=== PATIENT | female | born 1940 | race Caucasian/White ===

== ENCOUNTER 2017-08-07 16:01 | Emergency (ER) | payer MEDICARE, BC ==
[2017-08-07 16:11] VITALS: BP 186/70
--- NOTE | 2017-08-07 16:46 | UC ---
Dental HPI - HPI Summary HPI Summary: Pt presents with tooth #31 abscess for the last 3 months. She tells me that years ago she had an abscess on the lower right side of her mouth and the dentist told her to push on it to express the purulent matter and then leave it alone..eventually that went away. 3 months ago she developed an abscess in her upper right mouth around tooth #31 and has been expressing purulent matter from it ever since. Over the last 3 days she has had pain in right maxillary sinus and intermittent pain in her right frontal area radiating to the right parietal to right occipital and terminating at the right cervical region. These pains are not associated with any movement, have no gotten worse, and she denies that they are "shocks" or "stiffness". Denies fever, chills, recent illness, earache , headache other than mentioned above, dizziness, numbness, tingling, ST, SOB, chest pain, limb weakness, facial drooping, vision changes, or eye irritation. - History of Current Complaint Chief Complaint: UCRespiratory Stated Complaint: SINUS COMPLAINT Time Seen by Provider: 08/07/17 16:02 Hx Obtained From: Patient Onset/Duration: Gradual Onset Severity: Moderate Pain Intensity: 8 Pain Scale Used: 0-10 Numeric - Allergies/Home Medications Allergies/Adverse Reactions: Allergies Allergy/AdvReac Type Severity Reaction Status Date / Time No Known Allergies Allergy Verified 04/18/14 19:00 Home Medications: Home Medications Rivaroxaban TAB(*) [Xarelto 10 mg (*)] 08/07/17 [History] PMH/Surg Hx/FS Hx/Imm Hx Endocrine History: Diabetes, Thyroid Disease Cardiovascular History: Hypertension Respiratory History: Pulmonary Embolism Other History Of: Negative For: Anticoagulant Therapy - Surgical History Surgical History: Yes Surgery Procedure, Year, and Place: hysterectomy 1979 - Family History Known Family History: Positive: Unknown - Social History Occupation: Retired Lives: Alone Alcohol Use: None Substance Use Type: None Smoking Status (MU): Former Smoker Type: Cigarettes Length of Time of Smoking/Using Tobacco: 34 Have You Smoked in the Last Year: No Household Exposure Type: Cigarettes - Immunization History Most Recent Influenza Vaccination: unknown Most Recent Tetanus Shot: up to date Most Recent Pneumonia Vaccination: unknown Review of Systems Constitutional: Negative Skin: Negative Eyes: Negative ENT: Dental Pain Respiratory: Negative Cardiovascular: Negative Gastrointestinal: Negative Neurovascular: Negative Musculoskeletal: Negative Psychological: Negative All Other Systems Reviewed And Are Negative: Yes Physical Exam Triage Information Reviewed: Yes Appearance: Well-Appearing, Well-Nourished Vital Signs: Initial Vital Signs Temp 98.0 F 08/07/17 16:04 Pulse 93 08/07/17 16:04 Resp 18 08/07/17 16:04 BP 186/70 08/07/17 16:04 Pulse Ox 98 08/07/17 16:04 Vital Signs Reviewed: Yes Eyes: Positive: Conjunctiva Clear, Other: - EOMI. PERRLA.. Negative: Conjunctiva Inflamed, Discharge ENT: Positive: Hearing grossly normal - Tooth #31. No fluctuance or bogginess when palpating sinuses from oral cavity around this tooth., Pharynx normal, TMs normal, Dental tenderness - Tooth #31. No fluctuance or bogginess, Sinus tenderness - TTP over right maxiallary sinus. NTTP over ethmoid sinus., Uvula midline. Negative: Pharyngeal erythema, Nasal congestion, Nasal drainage, TM bulging, TM dull, TM red, Tonsillar swelling, Tonsillar exudate Dental: Positive: Percussion Tenderness @ - Tooth #31, Abscess @ - Tooth #31 with purulent matter around root of tooth, able to be expressed with palpation.. Negative: Gross Decay/Caries @, Dental Fracture @, Cellulitis @, Cervical Lymphadenopathy, Bleeding Neck: Positive: Supple, Nontender, No Lymphadenopathy, Other: - FROM. No rigidity. Negative brudzinski sign.. Negative: Nuchal Rigidity Respiratory: Positive: Chest non-tender, Lungs clear, Normal breath sounds, No respiratory distress, No accessory muscle use Cardiovascular: Positive: RRR, No Murmur, Pulses Normal Musculoskeletal: Positive: Strength Intact, ROM Intact, No Edema Neurological: Positive: Alert, Other: - A&Ox3. 3 word recall, remote, recent memory, ability to follow 2-step directions, and attention intact. CN II XII grossly intact. [id number] are intact. Gait with normal base. Romberg: maintains balance, no pronator drift. Sensations intact throughout. Normal speech. No facial drooping. Psychological: Positive: Age Appropriate Behavior Skin: Negative: rashes Dental Complaint Course/Dx - Course Course Of Treatment: Tooth #31 abscess. I spoke with Dr. Perez, whom also examined the patient, low suspicion for sinus abscess at this time. Will try po Augmentin. It was discussed with the patient that if her symptoms worsen or she develops new symptoms such as a fever, chills, swelling, increased pain, headache, dizziness, or increased drainage - she is to go to the ED. - Differential Dx/Diagnosis Differential Diagnosis/Dx: Dental Abscess Provider Diagnoses: Dental Abscess tooth #31 Discharge - Discharge Plan Condition: Stable Disposition: HOME Prescriptions: Amoxicillin/Clavulanate TAB* [Augmentin TAB 875*] 875 mg PO BID #20 tab Chlorhexidine MW 0.12% 473ML* [Peridex Mouth Wash 0.12%*] 15 ml MT BID #1 btl Patient Education Materials: Dental Abscess (ED) Referrals: Devin Scott MD [Primary Care Provider] - Additional Instructions: If you develop a fever, SOB, chest pain, neck pain, headache, vision changes, numbness, tingling, new or worsening symptoms - please go to the ED. Please call your dentist and schedule a follow up appointment for some time this week. Your blood pressure was high at todays visit. Please see your primary provider within 4 weeks for recheck and re-evaluation.
--- NOTE | 2017-08-10 18:48 | UC ---
Progress - Progress Note Progress Note: normal keya, MRSA neg Pt on Augmentin no change
== END 2017-08-07 17:03 | disposition home or self-care (01) ==
LOC: UCEAST 16:01
DX: K04.7 Periapical abscess without sinus (principal); I26.99 Other pulmonary embolism without acute cor pulmonale; Z79.01 Long term (current) use of anticoagulants; Z87.891 Personal history of nicotine dependence
CPT/HCPCS: 87070; 87205; 87640; 87641; 99212; G0463

== ENCOUNTER → 2017-11-09 10:41 | Day surgery (SDC) | payer MEDICARE, BC ==
[~2017-11-09 10:41] MED LIST: Clopidogrel TAB* 300 MG PO ONE; Flumazenil* 0.1 MG/ML 5 ML MDV ONE; Heparin 2 UNITS/ML IVPREMIX* 3,000 ML IV ONE; Heparin(*) 1000 UNIT/ML 10 ML VIAL CATH LAB IV ONE; Iodixanol* (CONTRAST) 320 MG/ML 100 ML SDV ONE; LORazepam TAB(*) 1 MG ONE; Lidocaine 1% INJ* 10 MG/ML 30 ML SDV ONE; Midazolam* 1 MG/ML 10 ML VIAL (10 MG) ONE; Naloxone* 0.4 MG/ML 1 ML VIAL ONE; ceFAZolin 1 GM VIAL(*) ONE; fentaNYL* 50 MCG/ML 5 ML VIAL (250 MCG VIAL) ONE; hydrALAZINE IV* 20 MG/ML VIAL ONE
[2017-11-09 12:01] LABS: INR 0.97 (0.77-1.02)
[2017-11-09 12:05] LABS: ABS Basophils 0.1 10^3/ul (0-0.2); ABS Eosinophils 0.3 10^3/ul (0-0.6); ABS Lymphocytes 1.3 10^3/ul (1.0-4.8); ABS Monocytes 0.8 10^3/ul (0-0.8); ABS Neutrophils 8.8 10^3/ul (1.5-7.7); ABS Nucleated RBC 0 10^3/ul; Eosinophil % 3.1 % (0-6); Hematocrit 38 % (35-47); Hemoglobin 12.1 g/dl (12.0-16.0); Lymphocyte % 11.7 % (25-47); Mean Corpuscular HGB Conc 32 g/dl (31-36); Mean Corpuscular Hemoglobin 29 pg (27-31); Mean Corpuscular Volume 92 fL (80-97); Mean Platelet Volume 8 um3 (7.4-10.4); Nucleated Red Blood Cells % 0; Platelet Count 230 10^3/ul (150-450); Red Blood Count 4.11 10^6/ul (4.0-5.4); Red Cell Distribution Width 16 % (10.5-15); White Blood Count 11.3 10^3/ul (3.5-10.8)
[2017-11-09 12:19] LABS: EGFR Non-African American 39.6 (>60)
[2017-11-09 17:55] VITALS: BP 145/67
--- NOTE | 2017-11-09 18:52 | PN ---
Progress Note - Progress Note Date of Service: 11/09/17 SOAP: Date of Service: 11/09/17 Subjective: No pain or nausea. Objective: Selected Entries 11/09/17 17:29 Temperature 97.5 F Temperature Temporal Artery Source Scan Pulse Rate 62 Respiratory 18 Rate Blood Pressure 145/67 (mmHg) O2 Sat by Pulse 95 Oximetry Patient on Room Yes Air NAD, AAO x 3 Right groin arteriotomy site is soft, nontender Dressing is C/D/I 2+ pulses palpated at right EXTRUSION DIE COORDINATOR, pop Cannot palpate DIRECTOR [employer] or DPA Foot is warm to touch Neuromuscular grossly intact right leg and foot Assessment: 77 YOF status post right leg arteriogram, balloon angioplasty of right popliteal artery, tibioperoneal trunk and peroneal artery. Attempt to revascularize the ostial occluded right [employer] and DAVE were not successful. Plan: 1. D/C to home after bedrest. 2. Plavix 75 mg PO daily x 6 months. 3. No aspirin in light of Xarelto. 4. Planned right 2nd toe amputation with Dr. Jane , 11/11/17 5. May retry cannulating the right [employer] at a later date.
--- NOTE | 2017-11-10 09:46 | RAD ---
Non Tunneled Central Venous Catheter Placement. Procedures performed: 1. Placement of a left common femoral vein non tunneled catheter with ultrasound and fluoroscopic guidance. 2. Venogram of the left common and external iliac veins and lower inferior vena cavogram. Date of service: November 09, 2017 Indication for procedure: 1. Inability to acquire an maintained peripheral venous access prior to arterial angiography. 2. History of lower extremity DVT. Comparison: None Contrast: 5 mL of diluted Visipaque 320. Fluoroscopy Time: Approximately 30 seconds Vessels Accessed: Percutaneous access was obtained with ultrasound guidance in the left common femoral vein towards the heart. Anesthesia: 1% lidocaine injected locally at the venotomy site. Additional medications: Ativan 1 mg p.o. Procedure narration and imaging findings: Ultrasound of the left common femoral vein demonstrated the vein to patent and compressible. Math Teacher images were saved. The patient was placed in the supine position in the fluoroscopy suite and the bilateral groins were prepped and draped according to standard sterile protocol. A formal time out was performed by Dr. Cabrera in the presence of the IR staff and all agreed on the patient, procedure and laterality. The skin overlying the left common femoral vein was anesthetized with 1% lidocaine. Real time ultrasound imaging shows the left common femoral vein is patent and determined to be adequate for catheter placement. Utilizing real time ultrasound visualization the left common femoral vein was accessed with an 18 gauge needle. An image was recorded and saved confirming appropriate intraluminal position of the needle tip. Blood return further confirmed position. Through the needle and under fluoroscopic control a 0.035 inch guidewire was advanced in the cephalad direction into the inferior vena cava. Images of the wire in the IVC were recorded. Over the wire a 5-Setswana SideArm access sheath was advanced under fluoroscopic control until the tip terminated at the left external iliac vein. Contrast venography was performed with dilute Visipaque 320 demonstrating patency of the left external and common iliac veins with brisk unimpeded flow into the IVC. Tubing was connected to the central venous catheter and the catheter was secured to the left groin with sterile gauze and Tegaderm. The extended tubing was then provided to the interventional radiology nurse for the purpose of medication and fluid administration during the course of the planned arterial angiographic procedure to follow. SUMMARY OF PROCEDURE, IMAGING FINDINGS AND INTERVENTIONS PERFORMED: 1. Diagnostic studies performed: * Venous access was obtained at the left common femoral vein in the antegrade direction (i.e. towards the heart) with ultrasound guidance. A sonographic image was recorded. 2. Interpretation of diagnostic studies performed: * Venography performed with the tip of the access sheath in the left external iliac vein demonstrates brisk patent flow in the left common and external iliac veins continuing unimpeded into the inferior vena cava. 3. Surgical interventions performed: * Placement of a non tunneled left common femoral vein central access catheter with ultrasound and fluoroscopic guidance. PLAN: The non-tunneled Central venous catheter will be removed prior to the patient's discharge from the hospital.
--- NOTE | 2017-11-10 11:48 | RAD ---
CPT II Codes: 6045F Procedure(s) performed: 1. Diagnostic right lower extremity arteriogram. 2. Balloon angioplasty of right popliteal artery, tibioperoneal trunk and right peroneal artery. 3. Unsuccessful attempt at retrograde ultrasound-guided access of the right posterior tibial artery. 4. Percutaneous minx closure device to the right common femoral artery. 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 Comparison: MONI dated November 05, 2017 Contrast: 75 mL Visipaque 320 Fluoroscopy Time: 15.7 minus minutes Vessels Accessed: Percutaneous access was obtained with ultrasound guidance in the right common femoral artery in the antegrade direction towards the right foot. Catheter arteriography, with the catheter tip located within the lumen of the following arteries, was performed at the right common femoral artery, right superficial femoral artery, right popliteal artery and distal right posterior tibial artery. Anesthesia: Conscious sedation with IV Fentanyl and Versed as well as local 1% lidocaine injected locally at the arteriotomy site. Conscious sedation time: Timeout: 1351 hours Case end: 1651 hours Total conscious sedation time: 3 hours Additional medications: * Ancef 1 g IV * IV heparin 7000 Units to achieve a goal ACT of 250-300. * The patient received 1 mg of p.o. Ativan prior to the onset of the procedure. * Duodenum the procedure the patient received hydralazine 10 mg IV to reduce hypertension. PROCEDURE NOTE AND INTRAPROCEDURAL IMAGING FINDINGS: Immediately prior to the procedure the patient signed consent after thoroughly discussing all risks, benefits and alternative therapies. The patient was positioned on the fluoroscopy table in the supine position and the bilateral groins and right ankle were shaved, prepped and the patient was draped in standard sterile fashion. Using fluoroscopic imaging the location of the right common femoral head was marked externally with a skin marker on the patient's groin. Utilizing sonographic guidance and palpation, the right common femoral artery was cannulated overlying the femoral head with an 21-gauge needle. An ultrasound image was saved. A microwire was slowly and smoothly advanced into the common femoral artery and distally into the right superficial femoral artery under fluoroscopic imaging. No severe buckling of the wire was visualized to indicate dissection. With the wire securing percutaneous arterial access, the needle was removed and a 5-Greek catheter was advanced into the right common femoral artery. The microwire and inner stiffeners were removed and replaced with a 0.035 inch Bentson wire. Over the Bentson wire, a 5-Greek SideArm access sheath was advanced under fluoroscopic control until the tip terminating in the proximal right superficial femoral artery. To further characterize and exactly locate the extent of atherosclerotic disease involving the right lower extremity diagnostic catheter arteriography was necessary. Diagnostic arteriography was performed through the side arm of the access sheath demonstrating patency of the right distal external iliac artery, common femoral artery and proximal portions of the femoral profundus and superficial femoral artery. With the wire still in place arteriography of the remaining right superficial femoral artery and proximal popliteal artery was performed demonstrating adequate patency and a moderate amount of calcified atherosclerosis. Over the wire a 5-Greek curved tip catheter was advanced until the tip terminating in the popliteal artery. Catheter arteriography was performed showing moderate stenoses at the right popliteal artery and high-grade stenosis at the tibioperoneal trunk extending into the peroneal artery. Neither the origins of the anterior tibial artery or the posterior tibial artery where readily visible. With the catheter tip in the same position more distal arteriography was performed as far as the right midfoot which demonstrated single vessel runoff provided by the peroneal artery. The peroneal artery has at least 2 foci of high-grade stenosis at the mid-level portion of the artery. There is collateralized filling by the peroneal artery and intramuscular branches of the distal most right posterior tibial artery which then provides in-line flow to the Plantar arteries. There is reconstituted filling of the dorsalis pedis artery which remains diminutive. At this point attention was turned to the distal right posterior tibial artery at the level of the ankle with the intention of acquiring retrograde percutaneous access of the posterior tibial artery. Utilizing ultrasound guidance multiple attempts were made to cannulate the right posterior tibial artery without success. The heavy calcification to be displaced against the needle tip. At several points the needle tip appeared to be within the lumen of the right posterior tibial artery but the microwire would not advance. At one point it was thought luminal access had been obtained by gentle contrast injection revealed extraluminal access with dissection. Finally after multiple attempts pedal access was abandoned and gentle manual pressure was held for 5 minutes over the medial right ankle. Over the 0.035 inch wire the short 5-Greek access sheath was exchanged for a 45 cm length 6-Greek access sheath which was then advanced under fluoroscopic control until the tip was in the distal superficial femoral artery. Additional arteriogram was performed again showing mild stenoses at the femoropopliteal junction with high-grade stenosis at the tibioperoneal trunk and proximal peroneal artery. Utilizing a 0.014 inch Terumo Advantage wire the high-grade stenosis was crossed and the tip of the catheter was advanced to the distal peroneal artery securing access across the stenoses. Over the wire a 2.5 mm x 60 mm Nanocross balloon was advanced and balloon angioplasty was performed across the high-grade stenosis at the right tibioperoneal trunk and peroneal arteries. Balloon angioplasty was held for a minimum of 2 minutes anticipation of vasospasm. The balloon was then moved inferiorly and balloon angioplasty was performed at the mid-level peroneal artery where 2 short focal stenoses were seen. Balloon angioplasty remain inflated for a total of 2 1/2 minutes. The balloon was removed and replaced with a 4 mm x 60 mm Nanocross balloon which was advanced to the right tibioperoneal trunk and proximal peroneal artery. Balloon angioplasty was performed slowly further dilating the area of high-grade stenosis. The balloon remained inflated for a total of 4 minutes prior to deflation. The access sheath was drawn back more proximally in the superficial femoral artery and the same 4 mm balloon was utilized to balloon angioplasty the proximal popliteal artery where to moderate stenoses were seen. The balloon was maximally inflated to just below "burst pressure" corresponding to a diameter measurement of 4.3 mm. With the tip of the sheath in the distal superficial femoral artery contrast arteriography showed brisk flow through the distal SFA into the popliteal artery and through the previously stenotic right tibioperoneal trunk and peroneal artery as far as the level of the ankle collateralized filling of the distal most right SENIOR NETWORK ADMINISTRATOR and right dorsalis pedis arteries remained. A 0.035 inch wire was reinserted into the right superficial femoral artery and the 45 cm length 6-Greek access sheath was exchanged for an 11 mm 6-Greek access sheath for the purpose of percutaneous closure device deployment. Through the side arm of the access sheath arteriography of the right common femoral artery demonstrated an appropriate puncture of the common femoral artery above the bifurcation and below the inferior epigastric artery. After an appropriate resterilization of the arteriotomy and exchange for new sterile gloves, a Minx closure device was deployed at the common femoral arteriotomy and pressure held for approximately 15 minutes. There were no signs of bleeding at the percutaneous arterial access site and the site was dressed with sterile gauze and Tegaderm. There is no signs of hematoma formation are active bleeding at the medial right ankle. The patient tolerated the procedure well and was transferred to angiography holding bay for standard post procedural observation. SUMMARY OF PROCEDURE, IMAGING FINDINGS AND INTERVENTIONS PERFORMED: 1. Diagnostic studies performed: * Arterial access was obtained at the right common femoral artery in the antegrade direction (i.e. towards the foot) with ultrasound guidance. A sonographic image was recorded. * Microcatheter access was obtained in the posterior tibial artery. * Diagnostic catheter angiography (necessary to perform the appropriate interventions) was performed with the catheter tip in the right common femoral artery, right superficial femoral artery, right popliteal artery and distal right posterior tibial artery.. * Catheter arteriography was performed of the entire arterial system of the right lower extremity from the right external iliac artery as far as the right mid foot pedal arteries. * At the conclusion of the procedure arteriography was performed through the side arm of the access sheath to image the distal right external iliac artery, right common femoral artery and proximal superficial femoral artery and femoral profundus. 2. Interpretation of diagnostic studies performed: * There are mild stenoses identified at the proximal right popliteal artery. * There is single vessel runoff provided by the peroneal artery with ostial occlusion lesions of the right DAVE and SENIOR NETWORK ADMINISTRATOR. * High-grade stenosis extending through the tibioperoneal trunk into the proximal peroneal artery. There are 2 additional moderate stenoses at the mid-level right peroneal artery. * After attempting retrograde cannulation of the distal right posterior tibial artery gentle contrast injection demonstrated extra vascular extravasation with likely small dissection. Retrograde right SENIOR NETWORK ADMINISTRATOR access was aborted after this. * Arteriography performed for the purpose of deploying a percutaneous arterial closure device demonstrates adequately patent right external iliac artery, common femoral artery and proximal superficial femoral artery and femoral profundus. 3. Surgical interventions performed: * Balloon angioplasty with 2.5 x 16 mm and 4.0 x 60 mm Nanocross balloons at the right popliteal artery, right tibioperoneal trunk and right peroneal artery. * Closure of the right common femoral artery was achieved with a Minx closure device followed by 15 minutes of gentle manual pressure. 4. Interpretation of interventions performed: * Final arteriography demonstrated brisk in-line flow through the previously stenotic right popliteal artery, tibioperoneal trunk and peroneal artery. Augmented arterial flow is evident through the right peroneal artery which provides collateral filling to the right dorsalis pedis and distal posterior tibial arteries. Plan: 1. In the presence of the patient's Xarelto therapy, aspirin 81 mg daily will be deferred. 2. Plavix 75 mg p.o. daily x 6 months. 3. Clinical and imaging follow-up according to standard Interventional Radiology protocol. 4. The patient is due for right second toe amputation October. Depending on the patient's wound healing consideration will be given to either reattempting retrograde cannulation of the right posterior tibial artery versus consultation with vascular surgery for surgical bypass.
== END | disposition home or self-care (01) ==
LOC: CHICATH 10:41
PROVIDERS: ATTEND Radiology Diagnostic Radiology
DX: I96 Gangrene, not elsewhere classified (principal); Z86.718 Personal history of other venous thrombosis and embolism; Z87.891 Personal history of nicotine dependence; Z82.49 Family history of ischemic heart disease and other diseases of the circulatory system; Z79.4 Long term (current) use of insulin
CPT/HCPCS: 36415; 36556; 76937; 77001; 80048; 85025; 85610; 85730; 99156; 99157; A9270-GY; C1725; C1887; C1894; J0360; J0690; J1644; J2250; J2310; J3010

== ENCOUNTER 2017-11-11 07:32 | Day surgery (SDC) | payer MEDICARE, BC ==
[~2017-11-11 07:32] MED LIST changes: +Buffered Lidocaine 0.9% SYRIN* 5 ML/SYR SYRINGE INTRADERM ONE; +CEFAZOLIN IVPB ONE; -Clopidogrel TAB* 300 MG PO ONE; +Famotidine IV* 10 MG/ML 2 ML (20 mg) IV ONE; -Flumazenil* 0.1 MG/ML 5 ML MDV ONE; +Heparin 2 UNITS/ML IVPREMIX* 0 ML IV ONE; -Heparin 2 UNITS/ML IVPREMIX* 3,000 ML IV ONE; -Heparin(*) 1000 UNIT/ML 10 ML VIAL CATH LAB IV ONE; -Iodixanol* (CONTRAST) 320 MG/ML 100 ML SDV ONE; -LORazepam TAB(*) 1 MG ONE; +Metoclopramide IV* 5 MG/ML 2 ML VIAL IV SLOW PU ONE; -Midazolam* 1 MG/ML 10 ML VIAL (10 MG) ONE; +NS 0.9% IVPB ONE; -Naloxone* 0.4 MG/ML 1 ML VIAL ONE; -ceFAZolin 1 GM VIAL(*) ONE; -fentaNYL* 50 MCG/ML 5 ML VIAL (250 MCG VIAL) ONE; -hydrALAZINE IV* 20 MG/ML VIAL ONE
[2017-11-11] MEDS ORDERED: Metoclopramide IV* 5 MG/ML 2 ML VIAL ONE (07:41)
[2017-11-11] MEDS ORDERED: Famotidine IV* 10 MG/ML 2 ML (20 mg) ONE (07:41)
[2017-11-11] MEDS ORDERED: ceFAZolin 2 GM PREMIX (*) 2 GM/50 ML BAG IVPB ONE (07:42)
[2017-11-11] MEDS ORDERED: Buffered Lidocaine 0.9% SYRIN* 5 ML/SYR SYRINGE ONE (07:42)
[2017-11-11] MEDS ORDERED: fentaNYL* 50 MCG/ML 2 ML VIAL (100 MCG VIAL) ONE (10:27)
[2017-11-11] MEDS ORDERED: Midazolam* 1 MG/ML 5 ML VIAL (5 MG) ONE (10:27)
[2017-11-11] MEDS ORDERED: Lidocaine 2% PF * 5 ML VIAL ONE (10:41)
[2017-11-11] MEDS ORDERED: Propofol* 10 MG/ML 20 ML BTL IV PUSH ONE (10:41)
[2017-11-11] MEDS ORDERED: HYDROcodone/ACETAMIN 5-325 MG* 1 TAB PO PRN (10:59)
[2017-11-11] MEDS ORDERED: oxyCODONE/Acetamin 5/325 MG* TAB PO PRN (10:59)
[2017-11-11] MEDS ORDERED: fentaNYL* 50 MCG/ML 2 ML VIAL (100 MCG VIAL) IV PRN (10:59)
[2017-11-11] MEDS ORDERED: DiMENhydriNATE IV* 50 MG/ML VIAL IV PUSH PRN (10:59)
[2017-11-11] MEDS ORDERED: Naloxone* 0.4 MG/ML 1 ML VIAL IV PRN (10:59)
--- NOTE | 2017-11-11 11:35 | OP ---
Operative Report - Blank - Operative Report Date of Operation: 11/11/17 Note: PATIENT: Mitra Munoz DATE OF : 38 DATE OF SURGERY: 11/11/17 SURGEON: Mani Jane MD SENIOR RESEARCH ENGINEER: HONORIO Gamboa, whos assistance was necessary for positioning, retraction, help with instrumentation, and closure. 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 INDICATIONS FOR PROCEDURE: Mitra presented with a dry gangrenous right 2nd toe. Both operative and non operative treatment alternatives were reviewed. Further, the nature and risks of surgery were reviewed in careful detail. Our discussions regarding the risks of surgery included, but were not limited to, infection, wound problems, nerve injury, neuroma, RSD, persistent symptoms, blood clot, failure of the surgery, need for further amputation or surgery, and even the remote chance of catastrophic complication, including loss of limb. DESCRIPTION OF PROCEDURE: The patient was seen in the preoperative holding unit and informed written consent was obtained. The appropriate extremity was marked. The patient was then brought to the operating room and carefully positioned on the operating room table. Anesthesia was induced. All bony prominences were padded with great care. A chlorhexidine based pre-scrub was performed followed by a chloraprep prep and drape in standard sterile fashion. A surgical safety pause was then conducted in which we confirmed the appropriate patient, extremity, planned procedure, availability of equipment, indication and administration of prophylactic antibiotics, and DVT prophylaxis in the form of a compression boot on the non-surgical extremity. I made an incision at the base of the toe, proximal to the gangrenous area. The phalanges were dissected out and the toe was amputated at the level of the MTP joint. The toe was then sent to pathology. We then irrigated copiously. There was minimal bleeding at the base of the wound. We closed with 3-0 monocryl and then 3-0 nylon and then placed a sterile dressing. The patient was then awakened from anesthesia and transferred to the recovery room in stable condition. There were no complications. All needle and sponge counts were correct at the end of the case. ATTESTATION: I attest I was present and scrubbed and performed the critical portions of the procedure myself. POSTOPERATIVE PLAN: The patient may be heel weight-bearing in a post-operative shoe and will follow up will be in two weeks for a wound check.
[2017-11-11 12:21] VITALS: BP 128/60
== END 2017-11-11 12:28 | disposition home or self-care (01) ==
LOC: OR 07:32
PROVIDERS: ATTEND Orthopaedic Surgery
DX: I96 Gangrene, not elsewhere classified (principal); L97.511 Non-pressure chronic ulcer of other part of right foot limited to breakdown of skin; E10.52 Type 1 diabetes mellitus with diabetic peripheral angiopathy with gangrene; I26.99 Other pulmonary embolism without acute cor pulmonale; I10 Essential (primary) hypertension; E78.00 Pure hypercholesterolemia, unspecified; M10.9 Gout, unspecified; Z88.8 Allergy status to other drugs, medicaments and biological substances; Z87.891 Personal history of nicotine dependence; Z79.4 Long term (current) use of insulin
CPT/HCPCS: 88305; 88311; J0690; J1644; J2250; J2704; J2765; J3010

== ENCOUNTER 2017-12-18 12:19 | Emergency (ER) | payer MEDICARE, BC ==
[2017-12-18] MEDS ORDERED: oxyCODONE/Acetamin 5/325 MG* TAB PO ONE (13:51)
[2017-12-18 15:26] VITALS: BP 174/65
--- NOTE | 2017-12-20 10:03 | ED ---
Aleshia Ochoa Jason, scribed for Calra Sánchez MD on 12/18/17 at 1353 . ED Suture/Wound Check - HPI Summary HPI Summary: This patient is a 77 year old F presenting to [facility] with a chief complaint of wound check since 1900 1 day ago. The patient states she a bypass in the RLE and was sent home with a wound vacuum. She is now presenting to the [facility] because the wound vacuum was alarming. The patient rates the pain 0/10 in severity. Symptoms aggravated by nothing. Symptoms alleviated by nothing. Patient denies fever, n/v/d, chills, and worsening pain. - History Of Current Complaint Chief Complaint: EDExtremityLower Stated Complaint: WOUND VAC NOT WORKING Time Seen by Provider: 12/18/17 13:28 Hx Obtained From: Patient Onset/Duration: Sudden Onset, Still Present Pain Intensity: 0 Pain Scale Used: 0-10 Numeric - Allergies/Home Medications Allergies/Adverse Reactions: Allergies Allergy/AdvReac Type Severity Reaction Status Date / Time STATINS Allergy Severe ANKLES Uncoded 12/18/17 12:26 SWELL Home Medications: Home Medications Allopurinol TAB* [Zyloprim 300 MG TAB*] 300 mg PO DAILY 12/18/17 [History Confirmed 12/18/17] Clobetasol Propionate/Emoll [Clobetasol Propionate Emo] 0.05 % TOPICAL DAILY PRN 12/18/17 [History Confirmed 12/18/17] Gabapentin CAP(*) [Neurontin 100 mg CAP(*)] 200 mg PO TID 12/18/17 [History Confirmed 12/18/17] Magnesium Oxide TAB* [MagOx 400 TAB*] 400 mg PO DAILY 12/18/17 [History Confirmed 12/18/17] Multivitamins/Minerals TAB* [Theragran/minerals TAB*] 1 tab PO DAILY 12/18/17 [ History Confirmed 12/18/17] Polyethylene Glycol 3350* [Miralax*] 17 gm PO DAILY PRN 12/18/17 [History Confirmed 12/18/17] Valsartan [Valsartan 320 MG] 320 mg PO DAILY 12/18/17 [History Confirmed ] Vit C/E/Zn/Coppr/Lutein/Zeaxan [Preservision Areds 2 Softgel] 1 each PO DAILY [History Confirmed 12/18/17] hydrALAZINE TAB* [Apresoline TAB*] 50 mg PO TID 12/18/17 [History Confirmed ] traMADol TAB* [Ultram*] 50 mg PO Q6HR PRN MDD 200 mg 12/18/17 [History Confirmed 12/18/17] PMH/Surg Hx/FS Hx/Imm Hx Previously Healthy: No Endocrine/Hematology History: Reports: Hx Diabetes - type 2 dm, Hx Thyroid Disease - hypothyroid Denies: Hx Anticoagulant Therapy Cardiovascular History: Reports: Hx Coronary Artery Disease, Hx Hypertension - controlled with meds, Other Cardiovascular Problems/Disorders - LBBB Denies: Hx Congestive Heart Failure, Hx Pacemaker/ICD Respiratory History: Reports: 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 , Other Respiratory Problems/Disorders - uses O2 prn sob, sopposed to use at night Denies: Hx Asthma, Hx Chronic Obstructive Pulmonary Disease (COPD) GI History: Reports: Hx Irritable Bowel - colitis History: Denies: Hx Renal Disease Musculoskeletal History: Reports: Hx Arthritis, Hx Gout, Other Musculoskeletal History - gout Sensory History: Reports: Hx Cataracts - both, Hx Contacts or Glasses - for reading Denies: Hx Hearing Aid Opthamlomology History: Reports: Hx Cataracts - both, Hx Contacts or Glasses - for reading Neurological History: Denies: Hx Dementia, Hx Seizures Psychiatric History: Denies: Hx Panic Disorder, Hx Substance Abuse - Cancer History Hx Chemotherapy: No - Surgical History Surgery Procedure, Year, and Place: hysterectomy and appendectomy 1979. tonsillectomy 1977 Hx Anesthesia Reactions: No Infectious Disease History: No Infectious Disease History: Denies: Hx Hepatitis, Hx Human Immunodeficiency Virus (HIV), Traveled Outside the [place] in Last 30 Days - Family History Known Family History: Positive: Diabetes - mother - Social History Alcohol Use: None Substance Use Type: Reports: None Smoking Status (MU): Former Smoker Type: Cigarettes Amount Used/How Often: social smoker off and on for 10 years less than 1/2ppd Length of Time of Smoking/Using Tobacco: 34 Have You Smoked in the Last Year: No Review of Systems Negative: Fever, Chills Negative: Vomiting, Diarrhea, Nausea Musculoskeletal: Negative - worsening pain Positive: Other - RLE wound All Other Systems Reviewed And Are Negative: Yes Physical Exam - Summary Physical Exam Summary: GENERAL: ~Patient is a well developed and nourished female who is lying comfortable in the stretcher. ~Patient is not in any acute respiratory distress. HEAD AND FACE: Normocephalic EYES: PERRLA, EOMI x 2. EARS: Hearing grossly intact. MOUTH: Oropharynx within normal limits. NECK: Supple, trachea is midline, no adenopathy, no JVD, no carotid bruit. CHEST: Symmetric, no tenderness at palpation LUNGS: Clear to auscultation bilaterally. No wheezing or crackles. CVS: Regular rate and rhythm, S1 and S2 present, no murmurs or gallops appreciated. ABDOMEN: Soft, non-tender. Bowel sounds are normal. No abdominal abnormal pulsations. EXTREMITIES: Full ROM in all major joints, no edema, no cyanosis or clubbing. Sutures are intact on the medial aspect of the RLE. NEURO: Alert and oriented x 3. No acute neurological deficits. Speech is normal and follows commands. SKIN: Dry and warm Triage Information Reviewed: Yes Vital Signs On Initial Exam: Initial Vitals Temp Pulse Resp BP Pulse Ox 97.4 F 69 16 168/62 95 12/18/17 12:24 12/18/17 12:24 12/18/17 12:24 12/18/17 12:24 12/18/17 12:24 Vital Signs Reviewed: Yes Diagnostics - Vital Signs Vital Signs Temp Pulse Resp BP Pulse Ox 12/18/17 12:24 97.4 F 69 16 168/62 95 - Laboratory Lab Statement: Any lab studies that have been ordered have been reviewed, and results considered in the medical decision making process. Course/Dx - Course Assessment/Plan: Wound vacuum was changed by the ED nurse without complication. Patient will follow up with her vascular surgeon. Patient is agreeable with this plan. - Clinical Impression Provider Diagnoses: Encounter for wound re-check Discharge - Sign-Out/Discharge Documenting (check all that apply): Discharge/Admit/Transfer - Discharge Plan Condition: Stable Disposition: HOME Patient Education Materials: Care For Your Stitches (ED), Acute Wound Care (ED) , Chronic Wound Care (ED) Referrals: Devin Scott MD [Primary Care Provider] - 3 Days Additional Instructions: RETURN TO THE EMERGENCY DEPARTMENT FOR CHANGING OR WORSENING SYMPTOMS. The documentation as recorded by the Aleshia ansari Jason accurately reflects the service I personally performed and the decisions made by me, Carla Sánchez MD.
== END 2017-12-18 15:26 | disposition home or self-care (01) ==
LOC: ED 12:19
DX: T81.89XA Other complications of procedures, not elsewhere classified, initial encounter (principal); E11.9 Type 2 diabetes mellitus without complications; Z79.4 Long term (current) use of insulin; E03.9 Hypothyroidism, unspecified; I25.10 Atherosclerotic heart disease of native coronary artery without angina pectoris; I10 Essential (primary) hypertension; I44.7 Left bundle-branch block, unspecified; Z86.718 Personal history of other venous thrombosis and embolism; Z86.711 Personal history of pulmonary embolism; Z79.01 Long term (current) use of anticoagulants; Z87.891 Personal history of nicotine dependence; Z88.8 Allergy status to other drugs, medicaments and biological substances
CPT/HCPCS: 99282; A9270-GY

== ENCOUNTER 2018-01-04 14:21 | Emergency (ER) | payer MEDICARE, BC ==
[2018-01-04] MEDS ORDERED: Vancomycin(*) 1,000 MG in NS 0.9% 250 ML* 250 ML IVPB ONE (15:09)
[2018-01-04] MEDS ORDERED: metroNIDAZOLE IV 500 MG/100ML* 500 MG/100 ML BAG IVPB ONE (15:09)
[2018-01-04] MEDS ORDERED: Cefepime(*) 2 GM in NS 0.9% 50 ML* 50 ML IVPB ONE (15:09)
[2018-01-04] MEDS ORDERED: NS 0.9% 1000 ML* 1,000 ML IV SCH (15:15)
[2018-01-04] MEDS ORDERED: Cefepime 2 GM in Dextrose(*) 2 GM/50 ML BAG IV ONE (15:30)
[2018-01-04 16:32] LABS: ABS Basophils 0.1 10^3/ul (0-0.2); ABS Eosinophils 0.4 10^3/ul (0-0.6); ABS Lymphocytes 1.3 10^3/ul (1.0-4.8); ABS Monocytes 0.8 10^3/ul (0-0.8); ABS Neutrophils 5.9 10^3/ul (1.5-7.7); ABS Nucleated RBC 0 10^3/ul; Eosinophil % 4.8 % (0-6); Hematocrit 29 % (35-47); Hemoglobin 9.6 g/dl (12.0-16.0); Lymphocyte % 15.3 % (25-47); Mean Corpuscular HGB Conc 33 g/dl (31-36); Mean Corpuscular Hemoglobin 27 pg (27-31); Mean Corpuscular Volume 82 fL (80-97); Mean Platelet Volume 7.1 um3 (7.4-10.4); Nucleated Red Blood Cells % 0; Platelet Count 335 10^3/ul (150-450); Red Blood Count 3.59 10^6/ul (4.0-5.4); Red Cell Distribution Width 17 % (10.5-15); White Blood Count 8.5 10^3/ul (3.5-10.8)
[2018-01-04 16:54] LABS: EGFR Non-African American 37.3 (>60)
[2018-01-04 16:59] LABS: INR 1.17 (0.77-1.02)
--- NOTE | 2018-01-04 17:11 | RAD ---
INDICATION: Right leg pain. Infection. Recent bypass graft surgery. COMPARISON: None TECHNIQUE: Axial scans of the lower extremity were obtained from the adductor canal through the ankle. FINDINGS: There is diffuse subcutaneous edema and skin induration about the medial distal leg. There is a skin defect consistent with wound dehiscence and/or ulceration. The findings suggest diffuse cellulitic response. There is no subcutaneous emphysema. By history there is a bypass graft. No contrast was given and therefore vascular patency cannot be assessed. The [place] popliteal artery and tibial veins show extensive calcifications. Doppler interrogation would be the best study to evaluate for graft patency. IMPRESSION: NONCONTRAST CT IMAGING SHOWS DIFFUSE SUBCUTANEOUS EDEMA AND SKIN INDURATION CONSISTENT WITH CELLULITIC RESPONSE. GRAFT PATENCY IS NOT ASSESSED ON THIS EXAMINATION (SEE ABOVE).
[2018-01-04] MEDS ORDERED: traMADol TAB* 50 MG PO ONE (18:56)
--- NOTE | 2018-01-04 19:15 | ED ---
Hakeem Ochoa Natalie, scribed for Mynor Tesfaye MD on 01/04/18 at 1435 . Lower Extremity - HPI Summary HPI Summary: The patient is a 77 y/o F presenting to the ED c/o pain in laceration in right leg from knee to ankle s/p vascular bypass surgery and second right toe amputation on 11/25/[address] Isaac in [place]. She was in the ICU until 11/29/17, and then in the rehab facility until 12/17/17. She was not given any instructions for caring for the wound, but she was given a wound vac, which she wasnt supposed to use by herself. She ended up at [facility] on 12/25/17 so that she could get the wound care she needed. However, the wound has not been getting taken care of, and the leg seems to be infected. The skin is starting to deteriorate. She was put on Clindamycin yesterday for the infection. Pt additionally c/o fever for the last few days. She is able to walk on her leg; she uses a walking boot. Hx of diabetes. - History of Current Complaint Chief Complaint: EDExtremityLower Stated Complaint: POSSIBLE LEG INFECTION Time Seen by Provider: 01/04/18 14:23 Hx Obtained From: Patient Mechanism Of Injury: Other - bypass surgery and second right toe amputation Onset of Pain: Days Onset/Duration: Days Severity Initially: Mild Severity Currently: Mild Pain Intensity: 0 Pain Scale Used: 0-10 Numeric Timing: Constant Location: Is Discrete @ - right leg and foot Associated Signs And Symptoms: Positive: Fever Able to Bear Weight: Yes - wears walking boot - Allergies/Home Medications Allergies/Adverse Reactions: Allergies Allergy/AdvReac Type Severity Reaction Status Date / Time [id number]-[id number]-Sbd Reductase Allergy Severe See Comment Verified 01/04/18 15:25 Inhibitor Home Medications: Home Medications Acetaminophen TAB* [Tylenol TAB*] 650 mg PO Q6H PRN MDD p 01/04/18 [History Confirmed 01/04/18] Aspirin EC TAB* [Ecotrin EC Low Dose 81 MG*] 81 mg PO DAILY 01/04/18 [History Confirmed 01/04/18] Clindamycin Cap(NF) [Clindamycin Cap 300 mg Cap(NF)] 300 mg PO Q6H 01/04/18 [ History Confirmed 01/04/18] Gabapentin CAP(*) [Neurontin 100 mg CAP(*)] 200 mg PO BEDTIME 01/04/18 [History Confirmed 01/04/18] Insulin ASPART (NF) [Novolog (NF)] 0 - 10 units SUBCUT AC 01/04/18 [History Confirmed 01/04/18] Lactobacillus Acidophilus* [Culturelle*] 1 cap PO BID 01/04/18 [History Confirmed 01/04/18] Metoprolol Tartrate TAB* [Lopressor TAB*] 50 mg PO DAILY 01/04/18 [History Confirmed 01/04/18] Rivaroxaban TAB(*) [Xarelto 15 mg(*)] 15 mg PO DAILY 01/04/18 [History Confirmed 01/04/18] Senna TAB* [Senokot TAB*] 2 tab PO DAILY 01/04/18 [History Confirmed 01/04/18] PMH/Surg Hx/FS Hx/Imm Hx Endocrine/Hematology History: Reports: Hx Diabetes - type 2 dm, Hx Thyroid Disease - hypothyroid Denies: Hx Anticoagulant Therapy Cardiovascular History: Reports: Hx Coronary Artery Disease, Hx Hypertension - controlled with meds, Other Cardiovascular Problems/Disorders - LBBB Denies: Hx Congestive Heart Failure, Hx Pacemaker/ICD Respiratory History: Reports: 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 , Other Respiratory Problems/Disorders - uses O2 prn sob, sopposed to use at night Denies: Hx Asthma, Hx Chronic Obstructive Pulmonary Disease (COPD) GI History: Reports: Hx Irritable Bowel - colitis History: Denies: Hx Renal Disease Musculoskeletal History: Reports: Hx Arthritis, Hx Gout, Other Musculoskeletal History - gout Sensory History: Reports: Hx Cataracts - both, Hx Contacts or Glasses - for reading Denies: Hx Hearing Aid Opthamlomology History: Reports: Hx Cataracts - both, Hx Contacts or Glasses - for reading Neurological History: Denies: Hx Dementia, Hx Seizures Psychiatric History: Denies: Hx Panic Disorder, Hx Substance Abuse - Cancer History Hx Chemotherapy: No - Surgical History Surgery Procedure, Year, and Place: hysterectomy and appendectomy 1979. tonsillectomy 1977 Hx Anesthesia Reactions: No Infectious Disease History: No Infectious Disease History: Denies: Hx Hepatitis, Hx Human Immunodeficiency Virus (HIV), Traveled Outside the [place] in Last 30 Days - Family History Known Family History: Positive: Diabetes - mother - Social History Alcohol Use: None Substance Use Type: Reports: None Smoking Status (MU): Former Smoker Type: Cigarettes Amount Used/How Often: social smoker off and on for 10 years less than 1/2ppd Length of Time of Smoking/Using Tobacco: 34 Have You Smoked in the Last Year: No Review of Systems Positive: Fever Positive: Other - right second toe amputated, painful surgical wound on mid- lower right leg All Other Systems Reviewed And Are Negative: Yes Physical Exam - Summary Physical Exam Summary: General: well-appearing, no pain distress Skin: warm, color reflects adequate perfusion, dry, surgical incision on medial aspect of RLE, lower half of incision is an open wound with granulation tissue that measures approximately 12cm long by 5cm wide, purulent drainage with surround erythema Head: normal Eyes: EOMI, JENNIFER ENT: normal Neck: supple, nontender Respiratory: CTA, breath sounds present Cardiovascular: RRR Abdomen: soft, nontender Bowel: present Musculoskeletal: normal, strength/ROM intact, great toe has normal capillary refill with good sensation, positive dorsalis pedis pulse Neurological: normal, sensory/motor intact, A&O x3 Psychological: affect/mood appropriate Triage Information Reviewed: Yes Vital Signs On Initial Exam: Initial Vitals Temp Pulse Resp BP Pulse Ox 97.7 F 74 17 158/80 94 01/04/18 14:22 01/04/18 14:22 01/04/18 14:22 01/04/18 14:22 01/04/18 14:22 Vital Signs Reviewed: Yes Diagnostics - Vital Signs Vital Signs Temp Pulse Resp BP Pulse Ox 01/04/18 14:22 97.7 F 74 17 158/80 94 - Laboratory Lab Results: Lab Results 01/04/18 01/04/18 01/04/18 Range/Units 16:17 16:17 16:17 WBC 8.5 (3.5-10.8) 10^3/ul RBC 3.59 L (4.0-5.4) 10^6/ul Hgb 9.6 L (12.0-16.0) g/dl Hct 29 L (35-47) % MCV 82 (80-97) fL MCH 27 (27-31) pg MCHC 33 (31-36) g/dl RDW 17 H (10.5-15) % Plt Count 335 (150-450) 10^3/ul MPV 7.1 L (7.4-10.4) um3 Neut % (Auto) 69.3 (38-83) % Lymph % (Auto) 15.3 L (25-47) % Hanson % (Auto) 9.5 H (0-7) % Eos % (Auto) 4.8 (0-6) % Baso % (Auto) 1.1 (0-2) % Absolute Neuts (auto) 5.9 (1.5-7.7) 10^3/ul Absolute Lymphs (auto) 1.3 (1.0-4.8) 10^3/ul Absolute Monos (auto) 0.8 (0-0.8) 10^3/ul Absolute Eos (auto) 0.4 (0-0.6) 10^3/ul Absolute Basos (auto) 0.1 (0-0.2) 10^3/ul Absolute Nucleated RBC 0 10^3/ul Nucleated RBC % 0 INR (Anticoag Therapy) 1.17 H (0.77-1.02) APTT 33.8 (26.0-36.3) seconds Sodium 132 L (139-145) mmol/L Potassium 4.4 (3.5-5.0) mmol/L Chloride 97 L (101-111) mmol/L Carbon Dioxide 26 (22-32) mmol/L Anion Gap 9 (2-11) mmol/L BUN 33 H (6-24) mg/dL Creatinine 1.37 H (0.51-0.95) mg/dL Est GFR ( Amer) 48.0 (>60) Est GFR (Non-Af Amer) 37.3 (>60) BUN/Creatinine Ratio 24.1 H (8-20) Glucose 251 H (70-100) mg/dL Lactic Acid (0.5-2.0) mmol/L Calcium 9.8 (8.6-10.3) mg/dL Total Bilirubin 0.40 (0.2-1.0) mg/dL AST 22 (13-39) U/L ALT 21 (7-52) U/L Alkaline Phosphatase 161 H (34-104) U/L C-Reactive Protein 200.94 H (< 5.00) mg/L Total Protein 7.1 (6.4-8.9) g/dL Albumin 3.2 (3.2-5.2) g/dL Globulin 3.9 (2-4) g/dL Albumin/Globulin Ratio 0.8 L (1-3) 05/15/18 Range/Units 16:17 WBC (3.5-10.8) 10^3/ul RBC (4.0-5.4) 10^6/ul Hgb (12.0-16.0) g/dl Hct (35-47) % MCV (80-97) fL MCH (27-31) pg MCHC (31-36) g/dl RDW (10.5-15) % Plt Count (150-450) 10^3/ul MPV (7.4-10.4) um3 Neut % (Auto) (38-83) % Lymph % (Auto) (25-47) % Hanson % (Auto) (0-7) % Eos % (Auto) (0-6) % Baso % (Auto) (0-2) % Absolute Neuts (auto) (1.5-7.7) 10^3/ul Absolute Lymphs (auto) (1.0-4.8) 10^3/ul Absolute Monos (auto) (0-0.8) 10^3/ul Absolute Eos (auto) (0-0.6) 10^3/ul Absolute Basos (auto) (0-0.2) 10^3/ul Absolute Nucleated RBC 10^3/ul Nucleated RBC % INR (Anticoag Therapy) (0.77-1.02) APTT (26.0-36.3) seconds Sodium (139-145) mmol/L Potassium (3.5-5.0) mmol/L Chloride (101-111) mmol/L Carbon Dioxide (22-32) mmol/L Anion Gap (2-11) mmol/L BUN (6-24) mg/dL Creatinine (0.51-0.95) mg/dL Est GFR ( Amer) (>60) Est GFR (Non-Af Amer) (>60) BUN/Creatinine Ratio (8-20) Glucose (70-100) mg/dL Lactic Acid 1.3 (0.5-2.0) mmol/L Calcium (8.6-10.3) mg/dL Total Bilirubin (0.2-1.0) mg/dL AST (13-39) U/L ALT (7-52) U/L Alkaline Phosphatase (34-104) U/L C-Reactive Protein (< 5.00) mg/L Total Protein (6.4-8.9) g/dL Albumin (3.2-5.2) g/dL Globulin (2-4) g/dL Albumin/Globulin Ratio (1-3) Result Diagrams: 01/04/18 16:17 01/04/18 16:17 Lab Statement: Any lab studies that have been ordered have been reviewed, and results considered in the medical decision making process. - CT Right Lower Extremity CT CT Interpretation: Positive (See Comments) - Noncontrast CT imaging shows diffuse subcutaneous edema and skin induration consistent with cellulitic response. Graft patency is not assessed on this examination. Doppler interrogation would be the best study to evaluate for graft patency. ED physician has reviewed this report. CT Interpretation Completed By: Radiologist Lower Extremity Course/Dx - Course Course Of Treatment: Pts medications reviewed this visit. Allergies noted. High blood pressure noted and patient advised to follow up with PCP. DISCUSSED WITH DR GARCÍA, SURGERY. SINCE THE INFECTED SURGICAL WOUND IF FROM A VASCULAR SURGERY AND WE DO NOT HAVE VASCULAR SURGEY AT [facility], THE PATIENT WILL NEED TO BE TRANSFERED TO WHERE THERE IS VASCULAR SURGERY. TRANSFERED TO [facility] WHERE THE PATIENT'S VASCULAR SURGEON IS. ACCEPTED IN TRANSFER BY DR HOWARD. STABLE AT TRANSFER. - Diagnoses Provider Diagnoses: HTN (hypertension), Infected surgical wound Discharge - Sign-Out/Discharge Documenting (check all that apply): Discharge/Admit/Transfer - Discharge Plan Condition: Stable Disposition: TRANS HIGHER LVL OF CARE FAC Referrals: Devin Scott MD [Primary Care Provider] - Additional Instructions: Your blood pressure was elevated during todays visit; please follow up with your primary care provider within a week for further evaluation. - Billing Disposition and Condition Condition: STABLE Disposition: EMTALA The documentation as recorded by the Hakeem asnari Natalie accurately reflects the service I personally performed and the decisions made by me, Mynor Tesfaye MD.
[2018-01-04 19:21] VITALS: BP 177/74
--- NOTE | 2018-01-07 06:41 | PN ---
Progress Note - Progress Note Date of Service: 01/04/18 Note: Staph simulans grew from blood cultures obtained Patient sent to higher level of care Nothing further
== END 2018-01-04 19:59 | disposition short-term general hospital (02) ==
LOC: ED 14:21
DX: T81.4XXA Infection following a procedure, initial encounter (principal); B95.7 Other staphylococcus as the cause of diseases classified elsewhere; I10 Essential (primary) hypertension; M10.9 Gout, unspecified; I25.10 Atherosclerotic heart disease of native coronary artery without angina pectoris; M19.90 Unspecified osteoarthritis, unspecified site; E11.9 Type 2 diabetes mellitus without complications; Z87.891 Personal history of nicotine dependence; Z88.8 Allergy status to other drugs, medicaments and biological substances; Z89.421 Acquired absence of other right toe(s); Z95.9 Presence of cardiac and vascular implant and graft, unspecified; Z79.01 Long term (current) use of anticoagulants; Z86.711 Personal history of pulmonary embolism; Z86.718 Personal history of other venous thrombosis and embolism
CPT/HCPCS: 36415; 80053; 83605; 85025; 85610; 85730; 86140; 87040; 87077; 87150; 87205; 96374; 99284; A9270-GY; J0692; J3370; J3490

== ENCOUNTER 2018-06-06 16:41 | Inpatient (IN) | payer MEDICARE, BC ==
[2018-06-06 18:22] LABS: ABS Basophils 0.1 10^3/ul (0-0.2); ABS Eosinophils 0.4 10^3/ul (0-0.6); ABS Lymphocytes 1.9 10^3/ul (1.0-4.8); ABS Monocytes 0.7 10^3/ul (0-0.8); ABS Neutrophils 4.9 10^3/ul (1.5-7.7); ABS Nucleated RBC 0 10^3/ul; Eosinophil % 5.4 % (0-6); Hematocrit 38 % (35-47); Hemoglobin 12.5 g/dl (12.0-16.0); Lymphocyte % 23.1 % (25-47); Mean Corpuscular HGB Conc 33 g/dl (31-36); Mean Corpuscular Hemoglobin 27 pg (27-31); Mean Corpuscular Volume 82 fL (80-97); Mean Platelet Volume 7.1 um3 (7.4-10.4); Nucleated Red Blood Cells % 0; Platelet Count 262 10^3/ul (150-450); Red Blood Count 4.61 10^6/ul (4.00-5.40); Red Cell Distribution Width 21 % (10.5-15); White Blood Count 8.1 10^3/ul (3.5-10.8)
[2018-06-06 18:48] LABS: EGFR Non-African American 22.6 (>60)
--- NOTE | 2018-06-06 19:12 | ED ---
Lower Extremity - HPI Summary HPI Summary: Patient from [facility] sent by PCP for further evaluation of wound to left great toe and left fourth toe with associated redness and swelling x 9 days. Denies pain. Patient started on augmentin 3 days ago with no change in symptoms. Denies pain, fever, trauma, cough, sore throat, CP, SOB , N/V/V abdominal pain, change in urine, change in BM. Medical history as HTN, thyroid, DM with right leg amputation, kidney disease, PE, gout. Patient on Xarelto. - History of Current Complaint Chief Complaint: EDExtremityLower Stated Complaint: POSS INFECTION LT FT Time Seen by Provider: 06/06/18 17:30 Hx Obtained From: Patient, Family/Rn Bone Marrow Transplant Mechanism Of Injury: Unknown Severity Currently: None Pain Intensity: 0 Associated Signs And Symptoms: Positive: Swelling, Redness Aggravating Factor(s): Nothing Able to Bear Weight: Yes - Allergies/Home Medications Allergies/Adverse Reactions: Allergies Allergy/AdvReac Type Severity Reaction Status Date / Time Bosqpya-Ivb-Cln Reductase Allergy Severe See Comment Verified 06/06/18 17:09 Inhibitor fentanyl Allergy Hallucinati Verified 06/06/18 17:10 ons general anesthesia Allergy Shakes Uncoded 06/06/18 17:09 PMH/Surg Hx/FS Hx/Imm Hx Endocrine/Hematology History: Reports: Hx Diabetes - type 2 dm, Hx Thyroid Disease - hypothyroid Denies: Hx Anticoagulant Therapy Cardiovascular History: Reports: Hx Coronary Artery Disease, Hx Hypertension - controlled with meds, Other Cardiovascular Problems/Disorders - LBBB Denies: Hx Congestive Heart Failure, Hx Pacemaker/ICD Respiratory History: Reports: 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 , Other Respiratory Problems/Disorders - uses O2 prn sob, sopposed to use at night Denies: Hx Asthma, Hx Chronic Obstructive Pulmonary Disease (COPD) GI History: Reports: Hx Irritable Bowel - colitis History: Denies: Hx Renal Disease Musculoskeletal History: Reports: Hx Arthritis, Hx Gout, Other Musculoskeletal History - gout Sensory History: Reports: Hx Cataracts - both, Hx Contacts or Glasses - for reading Denies: Hx Hearing Aid Opthamlomology History: Reports: Hx Cataracts - both, Hx Contacts or Glasses - for reading Neurological History: Denies: Hx Dementia, Hx Seizures Psychiatric History: Denies: Hx Panic Disorder, Hx Substance Abuse - Cancer History Hx Chemotherapy: No - Surgical History Surgery Procedure, Year, and Place: hysterectomy and appendectomy 1979. tonsillectomy 1977 Hx Anesthesia Reactions: No Infectious Disease History: No Infectious Disease History: Denies: Hx Hepatitis, Hx Human Immunodeficiency Virus (HIV), Traveled Outside the [place] in Last 30 Days - Family History Known Family History: Positive: Unknown, Diabetes - mother - Social History Alcohol Use: None Substance Use Type: Reports: None Smoking Status (MU): Former Smoker Type: Cigarettes Amount Used/How Often: social smoker off and on for 10 years less than 1/2ppd Length of Time of Smoking/Using Tobacco: 34 Have You Smoked in the Last Year: No Review of Systems Constitutional: Negative Eyes: Negative ENT: Negative Cardiovascular: Negative Respiratory: Negative Gastrointestinal: Negative Genitourinary: Negative Musculoskeletal: Negative Skin: Other Neurological: Negative Psychological: Normal All Other Systems Reviewed And Are Negative: Yes Physical Exam - Summary Physical Exam Summary: Area of purple tissue at the tip of left great toe. No purulent discharge, no foul odor. Nontender to palpation. Wound to stop of the left fourth toe with possible purulent discharge. Redness and swelling encompassing all 5 toes and medial aspect of left foot. PMS intact. Triage Information Reviewed: Yes Vital Signs On Initial Exam: Initial Vitals Temp Pulse Resp BP Pulse Ox 97.3 F 76 16 131/83 97 06/06/18 17:05 06/06/18 17:05 06/06/18 17:05 06/06/18 17:05 06/06/18 17:05 Vital Signs Reviewed: Yes Appearance: Positive: Well-Appearing Skin: Positive: Warm Head/Face: Positive: Normal Head/Face Inspection Eyes: Positive: Normal Neck: Positive: Supple Respiratory/Lung Sounds: Positive: Clear to Auscultation Cardiovascular: Positive: Normal Abdomen Description: Positive: Nontender Musculoskeletal: Positive: Normal Neurological: Positive: Normal Psychiatric: Positive: Normal AVPU Assessment: Alert - Deny Coma Scale Best Eye Response: 4 - Spontaneous Best Motor Response: 6 - Obeys Commands Best Verbal Response: 5 - Oriented Coma Scale Total: 15 Diagnostics - Vital Signs Vital Signs Temp Pulse Resp BP Pulse Ox 06/06/18 17:05 97.3 F 76 16 131/83 97 - Laboratory Lab Results: Lab Results 06/06/18 06/06/18 06/06/18 Range/Units 18:12 18:12 18:12 WBC 8.1 (3.5-10.8) 10^3/ul RBC 4.61 (4.00-5.40) 10^6/ul Hgb 12.5 (12.0-16.0) g/dl Hct 38 (35-47) % MCV 82 (80-97) fL MCH 27 (27-31) pg MCHC 33 (31-36) g/dl RDW 21 H (10.5-15) % Plt Count 262 (150-450) 10^3/ul MPV 7.1 L (7.4-10.4) um3 Neut % (Auto) 61.3 (38-83) % Lymph % (Auto) 23.1 L (25-47) % Gaines % (Auto) 9.1 H (0-7) % Eos % (Auto) 5.4 (0-6) % Baso % (Auto) 1.1 (0-2) % Absolute Neuts (auto) 4.9 (1.5-7.7) 10^3/ul Absolute Lymphs (auto) 1.9 (1.0-4.8) 10^3/ul Absolute Monos (auto) 0.7 (0-0.8) 10^3/ul Absolute Eos (auto) 0.4 (0-0.6) 10^3/ul Absolute Basos (auto) 0.1 (0-0.2) 10^3/ul Absolute Nucleated RBC 0 10^3/ul Nucleated RBC % 0 Sodium 134 L (135-145) mmol/L Potassium 5.5 H (3.5-5.0) mmol/L Chloride 101 (101-111) mmol/L Carbon Dioxide 26 (22-32) mmol/L Anion Gap 7 (2-11) mmol/L BUN 43 H (6-24) mg/dL Creatinine 2.11 H (0.51-0.95) mg/dL Est GFR ( Amer) 27.3 (>60) Est GFR (Non-Af Amer) 22.6 (>60) BUN/Creatinine Ratio 20.4 H (8-20) Glucose 128 H (70-100) mg/dL Lactic Acid 1.0 (0.5-2.0) mmol/L Calcium 10.2 (8.6-10.3) mg/dL Total Bilirubin 0.40 (0.2-1.0) mg/dL AST 16 (13-39) U/L ALT 11 (7-52) U/L Alkaline Phosphatase 113 H (34-104) U/L C-Reactive Protein 88.67 H (<8.01) mg/L Total Protein 7.2 (6.4-8.9) g/dL Albumin 3.8 (3.2-5.2) g/dL Globulin 3.4 (2-4) g/dL Albumin/Globulin Ratio 1.1 (1-3) Result Diagrams: 06/06/18 18:12 06/06/18 18:12 Lab Statement: Any lab studies that have been ordered have been reviewed, and results considered in the medical decision making process. - Radiology foot Xray Interpretation: No Acute Changes Radiology Interpretation Completed By: ED Physician Lower Extremity Course/Dx - Course Course Of Treatment: Patient from [facility] sent by PCP for further evaluation of wound to left great toe and left fourth toe with associated redness and swelling x 9 days. Denies pain. Patient started on augmentin 3 days ago with no change in symptoms. Denies pain, fever, trauma, cough, sore throat, CP, SOB, N/V/V abdominal pain, change in urine, change in BM. Medical history as HTN, thyroid, DM with right leg amputation, kidney disease, PE, gout. Patient on Xarelto. Physical exam:Area of purple tissue at the tip of left great toe. No purulent discharge, no foul odor. Nontender to palpation. Wound to stop of the left fourth toe with possible purulent discharge. Redness and swelling encompassing all 5 toes and medial aspect of left foot. PMS intact. Vital signs within normal limits. Lactic normal. Normal white count. Creatinine 2.11 elevated from prior reading 12/2017. Potassium 5.5. Patient given 1 L of fluids, started on Zosyn and vancomycin. X -ray negative for osteal or gas. Will admit to hospitalist. - Diagnoses Provider Diagnoses: Diabetic foot ulcer Discharge - Sign-Out/Discharge Documenting (check all that apply): Patient Departure - Discharge Plan Condition: Stable Disposition: ADMITTED TO [facility] Referrals: Devin Scott MD [Primary Care Provider] - - Billing Disposition and Condition Condition: STABLE Disposition: Admitted to [facility]
[2018-06-06] MEDS ORDERED: Piperacillin/Tazobac ADVAN(*) 3.375 GM in NS 0.9% 100 ML* 100 ML IVPB ONE (19:46)
[2018-06-06] MEDS ORDERED: NS 0.9% 1000 ML* 1,000 ML IV ONE (19:46)
[2018-06-06] MEDS ORDERED: Vancomycin(*) 1,000 MG in NS 0.9% 250 ML* 250 ML IVPB ONE (19:46)
[2018-06-06] MEDS ORDERED: Albuterol 2.5 MG/3 ML NEB.SOL* (0.083%) INH PRN (21:28)
[2018-06-06] MEDS ORDERED: Ondansetron INJ* 2 MG/ML VIAL IV PRN (21:28)
[2018-06-06] MEDS ORDERED: oxyCODONE/Acetamin 5/325 MG* TAB PO PRN (21:28)
[2018-06-06] MEDS ORDERED: Al Hydrox/Mg Hydrox/Simet LIQ* 30 ML UDC PO PRN (21:28)
[2018-06-06] MEDS ORDERED: Dextrose 50% Syringe 50 ML* 25 GM/50 ML SYRINGE IV PUSH PRN (21:37)
[2018-06-06] MEDS ORDERED: Vancomycin per Pharmacy* NOTE FOLLOW UP SCH (22:00)
[2018-06-06] MEDS: Cefepime 2 GM in Dextrose(*) 2 GM/50 ML BAG IV SCH (23:11)
[2018-06-06] MEDS: metroNIDAZOLE IV 500 MG/100ML* 500 MG/100 ML BAG IVPB SCH (23:50)
--- NOTE | 2018-06-07 00:33 | HP ---
AMENDED REPORT NOW INCLUDES COSIGNER DESIGNATION CC: Dr. Scott; Dr. Avalos, [facility] * ADMISSION HISTORY AND PHYSICAL: DATE OF ADMISSION: 06/06/18 ATTENDING HOSPITALIST: Meghann Crenshaw DO * (DICTATED BY HONORIO BRIGHT) PRIMARY CARE PROVIDER: Devin Scott MD PRIMARY VASCULAR SURGEON: Dr. Avalos, [facility]. CHIEF COMPLAINT: Left foot redness and swelling. HISTORY OF PRESENT ILLNESS: Ms. Munoz is a 78-year-old female with past medical history significant for hypertension, gout, hyperlipidemia, peripheral vascular disease, and insulin-dependent diabetes mellitus, who presented to the emergency room with complaints of left foot redness and swelling for the past 1 to 2 weeks. The patient has longstanding history of peripheral vascular disease for which she initially had a right toe amputation back in October of this year at [facility] by Dr. Jane. She eventually had vascular workup that revealed peripheral vascular disease for which she was sent to [facility] to see a vascular surgeon. Dr. Isaac at [facility] attempted similar bypass graft that unfortunately did not take and the patient had a wound VAC to her right lower extremity for over 3 months with no significant healing. She eventually had a right above knee amputation in January of this year and has been followed by Dr. Avalos at [facility]. Her right lower stump had healed nicely and she has not had any complaints with that; however, about 2 weeks ago, she started noticing some redness and swelling to her left foot. She also started to have a small dime size ulcer at the tip of her left great toe that eventually got bigger with time and then covered with a black eschar. She was seen by her primary care physician and was put on Augmentin for the past 3 days with no significant relief of her symptoms. The patient was worried about worsening DVTs to her left lower extremity that might lead to another amputation for which she came to the emergency room here at [facility] for further evaluation and to discuss possible IV antibiotics. The patient has scheduled workup regarding left lower extremity including ankle-brachial index study tomorrow as an outpatient and also scheduled for a CT of the left foot on the following day, which are all ordered by Dr. Avalos to assess her peripheral vascular disease on the left lower extremity. The patient also has history of pulmonary embolism for which she has been on Xarelto. She denies any discharge from the left great toe wound, fever, chills, calf pain, chest pain, or any other associated symptoms. She was evaluated in the emergency room and had laboratory workup that revealed normal white count of 8000. Her chemistry panel showed BUN of 43, which appears to be slightly higher than her baseline and also her creatinine was elevated. She also had elevated C- reactive protein of 88 and glucose of 128. Given her ongoing symptoms and failed outpatient treatment of her cellulitis, we were asked to see the patient for further evaluation and to consider admission to hospitalist services. PAST MEDICAL HISTORY: Significant for hypertension, insulin-dependent diabetes mellitus, hyperlipidemia, gout, arthritis, morbid obesity with BMI greater than 35 as well as pulmonary embolism. PAST SURGICAL HISTORY: Significant for hysterectomy in the remote past and recently femoral bypass vascular graft in October of 2017 that unfortunately failed followed by right above knee amputation in January of 2018. CURRENT MEDICATIONS: Her medications at [facility] include: 1. Tylenol 1000 mg p.o. t.i.d. as needed for fever or pain. 2. Allopurinol 150 mg p.o. daily. 3. Aspirin 81 mg p.o. daily. 4. Vitamin D 2000 units p.o. daily. 5. Ferrous sulfate 325 mg p.o. daily. 6. Gabapentin 200 mg p.o. q.h.s. 7. Insulin Lantus 15 units subcu q. day. 8. Magnesium oxide 400 mg p.o. t.i.d. 9. Metoprolol 25 mg p.o. b.i.d. 10. Multivitamins 1 tablet p.o. daily. 11. Xarelto 15 mg p.o. daily. ALLERGIES: Multiple including STATINS, FENTANYL. FAMILY HISTORY: Reviewed and noncontributory. SOCIAL HISTORY: The patient is a nonsmoker, denies alcohol intake. She is and she lists both her son, Cole, and her daughter as her healthcare proxy carriers and she lives at [facility]. She wishes to be a full code. REVIEW OF SYSTEMS: See HPI, otherwise 12 points review of systems were examined and they were essentially negative. PHYSICAL EXAMINATION GENERAL: She is a pleasant, obese, elderly female in no acute distress or discomfort at the time of admission. VITAL SIGNS: Revealed temperature of 97.3, pulse of 85, blood pressure of 143/ 69, respirations of 16 with O2 sat of 96% on room air. HEENT: Head is normocephalic, atraumatic. Sclerae anicteric. PERRLA. EOMs intact. Oropharynx is pink and moist. NECK: Supple. Trachea midline. No cervical adenopathy or thyromegaly. LUNGS: Clear to auscultation bilaterally. HEART: Regular rate and rhythm. Normal S1 and S2 without rubs, murmurs, or gallops. BACK: With normal curvature. No CVA tenderness. BREAST EXAM: Deferred at this time. ABDOMEN: Round, obese, nontender, and nondistended. There are no hernias, masses, or hepatosplenomegaly. EXTREMITIES: Right lower extremity with clean amputation above the knee, well- healed scar, there was no evidence of any bleeding or discharge noted. Left lower extremity with an area of erythema and swelling on the dorsal aspect of the foot extending to the ankle and on the dorsal aspect of all toes. There is no tenderness on examination and no warmth on palpation. Pedal pulse very faint. There is an area of eschar at the tip and ventral aspect of the great toe measuring approximately 3 cm in diameter. There is no crepitus on palpation and no drainage or bleeding noted. NEUROLOGIC: She is awake, alert, and oriented x3. Handgrip is equal bilaterally. Sensation is intact throughout. RECTAL: Exam deferred at this time. LABORATORY DATA: CBC with white count of 8000, hemoglobin 12.5, hematocrit of 38, and platelets of 262. Chemistry panel with sodium of 134, potassium 5.5, chloride 101, BUN of 43, creatinine of 2.11, her glucose is 128, lactic acid 1.0. LFTs within normal limits. C-reactive protein elevated at 88.6. ACCESSORY DIAGNOSTIC DATA: X-rays of the foot noted no bony fracture, possible mild soft tissue swelling noted. IMPRESSION: A 78-year-old female with longstanding history of peripheral vascular disease, hypertension, insulin-dependent diabetes mellitus, and morbid obesity, who is status post above knee amputation of the right lower extremity due to advanced peripheral vascular disease, who presents with erythema and cellulitis of the left foot, found to have a large necrotic ulcer at the tip of her left great toe, will be admitted under hospitalist services for the following. ASSESSMENT AND PLAN: 1. Left foot cellulitis. The patient had failed outpatient treatment using Augmentin. She had received a dose of vancomycin in emergency room and we will continue her vancomycin therapy per pharmacy protocol as well as adding Flagyl 500 mg b.i.d. and cefepime 2 g q.12 hours as well based on her renal clearance. We will ask pharmacy to assist on dosing her and we will continue her antibiotic coverage. The patient is also scheduled for outpatient procedures for workup regarding vascular disease of her left lower extremity. I will go ahead and order ankle-brachial index to be done tomorrow and also ask the orthopedic team to assist in case if she needs any minor debridement of the left greater toe given her area of eschar covering the ulcer. 2. History of peripheral vascular disease. I will request records from [facility] regarding her most recent surgeries there back in early summer of this year that led to her above knee amputation of the right lower extremity. 3. Hypertension. I will continue her metoprolol dose per home. She appears to be normotensive at this time. 4. Peripheral vascular disease. I will continue her aspirin therapy. 5. History of gouty arthritis. I will continue her allopurinol as prescribed. 6. Insulin-dependent diabetes mellitus. I will continue covering her with Lantus at 15 units subcu every morning and also to do check glucose check q.a.c. and cover her per sliding scale with lispro. 7. History of pulmonary embolism. She is clinically stable and we will continue her coverage with Xarelto. 8. DVT prophylaxis. She is on Xarelto. 9. Code status. She wishes to be a full code. 10. Disposition: Admit to medical service for IV antibiotics, treatment of left foot cellulitis, will need orthopedic consult in the morning for possible debridement and/or amputation of the left great toe. Also, may consider ID consultation for proper antibiotic coverage. TIME SPENT: Approximately 60 minutes was spent admitting this patient for which greater than 50% of that time taking history and performing physical exam. I went on and discussed the case with my attending, who agreed to plan of care. HONORIO BRIGHT [id number]/[facility] #: [id number] HOME
[2018-06-07] MEDS: Acetaminophen TAB* 325 MG PO PRN ×2 (03:38→22:49)
[2018-06-07 07:06] LABS: ABS Basophils 0.1 10^3/ul (0-0.2); ABS Eosinophils 0.5 10^3/ul (0-0.6); ABS Monocytes 0.6 10^3/ul (0-0.8); ABS Neutrophils 3.4 10^3/ul (1.5-7.7); ABS Nucleated RBC 0 10^3/ul; Eosinophil % 8.4 % (0-6); Hematocrit 31 % (35-47); Hemoglobin 10.3 g/dl (12.0-16.0); Lymphocyte % 18.1 % (25-47); Mean Corpuscular HGB Conc 33 g/dl (31-36); Mean Corpuscular Hemoglobin 27 pg (27-31); Mean Corpuscular Volume 82 fL (80-97); Mean Platelet Volume 7.2 um3 (7.4-10.4); Nucleated Red Blood Cells % 0.1; Platelet Count 191 10^3/ul (150-450); Red Blood Count 3.77 10^6/ul (4.00-5.40); Red Cell Distribution Width 21 % (10.5-15); White Blood Count 5.6 10^3/ul (3.5-10.8)
[2018-06-07 07:08] LABS: EGFR Non-African American 21.8 (>60)
[2018-06-07] MEDS: Insulin LISPRO* 1 UNITS UNIT SUBCUT SCH ×4 (07:36→21:50)
--- NOTE | 2018-06-07 07:42 | RAD ---
HISTORY: wound, hx og gangrene COMPARISONS: None VIEWS: 3 , Frontal, lateral, and oblique views of the left foot FINDINGS: BONE DENSITY: There is diffuse osteopenia. BONES: There is no displaced fracture. There is no appreciable erosion or periosteal reaction. There are calcaneal enthesophytes. JOINTS: There is osteoarthritis of the midfoot and first MTP joint and of the interphalangeal joints. ALIGNMENT: There is no dislocation. SOFT TISSUES: There is peripheral arterial calcification. OTHER FINDINGS: None. IMPRESSION: 1. OSTEOPENIA. 2. OSTEOARTHRITIS. 3. PERIPHERAL ARTERIAL DISEASE. 4. NO APPRECIABLE EROSION OR PERIOSTEAL REACTION. PLAIN FILM FINDINGS OF OSTEOMYELITIS ARE RELATIVELY LATE FINDINGS. IF THERE IS PERSISTENT CLINICAL CONCERN FOR OSTEOMYELITIS, RECOMMEND CORRELATION WITH FOLLOWUP IMAGING, THREE-PHASE BONE SCANNING, WHITE BLOOD CELL SCAN, AND/OR MRI OF THE AFFECTED REGION. R1
--- NOTE | 2018-06-07 09:22 | RAD ---
INDICATION: History of right lower leg BKA and now with black left toes. COMPARISON: MONI dated November 05, 2017 TECHNIQUE: Ankle-brachial indices and Doppler tracings were obtained of the lower extremities bilaterally. Volume pulse recordings were acquired at the bilateral ankles. REPORT: Ankle-brachial indices: Right: Value (SBP) Index Brachial: 132 Below the knee amputation Left: Value (SBP) Index Brachial: 142 Posterior tibialis: 60 0.42 Dorsalis pedis: Non-Compressible Doppler waveforms (acquired at rest): In the interrogated lower extremity arteries, Doppler waveforms are monophasic with notably reduced amplitudes in the left renal arteries. IMPRESSION: MONI values at the left posterior tibial artery are consistent with rest pain while the dorsalis pedis artery was noncompressible likely due to advanced calcified atherosclerosis. The waveforms measured at the left renal arteries indicate severe arterial insufficiency. Based on the patient's history catheter arteriography will likely be required to best determine the degree of arterial stenoses and occlusion.
[2018-06-07] MEDS: Aspirin EC TAB* 81 MG TAB.EC PO SCH (09:30)
[2018-06-07] MEDS: Magnesium Oxide TAB* 400 MG PO SCH ×3 (09:32→21:51)
[2018-06-07] MEDS: Metoprolol Tartrate TAB* 25 MG PO SCH ×2 (09:32→21:50)
[2018-06-07] MEDS: Cholecalciferol TAB* 1000 UNITS PO SCH (09:34)
[2018-06-07] MEDS: Ferrous Sulfate TAB* 325 MG PO SCH (09:34)
[2018-06-07] MEDS: Multivitamins/Minerals TAB PO SCH (09:35)
[2018-06-07] MEDS: Rivaroxaban TAB(*) 15 MG PO SCH (09:35)
[2018-06-07] MEDS: Allopurinol TAB* 300 MG PO SCH (09:35)
[2018-06-07] MEDS: Insulin GLARGINE(*) 1 UNITS UNIT SUBCUT SCH (09:36)
--- NOTE | 2018-06-07 11:35 | PN ---
Subjective Date of Service: 06/07/18 Interval History: Ms. Munoz is not feeling well this morning. She c/o 7/10 pain in her left foot. She is also upset that she feels as though she is not receiving her antibiotics on time. She is concerned about the results of her ABIs d/t her recent R AKA. She is concerned about how she will get around if she needs to have another amputation. She is unsure if she would like to return to the vascular surgeon at [facility] if it came to that point. She states that her children typically assist her in her medical decision-making and she would want their input. She denies CP, SOB, N/V/D. Family History: Unchanged from Admission Social History: Unchanged from Admission Past Medical History: Unchanged from Admission Objective Active Medications: Acetaminophen (Tylenol Tab*) 650 mg PO Q4H PRN Al Hydrox/Mg Hydrox/Simethicone (Maalox Plus*) 30 ml PO Q6H PRN Albuterol (Ventolin 2.5 Mg/3 Ml Neb.Lary*) 2.5 mg INH [id number] AWAKE PRN Allopurinol (Zyloprim Tab*) 150 mg PO DAILY HUEY Aspirin (Aspirin Ec Tab*) 81 mg PO DAILY [facility] Cholecalciferol (Vitamin D Tab*) 2,000 units PO DAILY [facility]UEY Dextrose (D50w Syringe 50 Ml*) 12.5 gm IV PUSH .FOR FS < 60 - SS PRN Ferrous Sulfate (Ferrous Sulfate Tab*) 325 mg PO DAILY HUEY Gabapentin (Neurontin Cap(*)) 200 mg PO BEDTIME HUEY Cefepime HCl (Maxipime 2 Gm In Dextrose Duplex (*)) 2 gm in 50 mls @ 100 mls/ hr IV Q24H [facility]UEY Metronidazole/Sodium Chloride (Flagyl 500 Mg Ivpb*) 500 mg in 100 mls @ 100 mls /hr IVPB Q12H [facility] Vancomycin HCl 1,500 mg/ (Sodium Chloride) 250 mls @ 166.667 mls/hr IVPB Q24H [facility] Insulin Glargine (Lantus(*)) 15 units SUBCUT Q24H [facility] Insulin Human Lispro (Humalog*) 0 units SUBCUT ACHS HUEY; Protocol Magnesium Oxide (Magox 400 Tab*) 400 mg PO TID HUEY Metoprolol Tartrate (Lopressor Tab*) 25 mg PO BID HUEY Multivitamins/Minerals (Theragran/Minerals Tab*) 1 tab PO DAILY [facility] Ondansetron HCl (Zofran Inj*) 4 mg IV Q4H PRN Oxycodone/Acetaminophen (Percocet 5/325 Tab*) 1 tab PO Q4H PRN Pharmacy Consult (Vancomycin Per Pharmacy*) 1 note FOLLOW UP .VANC PER PHARMACY [facility] Pharmacy Profile Note (Vancomycin Trough Check) 1 note FOLLOW UP 1330 ONE Rivaroxaban (Xarelto(*)) 15 mg PO DAILY [facility] Vital Signs - 8 hr 06/07/18 06/07/18 06/07/18 03:45 05:54 07:47 Temperature 98.5 F 98.4 F Pulse Rate 88 68 Respiratory 24 19 Rate Blood Pressure 132/48 128/51 (mmHg) O2 Sat by Pulse 95 95 Oximetry Oxygen Devices in Use Now: None Appearance: Elderly female laying in bed in NAD Eyes: No Scleral Icterus Ears/Nose/Mouth/Throat: NL Teeth, Lips, Gums, Mucous Membranes Moist Neck: NL Appearance and Movements; NL JVP, Trachea Midline Respiratory: Symmetrical Chest Expansion and Respiratory Effort, Clear to Auscultation Cardiovascular: NL Sounds; No Murmurs; No JVD, RRR, - - Mild nonpitting edema to left foot, faint left pedal pulse Abdominal: NL Sounds; No Tenderness; No Distention, No Hepatosplenomegaly Extremities: No Clubbing, Cyanosis Skin: - - Erythema on the dorsal aspect of the foot, streaking up to the ankle, eschar to tip of great toe Neurological: Alert and Oriented x 3, NL Sensation Lines/Tubes/Other Access: Clean, Dry and Intact Peripheral IV Nutrition: Taking PO's Result Diagrams: 06/07/18 06:35 06/07/18 06:35 Assess/Plan/Problems-Billing Assessment: Ms. Munoz is a 78yo with PMH of PVD s/p R toe amputation ultimately leading to R AKA in January after failed bypass grafting, DM2, HTN, gout, and obesity presents with left foot erythema and edema for 1-2 weeks which was unresponsive to outpt therapy, now admitted with L great toe ulcer and associated cellulitis of of the L foot. - Patient Problems (1) Cellulitis of left foot Current Visit: Yes Status: Acute Priority: High Code(s): L03.116 - CELLULITIS OF LEFT LOWER LIMB SNOMED Code(s): 887588375 Comment: - Left great toe ulcer with significant eschar, associated erythema on dorsal aspect of foot, streaking up to ankle - Appreciate ID consult - Dr. Hoyos recommends MRI to r/o osteomyselitis - Continue flagyl and cefepime (2) Ettru-me-rmbxdpv kidney injury Current Visit: Yes Status: Acute Priority: High Code(s): N17.9 - ACUTE KIDNEY FAILURE, UNSPECIFIED; N18.9 - CHRONIC KIDNEY DISEASE, UNSPECIFIED SNOMED Code(s): 053825993 Comment: - R/t dehydration, hypovolemia - Start IVF (3) PVD (peripheral vascular disease) Current Visit: Yes Status: Chronic Priority: High Code(s): I73.9 - PERIPHERAL VASCULAR DISEASE, UNSPECIFIED SNOMED Code(s): 183721398 Comment: - Followed by vascular surgery at [facility] - ABIs reveals advanced calcification and severe arterial insufficiency (4) DM2 (diabetes mellitus, type 2) Current Visit: Yes Status: Chronic Priority: High Comment: - Check A1C - Continue glargine, lispro SS (5) History of pulmonary embolism Current Visit: Yes Status: Chronic Priority: Medium Code(s): Z86.711 - PERSONAL HISTORY OF PULMONARY EMBOLISM SNOMED Code(s): 787422790 Comment: - Continue xarelto (6) HTN (hypertension) Current Visit: Yes Status: Chronic Priority: Medium Code(s): I10 - ESSENTIAL (PRIMARY) HYPERTENSION SNOMED Code(s): 00160734 Comment: - Continue metoprolol (7) History of gout Current Visit: Yes Status: Chronic Priority: Medium Code(s): Z87.39 - PERSONAL HISTORY OF DISEASES OF THE MS SYS AND CONN TISS SNOMED Code(s): 594135871 Comment: - No acute exacerbation - Continue allopurinol (8) Obesity Current Visit: Yes Status: Chronic Priority: Medium Code(s): E66.9 - OBESITY, UNSPECIFIED SNOMED Code(s): 396565096 Comment: - Supportive care (9) Full code status Current Visit: Yes Status: Acute Priority: High Code(s): Z78.9 - OTHER SPECIFIED HEALTH STATUS SNOMED Code(s): 731701632 (10) DVT prophylaxis Current Visit: Yes Status: Acute Priority: High Code(s): HZB7254 - SNOMED Code(s): 603081721 Comment: - Xarelto Status and Disposition: Inpatient for antibiotics.
[2018-06-07] MEDS: metroNIDAZOLE IV 500 MG/100ML* 500 MG/100 ML BAG IVPB SCH ×2 (11:51→22:33)
[2018-06-07] MEDS ORDERED: Vancomycin(*) 1,500 MG in NS 0.9% 250 ML* 250 ML IVPB SCH (14:00)
--- NOTE | 2018-06-07 16:02 | RAD ---
INDICATION: Left great toe ulcer evaluate for osteomyelitis and abscess. COMPARISON: Comparison is made with a prior x-ray study of the left foot from June 06, 2018. TECHNIQUE: Axial, sagittal and coronal T1 and T2-weighted images of the left foot were obtained. FINDINGS: There is diffuse soft tissue swelling. No fluid collection or abscess is seen. There is increased signal intensity in T2-weighted images throughout the distal phalanx of the great toe. This is normal in signal intensity on T1-weighted images suggestive of reactive change or early osteomyelitis. No erosive change or periosteal reaction is seen. Incidental note is made of a small fatty mass adjacent to the lateral aspect of the fifth metatarsal most consistent with a lipoma measuring 2.5 x 0.8 cm in size. IMPRESSION: 1. INCREASED SIGNAL INTENSITY WITHIN THE DISTAL PHALANX OF THE GREAT TOE ON T2 WEIGHTED IMAGES ONLY CONSISTENT WITH REACTIVE CHANGE OR EARLY OSTEOMYELITIS. 2. NO EVIDENCE FOR ABSCESS.
--- NOTE | 2018-06-07 17:21 | CONS ---
CONSULTATION REPORT: DATE OF CONSULT: 06/07/18 REQUESTING PROVIDER: Elle Gordon NP CONSULTING SERVICE: Infectious Disease. REASON FOR CONSULT: Left foot gangrene. IMPRESSION: 1. Left great toe gangrene with cellulitis, infective myositis. 2. Peripheral vascular disease with abnormal MONI on the left and history of right eothf-ysj-yyvg amputation. 3. Obesity. 4. Insulin-dependent diabetes. 5. Gout. RECOMMENDATIONS: 1. Continue cefepime 2 g once a day and Flagyl 500 mg IV every 12 hours and we will stop the vancomycin. 2. Consult Dr. Cabrera on further vascular evaluation of her leg to see if anything surgical or that can be fixed with a catheter. HISTORY OF PRESENT ILLNESS: This is a 78-year-old woman with peripheral vascular disease, admitted with left great toe turning black about a week and half ago. She saw her vascular surgeon as an outpatient who started her on Augmentin, which she has been taking, but she did have progression of redness from the blackened area of the great toe up to the midfoot with some chills, so she came to the hospital yesterday. White blood cell count was 8, sed rate was 77, CRP 89. She has been afebrile here. She is tolerating antibiotics well. She had redness through the midfoot, which since being here yesterday is decreasing and is receding back to around the blackened area of the great toe. She does not remember particular injury that started off. She had an x-ray of her foot yesterday in the emergency room that showed osteopenia, osteoarthritis , peripheral vascular disease. She had an MONI that showed decreased MONI value at the left posterior tibial artery and noncompressible dorsalis pedis artery. PAST MEDICAL HISTORY: 1. Insulin-dependent diabetes. 2. Obesity. 3. Peripheral vascular disease, status post right leg bypass, which failed after infection and subsequently had an tlyvm-bgh-gskx amputation. 4. Hypertension. 5. Hyperlipidemia. 6. Gout. 7. Osteoarthritis. 8. Pulmonary embolism. 9. Status post hysterectomy. ALLERGIES: STATINS and FENTANYL. MEDICATIONS: 1. Tylenol. 2. Allopurinol. 3. Aspirin. 4. Cefepime 2 g daily. 5. Cholecalciferol. 6. Gabapentin. 7. Insulin glargine. 8. Flagyl 500 mg IV every 12 hours. 9. Rivaroxaban. SOCIAL HISTORY: She is living in [place]. She has no travel or sick contacts. FAMILY HISTORY: No recurrent infections. REVIEW OF SYSTEMS: All negative except as noted above in the history of present illness. PHYSICAL EXAM: Vital Signs: Temperature of 37, heart rate 70, respiratory rate 19, blood pressure 128/51, oxygen saturation 95% on room air. In general, she is awake, not in distress. Neurologic: She is oriented x3. Follows all commands. Decreased sensation to light touch in the left foot. HEENT: There is no conjunctival hemorrhage. Oropharynx without lesions. Neck is supple without mass. Heart is regular rate and rhythm without murmurs, rubs, or gallops. Lungs are clear to auscultation bilaterally. Abdomen: Soft, nontender, nondistended. There are bowel sounds present. Skin: There is no rash or splinter hemorrhage. Musculoskeletal: Left foot is warm. There is 1.5 cm area of black eschar on the distal left great toe with surrounding erythema, which leads up to the forefoot. LABORATORY DATA: White blood cell count 5, hemoglobin 10, platelets 191. Creatinine 2.1. CRP 89. Please see impressions and recommendations as outlined above, which I have discussed with Elle Gordon NP. Thanks for asking me to see Ms. Munoz in consultation. [id number]/[facility] #: [id number] HOME
--- NOTE | 2018-06-07 18:11 | CONS ---
CONSULTATION REPORT: DATE OF CONSULT: 06/07/18 ATTENDING ORTHOPEDIC PROVIDER: Dr. Mani Jane. CHIEF COMPLAINT: Left great toe redness and swelling. HISTORY OF PRESENT ILLNESS: Ms. Munoz is a 78-year-old female, who presented to [facility] Emergency Room on 06/06/18 after a 1-week history of a red, transitioning to black distal aspect of the left great toe. The patient does have a past medical history significant for peripheral vascular disease, insulin- dependent diabetes, right above-knee amputation, hypertension, gout, hyperlipidemia. Onset of her symptoms began 1 week ago with redness of the tip of the left great toe. This quickly transitioned to black discoloration of the tip of the toe, which has since spread to large area of the toe as well as a red streak going up the top of the foot. The patient was seen on 06/03/[address] Avalos, her vascular surgeon at [facility], who started her on Augmentin. The patient took three days of this before following up with her primary care, Dr. Scott, on 06/06/18, who upon evaluation sent her right into the [facility] Emergency Room. The patient states that she does not recall any inciting event, though she did trip on 05/14/18 at her home at [place], but she did not have any injury to this toe at this time. She does not remember stubbing her toe, any skin breakdown, or any open lesions prior to onset of symptoms 1 week ago. She has never had any infection of the left lower extremity in the past. Her left toe is not currently painful. She does have decreased sensation of her left toes at baseline, which is now worse since onset of her symptoms. She reports only known fever was last night of 100 F and she does not have any chills. The patient does have a history of peripheral vascular disease in the right lower extremity as well. October of this year, she underwent a toe amputation on her right lower extremity at this facility and due to poor vascular supply was eventually sent to [facility] for a bypass graft followed by a wound VAC, which was unsuccessful and resulted in a right ahfoc-zzn-wcfw amputation in January of 2018. Dr. Avalos does follow her for this. PAST MEDICAL HISTORY: Significant for hypertension; insulin-dependent diabetes , last known A1c was approximately 8; hyperlipidemia; gout; morbid obesity; history of pulmonary embolism. PAST SURGICAL HISTORY: Hysterectomy, femoral bypass vascular graft in October of 2017, right woaan-lws-mrgz amputation in January 2018, angioplasty of the right lower extremity. MEDICATIONS: Medications patient can confirm are below, she is unsure of some dosages. 1. Tylenol 1000 mg p.o. as often as every 6 hours as needed for pain. 2. Allopurinol 150 mg p.o. daily. 3. Vitamin D 2000 units p.o. daily. 4. Gabapentin 200 mg p.o. q.h.s. 5. Insulin Lantus 15 units subcu daily. 6. Magnesium oxide 400 mg p.o. b.i.d. 7. Metoprolol 25 mg p.o. b.i.d. She is not entirely sure of this dose of metoprolol. 8. Multivitamin once daily. 9. Xarelto 15 mg daily. Again, the patient not entirely sure of this dose. ALLERGIES: STATINS and FENTANYL. FENTANYL causes hallucinations. FAMILY HISTORY: No known anesthesia issues in family history. SOCIAL HISTORY: The patient does not smoke. She does not drink alcohol and she does not use drugs. She is . Her son, Cole, is her healthcare proxy. The patient lives at [facility]. She is a full code. REVIEW OF SYSTEMS: General: Positive for fever. Negative for chills or recent illness. HEENT: Negative for change in vision, headache, head trauma. Cardio: No chest pain. No irregular heartbeats. Possible history of heart attack, though the patient is unable to confirm. Respiratory: No shortness of breath. No asthma, COPD, or sleep apnea. Abdomen: No abdominal pain, vomiting , or nausea. Does have history of chronic diarrhea. : No dysuria. Musculoskeletal: History of right lower extremity djdlb-dbv-mwcq amputation. Left lower extremity, current left great toe black and red discoloration. 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 Heme: History of DVT and PE, for which she takes Xarelto. Skin: Left lower extremity great toe with black and red discoloration that is streaking up the leg. PHYSICAL EXAM: Vital Signs: Temperature 98.5, pulse rate 70, respiratory rate 18, oxygen saturation 95%, blood pressure 127/51. General: The patient is well appearing, in no acute distress. HEENT: Normocephalic, atraumatic. Extraocular movements intact. Pupils equally round and reactive to light. Moist mucous membranes. Cardio: S1, S2. Regular rate and rhythm. Respiratory : Clear to auscultation bilaterally without wheezes, rales, or rhonchi. Abdomen: Bowel sounds normoactive in all 4 quadrants. Nontender to palpation. No guarding, no rigidity. Upper Extremities: Skin envelope intact. No obvious deformity. Nontender to palpation. Active flexion and extension of wrist digits, elbows without any associated pain. Shoulder is nonpainful. Active forward flexion and abduction. Left lower extremity: Skin envelope is intact. There is no obvious deformity. The patient has no tenderness to palpation at the hip, knee, or ankle. She has active nonpainful flexion and extension at the hip, knee, and ankle. The distal tip of the left great toe is black with eschar, roughly the size of a dime with surrounding blackened skin, quarter size. The remainder of the left great toe is somewhat dusky and red with erythema streaking on the dorsum of the foot up to the ankle not passing the demarcated lines. There is no tenderness to palpation of the toe and the patient is able to flex and extend the tow. There is no fluctuance. There is no warmth. There is no discharge. The remainder of the toes are unaffected. Her left toes do have slow capillary refill roughly 4 seconds. Sensation is decreased from the MTPs distally on all 5 digits, which the patient states is baseline. The 2nd and 4th toes do have pea-sized abrasions over the DIPs from a fall on 05/14/18, but with no surrounding erythema and no discharge. The right lower extremity is status post mjzvm-vtj-rojq amputation, Stump site is healed well. DIAGNOSTIC STUDIES/LAB DATA: Foot x-ray, 06/06/18, left foot, impression: Per radiologist, osteopenia, osteoarthritis, peripheral arterial disease. No appreciable erosion or periosteal reaction. On 06/07/18, ABIs are done, Impression: MONI values at the left posterior tibial artery are consistent with rest pain while the dorsalis pedis artery was noncompressible likely due to advanced calcified atherosclerosis. Based on the patient's history, catheter angiography will likely be required to best determine the degree of arterial stenosis and occlusion. Index measures 0.42. Laboratory studies: On 06/07/18, white blood cell count 5.6, hemoglobin 10.3, hematocrit 31, platelet count 191. Sodium 135, potassium 5.1, BUN 43, creatinine 2.18. A1c is 7.6. ASSESSMENT: Left great toe eschar and cellulitis with possible underlying osteomyelitis. PLAN: MRI of the left lower extremity to determine if there is any deeper infection underlying. If there is osteomyelitis, we will likely need to transfer the patient to [facility] where her vascular surgeon resides. If she does have only cellulitis/ dry gangrene at this point, then we would consider IV antibiotic treatment with outpatient followup with Vascular Surgery. We will await MRI results. HONORIO ALDRICH [id number]/[facility] #: [id number] MTDJean Marie
[2018-06-07] MEDS: NS 0.9% 1000 ML* 1,000 ML IV SCH (19:48)
[2018-06-07] MEDS: Gabapentin CAP(*) 100 MG PO SCH (21:49)
[2018-06-07] MEDS: Cefepime 2 GM in Dextrose(*) 2 GM/50 ML BAG IV SCH (21:51)
[2018-06-08] MEDS: NS 0.9% 1000 ML* 1,000 ML IV SCH (05:28)
--- NOTE | 2018-06-08 07:48 | PN ---
Progress Note - Progress Note Date of Service: 06/08/18 Note: Please see Tash Bhatti's note for full H&P. Mitra is well known to me and I was asked by the hospitalist service to consult. In short, she is a diabetic with peripheral neuropathy and severe PVD. She had a prolonged course on her RLE that started with gangrene in the toes, progressed to a bypass by vascular surgery at [facility] and ended with an AKA. She has now developed left hallux infection with early gangrene. She is understandably very worried as this is how her problems presented on the RLE. On exam she has mild cellulitis of the left hallux which has improved greatly with IV abx. She has gangrene of the tip of the toe. She has poor blood flow on MONI's. MRI does not clearly show deep infection or osteo of the hallux, possibly early osteo of the distal phalanx. Mitra and I spent a long time this morning discussing her problem and options. I would recommend abx to treat the cellulitis and f/u after d/c/next week with her vascular surgeon at [facility], Dr Isaac, to further discuss treatment options for the LLE. She is in agreement with this plan. We discussed concerning signs/symptoms that should prompt a sooner return to the ER. All of her questions were answered and she was very gracious in thanking me for helping her. Mani Jane MD
[2018-06-08] MEDS: Insulin LISPRO* 1 UNITS UNIT SUBCUT SCH ×4 (08:45→21:06)
[2018-06-08 08:47] LABS: ABS Basophils 0 10^3/ul (0-0.2); ABS Eosinophils 0.5 10^3/ul (0-0.6); ABS Lymphocytes 1.2 10^3/ul (1.0-4.8); ABS Monocytes 0.6 10^3/ul (0-0.8); ABS Neutrophils 2.7 10^3/ul (1.5-7.7); ABS Nucleated RBC 0 10^3/ul; Eosinophil % 9.8 % (0-6); Hematocrit 32 % (35-47); Hemoglobin 10.7 g/dl (12.0-16.0); Lymphocyte % 23.7 % (25-47); Mean Corpuscular HGB Conc 33 g/dl (31-36); Mean Corpuscular Hemoglobin 27 pg (27-31); Mean Corpuscular Volume 82 fL (80-97); Mean Platelet Volume 7.1 um3 (7.4-10.4); Nucleated Red Blood Cells % 0; Platelet Count 221 10^3/ul (150-450); Red Blood Count 3.94 10^6/ul (4.00-5.40); Red Cell Distribution Width 21 % (10.5-15)
--- NOTE | 2018-06-08 08:54 | PN ---
Progress Note - Progress Note Date of Service: 06/08/18 SOAP: Subjective: CC: left foot infection HPI: 78 year old woman wtih PAD and left foot cellulitis with great toe gangrene. Swelling and redness are improving. No fever, rash, or diarrhea. Objective: Vital Signs Temp 36.9 C 06/08/18 03:30 Pulse 58 06/08/18 03:30 Resp 24 06/08/18 03:30 BP 147/54 06/08/18 03:30 Pulse Ox 98 06/08/18 03:30 Intake & Output 06/07/18 06/08/18 06/08/18 18:59 06:59 18:59 Intake Total 370 1595 Balance 370 1595 Weight 202 lb 3 oz Intake: IV Fluids 985 NS (0.9%) 985 IVPB 130 ABX - CEFEPIME 65 ABX - FLAGYL 65 Oral 370 480 Other: Estimated Void Medium # Bowel Movements 0 # Voids 3 Gen: awake, no distress HEENT: no thrush Heart:RRR no murmur Lungs:CTA BL Abd:+BS NTND soft Skin: no rash MSK: L great toe distal gangrene; surrounding mild erythema Laboratory Results - last 24 hr 06/07/18 06/07/18 06/07/18 06:35 11:55 17:26 WBC RBC Hgb Hct MCV MCH MCHC RDW Plt Count MPV Neut % (Auto) Lymph % (Auto) [place] % (Auto) Eos % (Auto) Baso % (Auto) Absolute Neuts (auto) Absolute Lymphs (auto) Absolute Monos (auto) Absolute Eos (auto) Absolute Basos (auto) Absolute Nucleated RBC Nucleated RBC % POC Glucose (mg/dL) 157 H 142 H Hemoglobin A1c 7.6 H 06/07/18 06/08/18 06/08/18 20:03 08:21 08:28 WBC 5.0 RBC 3.94 L Hgb 10.7 L Hct 32 L MCV 82 MCH 27 MCHC 33 RDW 21 H Plt Count 221 MPV 7.1 L Neut % (Auto) 53.2 Lymph % (Auto) 23.7 L [place] % (Auto) 12.3 H Eos % (Auto) 9.8 H Baso % (Auto) 1.0 Absolute Neuts (auto) 2.7 Absolute Lymphs (auto) 1.2 Absolute Monos (auto) 0.6 Absolute Eos (auto) 0.5 Absolute Basos (auto) 0 Absolute Nucleated RBC 0 Nucleated RBC % 0 POC Glucose (mg/dL) 138 H 117 H Hemoglobin A1c Assessment: 1. Left great toe gangrene with cellulitis which is improving. MRI showed T2 weighted marrow change without loss of T1 weighted signal and symptoms for approx 2 weeks so I do not think there is osteomyelitis 2. PAD with abnl MONI on left 3. T2DM 4. Left AKA 5. CKD Plan: 1. continue iv antibiotics here, did not tolerate augmentin, can have levaquin 250 mg daily for 20 days. 35 minutes floor time >50% face to face coordinating care and discussion regarding coordination with vascular evaluation
[2018-06-08 09:00] LABS: EGFR Non-African American 27.5 (>60)
[2018-06-08] MEDS: Allopurinol TAB* 300 MG PO SCH (10:08)
[2018-06-08] MEDS: Ferrous Sulfate TAB* 325 MG PO SCH (10:11)
[2018-06-08] MEDS: Aspirin EC TAB* 81 MG TAB.EC PO SCH (10:11)
[2018-06-08] MEDS: Multivitamins/Minerals TAB PO SCH (10:12)
[2018-06-08] MEDS: Rivaroxaban TAB(*) 15 MG PO SCH ×2 (10:13→21:10)
[2018-06-08] MEDS: Cholecalciferol TAB* 1000 UNITS PO SCH (10:13)
[2018-06-08] MEDS: metroNIDAZOLE IV 500 MG/100ML* 500 MG/100 ML BAG IVPB SCH ×2 (10:14→23:08)
[2018-06-08] MEDS: Insulin GLARGINE(*) 1 UNITS UNIT SUBCUT SCH (10:22)
[2018-06-08] MEDS: Metoprolol Tartrate TAB* 25 MG PO SCH ×2 (10:25→21:10)
[2018-06-08] MEDS: Magnesium Oxide TAB* 400 MG PO SCH ×3 (10:25→21:10)
--- NOTE | 2018-06-08 12:18 | PN ---
Subjective Date of Service: 06/08/18 Interval History: Ms. Munoz feels better this morning. She is in better spirits and has a more optimistic outlook about her leg. We had a long conversation about options for treatment in the future. She states she will follow up with her vascular surgeon in [place], though she is unsure if she will pursue treatment d/t the complications she experienced with her right leg. She is motivated to do whatever she can to keep her left leg, as she feels as though it would be devastating to become a double amputee. She has been up in her room and is able to get to the bathroom independently. Family History: Unchanged from Admission Social History: Unchanged from Admission Past Medical History: Unchanged from Admission Objective Active Medications: Acetaminophen (Tylenol Tab*) 650 mg PO Q4H PRN Al Hydrox/Mg Hydrox/Simethicone (Maalox Plus*) 30 ml PO Q6H PRN Albuterol (Ventolin 2.5 Mg/3 Ml Neb.Lary*) 2.5 mg INH [id number] AWAKE PRN Allopurinol (Zyloprim Tab*) 150 mg PO DAILY [facility] Aspirin (Aspirin Ec Tab*) 81 mg PO DAILY [facility] Cholecalciferol (Vitamin D Tab*) 2,000 units PO DAILY [facility] Dextrose (D50w Syringe 50 Ml*) 12.5 gm IV PUSH .FOR FS < 60 - SS PRN Ferrous Sulfate (Ferrous Sulfate Tab*) 325 mg PO DAILY [facility] Gabapentin (Neurontin Cap(*)) 200 mg PO BEDTIME [facility] Cefepime HCl (Maxipime 2 Gm In Dextrose Duplex (*)) 2 gm in 50 mls @ 100 mls/ hr IV Q24H [facility] Metronidazole/Sodium Chloride (Flagyl 500 Mg Ivpb*) 500 mg in 100 mls @ 100 mls /hr IVPB Q12H [facility] Sodium Chloride (Ns 0.9% 1000 Ml*) 1,000 mls @ 125 mls/hr IV PER RATE [facility] Insulin Glargine (Lantus(*)) 15 units SUBCUT Q24H [facility] Insulin Human Lispro (Humalog*) 0 units SUBCUT ACHS [facility]; Protocol Magnesium Oxide (Magox 400 Tab*) 400 mg PO TID [facility] Metoprolol Tartrate (Lopressor Tab*) 25 mg PO BID [facility] Multivitamins/Minerals (Theragran/Minerals Tab*) 1 tab PO DAILY [facility] Ondansetron HCl (Zofran Inj*) 4 mg IV Q4H PRN Oxycodone/Acetaminophen (Percocet 5/325 Tab*) 1 tab PO Q4H PRN Rivaroxaban (Xarelto(*)) 15 mg PO DAILY [facility] Vital Signs - 8 hr 06/08/18 11:32 Temperature 98.1 F Pulse Rate 63 Respiratory 16 Rate Blood Pressure 146/53 (mmHg) O2 Sat by Pulse 99 Oximetry Oxygen Devices in Use Now: None Appearance: Elderly female laying in bed in NAD Eyes: No Scleral Icterus Ears/Nose/Mouth/Throat: NL Teeth, Lips, Gums, Mucous Membranes Moist Neck: NL Appearance and Movements; NL JVP, Trachea Midline Respiratory: Symmetrical Chest Expansion and Respiratory Effort, Clear to Auscultation Cardiovascular: NL Sounds; No Murmurs; No JVD, RRR Abdominal: NL Sounds; No Tenderness; No Distention, No Hepatosplenomegaly Extremities: No Edema, No Clubbing, Cyanosis Skin: - - Erythema to left foot significantly decreased since yesterday, left great toe necrotic at the tip Neurological: Alert and Oriented x 3, NL Sensation, NL Muscle Strength and Tone Lines/Tubes/Other Access: Clean, Dry and Intact Peripheral IV Nutrition: Taking PO's Result Diagrams: 06/08/18 08:28 06/08/18 08:28 Assess/Plan/Problems-Billing Assessment: Ms. Munoz is a 78yo with PMH of PVD s/p R toe amputation ultimately leading to R AKA in January after failed bypass grafting, DM2, HTN, gout, and obesity presents with left foot erythema and edema for 1-2 weeks which was unresponsive to outpt therapy, now admitted with L great toe ulcer and associated cellulitis of of the L foot. - Patient Problems (1) Cellulitis of left foot Current Visit: Yes Status: Acute Priority: High Code(s): L03.116 - CELLULITIS OF LEFT LOWER LIMB SNOMED Code(s): 772697486 Comment: - Left great toe ulcer with significant eschar, associated erythema improving - ID following - recommends 2-3 weeks levaquin PO at d/c - Dr. Hoyos following - Continue flagyl and cefepime (2) Zxnkg-te-lkjyvko kidney injury Current Visit: Yes Status: Acute Priority: High Code(s): N17.9 - ACUTE KIDNEY FAILURE, UNSPECIFIED; N18.9 - CHRONIC KIDNEY DISEASE, UNSPECIFIED SNOMED Code(s): 379762361 Comment: - Creatinine back to baseline (3) PVD (peripheral vascular disease) Current Visit: Yes Status: Chronic Priority: High Code(s): I73.9 - PERIPHERAL VASCULAR DISEASE, UNSPECIFIED SNOMED Code(s): 800906294 Comment: - Followed by vascular surgery at [facility] - ABIs reveal advanced calcification and severe arterial insufficiency - Appreciate consultation from Dr. Cabrera (4) DM2 (diabetes mellitus, type 2) Current Visit: Yes Status: Chronic Priority: High Comment: - A1C 7.6 - Continue glargine, lispro SS (5) History of pulmonary embolism Current Visit: Yes Status: Chronic Priority: Medium Code(s): Z86.711 - PERSONAL HISTORY OF PULMONARY EMBOLISM SNOMED Code(s): 805930641 Comment: - Continue xarelto (6) HTN (hypertension) Current Visit: Yes Status: Chronic Priority: Medium Code(s): I10 - ESSENTIAL (PRIMARY) HYPERTENSION SNOMED Code(s): 69533132 Comment: - Continue metoprolol (7) History of gout Current Visit: Yes Status: Chronic Priority: Medium Code(s): Z87.39 - PERSONAL HISTORY OF DISEASES OF THE MS SYS AND CONN TISS SNOMED Code(s): 134949834 Comment: - No acute exacerbation - Continue allopurinol (8) Obesity Current Visit: Yes Status: Chronic Priority: Medium Code(s): E66.9 - OBESITY, UNSPECIFIED SNOMED Code(s): 940254308 Comment: - Supportive care (9) Full code status Current Visit: Yes Status: Acute Priority: High Code(s): Z78.9 - OTHER SPECIFIED HEALTH STATUS SNOMED Code(s): 856218523 (10) DVT prophylaxis Current Visit: Yes Status: Acute Priority: High Code(s): PAA5599 - SNOMED Code(s): 090708783 Comment: - Xarelto Status and Disposition: Inpatient for antibiotics. Likely d/c in the AM with 2-3 weeks PO abx.
[2018-06-08] MEDS: Gabapentin CAP(*) 100 MG PO SCH (21:10)
[2018-06-08] MEDS: Cefepime 2 GM in Dextrose(*) 2 GM/50 ML BAG IV SCH (22:11)
[2018-06-08] MEDS: Acetaminophen TAB* 325 MG PO PRN (23:08)
[2018-06-09] MEDS: Insulin GLARGINE(*) 1 UNITS UNIT SUBCUT SCH (10:24)
[2018-06-09] MEDS: Acetaminophen TAB* 325 MG PO PRN ×2 (10:25→20:34)
[2018-06-09] MEDS: Magnesium Oxide TAB* 400 MG PO SCH ×3 (10:30→20:34)
[2018-06-09] MEDS: Metoprolol Tartrate TAB* 25 MG PO SCH ×2 (10:30→20:34)
[2018-06-09] MEDS: Cholecalciferol TAB* 1000 UNITS PO SCH (10:30)
[2018-06-09] MEDS: Allopurinol TAB* 300 MG PO SCH (10:30)
[2018-06-09] MEDS: Ferrous Sulfate TAB* 325 MG PO SCH (10:31)
[2018-06-09] MEDS: Aspirin EC TAB* 81 MG TAB.EC PO SCH (10:32)
[2018-06-09] MEDS: Insulin LISPRO* 1 UNITS UNIT SUBCUT SCH ×4 (10:37→21:27)
[2018-06-09] MEDS: Multivitamins/Minerals TAB PO SCH (10:37)
--- NOTE | 2018-06-09 11:16 | CONSULT ---
Consult Consult: Date of Service: 06/09/18 Requesting Provider: Elle Gordon SPOT WORKER, Norris Dolan MD Reason for Consult Request: CLI involving the left great toe PCP: Devin Scott MD (Focused) HPI: Ms. Hamlin is a 78-year-old female, known to the Interventional Radiology service , with past medical history significant for hypertension, gout, hyperlipidemia, peripheral vascular disease, and insulin-dependent diabetes mellitus, who presented to the emergency room 06/06/18 with complaints of left foot redness and swelling for the past 1 to 2 weeks. The patient has longstanding history of peripheral vascular disease for which she initially had a right toe amputation back in October of this year at [facility] by Dr. Jane. On November 09, 2017 she underwent a right lower extremity arteriogram with the hopes of revascularizing the infrapopliteal arteries after she was diagnosed with single-vessel runoff to the right foot provided by the peroneal artery. Unfortunately neither the DAVE her DRIFTMAN could be accessed and revascularized from a retrograde approach and the patient only underwent balloon angioplasty of the narrow distal popliteal artery, right tibioperoneal trunk and right peroneal artery. She subsequently was referred to [facility] to see a vascular surgeon. Dr. Isaac at [facility] attempted a bypass graft that became infected (according to the patient) and the patient had a wound VAC to her right lower extremity for over 3 months with no significant healing. She eventually had a right above knee amputation in January of this year and has been followed by Dr. Avalos at [facility]. Her right lower stump had healed nicely and she has not had any complaints with that ; however, about 2 weeks ago, she started noticing some redness and swelling to her left foot. She also started to have a small dime size ulcer at the tip of her left great toe that eventually got bigger with time and then covered with a black eschar. Oral antibiotics provided by her PCP did not improve the infection. With a history of known vasculopathy and interventional radiology was consulted to evaluate for revascularization. PAST MEDICAL HISTORY: Significant for hypertension, insulin-dependent diabetes mellitus, hyperlipidemia, gout, arthritis, morbid obesity with BMI greater than 35 as well as pulmonary embolism. PAST SURGICAL HISTORY: Significant for femoral bypass vascular graft in October of 2017 that unfortunately failed followed by right above knee amputation in January of 2018. MEDICATIONS (upon admission): 1. Tylenol 1000 mg p.o. t.i.d. as needed for fever or pain. 2. Allopurinol 150 mg p.o. daily. 3. Aspirin 81 mg p.o. daily. 4. Vitamin D 2000 units p.o. daily. 5. Ferrous sulfate 325 mg p.o. daily. 6. Gabapentin 200 mg p.o. q.h.s. 7. Insulin Lantus 15 units subcu q. day. 8. Magnesium oxide 400 mg p.o. t.i.d. 9. Metoprolol 25 mg p.o. b.i.d. 10. Multivitamins 1 tablet p.o. daily. 11. Xarelto 15 mg p.o. daily. ALLERGIES: STATINS, FENTANYL. FAMILY HISTORY: Reviewed and noncontributory. SOCIAL HISTORY: The patient is a former nonsmoker, denies alcohol intake. She is and she lists both her son, Cole, and her daughter as her healthcare proxy carriers and she lives at [facility]. She wishes to be a full code. REVIEW OF SYSTEMS: See HPI, otherwise 12 points review of systems were examined and they were essentially negative. 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 COMPARISON: MONI dated November 05, 2017 TECHNIQUE: Ankle-brachial indices and Doppler tracings were obtained of the lower extremities bilaterally. Volume pulse recordings were acquired at the bilateral ankles. REPORT: Ankle-brachial indices: Right: Value (SBP) Index Brachial: 132 Below the knee amputation Left: Value (SBP) Index Brachial: 142 Posterior tibialis: 60 0.42 Dorsalis pedis: Non-Compressible Doppler waveforms (acquired at rest): In the interrogated lower extremity arteries, Doppler waveforms are monophasic with notably reduced amplitudes in the left renal arteries. IMPRESSION: MONI values at the left posterior tibial artery are consistent with rest pain while the dorsalis pedis artery was noncompressible likely due to advanced calcified atherosclerosis. The waveforms measured at the left renal arteries indicate severe arterial insufficiency. Based on the patient's history catheter arteriography will likely be required to best determine the degree of arterial stenoses and occlusion. <Electronically signed by Adolfo Cabrera MD in [place]> 06/07/18918 Dictated By: Adolfo Cabrera MD Dictated Date/Time: 06/07/18918 Transcribed Date/Time: 06/07/18905 SUMMARY & RECOMMENDATIONS: 78 -year-old woman with left foot critical limb ischemia with known vasculopathy and history of a right [id number] amputation. Based on the right lower extremity arteriogram acquired October 2017, the patient' s clinical presentation and physical exam findings it is anticipated that she has left infrapopliteal arterial insufficiency that will be best diagnosed with catheter directed arteriography. Following arteriography attempted can be made to revascularize the likely highly stenotic/occluded left infrapopliteal arteries. I have had a conversation on the telephone with Lawson Isaac MD, the surgeon that performed her right lower extremity bypass surgery, and he agrees that catheter arteriography with potential endovascular revascularization is the appropriate next step. As I have already discussed with the patient, if revascularization is not possible the left leg diagnostic arteriogram can be utilized by Dr. Isaac for surgical bypass planning. PLAN: 1. Left lower extremity arteriography followed by potential revascularization. 2. Currently the patient is hemodynamically stable and the white blood cell count has normalized with IV antibiotics. 3. Potentially the patient can undergo angiography the morning of Wednesday, June 10, 2015.
[2018-06-09] MEDS: metroNIDAZOLE IV 500 MG/100ML* 500 MG/100 ML BAG IVPB SCH ×2 (12:00→23:37)
--- NOTE | 2018-06-09 13:22 | PN ---
Subjective Date of Service: 06/09/18 Interval History: Patient is feeling well today. No F/C, N/V, abdominal pain, diarrhea, CP, SOB, LE pain, dysuria, or other pain. Patient is mobilizing well with walker and WC. Patient states concern about revascularization procedures as her last one was complicated by a wound infection and necessitated amputation. Family History: Unchanged from Admission Social History: Unchanged from Admission Past Medical History: Unchanged from Admission Objective Active Medications: Acetaminophen (Tylenol Tab*) 650 mg PO Q4H PRN PRN Reason: FEVER/PAIN Last Admin: 06/09/18 10:25 Dose: 650 mg Al Hydrox/Mg Hydrox/Simethicone (Maalox Plus*) 30 ml PO Q6H PRN PRN Reason: INDIGESTION Albuterol (Ventolin 2.5 Mg/3 Ml Neb.Lary*) 2.5 mg INH [id number] AWAKE PRN PRN Reason: sob/wheezing Allopurinol (Zyloprim Tab*) 150 mg PO DAILY [facility] Last Admin: 06/09/18 10:30 Dose: 150 mg Aspirin (Aspirin Ec Tab*) 81 mg PO DAILY [facility] Last Admin: 06/09/18 10:32 Dose: Not Given Cholecalciferol (Vitamin D Tab*) 2,000 units PO DAILY [facility] Last Admin: 06/09/18 10:30 Dose: 2,000 units Dextrose (D50w Syringe 50 Ml*) 12.5 gm IV PUSH .FOR FS < 60 - SS PRN PRN Reason: FS < 60 Ferrous Sulfate (Ferrous Sulfate Tab*) 325 mg PO DAILY [facility] Last Admin: 06/09/18 10:31 Dose: Not Given Gabapentin (Neurontin Cap(*)) 200 mg PO BEDTIME [facility] Last Admin: 06/08/18 21:10 Dose: 200 mg Cefepime HCl (Maxipime 2 Gm In Dextrose Duplex (*)) 2 gm in 50 mls @ 100 mls/ hr IV Q24H [facility] Last Admin: 06/08/18 22:11 Dose: 100 mls/hr Metronidazole/Sodium Chloride (Flagyl 500 Mg Ivpb*) 500 mg in 100 mls @ 100 mls /hr IVPB Q12H [facility] Last Admin: 06/09/18 12:00 Dose: 100 mls/hr Lactated Ringer's (Lactated Ringers 1000 Ml Bag*) 1,000 mls @ 100 mls/hr IV PER RATE [facility] Insulin Glargine (Lantus(*)) 15 units SUBCUT Q24H [facility] Last Admin: 06/09/18 10:24 Dose: 15 unit Insulin Human Lispro (Humalog*) 0 units SUBCUT ACHS [facility]; Protocol Last Admin: 06/09/18 10:37 Dose: Not Given Magnesium Oxide (Magox 400 Tab*) 400 mg PO TID [facility] Last Admin: 06/09/18 10:30 Dose: 400 mg Metoprolol Tartrate (Lopressor Tab*) 25 mg PO BID [facility] Last Admin: 06/09/18 10:30 Dose: 25 mg Multivitamins/Minerals (Theragran/Minerals Tab*) 1 tab PO DAILY [facility] Last Admin: 06/09/18 10:37 Dose: Not Given Ondansetron HCl (Zofran Inj*) 4 mg IV Q4H PRN PRN Reason: NAUSEA/VOMITING Oxycodone/Acetaminophen (Percocet 5/325 Tab*) 1 tab PO Q4H PRN PRN Reason: Pain Rivaroxaban (Xarelto(*)) 15 mg PO BEDTIME [facility] Last Admin: 06/08/18 21:10 Dose: 15 mg Vital Signs - 8 hr 06/09/18 06/09/18 07:22 08:37 Temperature 97.2 F Pulse Rate 67 58 Respiratory 28 24 Rate Blood Pressure 153/57 120/58 (mmHg) O2 Sat by Pulse 95 Oximetry Oxygen Devices in Use Now: None Appearance: Patient is a 78yo female who appears stated age and is sitting in the bed in [facility]. Eyes: No Scleral Icterus, PERRLA Ears/Nose/Mouth/Throat: NL Teeth, Lips, Gums, Clear Oropharnyx, Mucous Membranes Moist Neck: NL Appearance and Movements; NL JVP, Trachea Midline Respiratory: Symmetrical Chest Expansion and Respiratory Effort, Clear to Auscultation Cardiovascular: NL Sounds; No Murmurs; No JVD, RRR Abdominal: NL Sounds; No Tenderness; No Distention, No Hepatosplenomegaly Lymphatic: No Cervical Adenopathy Extremities: No Edema, No Clubbing, Cyanosis Skin: - - Left great toe with gangrene but with receded erythema. No tenderness. Right leg surgically absent below knee. Neurological: Alert and Oriented x 3, NL Sensation, NL Muscle Strength and Tone , - - CN II-XII intact. Result Diagrams: 06/08/18 08:28 06/09/18 06:30 Additional Lab and Data: Lab Results 06/06/18 06/06/18 06/06/18 Range/Units 18:12 18:12 18:12 WBC 8.1 (3.5-10.8) 10^3/ul RBC 4.61 (4.00-5.40) 10^6/ul Hgb 12.5 (12.0-16.0) g/dl Hct 38 (35-47) % MCV 82 (80-97) fL MCH 27 (27-31) pg MCHC 33 (31-36) g/dl RDW 21 H (10.5-15) % Plt Count 262 (150-450) 10^3/ul MPV 7.1 L (7.4-10.4) um3 Neut % (Auto) 61.3 (38-83) % Lymph % (Auto) 23.1 L (25-47) % [place] % (Auto) 9.1 H (0-7) % Eos % (Auto) 5.4 (0-6) % Baso % (Auto) 1.1 (0-2) % Absolute Neuts (auto) 4.9 (1.5-7.7) 10^3/ul Absolute Lymphs (auto) 1.9 (1.0-4.8) 10^3/ul Absolute Monos (auto) 0.7 (0-0.8) 10^3/ul Absolute Eos (auto) 0.4 (0-0.6) 10^3/ul Absolute Basos (auto) 0.1 (0-0.2) 10^3/ul Absolute Nucleated RBC 0 10^3/ul Nucleated RBC % 0 Sodium 134 L (135-145) mmol/L Potassium 5.5 H (3.5-5.0) mmol/L Chloride 101 (101-111) mmol/L Carbon Dioxide 26 (22-32) mmol/L Anion Gap 7 (2-11) mmol/L BUN 43 H (6-24) mg/dL Creatinine 2.11 H (0.51-0.95) mg/dL Est GFR ( Amer) 27.3 (>60) Est GFR (Non-Af Amer) 22.6 (>60) BUN/Creatinine Ratio 20.4 H (8-20) Glucose 128 H (70-100) mg/dL Lactic Acid 1.0 (0.5-2.0) mmol/L Calcium 10.2 (8.6-10.3) mg/dL Total Bilirubin 0.40 (0.2-1.0) mg/dL AST 16 (13-39) U/L ALT 11 (7-52) U/L Alkaline Phosphatase 113 H (34-104) U/L C-Reactive Protein 88.67 H (<8.01) mg/L Total Protein 7.2 (6.4-8.9) g/dL Albumin 3.8 (3.2-5.2) g/dL Globulin 3.4 (2-4) g/dL Albumin/Globulin Ratio 1.1 (1-3) Microbiology and Other Data: Microbiology 06/06/18 18:38 Gram Stain - Final Toe - Drainage Assess/Plan/Problems-Billing Assessment: Ms. Munoz is a 78yo with PMH of PVD s/p R toe amputation ultimately leading to R AKA in January after failed bypass grafting, DM2, HTN, gout, and obesity presents with left foot erythema and edema for 1-2 weeks which was unresponsive to outpt therapy, now admitted with L great toe ulcer and associated cellulitis of of the L foot which is improving on antibiotics and is scheduled for angiogram/angioplasty in AM. - Patient Problems (1) Cellulitis of left foot Current Visit: Yes Status: Acute Priority: High Code(s): L03.116 - CELLULITIS OF LEFT LOWER LIMB SNOMED Code(s): 524049640 Comment: - Left great toe ulcer with significant eschar, associated erythema improving - ID following - recommends 2-3 weeks levaquin PO at d/c - Dr. Hoyos following - Continue flagyl and cefepime - May need amputation of toe after revascularization. (2) PVD (peripheral vascular disease) Current Visit: Yes Status: Chronic Priority: High Code(s): I73.9 - PERIPHERAL VASCULAR DISEASE, UNSPECIFIED SNOMED Code(s): 232894688 Comment: - Followed by vascular surgery at [facility] - ABIs reveal advanced calcification and severe arterial insufficiency - Appreciate consultation from Dr. Cabrera - Angiogram/Possible angioplasty in AM, NPO after midnight - Will need F/U with vascular surgery outpatient. (3) DM2 (diabetes mellitus, type 2) Current Visit: Yes Status: Chronic Priority: High Comment: - A1C 7.6 - Continue glargine, lispro SS (4) CKD (chronic kidney disease) Current Visit: Yes Status: Acute Code(s): N18.9 - CHRONIC KIDNEY DISEASE, UNSPECIFIED SNOMED Code(s): 331627957 Comment: - Stage 3/4 - At baseline - Hydrate aggressively in preparation for Angiogram. (5) HTN (hypertension) Current Visit: Yes Status: Chronic Priority: Medium Code(s): I10 - ESSENTIAL (PRIMARY) HYPERTENSION SNOMED Code(s): 79469701 Comment: - Continue metoprolol - Generally normotensive (6) History of pulmonary embolism Current Visit: Yes Status: Chronic Priority: Medium Code(s): Z86.711 - PERSONAL HISTORY OF PULMONARY EMBOLISM SNOMED Code(s): 861943280 Comment: - Continue xarelto (7) DVT prophylaxis Current Visit: Yes Status: Acute Priority: High Code(s): XYI2768 - SNOMED Code(s): 696311729 Comment: - Xarelto (8) Full code status Current Visit: Yes Status: Acute Priority: High Code(s): Z78.9 - OTHER SPECIFIED HEALTH STATUS SNOMED Code(s): 621656375 Status and Disposition: Inpatient for antibiotics. Hopeful discharge home tomorrow after angiogram.
[2018-06-09] MEDS ORDERED: Vancomycin Trough Check NOTE FOLLOW UP ONE (13:30)
--- NOTE | 2018-06-09 16:21 | PN ---
Progress Note - Progress Note Date of Service: 06/09/18 SOAP: Subjective: []Patient seen and examined at bedside for follow up of left great toe cellulitis/ dry gangrene. She has feeling of fever, chills or left foot pain. Objective: [] General: NAD, having arterial dopplar done while im in the room LLE: Left great toe with black distal left toe consistent with previous exams. Erythema is again improved, does not extend past MTP and is very mild at this time Assessment: [] left foot cellulitis, dry gangrene Plan: []Cellulitis icontinues to improve, no obvious worsening of dry gangrene. No need for orthopedic intervention at this time. As long as infection does not worsen please f/u outpatient with vascular surgery.
--- NOTE | 2018-06-09 17:44 | RAD ---
Indication: Left foot wound. Duplex Doppler sonography of the arterial system of the left lower extremity was performed. There is calcifications throughout the arterial system of the left lower extremity. At the common femoral artery to common femoral artery is patent. Triphasic waveform is noted. Peak systolic velocity of 90 cm/s. At the proximal deep femoral artery peak systolic velocity of 92 cm/s is noted. In the femoral artery proximally peak systolic velocity is 90 cm/s. In the midportion of the femoral artery there is plaque and intimal wall thickening. Peak systolic velocity of 92 cm/s is noted. In the distal femoral artery peak systolic velocity of 89 cm/s. Biphasic waveform is noted. There is elevated velocity in the femoral artery with approximately 50% stenosis. Peak systolic velocity is 171 cm/s. The popliteal artery demonstrates elevated velocity of 152 cm/s. There is spectral broadening. Biphasic waveform is noted. The distal popliteal artery demonstrates a peak systolic velocity of 148 cm/s. Posterior tibial artery demonstrates peak systolic velocity of 93 cm/s, 34 cm/s and 22 cm/s in its proximal, mid and distal portion. The peroneal artery demonstrates peak systolic velocities of 29 cm/s, 71 cm/s and 66 cm/s in its proximal, mid and distal portions respectively. Anterior tibial artery demonstrates velocities of 30 cm/s, 40 cm/s and 22 cm/s in its proximal mid and distal portions respectively. Dorsalis pedis artery demonstrated peak systolic velocity of 52 cm/s. IMPRESSION: Elevated velocities in the distal femoral artery of 171 cm/s and in the popliteal artery of 152 cm/s consistent with stenosis in the distal femoral artery and popliteal artery.. Multiple areas of atherosclerosis and calcifications are noted.
[2018-06-09] MEDS: Gabapentin CAP(*) 100 MG PO SCH (20:33)
[2018-06-09] MEDS: Rivaroxaban TAB(*) 15 MG PO SCH (20:34)
[2018-06-09] MEDS: Cefepime 2 GM in Dextrose(*) 2 GM/50 ML BAG IV SCH (22:35)
[2018-06-10] MEDS: Acetaminophen TAB* 325 MG PO PRN (02:44)
[2018-06-10 06:47] LABS: ABS Basophils 0.1 10^3/ul (0-0.2); ABS Eosinophils 0.5 10^3/ul (0-0.6); ABS Lymphocytes 1.8 10^3/ul (1.0-4.8); ABS Monocytes 0.6 10^3/ul (0-0.8); ABS Nucleated RBC 0 10^3/ul; Eosinophil % 8.1 % (0-6); Hematocrit 32 % (35-47); Hemoglobin 10.5 g/dl (12.0-16.0); Lymphocyte % 30.1 % (25-47); Mean Corpuscular HGB Conc 33 g/dl (31-36); Mean Corpuscular Hemoglobin 27 pg (27-31); Mean Corpuscular Volume 82 fL (80-97); Mean Platelet Volume 7.2 um3 (7.4-10.4); Nucleated Red Blood Cells % 0.1; Platelet Count 233 10^3/ul (150-450); Red Blood Count 3.93 10^6/ul (4.00-5.40); Red Cell Distribution Width 21 % (10.5-15)
[2018-06-10 07:35] LABS: EGFR Non-African American 29.4 (>60)
[2018-06-10] MEDS: Insulin LISPRO* 1 UNITS UNIT SUBCUT SCH ×2 (07:39→13:10)
[2018-06-10] MEDS: Insulin GLARGINE(*) 1 UNITS UNIT SUBCUT SCH (07:41)
[2018-06-10] MEDS ORDERED: Insulin GLARGINE(*) 1 UNITS UNIT SUBCUT SCH ×2 (07:42→08:30)
[2018-06-10] MEDS: Ferrous Sulfate TAB* 325 MG PO SCH (07:45)
[2018-06-10] MEDS: Multivitamins/Minerals TAB PO SCH (07:45)
[2018-06-10] MEDS: Aspirin EC TAB* 81 MG TAB.EC PO SCH (07:46)
[2018-06-10 08:43] VITALS: BP 149/62
[2018-06-10] MEDS: Allopurinol TAB* 300 MG PO SCH (09:18)
[2018-06-10] MEDS: Magnesium Oxide TAB* 400 MG PO SCH (09:19)
[2018-06-10] MEDS: Cholecalciferol TAB* 1000 UNITS PO SCH (09:19)
[2018-06-10] MEDS: Metoprolol Tartrate TAB* 25 MG PO SCH (09:19)
--- NOTE | 2018-06-10 10:01 | PN ---
Progress Note - Progress Note Date of Service: 06/10/18 SOAP: Date of Service: 06/10/18 Subjective: Patient resting in bed. No current pain complaints. Objective: Laboratory Tests 06/06/18 06/06/18 06/07/18 18:12 18:12 06:35 WBC 8.1 BUN Creatinine Est GFR ( Amer) Est GFR (Non-Af Amer) 22.6 21.8 06/07/18 06/08/18 06/08/18 06:35 08:28 08:28 WBC 5.6 5.0 BUN Creatinine Est GFR ( Amer) Est GFR (Non-Af Amer) 27.5 06/09/18 06/10/18 06/10/18 06:30 06:11 06:46 WBC 6.0 BUN 28 H Creatinine 1.68 H Est GFR ( Amer) 35.6 Est GFR (Non-Af Amer) 29.0 29.4 NAD, AAO x 3 Left leg warm to touch Foot appears unchanged Distal tip of great toe black and desiccated Assessment: 78 YOF with left foot CLI that was scheduled for LLE angiography today. After overnight IV hydration her GFR only came up to 29 and therefore her angiogram was cancelled for today. Currently her situation is not an emergency ( WBC stable, afebrile, clinically stable) with IV abx. Plan: 1. Mucomyst 600 mg PO BID the day before and of angiography. 2. Will reschedule as an outpatient next week. 3. Plan was discussed with patient and her daughter "Brittany" over a conference call. 4. IR clinic will call patient when new table time is determined.
[2018-06-10] MEDS ORDERED: Levofloxacin TAB* 250 MG PO ONE (13:10)
[2018-06-10] MEDS: metroNIDAZOLE IV 500 MG/100ML* 500 MG/100 ML BAG IVPB SCH (13:10)
--- NOTE | 2018-06-11 10:14 | DS ---
CC: Devin Scott MD; Dr. Lawson Isaac; Adolfo Cabrera MD * DISCHARGE SUMMARY: DATE OF ADMISSION: 06/06/18 DATE OF DISCHARGE: 06/10/18 PRIMARY CARE PROVIDER: Devin Scott MD OUTPATIENT VASCULAR SURGEON: Dr. Lawson Isaac at [facility]. OUTPATIENT INTERVENTIONAL RADIOLOGIST: Adolfo Cabrera MD MY ATTENDING WHILE IN THE HOSPITAL: Caprice Vegas MD * (DICTATED BY HONORIO MANNING) PRIMARY DISCHARGE DIAGNOSES: 1. Left great toe cellulitis with gangrene and myositis. 2. Severe peripheral vascular disease. SECONDARY DISCHARGE DIAGNOSES: 1. Hypertension. 2. Diabetes mellitus type 2. 3. Hyperlipidemia. 4. Gout. 6. History of pulmonary embolism. 7. 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 8. History of femoral bypass graft of the right leg. STUDIES DONE WHILE IN THE HOSPITAL: Foot x-ray from 06/06/18 read as osteopenia , osteoarthritis, PAD. No appreciable erosion or periosteal reaction. Extremity arterial study shows MONI values at the left posterior tibial artery consistent with rest pain while the dorsalis pedis artery was noncompressible likely due to advanced calcific atherosclerosis. The waveform measures at the left renal artery indicate severe arterial insufficiency. Based on the patient' s history, catheter angiography will likely be required to best determine the degree of arterial stenosis and occlusion. Lower extremity MRI read as increased signal intensity within the distal phalanx of the great toe on T2 weighted images only consistent with reactive change or early osteomyelitis. No evidence for abscess. Duplex scan lower extremity read as elevated velocities in the distal femoral artery of 171 cm per second, in the popliteal artery of 152 cm per second consistent with stenosis in the distal femoral artery and popliteal artery, multiple areas of atherosclerosis and calcifications are noted. MEDICATIONS AT DISCHARGE: 1. Vitamin D 2000 units p.o. daily. 2. Insulin glargine/lixisenatide 100/33, 15 units subcutaneous at bedtime. 3. Magnesium oxide 400 mg p.o. t.i.d. 4. Theragran 1 tab p.o. daily. 5. Allopurinol 150 mg p.o. daily. 6. Gabapentin 200 mg p.o. at bedtime. 7. Xarelto 15 mg p.o. daily. 8. Metoprolol tartrate 25 mg p.o. b.i.d. 9. Aspirin 81 mg p.o. daily. 10. Ferrous sulfate 325 mg p.o. daily. 11. Tylenol 1000 mg p.o. t.i.d. 12. Tramadol 50 mg p.o. q.6 hours as needed. 13. Levofloxacin 250 mg p.o. daily x20. Medication discontinued at discharge: 1. Lisinopril. HOSPITAL COURSE: This is a brief summary of the patient's presentation. For more details, please see the history and physical from HONORIO Rey, on 06/06/18. In brief, the patient is a 78-year-old female with past medical history significant for the above, who presented to the emergency department with increased left foot redness and swelling. The patient is well known to this hospital and due to similar problem on her right foot earlier this year, the patient had initially right toe amputation and then a femoral bypass graft, which was unsuccessful after attempted angioplasty, which was likewise unsuccessful. The patient then had a right wblrm-epo-nici amputation in January of this year with good healing; however, 2 weeks ago she began to have redness and swelling in her left foot with ulcer and eventually turned to black eschar. The patient was started on Augmentin with no improvement. The patient was admitted to the hospital for IV antibiotics. The patient was seen in consultation by Dr. Roger Dolan of Infectious Disease, who recommended continuation of cefepime and Flagyl and stopping vancomycin and Interventional Radiology consultation for possible revascularization. The patient was also seen in consultation by HONORIO Bueno of Orthopedics who recommended an MRI , which was read as above. The patient had no white blood cell count. The patient's creatinine was initially 2.11 and decreased to 1.68, which is slightly increased from her baseline established earlier this year. The patient had no elevated temperatures, no elevated pulse rate, no increased respiratory rate. The patient did not meet sepsis criteria. The patient was recommended for 20 days of Levaquin at discharge. The patient was seen in consultation by Dr. Adolfo Cabrera of Interventional Radiology, who wanted to attempt an angiogram and angioplasty of the patient's left lower extremity, but the patient's GFR would not allow it despite intensive fluid rehydration. The patient was stable and amenable for discharge on 06/10/18. The erythema in the patient's foot had decreased quite a bit from where it had been previously marked upon her admission. PHYSICAL EXAMINATION ON DAY OF DISCHARGE: General: The patient is a 78-year- old female, who appears her stated age and sitting comfortably in bed, in no acute distress. Vital Signs: At the time of evaluation, temperature 98.2, pulse rate 66, respiratory rate 17, oxygen saturation 95% on room air, blood pressure 149/62. HEENT: Head normo- cephalic, atraumatic. No conjunctival injection. Nasal mucosa moist. Oral mucosa moist. No pharyngeal erythema, discharge, or exudate. Neck: Supple, nontender. No lymphadenopathy. No carotid bruits auscultated. No JVD. Cardiac: Regular rate and rhythm. No clicks, murmurs, gallops, or rubs. Pulses are 2+ in bilateral dorsalis pedis, posterior tibialis, and radial areas. Respiratory: Clear to auscultation bilaterally. No wheezes, rales, or rhonchi. Good air exchange bilaterally. Abdomen: Soft, nontender, nondistended. Bowel sounds present and normoactive in all 4 quadrants. No hepatosplenomegaly. No abdominal bruits auscultated. No hepatojugular reflux. Genitourinary: No suprapubic or CVA tenderness. Skin : The patient has a healed incision on her right lower extremity, which has been amputated above the knee. The patient has approximately dime-sized area of eschar with erythema in the great toe of the left lower extremity. The patient is significantly improved from previous exam. Neuro: Cranial nerves II through XII are intact. No focal deficits. Alert and oriented x3. Psychiatric : Pleasant and cooperative. DISCHARGE PLAN: The patient will be discharged to home. The patient will have visiting nurse services' support. The patient will be on 20 days of Levaquin per Infectious Disease recommendation. The patient should follow up with Dr. Cabrera within 1 week for attempted angiogram and angioplasty with pretreatment with N- acetylcysteine. The patient should follow up subsequent to this with her primary care doctor to ensure continued improvement in her foot. If the patient's angioplasty is unsuccessful, the patient should follow up with her vascular surgeon in [place] to discuss possible bypass artery grafting in her leg. The patient should follow up with her orthopedist as needed for worsening condition of her foot. The patient should return to the hospital for high fevers, chest pain, shortness of breath, passing out, severe pain in her foot, or other alarming symptoms. The patient has been informed about the importance of maintaining her followups due to a tenuous status of her foot given the poor blood flow to the area. The patient's hemoglobin A1c is moderately well controlled at 7.6. The patient should as outpatient have a lipid profile and lipid lowering therapy should be instituted as needed. The patient should be continued on her home antihyperglycemic medications as well as her Xarelto. TIME SPENT: Approximately 60 minutes were spent on the discharge of this patient, 30 of which was spent dbhq-br-[id number] with the patient obtaining history and physical and discussing treatment plan. HONORIO MANNING [id number]/CPS #: [id number] MTDD
== END 2018-06-10 13:40 | disposition home health service (06) | DRG 300 ==
LOC: ED 16:41 → MED 21:28
PROVIDERS: ADMIT Pediatrics; ATTEND Internal Medicine
DX: E11.52 Type 2 diabetes mellitus with diabetic peripheral angiopathy with gangrene (principal); I96 Gangrene, not elsewhere classified; L03.116 Cellulitis of left lower limb; M60.077 Infective myositis, left toe(s); N17.9 Acute kidney failure, unspecified; I70.262 Atherosclerosis of native arteries of extremities with gangrene, left leg; N18.4 Chronic kidney disease, stage 4 (severe); E11.51 Type 2 diabetes mellitus with diabetic peripheral angiopathy without gangrene; E11.621 Type 2 diabetes mellitus with foot ulcer; L97.529 Non-pressure chronic ulcer of other part of left foot with unspecified severity; M10.9 Gout, unspecified; E78.5 Hyperlipidemia, unspecified; E03.9 Hypothyroidism, unspecified; I25.10 Atherosclerotic heart disease of native coronary artery without angina pectoris; K58.9 Irritable bowel syndrome, unspecified; E11.36 Type 2 diabetes mellitus with diabetic cataract; R40.2362 Coma scale, best motor response, obeys commands, at arrival to emergency department; R40.2142 Coma scale, eyes open, spontaneous, at arrival to emergency department; R40.2252 Coma scale, best verbal response, oriented, at arrival to emergency department; I12.9 Hypertensive chronic kidney disease with stage 1 through stage 4 chronic kidney disease, or unspecified chronic kidney disease; E66.01 Morbid (severe) obesity due to excess calories; M85.872 Other specified disorders of bone density and structure, left ankle and foot; M19.072 Primary osteoarthritis, left ankle and foot; Z53.09 Procedure and treatment not carried out because of other contraindication; E86.0 Dehydration; E86.1 Hypovolemia; E11.42 Type 2 diabetes mellitus with diabetic polyneuropathy; E11.22 Type 2 diabetes mellitus with diabetic chronic kidney disease; Z95.828 Presence of other vascular implants and grafts; Z79.01 Long term (current) use of anticoagulants; Z79.82 Long term (current) use of aspirin; Z79.4 Long term (current) use of insulin; Z89.422 Acquired absence of other left toe(s); Z89.611 Acquired absence of right leg above knee; Z86.711 Personal history of pulmonary embolism; Z90.710 Acquired absence of both cervix and uterus; Z88.5 Allergy status to narcotic agent; Z88.8 Allergy status to other drugs, medicaments and biological substances; Z88.6 Allergy status to analgesic agent; Z83.3 Family history of diabetes mellitus; Z87.891 Personal history of nicotine dependence; Z68.32 Body mass index [BMI] 32.0-32.9, adult
CPT/HCPCS: 36415; 80048; 80053; 83036; 83605; 83735; 85025; 85652; 86140; 87070; 87077; 87205; 87641; 93922; 99284; A9270-GY; J0692; J2543; J3370; J3490

== ENCOUNTER → 2018-06-16 06:58 | Day surgery (SDC) | payer MEDICARE, BC ==
[~2018-06-16 06:58] MED LIST changes: +Acetaminophen TAB* 325 MG ONE; +Acetylcysteine CAP (RENAL)* 600 MG PO SCH; -Buffered Lidocaine 0.9% SYRIN* 5 ML/SYR SYRINGE INTRADERM ONE; -CEFAZOLIN IVPB ONE; -Famotidine IV* 10 MG/ML 2 ML (20 mg) IV ONE; -Heparin 2 UNITS/ML IVPREMIX* 0 ML IV ONE; +Heparin 2 UNITS/ML IVPREMIX* 2,000 ML IV ONE; +Heparin(*) 1000 UNIT/ML 10 ML VIAL CATH LAB IV ONE; +Iodixanol* (CONTRAST) 320 MG/ML 100 ML SDV ONE; +LORazepam TAB(*) 1 MG ONE; -Metoclopramide IV* 5 MG/ML 2 ML VIAL IV SLOW PU ONE; +Midazolam* 1 MG/ML 5 ML VIAL (5 MG) ONE; -NS 0.9% IVPB ONE; +VERAPAMIL 2.5 MG/ML 2 ML VIAL ** 5 mg/2 ml ONE; +fentaNYL* 50 MCG/ML 2 ML VIAL (100 MCG VIAL) ONE; +nitroGLYCERIN DRIP* 25,000 MCG/250 ML BTL ONE
[2018-06-16 15:12] VITALS: BP 133/58
--- NOTE | 2018-06-18 00:18 | RAD ---
CPT II Codes: G9500 Procedure(s) performed: 1. Diagnostic left lower extremity arteriogram. 2. Balloon angioplasty of the distal left superficial femoral artery, popliteal artery and tibioperoneal trunk. 3. Percutaneous Minx closure device to the left common femoral arteriotomy. Date of service: June 16, 2018 Indication for procedure: Gangrenous left great toe in a patient with calcified atherosclerosis Comparison: Arterial duplex ultrasound June 09, 2018 Contrast: 11 mL of Visipaque 320 and approximately 240 mL CO2 gas Fluoroscopy Time: 27.8 minutes Vessels Accessed: Percutaneous access was obtained with ultrasound guidance in the left common femoral artery in the antegrade direction towards the foot. Catheter arteriography, with the catheter tip located within the lumen of the following arteries, was performed at the left superficial femoral artery, left popliteal artery and left anterior tibial artery. Anesthesia: Conscious sedation with IV Fentanyl and Versed as well as local 1% lidocaine injected locally at the arteriotomy site. Conscious sedation time: Timeout: 0934 hours Case end: 1210 hours Total conscious sedation time: 2 hours and 36 minutes Additional medications: * IV heparin 3000 Units to achieve a goal ACT of 250-300. * The patient received 1 mg of p.o. Ativan prior to the onset of the procedure. PROCEDURE NOTE AND INTRAPROCEDURAL IMAGING FINDINGS: Immediately prior to the procedure the patient signed consent after thoroughly discussing all risks, benefits and alternative therapies. The patient was positioned on the fluoroscopy table in the supine position and the bilateral groins were shaved, prepped and the patient was draped in standard sterile fashion. Using fluoroscopic imaging the location of the right common femoral head was marked externally with a skin marker on the patient's groin. Utilizing sonographic guidance and palpation, the right common femoral artery was cannulated overlying the femoral head with a 21-gauge needle. An ultrasound image was saved. A microwire was slowly and smoothly advanced into the common femoral artery and into the left superficial femoral artery under fluoroscopic imaging. No buckling of the wire was visualized to indicate dissection. With the wire securing percutaneous arterial access, the needle was removed and a 5-Georgian access sheath was advanced to the left superficial femoral artery. The inner stiffener was removed and a 0.035 inch Bentson wire was advanced under fluoroscopic control the more distal left superficial femoral artery. The 5-Georgian access sheath was removed and replaced with a 5-Georgian SideArm access sheath. To further characterize and exactly locate the extent of atherosclerotic disease involving the left lower extremity diagnostic catheter arteriography was necessary. Due to the patient's stage IV kidney disease most of the angiographic imaging was acquired with CO2 gas. An airtight bag was filled with CO2 by filling the bag with CO2 gas, compressing the bag and refilling it 4 times. Utilizing the CO2 filled bag, a 60 mL syringe was filled with CO2 gas and contrast arteriography was performed with the catheter tip in the left superficial femoral artery demonstrated in the left femoral profundus and proximal left superficial femoral artery to be adequately patent. CO2 contrast imaging was obtained of the more distal left superficial femoral artery and popliteal artery demonstrating multifocal stenoses in the distal left superficial femoral artery and the popliteal artery. The catheter was advanced to the left popliteal artery and CO2 gas imaging was acquired of the more distal left popliteal artery and proximal infrapopliteal arteries. Only the peroneal artery was seen filling to the mid-level left lower leg. Utilizing dilute contrast with the tip of the catheter at the junction of the left superficial femoral artery and popliteal artery, contrast arteriography was performed of the popliteal artery to better characterize the location and severity of stenoses. This contrast arteriogram demonstrated multifocal stenoses as well as focal stenosis in the tibioperoneal trunk above the bifurcation of the peroneal and posterior tibial arteries. With the tip of the catheter in the more distal popliteal artery a contrast arteriogram was performed of the lower leg and foot demonstrating near complete occlusion of the posterior tibial and anterior tibial arteries. The dorsalis pedis artery fills by collateralized flow and the pedal loop fills minimally. The diminutive peroneal artery provides the dominant flow above the level of the ankle. Utilizing a microwire and a microcatheter the left anterior tibial artery was cannulated and a microwire was advanced distally at least to the level of the ankle. Unfortunately became apparent that the wire had diverted into a branch artery and was not in the lumen of the anterior tibial artery. A small contrast injection through the catheter in the anterior tibial artery demonstrated the true lumen of the anterior tibial artery was not accessed. The microwire was exchanged for a standard 0.035 inch Bentson wire and the tip was advanced to the tibioperoneal trunk. Over the 0.035 inch wire balloon angioplasty was performed at the left popliteal and distal superficial femoral artery utilizing a 5 mm x 120 mm Biotronik Passeo-35 balloon. The entire length of the left popliteal artery and distal portion of the left superficial femoral artery underwent balloon angioplasty. During each inflation the balloon was inflated to approximately 14 chai corresponding to a diameter measurement of 5.3 mm. The balloon remained inflated for minimum of 3 minutes during each inflation sequence. At this point attempt was made to access the left dorsalis pedis artery in a retrograde fashion. Multiple attempts to recannulate the dorsalis pedis artery were unsuccessful. Direct manual pressure was held at the skin site for 10 minutes while dimension returned to the antegrade access of the left common femoral artery. Utilizing the microwire access was obtained across the peroneal artery. Balloon angioplasty was performed across the tibioperoneal trunk and the superior most portion of the peroneal artery utilizing a 3 mm x 80 mm Nanocross balloon which was inflated to 13 chai corresponding to a diameter measurement of approximately 3.3 mm. The balloon remained inflated for minimum of 3 minutes to address vasospasm. With the tip of the catheter at the mid-level left superficial femoral artery balloon angioplasty was performed across the angioplastied segment demonstrating improved patency and brisk flow through the distal SFA into the popliteal artery and beyond the tibioperoneal trunk. Unfortunately only the peroneal artery exhibit any significant filling. Over the wire the access sheath was exchanged for a new 5-Georgian, 11 cm length access sheath intended specifically for percutaneous arterial closure. Through the side arm of the access sheath arteriography of the left common femoral artery demonstrated an appropriate puncture of the common femoral artery above the bifurcation and below the inferior epigastric artery. After an appropriate resterilization of the arteriotomy and exchange for new sterile gloves, a Minx closure device was deployed at the common femoral arteriotomy and pressure held for approximately 15 minutes. There were no signs of bleeding at the percutaneous arterial access site and the site was dressed with sterile gauze and Tegaderm. The patient tolerated the procedure well and was transferred to angiography holding bay for standard post procedural observation. SUMMARY OF PROCEDURE, IMAGING FINDINGS AND INTERVENTIONS PERFORMED: 1. Diagnostic studies performed: * Arterial access was obtained at the left common femoral artery in the antegrade direction (i.e. towards the foot) with ultrasound guidance. A sonographic image was recorded. * Diagnostic catheter angiography (necessary to perform the appropriate interventions) was performed utilizing a total of 11 mL of Visipaque 320 and approximately 240 mL CO2 gas with the catheter tip in the left superficial femoral artery, left popliteal artery and left anterior tibial artery. * Catheter arteriography was performed of the entire left lower extremity arterial circuit from the left distal external iliac artery to the left forefoot. * At the conclusion of the procedure arteriography was performed through the side arm of the access sheath to image the distal left external iliac artery, left common femoral artery and proximal superficial femoral artery and femoral profundus. 2. Interpretation of diagnostic studies performed: * Adequate patency is documented from the left external iliac artery to the distal left superficial femoral artery. * There are multifocal stenoses in the distal left superficial femoral and popliteal arteries as well as the tibioperoneal trunk. * Occlusion of the left anterior tibial artery shortly after its bifurcation with only the dorsalis pedis artery filling by collateralized flow on delayed filling. * Long segment occlusion of the left posterior tibial artery essentially from its ostium to the plantar bifurcation. * The peroneal artery is the dominant flow to the left foot in this artery becomes extremely diminutive above the level of the ankle. * Arteriography performed for the purpose of deploying a percutaneous arterial closure device demonstrates adequately patent left external iliac artery, common femoral artery and proximal superficial femoral artery and femoral profundus. 3. Surgical interventions performed: * Balloon angioplasty of the distal left superficial femoral and popliteal artery utilizing a 5 mm x 120 mm Otto Claveronik Passeo 35 balloon. * Balloon angioplasty of the left tibioperoneal trunk and proximal most left peroneal artery utilizing a 3 mm x 80 mm NanoCross Elite balloon. * Unsuccessful attempts were made to revascularize the occluded anterior tibial artery and unsuccessful attempt to obtain retrograde access of the left dorsalis pedis artery for the purpose of revascularization. * Closure of the left common femoral artery was achieved with a Minx closure device followed by 15 minutes of gentle manual pressure. 4. Interpretation of interventions performed: * Final arteriography demonstrated improved patency flow through the angioplasty distal left SFA, popliteal artery and tibioperoneal trunk with augmented in-line flow into the left peroneal artery. Plan: 1. Aspirin 81 mg p.o. daily for life. 2. Plavix 75 mg p.o. daily x 6 months. 3. Clinical and imaging follow-up according to standard Interventional Radiology protocol.
== END | disposition home or self-care (01) ==
LOC: CHICATH 06:58
PROVIDERS: ATTEND Radiology Diagnostic Radiology
DX: I70.262 Atherosclerosis of native arteries of extremities with gangrene, left leg (principal); I10 Essential (primary) hypertension; E11.9 Type 2 diabetes mellitus without complications; Z79.4 Long term (current) use of insulin; E78.5 Hyperlipidemia, unspecified; Z86.711 Personal history of pulmonary embolism; Z79.01 Long term (current) use of anticoagulants; M19.90 Unspecified osteoarthritis, unspecified site; E66.01 Morbid (severe) obesity due to excess calories; Z68.35 Body mass index [BMI] 35.0-35.9, adult; M10.9 Gout, unspecified
CPT/HCPCS: 36415; 76001; 76937; 80048; 85347; 99156; 99157; A4467; A9270-GY; C1725; C1769; C1887; C1894; J1644; J2250; J3010

== ENCOUNTER → 2018-06-17 14:13 | Emergency (ER) | payer MEDICARE, BC ==
--- NOTE | 2018-06-17 16:30 | ED ---
Lower Extremity - HPI Summary HPI Summary: Patient is a 78-year-old female who presents emergency department for left lower leg pain and weakness. Patient had a angioplasty done by Dr. Cabrera yesterday. Patient states she had leg pain and weakness after procedure which caused her to fall and land on her left knee. Patient was instructed to come to the ER for evaluation. Patient otherwise denies complaints. She lives at [facility]. History of diabetes and renal failure. Symptoms are moderate in severity. Moving leg and walking makes symptoms worse. Rest makes symptoms better. Patient has a right byqae-nhg-eqqy amputation and uses a walker or wheelchair for ambulation. - History of Current Complaint Chief Complaint: EDExtremityLower Stated Complaint: LT KNEE PAIN PROC YESTERDAY Time Seen by Provider: 06/17/18 15:25 Hx Obtained From: Patient Pain Intensity: 7 - Allergies/Home Medications Allergies/Adverse Reactions: Allergies Allergy/AdvReac Type Severity Reaction Status Date / Time Vauhzga-Rht-Zfe Reductase Allergy Severe See Comment Verified 06/17/18 14:30 Inhibitor fentanyl AdvReac Hallucinati Verified 06/17/18 14:30 ons general anesthesia Allergy Shakes Uncoded 06/15/18 14:39 PMH/Surg Hx/FS Hx/Imm Hx Previously Healthy: Yes Endocrine/Hematology History: Reports: Hx Diabetes - type 2 dm, Hx Thyroid Disease - hypothyroid Denies: Hx Anticoagulant Therapy Cardiovascular History: Reports: Hx Coronary Artery Disease, Hx Hypertension - controlled with meds, Other Cardiovascular Problems/Disorders - LBBB Denies: Hx Congestive Heart Failure, Hx Pacemaker/ICD Respiratory History: Reports: 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 , Other Respiratory Problems/Disorders - uses O2 prn sob, sopposed to use at night Denies: Hx Asthma, Hx Chronic Obstructive Pulmonary Disease (COPD) GI History: Reports: Hx Irritable Bowel - colitis History: Denies: Hx Renal Disease Musculoskeletal History: Reports: Hx Arthritis, Hx Gout, Other Musculoskeletal History - gout Sensory History: Reports: Hx Cataracts - both Denies: Hx Contacts or Glasses, Hx Hearing Aid Opthamlomology History: Reports: Hx Cataracts - both Denies: Hx Contacts or Glasses Neurological History: Denies: Hx Dementia, Hx Seizures Psychiatric History: Denies: Hx Panic Disorder, Hx Substance Abuse - Cancer History Hx Chemotherapy: No - Surgical History Surgery Procedure, Year, and Place: hysterectomy and appendectomy 1979. tonsillectomy 1977. right above the knee amputation 02/15/18. angioplasty right leg Hx Anesthesia Reactions: No Infectious Disease History: No Infectious Disease History: Denies: Hx Hepatitis, Hx Human Immunodeficiency Virus (HIV), Traveled Outside the [place] in Last 30 Days - Family History Known Family History: Positive: Unknown, Diabetes - mother - Social History Occupation: Retired Lives: Assisted Living Alcohol Use: None Substance Use Type: Reports: None Smoking Status (MU): Former Smoker Type: Cigarettes Amount Used/How Often: social smoker off and on for 10 years less than 1/2ppd Length of Time of Smoking/Using Tobacco: 34 Have You Smoked in the Last Year: No Review of Systems Cardiovascular: Negative Respiratory: Negative Positive: Other - Left knee and leg pain Neurological: Negative All Other Systems Reviewed And Are Negative: Yes Physical Exam Triage Information Reviewed: Yes Vital Signs On Initial Exam: Initial Vitals Temp Pulse Resp BP Pulse Ox 97.7 F 78 16 132/68 96 06/17/18 14:22 06/17/18 14:22 06/17/18 14:22 06/17/18 14:22 06/17/18 14:22 Vital Signs Reviewed: Yes Appearance: Positive: Well-Appearing - Pt. lying in bed in NAD. Pleasant. Skin: Positive: Warm, Dry Head/Face: Positive: Normal Head/Face Inspection Eyes: Positive: Normal, EOMI Neck: Positive: Supple Musculoskeletal: Positive: Other - Right yfmqw-kne-rbrn amputation. Left lower extremity there is gangrene to distal left great toe. No open wounds. I cannot palpate a pedal or posterior tibialis pulse. No pain over the lateral aspect of the left knee. No calf edema, ecchymosis. Compartments are soft. Neurological: Positive: Normal, CN Intact II-III Psychiatric: Positive: Affect/Mood Appropriate Diagnostics - Vital Signs Vital Signs Temp Pulse Resp BP Pulse Ox 06/17/18 14:22 97.7 F 78 16 132/68 96 - Laboratory Lab Statement: Any lab studies that have been ordered have been reviewed, and results considered in the medical decision making process. Lower Extremity Course/Dx - Course Course Of Treatment: Pt. presenting for evaluation of left leg pain and weakness after angioplasty yesterday. Patient was seen in the ER by Dr. Cabrera. He would like CT scan to evaluate for possible hematoma at the insertion site. IMPRESSION: 1. OSTEOARTHRITIS. 2. OSTEOPENIA. 3. ATHEROSCLEROSIS. 4. THERE IS A LOW-ATTENUATION FLUID COLLECTION OF THE POSTERIOR FOSSA, THE. LOW-ATTENUATION SUGGESTS A BRADSHAW'S CYST RATHER THAN HEMATOMA. THERE IS A SMALL. SUPRAPATELLAR JOINT EFFUSION. 5. THERE IS FATTY ATROPHY OF THE KNEE FLEXOR MUSCULATURE. 6. SUBCUTANEOUS EMPHYSEMA CONSISTENT WITH THE HISTORY OF RECENT MR. LORENZO. Dr. Cabrera reviewed CT scan and is okay with patient being discharged. He does not feel there are any complications from recent procedure. He will see her in his office for follow- up. Patient to return to the ER symptoms if sxs change or worsen. Patient understands and agrees with plan. - Diagnoses Differential Diagnosis/HQI/PQRI: Positive: Cellulitis, Compartment Syndrome, Contusion, Infection, Sprain, Strain Provider Diagnoses: Knee effusion, Bradshaw cyst, Peripheral vascular disease Discharge - Sign-Out/Discharge Documenting (check all that apply): Patient Departure - Discharge Plan Condition: Good Disposition: HOME Patient Education Materials: Bakers Cyst (ED), Knee Pain (ED) Referrals: Devin Scott MD [Primary Care Provider] - Adolfo Cabrera MD [Medical Doctor] - Additional Instructions: Follow up with Dr. Cabrera as scheduled Return to ER if symptoms change or worsen - Billing Disposition and Condition Condition: GOOD Disposition: Home
--- NOTE | 2018-06-17 16:48 | RAD ---
HISTORY: r/o hematoma, knee pain COMPARISONS: Ultrasound dated June 09, 2018 TECHNIQUE: Multiple contiguous axial CT images are obtained of the left knee , with coronal and sagittal multiplanar reconstructions, without intravenous contrast administration. FINDINGS: BONE DENSITY: There is diffuse osteopenia. BONES: There is no displaced fracture. JOINTS: There is advanced tricompartmental osteoarthritis. There is a small suprapatellar joint effusion. There is low-attenuation fluid collection of the popliteal fossa. MUSCULATURE: There is atrophy of the knee flexor musculature. ALIGNMENT: There is no dislocation. SOFT TISSUES: There is a small amount of subcutaneous emphysema. There is atherosclerosis of the distal superficial femoral artery and of the anterior tibial artery and tibioperoneal trunk OTHER FINDINGS: None. IMPRESSION: 1. OSTEOARTHRITIS. 2. OSTEOPENIA. 3. ATHEROSCLEROSIS. 4. THERE IS A LOW-ATTENUATION FLUID COLLECTION OF THE POSTERIOR FOSSA, THE LOW-ATTENUATION SUGGESTS A STYLES'S CYST RATHER THAN HEMATOMA. THERE IS A SMALL SUPRAPATELLAR JOINT EFFUSION. 5. THERE IS FATTY ATROPHY OF THE KNEE FLEXOR MUSCULATURE. 6. SUBCUTANEOUS EMPHYSEMA CONSISTENT WITH THE HISTORY OF RECENT MR. BJ.
--- NOTE | 2018-06-17 17:08 | CONSULT ---
Consult Consult: Date of Service: 06/17/18 Reason for consult request: LLE weakness with a subsequent fall one day after left lower extremity arteriography Focused HPI: Mrs. Hamlin is a known vasculopath with a history of right lower extremity arteriography, attempted revascularization and subsequent arterial bypass. The patient had infection of the bypass graft and ultimately was obligated to undergo a right AKA. The patient developed a nonhealing wound of the left great toe approximately 2 months ago that has progressively gotten worse culminating with a recent hospitalization. On June 16, 2018 the patient underwent left lower extremity arteriography with angioplasty of the distal superficial femoral and popliteal arteries. 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 The patient called the IR clinic today to report a fall. In person at the bedside the patient reports falling due to subjective weakness of the left leg, "her pivot leg". The patient reports she had a similar fall on May 14, 2018 and has had anterior left knee pain since then. She denies any change in the coloration of her foot. She denies any loss of sensation. She denies any pain in the popliteal fossa. Objective / PE: Selected Entries 06/17/18 14:22 Temperature 97.7 F Temperature Temporal Artery Source Scan Pulse Rate 78 Respiratory 16 Rate Blood Pressure 132/68 (mmHg) O2 Sat by Pulse 96 Oximetry Patient on Room Yes Air Pain at anterior right knee, worse with the knee flexed. The skin overlying the left common femoral arteriotomy is soft and nontender. The clean dry and intact dressing partially covers a cutaneous suture tied at the arteriotomy site The left groin is soft. 2+ pulses palpated at the left common femoral artery 1+ pulses palpated the left popliteal artery The pedal pulses are nonpalpable The left popliteal fossa is soft and nontender to deep palpation. Palpation along the medial and posterior left thigh demonstrates a soft nontender thigh. Motor function is grossly 5 over 5 in the left lower extremity Sensation is intact overlying the left lower leg and foot Left patellar reflex is 1+ Patient Name: DEXTER HAMLIN Medical Record#: [id number] Ordering Physician: Nabil OLMEDO Acct.#: [id number] : 1940 Age: 78 Sex: F Location: EMERGENCY DEPARTMENT Exam Date: 06/17/18 161 ADM Status: REG ER Order Information: CT EXTREMITY LOWER LEFT WO Accession Number: [id number] CPT: 70045 HISTORY: r/o hematoma, knee pain COMPARISONS: Ultrasound dated June 09, 2018 TECHNIQUE: Multiple contiguous axial CT images are obtained of the left knee , with coronal and sagittal multiplanar reconstructions, without intravenous contrast administration. FINDINGS: BONE DENSITY: There is diffuse osteopenia. BONES: There is no displaced fracture. JOINTS: There is advanced tricompartmental osteoarthritis. There is a small suprapatellar joint effusion. There is low-attenuation fluid collection of the popliteal fossa. MUSCULATURE: There is atrophy of the knee flexor musculature. ALIGNMENT: There is no dislocation. SOFT TISSUES: There is a small amount of subcutaneous emphysema. There is atherosclerosis of the distal superficial femoral artery and of the anterior tibial artery and tibioperoneal trunk OTHER FINDINGS: None. IMPRESSION: 1. OSTEOARTHRITIS. 2. OSTEOPENIA. 3. ATHEROSCLEROSIS. 4. THERE IS A LOW-ATTENUATION FLUID COLLECTION OF THE POSTERIOR FOSSA, THE LOW-ATTENUATION SUGGESTS A STYLES'S CYST RATHER THAN HEMATOMA. THERE IS A SMALL SUPRAPATELLAR JOINT EFFUSION. 5. THERE IS FATTY ATROPHY OF THE KNEE FLEXOR MUSCULATURE. 6. SUBCUTANEOUS EMPHYSEMA CONSISTENT WITH THE HISTORY OF RECENT MR. MENTATION. <Electronically signed by Memo Huynh MD in OV> 06/17/181644 Dictated By: Memo Huynh MD Dictated Date/Time: 06/17/181644 Transcribed Date/Time: 06/17/18 1639 Copy to: CC:Devin Scott MD; Timur Seay MD; Nabil OLMEDO; Adolfo Cabrera MD This report is only to be considered final once signed by the Provider(s) as displayed in the "<Electronically Signed by >" field (s). Absence of a signature indicates the report is in a draft status and still needs to be finalized. In the event this document was created by someone other than the signing Provider, the individual initiating the document will be listed in the "Entered by:" or "Dictated by:" stratton. 1 of 2 Assessment: 78 YOF POD # 1 status post antegrade left common femoral arteriotomy with left lower extremity arteriography and balloon angioplasty of the distal left SFA, popliteal artery and tibioperoneal trunk. 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 There are no clinical or objective findings consistent with popliteal fossa hematoma or other sequela of a postprocedural arterial dissection. My suspicion based on my clinical assessment and the CT of the left knee indicate the patient's symptoms are of a musculoskeletal etiology. Plan: 1. The patient was advised to ambulate and/or pivot only with assistance. 2. The left groin suture should be removed early next week. If the medical staff at [facility] is unable to remove the suture and the patient will be obliged to return to radiology for suture removal. 3. Regarding the patient's critical limb ischemia and vasculopathy: A referral has been submitted to Dr. Isaac to discuss bypass options in the left lower extremity. The referral will include a report from the patient's recent left lower extremity arteriogram. 4. Considering her recent falls is advised the patient discontinue antiplatelet therapy (at least the Plavix).
[2018-06-17 17:18] VITALS: BP 122/56
== END | disposition home or self-care (01) ==
LOC: ED 14:13
DX: M25.462 Effusion, left knee (principal); M71.22 Synovial cyst of popliteal space [Baker], left knee; I73.9 Peripheral vascular disease, unspecified; I25.10 Atherosclerotic heart disease of native coronary artery without angina pectoris; I10 Essential (primary) hypertension; I44.7 Left bundle-branch block, unspecified; Z86.711 Personal history of pulmonary embolism; Z79.01 Long term (current) use of anticoagulants; K52.9 Noninfective gastroenteritis and colitis, unspecified; Z87.891 Personal history of nicotine dependence
CPT/HCPCS: 99283

== ENCOUNTER 2018-08-12 15:22 | Emergency (ER) | payer MEDICARE, BC ==
[2018-08-12] MEDS ORDERED: NS 0.9% 1000 ML*IV.FLUID IV ONE (15:49)
[2018-08-12] MEDS ORDERED: Piperacillin/Tazobac ADVAN(*) 3.375 GM in NS 0.9% 100 ML* 100 ML IVPB ONE (16:06)
--- NOTE | 2018-08-12 16:20 | ED ---
Lower Extremity - HPI Summary HPI Summary: This patient is a 78 year old F BIB EMS presenting to [facility] with a chief complaint of possible infection of her LLE post bypass surgery from one month ago. He did bypass on the left leg and her big toe one week later. The big toe became infected and was amputated. Patients right leg is amputated below the knee due to prior infection of a prior surgery. The patient is experiencing pain by her knee and near her skin flap above her knee. The patient is concerned about a possible infection in this area. The patient called her surgeon and he stated to come to [facility] and be transferred after being provided with care here. The patient rates her pain 7/10 in intensity. - History of Current Complaint Chief Complaint: EDExtremityLower Stated Complaint: LEG WOUND Time Seen by Provider: 08/12/18 15:49 Hx Obtained From: Patient Onset of Pain: Prior to Arrival Severity Initially: Moderate Severity Currently: Moderate Pain Intensity: 7 Pain Scale Used: 0-10 Numeric Timing: Constant Location: Is Discrete @ - Above and below knee Associated Signs And Symptoms: Negative: Fever Aggravating Factor(s): Nothing - Allergies/Home Medications Allergies/Adverse Reactions: Allergies Allergy/AdvReac Type Severity Reaction Status Date / Time [id number] Reductase Allergy Severe See Comment Verified 06/17/18 14:30 Inhibitor fentanyl AdvReac Hallucinati Verified 06/17/18 14:30 ons general anesthesia Allergy Shakes Uncoded 06/15/18 14:39 Home Medications: Home Medications Insulin LISPRO* [HumaLOG*] 0 - 5 units SUBCUT ACHS 08/12/18 [History Confirmed 08/12/18] Polyethylene Glycol 3350* [Miralax*] 17 gm PO DAILY PRN 08/12/18 [History Confirmed 08/12/18] Saline NASAL SPRAY 0.65%* [Sodium Chloride 0.65% Nasal [place]*] 2 spray BOTH NARES Q2HR PRN 08/12/18 [History Confirmed 08/12/18] Senna TAB* [Senokot TAB*] 1 tab PO BEDTIME 08/12/18 [History Confirmed 08/12/18] amLODIPine TAB* [Norvasc 5 mg TAB*] 5 mg PO DAILY PRN 08/12/18 [History Confirmed 08/12/18] PMH/Surg Hx/FS Hx/Imm Hx Endocrine/Hematology History: Reports: Hx Diabetes - type 2 dm, Hx Thyroid Disease - hypothyroid Denies: Hx Anticoagulant Therapy Cardiovascular History: Reports: Hx Coronary Artery Disease, Hx Hypertension - controlled with meds, Other Cardiovascular Problems/Disorders - LBBB Denies: Hx Congestive Heart Failure, Hx Pacemaker/ICD Respiratory History: Reports: 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 , Other Respiratory Problems/Disorders - uses O2 prn sob, sopposed to use at night Denies: Hx Asthma, Hx Chronic Obstructive Pulmonary Disease (COPD) GI History: Reports: Hx Irritable Bowel - colitis History: Denies: Hx Renal Disease Musculoskeletal History: Reports: Hx Arthritis, Hx Gout, Other Musculoskeletal History - gout Sensory History: Reports: Hx Cataracts - both Denies: Hx Contacts or Glasses, Hx Hearing Aid Opthamlomology History: Reports: Hx Cataracts - both Denies: Hx Contacts or Glasses Neurological History: Denies: Hx Dementia, Hx Seizures Psychiatric History: Denies: Hx Panic Disorder, Hx Substance Abuse - Cancer History Hx Chemotherapy: No - Surgical History Surgery Procedure, Year, and Place: hysterectomy and appendectomy 1979. tonsillectomy 1977. right above the knee amputation 02/15/18. angioplasty right leg Hx Anesthesia Reactions: No Infectious Disease History: No Infectious Disease History: Denies: Hx Hepatitis, Hx Human Immunodeficiency Virus (HIV), Traveled Outside the [place] in Last 30 Days - Family History Known Family History: Positive: Diabetes - mother - Social History Alcohol Use: None Substance Use Type: Reports: None Smoking Status (MU): Former Smoker Type: Cigarettes Amount Used/How Often: social smoker off and on for 10 years less than 1/2ppd Length of Time of Smoking/Using Tobacco: 34 Have You Smoked in the Last Year: No Review of Systems Negative: Fever, Chills Negative: Erythema Negative: Sore Throat Negative: Chest Pain Negative: Shortness Of Breath, Cough Negative: Abdominal Pain, Vomiting, Nausea Negative: dysuria, hematuria Positive: Other - Right leg ampution, left big toe amputation. Pain above and below left knee. . Negative: Myalgia, Edema Negative: Rash Neurological: Other - Neg: Dizziness All Other Systems Reviewed And Are Negative: No Physical Exam - Summary Physical Exam Summary: Constitutional: Well-developed, Well-nourished, Alert. (-) Distressed Skin: Warm, Dry. Old clot on medial aspect of left thigh. On the inferior aspect is open with purulent and serous drainage and edema and fluctuance. HENT: Normocephalic; Atraumatic Eyes: Conjunctiva normal Neck: Musculoskeletal ROM normal neck. (-) JVD, (-) Stridor, (-) Tracheal deviation Cardio: Rhythm regular, rate normal, Heart sounds normal; Intact distal pulses; The pedal pulses are 2+ and symmetric. Radial pulses are 2+ and symmetric. (-) Murmur Pulmonary/Chest wall: Effort normal. (-) Respiratory distress, (-) Wheezes, (-) Rales Abd: Soft, (-) epigastric tenderness, (-) Distension, (-) Guarding, (-) Rebound Musculoskeletal: (-) Edema Lymph: (-) Cervical adenopathy Neuro: Alert, Oriented x3 Psych: Mood and affect Normal Triage Information Reviewed: Yes Vital Signs On Initial Exam: Initial Vitals Temp Pulse Resp BP Pulse Ox 99 F 72 12 123/62 93 08/12/18 15:30 08/12/18 15:30 08/12/18 15:30 08/12/18 15:30 08/12/18 15:30 Vital Signs Reviewed: Yes Diagnostics - Vital Signs Vital Signs Temp Pulse Resp BP Pulse Ox 08/12/18 15:30 99 F 72 12 123/62 93 - Laboratory Result Diagrams: 08/12/18 16:23 08/12/18 16:23 Lab Statement: Any lab studies that have been ordered have been reviewed, and results considered in the medical decision making process. - Radiology CXR Portable Radiology Interpretation Completed By: Radiologist Summary of Radiographic Findings: No radiographic evidence for acute pulmonary abnormaility on this portable CXR. ED Provider has reviewed this report. - EKG 1607 Cardiac Rate: NL EKG Rhythm: Sinus Rhythm - [address] Segment: Normal Summary of EKG Findings: LBBB Lower Extremity Course/Dx - Course Course Of Treatment: This patient is a 78 year old F BIB EMS presenting to [facility] with a chief complaint of possible infection of her LLE post bypass surgery from one month ago. He did bypass on the left leg and her big toe one week later. The big toe became infected and was amputated. Patients right leg is amputated below the knee due to prior infection of a prior surgery. Physical exam results showed the interior aspect of the left thigh is open with purulent and serous drainage with edema and fluctuance. Portable CXR was unremarkable for cardiopulmonary disease. Due to potential infection she will be treated with antibiotics here and then transferred to [facility] for treatment by her vascular surgeon Dr. Isaac, however Dr. Lee, vascular surgery, accepted the transfer. This plan was discussed with the patient and she is agreeable with this plan. - Diagnoses Provider Diagnoses: Incisional abscess Discharge - Sign-Out/Discharge Documenting (check all that apply): Patient Departure - Discharge Plan Condition: Stable Disposition: TRANS HIGHER LVL OF CARE FAC Referrals: Devin Scott MD [Primary Care Provider] - - Billing Disposition and Condition Condition: STABLE Disposition: Trans Higher Lvl of Care Fac - Attestation Statements Document Initiated by Mike: Yes Documenting Scribe: Lawson De Provider For Whom Mike is Documenting (Include Credential): Wily Rodriguez MD Scribe Attestation: Lawson Ochoa, scribed for Wily Rodriguez MD on 08/12/18 at 1951. Scribe Documentation Reviewed: Yes Provider Attestation: The documentation as recorded by the Lawson ansari accurately reflects the service I personally performed and the decisions made by , Wily Rodriguez MD Status of Scribe Document: Viewed
[2018-08-12 16:34] LABS: ABS Basophils 0.1 10^3/ul (0-0.2); ABS Eosinophils 0.4 10^3/ul (0-0.6); ABS Lymphocytes 1.8 10^3/ul (1.0-4.8); ABS Monocytes 0.7 10^3/ul (0-0.8); ABS Neutrophils 5.6 10^3/ul (1.5-7.7); ABS Nucleated RBC 0 10^3/ul; Eosinophil % 4.2 %; Hematocrit 31 % (35-47); Lymphocyte % 20.7 %; Mean Corpuscular HGB Conc 32 g/dl (31-36); Mean Corpuscular Hemoglobin 27 pg (27-31); Mean Corpuscular Volume 82 fL (80-97); Mean Platelet Volume 6.4 fL (7.4-10.4); Nucleated Red Blood Cells % 0; Platelet Count 445 10^3/ul (150-450); Red Blood Count 3.77 10^6/ul (4.00-5.40); Red Cell Distribution Width 16 % (10.5-15); White Blood Count 8.6 10^3/ul (3.5-10.8)
[2018-08-12 16:42] LABS: Activated Partial Thrombo Time 37.2 seconds (26.0-36.3); INR 1.12 (0.77-1.02)
[2018-08-12 16:51] LABS: Albumin 3.3 g/dL (3.2-5.2); Albumin/Globulin Ratio 0.9 (1-3); BUN/Creatinine Ratio 19.4 (8-20); Calcium 10.5 mg/dL (8.6-10.3); EGFR African American 26.6 (>60); Globulin 3.7 g/dL (2-4); Potassium 4.6 mmol/L (3.5-5.0); Total Bilirubin 0.3 mg/dL (0.2-1.0)
[2018-08-12 16:53] LABS: Troponin I 0.01 ng/mL (<0.04)
[2018-08-12] MEDS ORDERED: Vancomycin(*) 1,500 MG in NS 0.9% 250 ML* 250 ML IVPB ONE (17:36)
[2018-08-12 18:47] LABS: Urine Appearance Cloudy; Urine Bacteria 1+ (Absent); Urine Bilirubin Negative (Negative); Urine Blood Negative (Negative); Urine Color Straw; Urine Glucose Negative (Negative); Urine Ketones Negative (Negative); Urine Nitrite Positive (Negative); Urine Protein Negative (Negative); Urine Red Blood Cell 1+(3-5/hpf) (Absent); Urine Specific Gravity 1.006 (1.010-1.030); Urine Squamous Epithelial Cell Present (Absent); Urine Urobilinogen Negative (Negative); Urine White Blood Cell 3+(>20/hpf) (Absent)
[2018-08-12 20:24] VITALS: BP 130/60
--- NOTE | 2018-08-13 20:08 | PN ---
Progress Note - Progress Note Date of Service: 08/13/18 Note: verbal called to me about blood cultures aerobic gram positive cocci. mrsa and staph negative. patient was transferred to [facility]. gave results to Anne to fax to [facility] with the preliminary.
--- NOTE | 2018-08-15 07:03 | ED ---
Progress - Progress Note Progress Note: Patient's aerobic blood culture reveals Staphylococcus epidermidis. Anaerobic culture bottle shows no growth after 2 days. Final wound cx Negative MRSA and staph aureus. Preliminary wound culture reveals 1+ Escherichia coli and 1+ enterococcus faecalis Preliminary urine culture reveals 10-25,000 Escherichia coli and 10-25,000 normal keya. Patient was transferred [facility]. Will fax results. [facility] clerk where. Course/Dx - Course Course Of Treatment: This patient is a 78 year old F BIB EMS presenting to [facility] with a chief complaint of possible infection of her LLE post bypass surgery from one month ago. He did bypass on the left leg and her big toe one week later. The big toe became infected and was amputated. Patients right leg is amputated below the knee due to prior infection of a prior surgery. Physical exam results showed the interior aspect of the left thigh is open with purulent and serous drainage with edema and fluctuance. Portable CXR was unremarkable for cardiopulmonary disease. Due to potential infection she will be treated with antibiotics here and then transferred to [facility] for treatment by her vascular surgeon Dr. Isaac, however Dr. Lee, vascular surgery, accepted the transfer. This plan was discussed with the patient and she is agreeable with this plan. - Diagnoses Provider Diagnoses: Incisional abscess Discharge - Sign-Out/Discharge Documenting (check all that apply): Post-Discharge Follow Up - Discharge Plan Condition: Stable Disposition: TRANS HIGHER LVL OF CARE FAC Referrals: Devin Scott MD [Primary Care Provider] - - Billing Disposition and Condition Condition: STABLE Disposition: Trans Higher Lvl of Care Fac
== END 2018-08-12 20:36 | disposition short-term general hospital (02) ==
LOC: ED 15:22
DX: T81.41XA Infection following a procedure, superficial incisional surgical site, initial encounter (principal); L02.416 Cutaneous abscess of left lower limb; B95.7 Other staphylococcus as the cause of diseases classified elsewhere; B96.20 Unspecified Escherichia coli [E. coli] as the cause of diseases classified elsewhere; E11.9 Type 2 diabetes mellitus without complications; Z79.4 Long term (current) use of insulin; I25.10 Atherosclerotic heart disease of native coronary artery without angina pectoris; I10 Essential (primary) hypertension; I44.7 Left bundle-branch block, unspecified; Z86.718 Personal history of other venous thrombosis and embolism; Z79.01 Long term (current) use of anticoagulants; Z89.412 Acquired absence of left great toe; Z89.511 Acquired absence of right leg below knee; Z88.4 Allergy status to anesthetic agent; Z88.5 Allergy status to narcotic agent; Z88.8 Allergy status to other drugs, medicaments and biological substances; Z87.891 Personal history of nicotine dependence
CPT/HCPCS: 36415; 71045; 80053; 81003; 81015; 83605; 84484; 85025; 85610; 85730; 87040; 87070; 87077; 87086; 87150; 87186; 87205; 87640; 87641; 93005; 99285; J2543; J3370

== ENCOUNTER 2018-11-20 14:19 | Emergency (ER) | payer MEDICARE, BC ==
--- NOTE | 2018-11-20 14:55 | UC ---
Skin Complaint HPI - HPI Summary HPI Summary: Patient states that she had a swollen gland on the left side of her neck and wanted that checked. 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 - History of Current Complaint Time Seen by Provider: 11/20/18 14:20 Stated Complaint: SWOLLEN JAW Hx Obtained From: Patient ?: No Onset/Duration: Gradual Onset Skin Exposure Onset/Duration: Days Ago - Noted "swollen glands" left-sided neck over the past 2 days. Timing: Constant Onset Severity: Mild Current Severity: Mild Location: Other - Left neck Character: Pain - Tenderness on palpation when she rubs it. Aggravating Factor(s): Nothing - Recent illness. Alleviating Factor(s): Nothing - And is intermittent. Associated Signs & Symptoms: Positive: Negative Related History: Other: - No recent illness. - Allergy/Home Medications Allergies/Adverse Reactions: Allergies Allergy/AdvReac Type Severity Reaction Status Date / Time Kurvgnr-Ogs-Gnv Reductase Allergy Severe See Comment Verified 06/17/18 14:30 Inhibitor fentanyl AdvReac Hallucinati Verified 06/17/18 14:30 ons general anesthesia Allergy Shakes Uncoded 06/15/18 14:39 PMH/Surg Hx/FS Hx/Imm Hx Previously Healthy: No - Insulin-dependent diabetes. Endocrine History: Diabetes, Other Other Endocrine History: Gout Cardiovascular History: Cardiac Disease, Hypertension Respiratory History: Pulmonary Embolism GI/ History: Renal Disease Other History Of: Negative For: Anticoagulant Therapy - Surgical History Surgical History: Yes Surgery Procedure, Year, and Place: hysterectomy and appendectomy 1979. tonsillectomy 1977. right above the knee amputation 02/15/18. angioplasty right leg - Family History Known Family History: Positive: Unknown, Diabetes - mother - Social History Occupation: Retired Lives: Assisted Living Alcohol Use: None Substance Use Type: None Smoking Status (MU): Former Smoker Type: Cigarettes Amount Used/How Often: social smoker off and on for 10 years less than 1/2ppd Length of Time of Smoking/Using Tobacco: 34 Have You Smoked in the Last Year: No When Did the Patient Quit Smoking/Using Tobacco: 30 years ago Household Exposure Type: Cigarettes - Immunization History Most Recent Influenza Vaccination: 06/06/2018 Most Recent Tetanus Shot: up to date Most Recent Pneumonia Vaccination: 06/06/2018 Review of Systems All Other Systems Reviewed And Are Negative: Yes Skin: Positive: Other - Sensation states she has had a swollen gland on the left side of her neck with mild tenderness when she rubs it but no recent illness. Musculoskeletal: Positive: Other: - Right below the knee amputation early in October because of complications from diabetes. Psychological: Positive: Negative Is Patient Immunocompromised?: No Physical Exam Triage Information Reviewed: Yes Appearance: Well-Appearing, No Pain Distress, Well-Nourished Vital Signs Reviewed: Yes ENT: Positive: Normal ENT inspection, Hearing grossly normal, Pharynx normal, TMs normal. Negative: Dental tenderness Dental Exam: Normal Neck exam: Normal Neck: Positive: Supple, Nontender, No Lymphadenopathy Respiratory Exam: Normal Cardiovascular Exam: Normal Abdomen Description: Positive: Nontender, Soft Bowel Sounds: Positive: Present Musculoskeletal: Positive: Strength Intact, ROM Intact, Other: - Knee amputation right leg. Scars and left leg from surgical procedures to preserve circulation. Neurological: Positive: Alert, Muscle Tone Normal Psychological Exam: Normal - Articulate Skin Exam: Normal Course/Dx - Course Course Of Treatment: She has been comfortable here. She needed reassurance that there was no lymphadenopathy. She should follow up with her primary care provider if this worsens specially if she develops any fever, chills. - Diagnoses Provider Diagnosis: Neck pain without injury Discharge - Sign-Out/Discharge Documenting (check all that apply): Patient Departure All imaging exams completed and their final reports reviewed: No Studies - Discharge Plan Condition: Good Disposition: HOME Referrals: Devin Scott MD [Primary Care Provider] - Additional Instructions: Follow-up with your primary care provider if any worsening symptoms. - Billing Disposition and Condition Condition: GOOD Disposition: Home
[2018-11-20 15:03] VITALS: BP 130/80
== END 2018-11-20 15:10 | disposition home or self-care (01) ==
LOC: UCEAST 14:19
DX: M54.2 Cervicalgia (principal); E11.9 Type 2 diabetes mellitus without complications; Z88.4 Allergy status to anesthetic agent; Z88.8 Allergy status to other drugs, medicaments and biological substances; Z87.891 Personal history of nicotine dependence; Z89.511 Acquired absence of right leg below knee; Z79.4 Long term (current) use of insulin
CPT/HCPCS: 99211; G0463

== ENCOUNTER 2019-02-01 15:21 | Inpatient (IN) | payer MEDICARE, BC ==
[2019-02-01 17:03] LABS: ABS Basophils 0.1 10^3/ul (0-0.2); ABS Eosinophils 0.1 10^3/ul (0-0.6); ABS Monocytes 0.6 10^3/ul (0-0.8); ABS Neutrophils 8.7 10^3/ul (1.5-7.7); Eosinophil % 1.4 %; Hematocrit 34 % (35-47); Hemoglobin 11.1 g/dL (12.0-16.0); Lymphocyte % 9.9 %; Mean Corpuscular HGB Conc 33 g/dL (31-36); Mean Corpuscular Hemoglobin 27 pg (27-31); Mean Corpuscular Volume 83 fL (80-97); Mean Platelet Volume 7.3 fL (7.4-10.4); Nucleated Red Blood Cells % 0.1; Platelet Count 441 10^3/uL (150-450); Red Blood Count 4.06 10^6 /uL (3.70-4.87); Red Cell Distribution Width 16 % (10-15); White Blood Count 10.6 10^3/uL (3.5-10.8)
[2019-02-01 17:14] LABS: ALT 35 U/L (7-52); AST 19 U/L (13-39); Albumin 3.7 g/dL (3.2-5.2); Alkaline Phosphatase 165 U/L (34-104); Anion Gap 10 mmol/L (2-11); BUN/Creatinine Ratio 31.7 (8-20); Blood Urea Nitrogen 76 mg/dL (6-24); CO2 Carbon Dioxide 25 mmol/L (22-32); Calcium 10.4 mg/dL (8.6-10.3); Chloride 102 mmol/L (101-111); EGFR African American 23.6 (>60); EGFR Non-African American 19.5 (>60); Globulin 3.7 g/dL (2-4); Glucose 181 mg/dL (70-100); Sodium 137 mmol/L (135-145); Total Protein 7.4 g/dL (6.4-8.9)
[2019-02-01 17:15] LABS: Troponin I 3.43 ng/mL (<0.04)
[2019-02-01] MEDS ORDERED: NS 0.9% 1000 ML** 1,000 ML IV ONE (17:30)
[2019-02-01] MEDS ORDERED: Aspirin 81 mg CHEW TAB* 81 MG TAB.CHEW PO ONE (17:30)
[2019-02-01] MEDS ORDERED: Furosemide IV* 10 MG/ML VIAL (40 MG) IV ONE ×2 (17:47→21:41)
[2019-02-01] MEDS ORDERED: NS 0.9% 500 ML* 500 ML IV ONE (18:11)
[2019-02-01] MEDS ORDERED: Dextrose 50% Syringe 50 ML* 25 GM/50 ML SYRINGE IV PUSH PRN (18:43)
[2019-02-01 19:01] LABS: Magnesium 2.5 mg/dL (1.9-2.7); Uric Acid 6.4 mg/dL (2.3-6.6)
--- NOTE | 2019-02-01 19:08 | ED ---
Complex/Multi-Sys Presentation - HPI Summary HPI Summary: Patient is a 78 y/o F presenting to ED with complaints of increased fatigue, SOB , decreased appetite, constipation, and abdominal "bloating". She was sent to ED by Dr. Scott for evaluation due to concerns of shallow breathing and low o2 sat. Patient was 88 o2 on RA in ED. SOB is exacerbated when in supine position. Patient's daughter reports that the patient has had bronchitis for the past six weeks. She had been taking amoxicillin but has stopped. Daughter reports no signs of PNA on previous CXRs. Patient additionally has LLE edema. She claims she has been constipated for the past four days, but the daughter notes that the patient had an episode of diarrhea recently. N/V, chest pain and dizziness are denied. On triage, pain is rated 3/10, nothing is noted to aggravate/ alleviate Sx. Home medications and allergies are reviewed. - History Of Current Complaint Chief Complaint: EDGeneral Time Seen by Provider: 02/01/19 17:42 Hx Obtained From: Patient, Family/Plug Maker - daughter Onset/Duration: Lasting Days - patient claims constipation for the past four days but daughter reports recent episode of diarrhea, Still Present Timing: Constant, Days - patient claims constipation for the past four days but daughter reports recent episode of diarrhea Severity Currently: Mild - 3/10 Aggravating Factor(s): nothing Alleviating Factor(s): nothing Associated Signs And Symptoms: Positive: SOB, Edema - LLE, Other - patient claims constipation for the past four days but daughter reports recent episode of diarrhea; fatigue, decreased appetite, abdominal "bloating". Negative: Chest Pain, Nausea, Vomiting - Allergies/Home Medications Allergies/Adverse Reactions: Allergies Allergy/AdvReac Type Severity Reaction Status Date / Time Edfnhkl-Gok-Aav Reductase Allergy Severe See Comment Verified 02/01/19 15:31 Inhibitor fentanyl AdvReac Hallucinati Verified 02/01/19 15:31 ons general anesthesia Allergy Shakes Uncoded 02/01/19 15:31 Home Medications: Home Medications Acetaminophen TAB* [Tylenol TAB*] 975 mg PO Q6H PRN 02/01/19 [History Confirmed 02/01/19] Allopurinol TAB* [Zyloprim 100 MG TAB*] 100 mg PO DAILY 02/01/19 [History Confirmed 02/01/19] Cholecalciferol (Vitamin D3) [Vitamin D3] 1,000 unit PO DAILY 02/01/19 [History Confirmed 02/01/19] Magnesium Oxide TAB* [MagOx 400 TAB*] 400 mg PO DAILY 02/01/19 [History Confirmed 02/01/19] Rivaroxaban TAB(*) [Xarelto 10 mg (*)] 10 mg PO BEDTIME 02/01/19 [History Confirmed 02/01/19] amLODIPine TAB* [Norvasc 5 mg TAB*] 10 mg PO DAILY 02/01/19 [History Confirmed 02/01/19] PMH/Surg Hx/FS Hx/Imm Hx Endocrine/Hematology History: Reports: Hx Diabetes - type 2 dm, Hx Thyroid Disease - hypothyroid Denies: Hx Anticoagulant Therapy Cardiovascular History: Reports: Hx Coronary Artery Disease, Hx Hypertension - controlled with meds, Other Cardiovascular Problems/Disorders - LBBB Denies: Hx Congestive Heart Failure, Hx Pacemaker/ICD Respiratory History: Reports: 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 , Other Respiratory Problems/Disorders - uses O2 prn sob, sopposed to use at night Denies: Hx Asthma, Hx Chronic Obstructive Pulmonary Disease (COPD) GI History: Reports: Hx Irritable Bowel - colitis History: Denies: Hx Renal Disease Musculoskeletal History: Reports: Hx Arthritis, Hx Gout, Other Musculoskeletal History - gout Sensory History: Reports: Hx Cataracts - both Denies: Hx Contacts or Glasses, Hx Hearing Aid Opthamlomology History: Reports: Hx Cataracts - both Denies: Hx Contacts or Glasses Neurological History: Denies: Hx Dementia, Hx Seizures Psychiatric History: Denies: Hx Panic Disorder, Hx Substance Abuse - Cancer History Hx Chemotherapy: No - Surgical History Surgery Procedure, Year, and Place: hysterectomy and appendectomy 1979. tonsillectomy 1977. right above the knee amputation 02/15/18. angioplasty right leg Hx Anesthesia Reactions: No Infectious Disease History: No Infectious Disease History: Denies: Hx Hepatitis, Hx Human Immunodeficiency Virus (HIV), Traveled Outside the [place] in Last 30 Days - Family History Known Family History: Positive: Diabetes - mother - Social History Alcohol Use: None Substance Use Type: Reports: None Smoking Status (MU): Former Smoker Type: Cigarettes Amount Used/How Often: social smoker off and on for 10 years less than 1/2ppd Length of Time of Smoking/Using Tobacco: 34 Have You Smoked in the Last Year: No Review of Systems Positive: Fatigue Negative: Chest Pain Positive: Shortness Of Breath Gastrointestinal: Other - patient claims constipation for the past four days but daughter reports recent episode of diarrhea; decreased appetite and abodminal bloating are endorsed Negative: Vomiting, Nausea Positive: Edema - LLE Neurological: Other - NEGATIVE - DIZZINESS All Other Systems Reviewed And Are Negative: Yes Physical Exam - Summary Physical Exam Summary: VITAL SIGNS: Reviewed. GENERAL: Patient is a well-developed and obese female who is lying comfortable in the stretcher. Patient is not in any acute respiratory distress. HEAD AND FACE: No signs of trauma. No ecchymosis, hematomas or skull depressions. No sinus tenderness. EYES: PERRLA, EOMI x 2, No injected conjunctiva, no nystagmus. EARS: Hearing grossly intact. Ear canals and tympanic membranes are within normal limits. MOUTH: Oropharynx within normal limits. NECK: Supple, trachea is midline, no adenopathy, no JVD, no carotid bruit, no c- spine tenderness, neck with full ROM. CHEST: Symmetric, no tenderness at palpation LUNGS: Decreased breath sounds bilaterally. No wheezing or crackles. CVS: Regular rate and rhythm, S1 and S2 present, no murmurs or gallops appreciated. ABDOMEN: Soft, non-tender. Distention is noted. No rebound no guarding, and no masses palpated. Bowel sounds are normal. EXTREMITIES: No cyanosis or clubbing. LLE 2+ edema, right above the knee amputation. NEURO: Alert and oriented x 3. No acute neurological deficits. Speech is normal and follows commands. SKIN: Dry and warm. Triage Information Reviewed: Yes Vital Signs On Initial Exam: Initial Vitals Temp Pulse Resp BP Pulse Ox 97.7 F 72 18 134/71 89 02/01/19 15:26 02/01/19 15:26 02/01/19 15:26 02/01/19 15:26 02/01/19 15:26 Vital Signs Reviewed: Yes Diagnostics - Vital Signs Vital Signs Temp Pulse Resp BP Pulse Ox 02/01/19 18:02 74 27 126/70 95 02/01/19 18:00 73 94 02/01/19 17:36 80 89 02/01/19 15:26 97.7 F 72 18 134/71 89 - Laboratory Lab Results: Lab Results 02/01/19 02/01/19 02/01/19 Range/Units 16:44 16:44 16:44 WBC 10.6 (3.5-10.8) 10^3/uL RBC 4.06 (3.70-4.87) 10^6 /uL Hgb 11.1 L (12.0-16.0) g/dL Hct 34 L (35-47) % MCV 83 (80-97) fL MCH 27 (27-31) pg MCHC 33 (31-36) g/dL RDW 16 H (10-15) % Plt Count 441 (150-450) 10^3/uL MPV 7.3 L (7.4-10.4) fL Neut % (Auto) 81.5 % Lymph % (Auto) 9.9 % [place] % (Auto) 6.1 % Eos % (Auto) 1.4 % Baso % (Auto) 1.1 % Absolute Neuts (auto) 8.7 H (1.5-7.7) 10^3/ul Absolute Lymphs (auto) 1.0 (1.0-4.8) 10^3/ul Absolute Monos (auto) 0.6 (0-0.8) 10^3/ul Absolute Eos (auto) 0.1 (0-0.6) 10^3/ul Absolute Basos (auto) 0.1 (0-0.2) 10^3/ul Absolute Nucleated RBC 0.0 10^3/ul Nucleated RBC % 0.1 Sodium 137 (135-145) mmol/L Potassium 5.0 (3.5-5.0) mmol/L Chloride 102 (101-111) mmol/L Carbon Dioxide 25 (22-32) mmol/L Anion Gap 10 (2-11) mmol/L BUN 76 H (6-24) mg/dL Creatinine 2.40 H (0.51-0.95) mg/dL Est GFR ( Amer) 23.6 (>60) Est GFR (Non-Af Amer) 19.5 (>60) BUN/Creatinine Ratio 31.7 H (8-20) Glucose 181 H (70-100) mg/dL Uric Acid 6.4 (2.3-6.6) mg/dL Calcium 10.4 H (8.6-10.3) mg/dL Magnesium 2.5 (1.9-2.7) mg/dL Total Bilirubin 0.40 (0.2-1.0) mg/dL AST 19 (13-39) U/L ALT 35 (7-52) U/L Alkaline Phosphatase 165 H (34-104) U/L Troponin I 3.43 H* (<0.04) ng/mL B-Natriuretic Peptide 1123 H (<=100) pg/mL Total Protein 7.4 (6.4-8.9) g/dL Albumin 3.7 (3.2-5.2) g/dL Globulin 3.7 (2-4) g/dL Albumin/Globulin Ratio 1.0 (1-3) Result Diagrams: 02/01/19 16:44 02/01/19 16:44 Lab Statement: Any lab studies that have been ordered have been reviewed, and results considered in the medical decision making process. - Radiology CXR Radiology Interpretation Completed By: Radiologist Summary of Radiographic Findings: IMPRESSION: FINDINGS MOST CONSISTENT WITH CONGESTIVE HEART FAILURE OR PNEUMONIA. THIS REPORT WAS REVIEWED BY DR. STAUFFER. - EKG 1738 Cardiac Rate: NL - rate of 77 BPM EKG Rhythm: Sinus Rhythm EKG Comparison: No Significant Change - similar to 08/12/18 EKG Summary of EKG Findings: EKG showed sinus rhythm with rate of 77 BPM, LBBB, similar to EKG done 08/12/18. Dr. Stauffer has reviewed and interpreted this EKG. Complex Multi-Symp Course/Dx Assessment/Plan: Patient is a 78 y/o F presenting to ED with complaints of increased fatigue, SOB, decreased appetite, constipation, and abdominal "bloating". She was sent to ED by Dr. Scott for evaluation due to concerns of shallow breathing and low o2 sat. Patient was 88 o2 on RA in ED. SOB is exacerbated when in supine position. Patient's daughter reports that the patient has had bronchitis for the past six weeks. She had been taking amoxicillin but has stopped. Daughter reports no signs of PNA on previous CXRs. Patient additionally has LLE edema. She claims she has been constipated for the past four days, but the daughter notes that the patient had an episode of diarrhea recently. N/V and dizziness are denied. On triage, pain is rated 3/10, nothing is noted to aggravate/alleviate Sx. Home medications and allergies are reviewed. Past medical history significant for. - Pulmonary embolism on Xarelto. - Dyspnea. - Diabetes mellitus type 2. - Hypothyroidism. - Lower extremity cellulitis. - Peripheral vascular disease. - Obesity. - Gout. - Hypertension. - Chronic kidney disease. In the ED course the patient denies any chest pain but endorses shortness of breath and constipation. The patient reports that she is unable to take aspirin since she is already taking Xarelto. EKG shows a normal sinus rhythm with a left bundle branch block. Blood test results shows an slight anemia, BUN/creatinine 26, creatinine 2.40, glucose 181 , calcium is 10.4, alkaline phosphatase is 165, troponin is 2.43, BNP is 1123. At this time since the patient is already taking Xarelto I will hold the heparin. Patient was given Lasix for the CHF exacerbation. At this time I discussed my physical exam and findings with Dr. Starks from the hospital services were accepted the patient for admission. The patient is hemodynamically stable alert and oriented 3. - Diagnoses Provider Diagnoses: CHF (congestive heart failure), NSTEMI (non-ST elevated myocardial infarction) , Acute renal failure - Physician Notifications Discussed Care Of Patient With: Daya Starks Time Discussed With Above Provider: 17:51 Instructed by Provider To: Other - Patient's case was discussed with Dr. Starks , Dr. Starks accepts for admission. - Critical Care Time Critical Care Time: 75-104 min Discharge - Sign-Out/Discharge Documenting (check all that apply): Patient Departure - admit Patient Received Moderate/Deep Sedation with Procedure: No - Discharge Plan Condition: Good Disposition: ADMITTED TO [facility] - Billing Disposition and Condition Condition: GOOD Disposition: Admitted to [facility] - Attestation Statements Document Initiated by Mike: Yes Documenting Scribe: ЕЛЕНА BENSON Provider For Whom Mike is Documenting (Include Credential): PASCALE STAUFFER MD Scribe Attestation: IЕЛЕНА, scribed for PASCALE STAUFFER MD on 02/01/19 at 0127. Scribe Documentation Reviewed: Yes Provider Attestation: The documentation as recorded by the ЕЛЕНА ansari accurately reflects the service I personally performed and the decisions made by me, PASCALE STAUFFER MD Status of Scribe Document: Viewed
--- NOTE | 2019-02-01 19:23 | HP ---
History of Present Illness - History of Present Illness Reason for Visit: dyspnea History of Present Illness: PCP: Case HPI: Patient is a 78 year old woman with diabetes, peripheral vascular disease, who reports she has been coughing for 2 months. She reports the cough is productive, but not associated with fever. She had been avoiding seeking medical care for more than a month, but she went to [facility] urgent care about 10 days ago. There were apparently no findings. She then went to her primary care office about 6 days ago, was diagnosed with bronchitis, had a chest X-ray, and was given amoxicillin. She felt worse after 3 days of that medication and stopped it. Around 1 week ago, she began complaining of dyspnea at rest and with exertion. She reports this inconsistently according to her daughter. She called her PCP office again today, and was referred to the emergency department. She does deny chest pain, pressure, or palpitations. She denies nausea or vomiting, but has some anorexia. She has not had a normal bowel movement in 5 days, but she took some laxatives yesterday and had loose stools today. 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 Alcohol: None Drugs: None Lives: Alone - at [place], , 4 children, HCP on chart Review of Systems - Measurements Intake and Output: Intake and Output Last 24 Hours 01/30/19 01/31/19 02/01/19 02/02/19 06:59 06:59 06:59 06:59 Weight 90.718 kg - Review of Systems General Comments: inconsistent historian Constitutional Symptoms: Positive: Weight Gain Dermatology: Positive: Normal HEENT: Positive: Normal Eyes: Positive: Normal Thyroid: Positive: Normal Pulmonary: Positive: Cough, Sputum, Wheezing, Shortness of Breath, Exercise Intolerance Negative: Hemoptysis, Respiratory Distress, COPD Cardiology: Positive: Shortness of Breath, Peripheral Vascular Dis, Edema Negative: Chest Pain, Palpitations, Swelling of Ankles, Syncope Gastroenterology: Positive: Abdominal Pain, Constipation, Change in Bowel Habits Negative: Nausea, Vomiting, Blood in Stools, Melena Genital - Urinary: Positive: Normal Genitourinay - Female: Positive: Menopause Musculoskeletal: Positive: Joint Deformities Endocrinology: Positive: Diabetes Mellitus Hematologic/Lymphatic: Positive: Use of Antiplatelet Drugs Neurology: Positive: Normal Psychiatry: Positive: Normal Objective Active Medications: Home Medications: Allopurinol (Zyloprim Tab*) 100 mg PO DAILY [facility] Amlodipine Besylate (Norvasc Tab*) 10 mg PO DAILY [facility] Gabapentin (Neurontin Cap(*)) 200 mg PO BEDTIME [facility] Insulin Glargine (Lantus(*)) 6 units SUBCUT QPM [facility] Magnesium Oxide (Magox 400 Tab*) 400 mg PO DAILY [facility] Metoprolol Tartrate (Lopressor Tab*) 25 mg PO BID [facility] Non-Formulary Medication (Cholecalciferol (Vitamin D3) [Vitamin D3]) 1,000 unit PO DAILY [facility] Rivaroxaban (Xarelto(*)) 10 mg PO BEDTIME [facility] Vital Signs - 8 hr 02/01/19 02/01/19 02/01/19 15:26 17:36 18:00 Temperature 36.5 C Pulse Rate 72 80 73 Respiratory 18 Rate Blood Pressure 134/71 (mmHg) O2 Sat by Pulse 89 89 94 Oximetry 02/01/19 18:02 Temperature Pulse Rate 74 Respiratory 27 Rate Blood Pressure 126/70 (mmHg) O2 Sat by Pulse 95 Oximetry Oxygen Devices in Use Now: Nasal Cannula Appearance: elderly, alert, no distress Eyes: No Scleral Icterus Ears/Nose/Mouth/Throat: NL Teeth, Lips, Gums Neck: NL Appearance and Movements; NL JVP, Trachea Midline, No Thyroid Enlargement, Masses Respiratory: Symmetrical Chest Expansion and Respiratory Effort, Clear to Auscultation Cardiovascular: NL Sounds; No Murmurs; No JVD, RRR Abdominal: No Hepatosplenomegaly, - - soft, distended, +BS Lymphatic: No Cervical Adenopathy, No Axillary Adenopathy Extremities: - - RT above knee amputee, stump intact, LLE 3+ edema, DP pulse 2+ , LT great toe absent Skin: No Rash or Ulcers Neurological: Alert and Oriented x 3 Lines/Tubes/Other Access: Clean, Dry and Intact Peripheral IV Nutrition: Taking PO's Result Diagrams: 02/01/19 16:44 02/01/19 16:44 Additional Lab and Data: Laboratory Tests 02/01/19 02/01/19 16:44 16:44 Glucose 181 H Uric Acid 6.4 Calcium 10.4 H Alkaline Phosphatase 165 H Troponin I 3.43 H* B-Natriuretic Peptide 1123 H Diagnostic Imaging: CXR: pulmonary edema EKG Data: NSR, LBBB Assess/Plan/Problems-Billing Assessment: 78 year old woman with PVD, type 2 diabetes, admitted with non-Q-wave WA and new onset CHF - Patient Problems (1) Non Q wave myocardial infarction Current Visit: Yes Status: Acute Priority: High Code(s): I21.4 - NON-ST ELEVATION (NSTEMI) MYOCARDIAL INFARCTION SNOMED Code(s): 335122927 Comment: -Patient has multiple risk factors for CAD, including PVD, diabetes , hypertension, history of smoking -Will admit to telemetry, follow serial troponins, EKG. -Not starting heparin, already on DOAC Xarelto -Already on aspirin, beta anh -Discussed case with Dr. Singh, patient will have cardiology consult in AM. (2) Acute systolic heart failure, first episode Current Visit: Yes Status: Acute Priority: High Code(s): I50.21 - ACUTE SYSTOLIC (CONGESTIVE) HEART FAILURE SNOMED Code(s): 896521288 Comment: -Suspect ischemic cardiomyopathy -Will have echocardiogram in morning -Will give one dose lasix, as patient received 500 ml NS in ER, likely will be more dyspneic overnight. (3) DM2 (diabetes mellitus, type 2) Current Visit: Yes Status: Chronic Priority: Medium Comment: - Diabetes less well controlled due to recent illness - Continue glargine, start lispro SS (4) Hypercalcemia Current Visit: Yes Status: Acute Priority: Medium Code(s): E83.52 - HYPERCALCEMIA SNOMED Code(s): 54696715 Comment: -elevated calcium mild, may have vitamin D deficiency -Will repeat in AM, check Vit D, ionized Ca. (5) DVT prophylaxis Current Visit: Yes Status: Acute Priority: Low Code(s): RCZ2611 - SNOMED Code(s): 448983156 Comment: - High risk due to h/o PE - Xarelto Status and Disposition: inpatient
[2019-02-01] MEDS ORDERED: Insulin LISPRO* 1 UNITS UNIT SUBCUT SCH (21:00)
[2019-02-01 21:07] LABS: Troponin I 3.11 ng/mL (<0.04)
--- NOTE | 2019-02-01 21:41 | PN ---
Hospitalist Progress Note Date of Service: 02/01/19 Called to bedside for increased WOB. Patient has not urinated since admission and has increased WOB. Bladder scan reveals >1000ml, patient on bedpan trying to void. As patient has acute HF, will scan for PVR, insert brewer to urometer if retaining. Record strict I&Os and daily weights. Currently on O2 2L with RR high 20s. Will order additional 40mg lasix IVP now and then daily 40mg IVP. BNP is 1123. Coordinated with nursing staff.
[2019-02-01] MEDS: Rivaroxaban TAB(*) 10 MG PO SCH (21:55)
[2019-02-01] MEDS: Gabapentin CAP(*) 100 MG PO SCH (21:55)
[2019-02-01] MEDS: Nystatin OINT* 15 GM TOPICAL SCH (21:56)
[2019-02-01 22:50] LABS: Urine Appearance Cloudy; Urine Bacteria 1+ (Absent); Urine Bilirubin Negative (Negative); Urine Blood Negative (Negative); Urine Color Yellow; Urine Glucose Negative (Negative); Urine Ketones Negative (Negative); Urine Nitrite Negative (Negative); Urine Protein 1+(30 mg/dL) (Negative); Urine Red Blood Cell Trace(0-2/hpf) (Absent); Urine Squamous Epithelial Cell Present (Absent); Urine Urobilinogen Negative (Negative); Urine White Blood Cell Absent (Absent)
[2019-02-01] MEDS: Metoprolol Tartrate TAB* 25 MG PO SCH (23:24)
[2019-02-01 23:52] LABS: Troponin I 2.85 ng/mL (<0.04)
[2019-02-02 05:44] LABS: ABS Basophils 0.1 10^3/ul (0-0.2); ABS Eosinophils 0.2 10^3/ul (0-0.6); ABS Monocytes 0.6 10^3/ul (0-0.8); Eosinophil % 2.7 %; Hematocrit 31 % (35-47); Hemoglobin 10.3 g/dL (12.0-16.0); Lymphocyte % 11.5 %; Mean Corpuscular HGB Conc 33 g/dL (31-36); Mean Corpuscular Hemoglobin 28 pg (27-31); Mean Corpuscular Volume 84 fL (80-97); Mean Platelet Volume 7.2 fL (7.4-10.4); Nucleated Red Blood Cells % 0.1; Platelet Count 385 10^3/uL (150-450); Red Blood Count 3.74 10^6 /uL (3.70-4.87); Red Cell Distribution Width 17 % (10-15)
[2019-02-02 06:01] LABS: BUN/Creatinine Ratio 31.3 (8-20); Calcium 9.8 mg/dL (8.6-10.3); EGFR African American 23.2 (>60); EGFR Non-African American 19.2 (>60); Potassium 4.5 mmol/L (3.5-5.0)
[2019-02-02 06:17] LABS: TSH (Thyroid Stimulating Horm) 1.39 mcIU/mL (0.34-5.60)
[2019-02-02] MEDS ORDERED: Perflutren Lipid Microsphere* 3 ML VIAL ONE (07:58)
--- NOTE | 2019-02-02 09:07 | ECHO ---
*[facility]* [place] [address] Fax #: [phone] Transthoracic Echocardiogram Patient: Alexander, Height: 65 in / Mitra Mckeon 165.1 cm : 1940 Weight: 199.6 lb / Study Date: 02/02/2019 90.7 kg Age: 78 BP: 121 / 61 Gender: F BMI/BSA: 33.3 kg/m^2 HR: 72 bpm / 1.98 m^2 *Seam Rubbing Machine Operator: Barbara [facility]rijalva [facility] *Referring Physician: * Jose Ramon Freed *Reading Physician: * Erlin Lieberman MD Indications: Myocardial Infarction (new). History: Pulmonary embolic disease. Risk factors: Hypertension. Diabetes mellitus. Conclusions Summary: 1. Left ventricle: The cavity size is mildly dilated. Systolic function is severely reduced. The estimated ejection fraction is 20-25%. Severe diffuse hypokinesis with multiple regional wall motion abnormalities. Left ventricular diastolic function parameters are abnormal. 2. Left atrium: The atrium is moderately dilated. 3. Right atrium: The atrium is mildly dilated. 4. Mitral valve: There is moderate regurgitation. 5. Ascending aorta: The ascending aorta is mildly dilated. 6. Since the prior echocardiogram completed 04/19/14, pertinent changes are prior LVEF reported 40-45% and prior no mitral regurgitation noted. Study data: Transthoracic echocardiogram. Procedure: Transthoracic echocardiography was performed. Image quality was fair. Intravenous Definity , 2.5 mlswas administered. Complete 2D, spectral Doppler, and color flow Doppler. Location: Bedside. Patient status: Inpatient. Patient room number: 441 02. Rhythm: Normal sinus rhythm. Findings Left ventricle: The cavity size is mildly dilated. Systolic function is severely reduced. The estimated ejection fraction is 20-25%. Severe diffuse hypokinesis with multiple regional wall motion abnormalities. Left ventricular diastolic function parameters are abnormal. Right ventricle: The cavity size is normal. Systolic function is normal. Left atrium: The atrium is moderately dilated. Right atrium: The atrium is mildly dilated. Mitral valve: The annulus is mildly calcified. The leaflets are mildly calcified. There is no evidence of stenosis. There is moderate regurgitation. Aortic valve: The valve is probably trileaflet. The leaflets are mildly calcified. There is no evidence of stenosis. There is no significant regurgitation. Tricuspid valve: The leaflets are normal thickness. There is physiologic regurgitation. Pulmonic valve: The leaflets are normal thickness. There is no evidence of stenosis. There is trivial regurgitation. Aorta: Aortic root: The aortic root is appears normal. Ascending aorta: The ascending aorta is mildly dilated. Aortic arch: The aortic arch is poorly visualized. Pericardium: There is no significant pericardial effusion. There appears to be a pleural effusion. Pulmonary arteries: The main pulmonary artery is normal-sized. Systolic pressure can not be accurately estimated. Systemic veins: Inferior vena cava: The vessel is dilated. The respirophasic diameter changes are in the normal range (>= 50%). Measurements Left ventricle Value Ref Aortic valve continued Value Ref YOJANA, LAX (H) 5.9 cm 3.8 - 5.2 VTI, S 24.3 cm ---- ESD, LAX (H) 5.4 cm 2.2 - 3.5 Mean grad, S 3.0 mm Hg ---- FS, LAX (L) 9 % 27 - 45 Peak grad, S 7.0 mm Hg ---- PW, ED, LAX (H) 1.0 cm 0.6 - 0.9 ALPHONSE, VTI 1.99 cm^2 ---- EF (L) 20 % 54 - 74 ALPHONSE, Vmax 2.10 cm^2 ---- E', lat gabriela, TDI (L) 5.8 cm/sec >=10.0 E/e', lat gabriela, 25 Mitral valve Value Re f TDI Peak E 1.45 m/sec ---- E', med gabriela, TDI (L) 6.1 cm/sec >=7.0 Peak A 0.93 m/sec ---- E/e', med gabriela, 24 Decel time 177 ms -- -- TDI PHT 54 ms ---- E', avg, TDI 6.0 cm/sec Mean grad, D 4.0 mm Hg -- -- E/e', avg, TDI (H) 24 <=14 Peak grad, D 9.0 mm Hg ---- Peak E/A ratio 1.6 ---- LVOT Value Ref MVA, PHT 4.1 cm^2 ---- Diam, S 2.00 cm ERO, PISA 0.05 cm^2 ---- Area 3.1 cm^2 MR vol, PISA 7 ml ---- Peak mustapha, S 0.86 m/sec MR fraction, PISA 13 % ---- Mean grad, S 1 mm Hg SV 48 ml Pulmonic valve Value Ref SV/bsa 24 ml/m^2 Peak v, S 0.97 m/sec ---- Peak grad, S 4.0 mm Hg ---- Ventricular septum Value Ref IVS, ED (H) 1.2 cm 0.6 - 0.9 Aortic root Value Ref Root diam 3.1 cm <4.1 Right ventricle Value Ref YOJANA, LAX 2.5 cm Ascending aorta Value Ref YOJANA minor ax, A4C 2.7 cm 1.9 - 3.5 AAo AP diam, S 3.6 cm ---- mid Decending aorta Value Ref Left atrium Value Ref Marguerite peak mustapha 0.53 m/sec ---- AP dim, ES (H) 4.20 cm 2.70 - 3.80 Inferior vena cava Value Ref ML dim, A4C 4.7 cm Diam 2.2 cm ---- SI dim, A4C 5.7 cm Vol/bsa, ES, A/L (H) 46 ml/m^2 16 - 34 Pulmonary veins Value Ref Peak v, S 0.52 m/sec ---- Right atrium Value Ref Peak v, D 0.64 m/sec ---- SI dim, ES (H) 5.4 cm 3.4 - 5.3 Peak S/D ratio 0.8 ---- ML dim, ES, A4C 3.0 cm 2.6 - 4.4 A rev duration 87 ms ---- Estimated RAP 8 mm Hg Aortic valve Value Ref Gabriela diam, ED 1.9 cm Peak v, S 1.28 m/sec Legend: (L) and (H) beth values outside specified reference range. Prepared and electronically signed by Erlin Lieberman MD 02/02/2019 09:06
[2019-02-02] MEDS: Insulin LISPRO* 1 UNITS UNIT SUBCUT SCH ×3 (09:34→18:19)
[2019-02-02] MEDS: Furosemide IV* 10 MG/ML VIAL (40 MG) IV SCH (09:35)
[2019-02-02] MEDS: Cholecalciferol TAB* 1000 UNITS PO SCH (09:37)
[2019-02-02] MEDS: Allopurinol TAB* 100 MG PO SCH (09:37)
[2019-02-02] MEDS: Magnesium Oxide TAB* 400 MG PO SCH (09:38)
[2019-02-02] MEDS: amLODIPine TAB* 5 MG PO SCH (09:38)
[2019-02-02] MEDS: Metoprolol Tartrate TAB* 25 MG PO SCH ×2 (09:38→20:45)
[2019-02-02] MEDS: Nystatin OINT* 15 GM TOPICAL SCH ×2 (09:39→20:46)
--- NOTE | 2019-02-02 10:19 | CONS ---
CC: Dr. Devin Scott; Dr. Singh CARDIOLOGY CONSULTATION REPORT: DATE OF CONSULT: 02/02/19 REFERRAL PHYSICIAN: Dr. Jose Ramon Freed. REASON FOR CARDIOLOGY CONSULTATION: Shortness of breath with volume overload and elevated troponin. HISTORY OF PRESENT ILLNESS: I was kindly asked to see this patient with history of pulmonary embolus admitted to the hospital with shortness of breath, found to have volume overload and elevated troponin. Ms. Munoz states that she has had 2 months of shortness of breath, which she attributed to bronchitis. Apparently, at the [facility] where she resides, the decision was made by the physician yesterday to refer her to the emergency room for further evaluation as she was not improving and in fact it seemed that her shortness of breath was getting worse for at least a week or so. She denies any chest pain. Since receiving Lasix last night, she feels her breathing is improved 20%. PAST MEDICAL HISTORY: Includes hypertension, peripheral vascular disease, bronchitis, pulmonary emboli 6 years ago, gout, type 2 diabetes. The patient follows with my partner Dr. Singh as an outpatient. PAST SURGICAL HISTORY: Includes right [id number] amputation due to PVD in January of 2018 and hysterectomy. MEDICATIONS: Outpatient medications: 1. Gabapentin 200 mg p.o. q.h.s. 2. Metoprolol tartrate 25 mg p.o. b.i.d. 3. Insulin 6 units q.p.m. 4. Xarelto 10 mg once a day. 5. Magnesium oxide 400 mg once a day. 6. Norvasc 10 mg once a day. 7. Allopurinol 100 mg once a day. ALLERGIES TO MEDICATIONS: Listed as STATINS, HMG-COA REDUCTASE INHIBITOR, FENTANYL, GENERAL ANESTHESIA. The patient states that seafood gives her gout. FAMILY HISTORY: Her mother and father both had cardiac arrest. There is also family history of diabetes, stroke, psoriasis. No family history of cancer. SOCIAL HISTORY: She is and lives at the [facility] living [facility] since April of 2018. 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 She is high school graduate. She does not do exercise due to her PVD with right AKA. She does not smoke cigarettes, abuse alcohol. No use of illicit drugs. She states she quit smoking cigarettes 50 years ago. REVIEW OF SYSTEMS: She denies personal history of stroke, cancer, vomiting of blood, coughing up blood, bright red blood per rectum, bleeding stomach ulcers. She does have a history of colitis, but no recent bleeding. She denies renal calculi, cholelithiasis. She denies asthma, emphysema, pneumonia, tuberculosis , sleep apnea, home oxygen use. She has a history of diabetes. She has a history of hypertension. She has had history of pulmonary emboli in 2006, which she states was "massive." She has been maintained on Xarelto post. She denies prior [place], bypass surgery, stents, murmurs, palpitations. She denies psychiatric illnesses. She denies seizures, Parkinson disease, myasthenia gravis. She denies thyroid disorders at this time, although she states she previously took thyroid medication. She denies liver disorder. She has stage IV chronic renal insufficiency. She is not on dialysis. She has PVD as noted above. She uses a wheelchair. She has noted some left lower extremity edema. She denies GERD. All other review of systems are negative x14 except as per this documentation. PHYSICAL EXAM: Height 5 feet 5-1/2 inches, weight 211 pounds, temperature 97.3 degrees Fahrenheit, pulse 76, blood pressure 121/61, O2 saturation 97%. On general exam, she is chronically ill-appearing woman, in no acute distress. She does have episodes of abdominal gas, which she states are painful to her. HEENT: Shows the cranium is normocephalic, atraumatic. She has dry mucosal membranes. Neck veins are not distended. There are no carotid bruits visible. Skin: Warm and well perfused. Affect appropriate. She appears oriented. No significant kyphoscoliosis on semirecumbent back exam. Lungs revealed few rales at the right base. No wheezes, no rhonchi. Cardiac Exam: S1, S2. Regular rate. Soft holosystolic murmur heard without radiations. No rub or gallop. PMI is nondisplaced. Abdomen is soft, appears benign. Extremities: The left lower extremity shows 1+ peripheral edema. Pulses are difficult to palpate, but she does appear perfused distally. DIAGNOSTIC STUDIES/LAB DATA: A 12-lead EKG was reviewed on 02/01/19 at 1738, which showed sinus rhythm with left bundle branch block, reportedly this is chronic. Sodium 138, potassium 4.5, chloride 104, bicarbonate 26, BUN 76, creatinine 2.43. Her creatinine had been 1.87 on 06/16/18 and 2.18 on 06/07/18. Troponin was 3.43, followed by 3.11, followed by 2.85, followed by 2.90. TSH 1.39. White blood cell count 9, hematocrit 31, platelet count 385. BNP 1123. IMPRESSION: Ms. Munoz is a 78-year-old woman with history of peripheral vascular disease, chronic LBBB and pulmonary emboli, being admitted to the hospital with shortness of breath and volume overload. She seems to be responding to Lasix. I have discussed this in detail with the patient. After reviewing the chart and past medical history, I am making the following recommendations with which she is in agreement. RECOMMENDATIONS: 1. Recommend rule out pulmonary embolus given prior history as there are reports of NOAC failure. 2. Continue IV diuresis as renal insufficiency allows. 3. Await echocardiogram previously ordered. 4. The patient will benefit from ischemic evaluation once more stable (she is at relatively high risk for coronary artery disease given known history of peripheral vascular disease). 5. Continue beta-anh and would recommend addition of aspirin. 6. Can discontinue serial troponins. 7. Further recommendations following the above. 8. The patient may follow up with her usual national business director, Dr. Singh, post discharge. The above has been discussed in detail with the patient. She is in agreement with these recommendations. Dear Dr. Jose Ramon Freed, many thanks for asking me to participate in the cardiovascular consultative care of Ms. Munoz. Please do not hesitate to contact me if you have any questions or concerns regarding the patient's cardiovascular consultative care. [id number]/[facility] #: [id number] MTDJean Marie
[2019-02-02] MEDS ORDERED: Metolazone TAB* 5 MG PO ONE (11:06)
--- NOTE | 2019-02-02 11:15 | PN ---
Subjective Date of Service: 02/02/19 Interval History: Patient had increased work of breathing overnight, and again worsened this morning. Now on 15l/min O2 to keep sat >90%. She denies chest pain, just feels very dyspneic at rest. Had loose stools overnight, still feels bloated. Family History: Unchanged from Admission Social History: Unchanged from Admission Past Medical History: Unchanged from Admission Objective Active Medications: Allopurinol (Zyloprim Tab*) 100 mg PO DAILY [facility] Last Admin: 02/02/19 09:37 Dose: 100 mg Amlodipine Besylate (Norvasc Tab*) 10 mg PO DAILY [facility] Last Admin: 02/02/19 09:38 Dose: 10 mg Aspirin (Aspirin Ec Tab*) 81 mg PO DAILY [facility] Cholecalciferol (Vitamin D Tab*) 1,000 units PO DAILY [facility] Last Admin: 02/02/19 09:37 Dose: 1,000 units Dextrose (D50w Syringe 50 Ml*) 12.5 gm IV PUSH .FOR FS < 60 - SS PRN PRN Reason: FS < 60 Furosemide (Lasix Iv*) 40 mg IV DAILY [facility] Last Admin: 02/02/19 09:35 Dose: 40 mg Gabapentin (Neurontin Cap(*)) 200 mg PO BEDTIME [facility] Last Admin: 02/01/19 21:55 Dose: 200 mg Insulin Glargine (Lantus(*)) 6 units SUBCUT QPM [facility] Insulin Human Lispro (Humalog*) 0 units SUBCUT AC [facility]; Protocol Last Admin: 02/02/19 09:34 Dose: 2 units Magnesium Oxide (Magox 400 Tab*) 400 mg PO DAILY [facility] Last Admin: 02/02/19 09:38 Dose: 400 mg Metoprolol Tartrate (Lopressor Tab*) 25 mg PO BID [facility] Last Admin: 02/02/19 09:38 Dose: 25 mg Nystatin (Nystatin Oint*) 1 applic TOPICAL BID [facility] Last Admin: 02/02/19 09:39 Dose: 1 applic Rivaroxaban (Xarelto(*)) 10 mg PO BEDTIME [facility] Last Admin: 02/01/19 21:55 Dose: 10 mg Vital Signs - 8 hr 02/02/19 02/02/19 02/02/19 03:19 06:00 07:14 Temperature 36.3 C 36.4 C Pulse Rate 76 78 Respiratory 26 26 19 Rate Blood Pressure 121/61 117/51 (mmHg) O2 Sat by Pulse 97 96 Oximetry Oxygen Devices in Use Now: High Flow Nasal Cannula Appearance: moderate respiratory distress Eyes: No Scleral Icterus Ears/Nose/Mouth/Throat: Clear Oropharnyx Neck: No Thyroid Enlargement, Masses Respiratory: Symmetrical Chest Expansion and Respiratory Effort, Clear to Percussion, - - fine rales 2/3 up bilat Cardiovascular: NL Sounds; No Murmurs; No JVD, RRR, - - 2+ edema LLE Lines/Tubes/Other Access: Clean, Dry and Intact Peripheral IV Nutrition: Taking PO's Result Diagrams: 02/02/19 05:28 02/02/19 05:28 Additional Lab and Data: Laboratory Tests 02/01/19 02/01/19 02/02/19 20:27 23:12 01:28 Glucose POC Glucose (mg/dL) Ionized Calcium Troponin I 3.11 H* 2.85 H* 2.90 H* 25-OH Vitamin D Total TSH 02/02/19 02/02/19 02/02/19 05:25 05:28 05:28 Glucose 149 H POC Glucose (mg/dL) Ionized Calcium 1.26 Troponin I 25-OH Vitamin D Total 37.8 TSH 1.39 02/02/19 07:19 Glucose POC Glucose (mg/dL) 145 H Ionized Calcium Troponin I 25-OH Vitamin D Total TSH Microbiology and Other Data: Microbiology 02/01/19 19:19 Nasal Screen MRSA (PCR) - Final Nasal Mrsa Not Detected Diagnostic Imaging: Echo: EF in 20% range, multiple wall motion abnormalities, moderate MR Assess/Plan/Problems-Billing Assessment: 78 year old woman with PVD, CKD, type 2 diabetes, admitted with non-Q-wave NV and new onset CHF - Patient Problems (1) Non Q wave myocardial infarction Current Visit: Yes Status: Acute Priority: High Code(s): I21.4 - NON-ST ELEVATION (NSTEMI) MYOCARDIAL INFARCTION SNOMED Code(s): 262236924 Comment: - Cardiology consult appreciated - Continue on telemetry, - Continue Xarelto - continue metoprolol - Will need cardiac cath when stable (2) Acute systolic heart failure, first episode Current Visit: Yes Status: Acute Priority: High Code(s): I50.21 - ACUTE SYSTOLIC (CONGESTIVE) HEART FAILURE SNOMED Code(s): 054617021 Comment: -Echo confirms ischemic cardiomyopathy -Will give metolazone and extra IV lasix, as patient has pulmonary edema. -If this is not successful, will transfer to ICU, start NIPPV (3) DM2 (diabetes mellitus, type 2) Current Visit: Yes Status: Chronic Priority: Medium Comment: - Blood sugar under reasonable control - Continue glargine, and lispro SS (4) Hypercalcemia Current Visit: Yes Status: Acute Priority: Medium Code(s): E83.52 - HYPERCALCEMIA SNOMED Code(s): 23206786 Comment: -resolved -Reviewed Vit D, ionized Ca. (5) DVT prophylaxis Current Visit: Yes Status: Acute Priority: Low Code(s): OWJ4376 - SNOMED Code(s): 587265006 Comment: - High risk due to h/o PE - Xarelto (6) CKD (chronic kidney disease) Current Visit: No Status: Chronic Priority: Medium Code(s): N18.9 - CHRONIC KIDNEY DISEASE, UNSPECIFIED SNOMED Code(s): 330497801 Comment: - This is limiting ability to diurese - Continue to monitor creatinine - Risk of WILMER from cardiac cath contrast dye when that occurs. Status and Disposition: inpatient
[2019-02-02] MEDS ORDERED: Furosemide IV* 10 MG/ML 10 ML VIAL (100 MG) IV ONE (11:30)
[2019-02-02] MEDS: Aspirin EC TAB* 81 MG TAB.EC PO SCH (12:26)
[2019-02-02] MEDS ORDERED: Insulin GLARGINE(*) 1 UNITS UNIT SUBCUT SCH (18:00)
[2019-02-02] MEDS: Gabapentin CAP(*) 100 MG PO SCH (20:44)
[2019-02-02] MEDS: Rivaroxaban TAB(*) 10 MG PO SCH (20:52)
[2019-02-03] MEDS ORDERED: Polyethylene Glycol 3350* 17 GM PACKET PO PRN (00:40)
[2019-02-03] MEDS: Senna TAB PO PRN (01:04)
[2019-02-03 04:48] LABS: ABS Basophils 0.1 10^3/ul (0-0.2); ABS Eosinophils 0.3 10^3/ul (0-0.6); ABS Lymphocytes 1.3 10^3/ul (1.0-4.8); ABS Monocytes 0.6 10^3/ul (0-0.8); Eosinophil % 4.1 %; Hematocrit 30 % (35-47); Hemoglobin 9.9 g/dL (12.0-16.0); Lymphocyte % 15.9 %; Mean Corpuscular HGB Conc 33 g/dL (31-36); Mean Corpuscular Hemoglobin 28 pg (27-31); Mean Corpuscular Volume 84 fL (80-97); Mean Platelet Volume 7.3 fL (7.4-10.4); Nucleated Red Blood Cells % 0.1; Platelet Count 395 10^3/uL (150-450); Red Blood Count 3.59 10^6 /uL (3.70-4.87); Red Cell Distribution Width 17 % (10-15); White Blood Count 8.3 10^3/uL (3.5-10.8)
[2019-02-03 05:11] LABS: BUN/Creatinine Ratio 32.8 (8-20); Calcium 9.5 mg/dL (8.6-10.3); EGFR African American 23.5 (>60); EGFR Non-African American 19.4 (>60); Potassium 3.9 mmol/L (3.5-5.0)
[2019-02-03] MEDS: Insulin LISPRO* 1 UNITS UNIT SUBCUT SCH ×3 (08:45→17:53)
[2019-02-03] MEDS: Furosemide IV* 10 MG/ML VIAL (40 MG) IV SCH (08:47)
[2019-02-03] MEDS: Metoprolol Tartrate TAB* 25 MG PO SCH ×2 (08:50→21:08)
[2019-02-03] MEDS: Magnesium Oxide TAB* 400 MG PO SCH (08:50)
[2019-02-03] MEDS: amLODIPine TAB* 5 MG PO SCH (08:50)
[2019-02-03] MEDS: Allopurinol TAB* 100 MG PO SCH (08:50)
[2019-02-03] MEDS: Aspirin EC TAB* 81 MG TAB.EC PO SCH (08:50)
[2019-02-03] MEDS: Nystatin OINT* 15 GM TOPICAL SCH ×2 (09:51→21:10)
[2019-02-03] MEDS: Cholecalciferol TAB* 1000 UNITS PO SCH (09:51)
[2019-02-03] MEDS ORDERED: Sodium Phosphate ADULT ENEMA* 118 ml bottle PR ONE (11:46)
[2019-02-03] MEDS: Docusate CAP* 100 MG PO SCH ×2 (12:04→21:09)
[2019-02-03] MEDS ORDERED: Furosemide IV* 10 MG/ML 10 ML VIAL (100 MG) IV ONE (15:00)
--- NOTE | 2019-02-03 16:46 | PN ---
Subjective Interval History: Put out 800cc so far this AM. Net negative 2.6L last 24. Denies chest pain but feeling more short of breath. on 20L, 75% vapotherm. Noticed swelling at home for about 2 months along with clear sputum cough, same time period working dx was bronchitis. complaint of pain near rectum coming in waves, with some liquid stool bouts. Asking for enema. Family History: Unchanged from Admission Social History: Unchanged from Admission Past Medical History: Unchanged from Admission Objective Active Medications: Allopurinol (Zyloprim Tab*) 100 mg PO DAILY [facility] Last Admin: 02/03/19 08:50 Dose: 100 mg Amlodipine Besylate (Norvasc Tab*) 10 mg PO DAILY [facility] Last Admin: 02/03/19 08:50 Dose: 10 mg Aspirin (Aspirin Ec Tab*) 81 mg PO DAILY [facility] Last Admin: 02/03/19 08:50 Dose: 81 mg Cholecalciferol (Vitamin D Tab*) 1,000 units PO DAILY [facility] Last Admin: 02/03/19 09:51 Dose: 1,000 units Dextrose (D50w Syringe 50 Ml*) 12.5 gm IV PUSH .FOR FS < 60 - SS PRN PRN Reason: FS < 60 Docusate Sodium (Colace Cap*) 100 mg PO BID [facility] Last Admin: 02/03/19 12:04 Dose: 100 mg Furosemide (Lasix Iv*) 40 mg IV DAILY [facility] Last Admin: 02/03/19 08:47 Dose: 40 mg Gabapentin (Neurontin Cap(*)) 200 mg PO BEDTIME [facility] Last Admin: 02/02/19 20:44 Dose: 200 mg Insulin Glargine (Lantus(*)) 6 units SUBCUT QPM [facility] Last Admin: 02/02/19 18:19 Dose: 6 units Insulin Human Lispro (Humalog*) 0 units SUBCUT AC [facility]; Protocol Last Admin: 02/03/19 11:53 Dose: 6 units Magnesium Oxide (Magox 400 Tab*) 400 mg PO DAILY [facility] Last Admin: 02/03/19 08:50 Dose: 400 mg Metoprolol Tartrate (Lopressor Tab*) 25 mg PO BID [facility] Last Admin: 02/03/19 08:50 Dose: 25 mg Nystatin (Nystatin Oint*) 1 applic TOPICAL BID [facility] Last Admin: 02/03/19 09:51 Dose: 1 applic Polyethylene Glycol/Electrolytes (Miralax*) 17 gm PO DAILY PRN PRN Reason: CONSTIPATION Last Admin: 02/03/19 01:04 Dose: 17 gm Rivaroxaban (Xarelto(*)) 10 mg PO BEDTIME [facility] Last Admin: 02/02/19 20:52 Dose: 10 mg Senna (Senokot Tab*) 2 tab PO BEDTIME PRN PRN Reason: CONSTIPATION Last Admin: 02/03/19 01:04 Dose: 2 tab Vital Signs - 8 hr 02/03/19 02/03/19 02/03/19 09:00 09:01 10:00 Temperature Pulse Rate 86 81 77 Respiratory 18 22 16 Rate Blood Pressure 154/64 127/64 (mmHg) O2 Sat by Pulse 95 95 93 Oximetry 02/03/19 02/03/19 02/03/19 11:00 11:51 12:00 Temperature 98.4 F Pulse Rate 76 72 Respiratory 24 25 Rate Blood Pressure 132/44 146/63 (mmHg) O2 Sat by Pulse 94 93 Oximetry 02/03/19 02/03/19 14:00 16:00 Temperature 98.9 F Pulse Rate Respiratory 20 Rate Blood Pressure (mmHg) O2 Sat by Pulse Oximetry Oxygen Devices in Use Now: High Flow Heated Nasal Cannula Appearance: NAD Eyes: No Scleral Icterus Ears/Nose/Mouth/Throat: NL Teeth, Lips, Gums Neck: NL Appearance and Movements; NL JVP Respiratory: - - rales at b/l base Cardiovascular: RRR Extremities: - - 2-3+ pitting edema in LLE, s/p amputation R AKA Skin: No Rash or Ulcers Neurological: Alert and Oriented x 3, NL Muscle Strength and Tone Result Diagrams: 02/03/19 04:30 02/03/19 04:30 Additional Lab and Data: Laboratory Results - last 24 hr 02/02/19 02/02/19 02/03/19 17:35 21:36 04:30 WBC 8.3 RBC 3.59 L Hgb 9.9 L Hct 30 L MCV 84 MCH 28 MCHC 33 RDW 17 H Plt Count 395 MPV 7.3 L Neut % (Auto) 72.1 Lymph % (Auto) 15.9 Payne % (Auto) 7.2 Eos % (Auto) 4.1 Baso % (Auto) 0.7 Absolute Neuts (auto) 6.0 Absolute Lymphs (auto) 1.3 Absolute Monos (auto) 0.6 Absolute Eos (auto) 0.3 Absolute Basos (auto) 0.1 Absolute Nucleated RBC 0.0 Nucleated RBC % 0.1 Sodium Potassium Chloride Carbon Dioxide Anion Gap BUN Creatinine Est GFR ( Amer) Est GFR (Non-Af Amer) BUN/Creatinine Ratio Glucose POC Glucose (mg/dL) 229 H 117 H Calcium 02/03/19 02/03/19 02/03/19 04:30 07:39 11:30 WBC RBC Hgb Hct MCV MCH MCHC RDW Plt Count MPV Neut % (Auto) Lymph % (Auto) Payne % (Auto) Eos % (Auto) Baso % (Auto) Absolute Neuts (auto) Absolute Lymphs (auto) Absolute Monos (auto) Absolute Eos (auto) Absolute Basos (auto) Absolute Nucleated RBC Nucleated RBC % Sodium 137 Potassium 3.9 Chloride 101 Carbon Dioxide 27 Anion Gap 9 BUN 79 H Creatinine 2.41 H Est GFR ( Amer) 23.5 Est GFR (Non-Af Amer) 19.4 BUN/Creatinine Ratio 32.8 H Glucose 208 H POC Glucose (mg/dL) 159 H 238 H Calcium 9.5 Microbiology and Other Data: Microbiology 02/01/19 22:38 Urine Urine Culture - Final No Growth (<1,000 CFU/mL) 02/01/19 19:19 Nasal Nasal Screen MRSA (PCR) - Final Mrsa Not Detected Diagnostic Imaging: Echo: EF in 20% range, multiple wall motion abnormalities, moderate MR EKG Data: NSR, LBBB Assess/Plan/Problems-Billing Assessment: 78 year old woman with PVD, CKD, type 2 diabetes, admitted with two months of SOB, nonproductive cough, lower extremity edema. Non-Q-wave [place] and worsening of CHF form 40-25% to 20--25% - Patient Problems (1) Acute systolic heart failure, first episode Current Visit: Yes Status: Acute Priority: High Code(s): I50.21 - ACUTE SYSTOLIC (CONGESTIVE) HEART FAILURE SNOMED Code(s): 092116099 Comment: -Echo confirms ischemic cardiomyopathy, EF 20-25% -Continue metolazone 5mg thirty minutes before AM lasix which will increase to 80 from 40mg IV. Another 80mg IV 1500. - appreciate cardiology recs, will likely need cath when more stable and likely as outpatient. Will add D-dimer as Dr. Lieberman wanting to rule out PE (which would represent treatment failure). (2) Acute respiratory failure with hypoxia Current Visit: Yes Status: Acute Code(s): J96.01 - ACUTE RESPIRATORY FAILURE WITH HYPOXIA SNOMED Code(s): 85515000 Comment: likely acute CHF, plan as above. add on DDimer to rule out PE (3) Rectal pain Current Visit: Yes Status: Acute Code(s): K62.89 - OTHER SPECIFIED DISEASES OF ANUS AND RECTUM SNOMED Code(s): 14048408 Comment: likely constipation get fleet enema, add mag citrate and colace. continue senna and miralax (4) Non Q wave myocardial infarction Current Visit: Yes Status: Acute Priority: High Code(s): I21.4 - NON-ST ELEVATION (NSTEMI) MYOCARDIAL INFARCTION SNOMED Code(s): 327081509 Comment: - Cardiology consult appreciated - Continue on telemetry, - Continue Xarelto - continue metoprolol - Will need cardiac cath when stable - troponin peak 3.43 and downtrended (5) DM2 (diabetes mellitus, type 2) Current Visit: Yes Status: Chronic Priority: Medium Comment: - Blood sugar 159-238 today (above goal) - Continue glargine (increase 6U to 10U qpm), and lispro SS (6) CKD (chronic kidney disease) Current Visit: No Status: Chronic Priority: Medium Code(s): N18.9 - CHRONIC KIDNEY DISEASE, UNSPECIFIED SNOMED Code(s): 708022238 Comment: - GFR 19. - Continue to monitor creatinine with diuresis above (7) PVD (peripheral vascular disease) Current Visit: No Status: Chronic Priority: High Code(s): I73.9 - PERIPHERAL VASCULAR DISEASE, UNSPECIFIED SNOMED Code(s): 593323633 Comment: - previous ABIs reveal advanced calcification and severe arterial insufficiency - s/p amputation right above knee amputation Status and Disposition: inpatient, ICU for acute hypoxic respiratory failure requiring vapotherm
[2019-02-03] MEDS ORDERED: Magnesium CITRATE* 300 ML BTL PO ONE (17:16)
[2019-02-03] MEDS: Insulin GLARGINE(*) 1 UNITS UNIT SUBCUT SCH (17:54)
[2019-02-03] MEDS: Gabapentin CAP(*) 100 MG PO SCH (21:08)
[2019-02-03] MEDS: Rivaroxaban TAB(*) 10 MG PO SCH (21:08)
[2019-02-03 22:10] LABS: Urine Appearance Clear; Urine Bacteria Absent (Absent); Urine Bilirubin Negative (Negative); Urine Blood 2+ (Negative); Urine Color Straw; Urine Glucose Negative (Negative); Urine Ketones Negative (Negative); Urine Nitrite Negative (Negative); Urine Protein Negative (Negative); Urine Red Blood Cell 2+(6-10/hpf) (Absent); Urine Specific Gravity 1.006 (1.010-1.030); Urine Urobilinogen Negative (Negative); Urine White Blood Cell 1+(6-10/hpf) (Absent)
[2019-02-04] MEDS ORDERED: Glycerin ADULT SUPP PR ONE (03:18)
[2019-02-04] MEDS ORDERED: Furosemide IV* 10 MG/ML 10 ML VIAL (100 MG) IV ONE (03:18)
--- NOTE | 2019-02-04 03:24 | PN ---
Hospitalist Progress Note Date of Service: 02/04/19 Called to bedside for increased WOB and tachypnea. O2 requirements have not changed. Pt reports feeling more short of breath, especially when HOB is lowered. No CP or new cough. Also reporting ongoing constipation and interested in intensifying treatment. Not in respiratory distress, able to speak in full sentences, but with bibasilar crackles on exam. LLE with 1+ pitting edema to knee. Will give an additional dose of furosemide 80mg IV. Give one dose of glycerine suppository. Initiate lactulose prn.
[2019-02-04] MEDS: Lactulose* 15 ML UDC PO PRN ×2 (03:53→08:31)
[2019-02-04] MEDS: Cholecalciferol TAB* 1000 UNITS PO SCH (08:31)
[2019-02-04] MEDS: Docusate CAP* 100 MG PO SCH ×2 (08:31→20:53)
[2019-02-04] MEDS: Insulin LISPRO* 1 UNITS UNIT SUBCUT SCH ×3 (08:32→16:24)
[2019-02-04] MEDS: Metoprolol Tartrate TAB* 25 MG PO SCH ×2 (08:32→20:53)
[2019-02-04] MEDS: Aspirin EC TAB* 81 MG TAB.EC PO SCH (08:32)
[2019-02-04] MEDS: amLODIPine TAB* 5 MG PO SCH (08:32)
[2019-02-04] MEDS: Magnesium Oxide TAB* 400 MG PO SCH (08:32)
[2019-02-04] MEDS: Furosemide IV* 10 MG/ML VIAL (40 MG) IV SCH (08:32)
[2019-02-04] MEDS: Allopurinol TAB* 100 MG PO SCH (08:32)
[2019-02-04] MEDS: Nystatin OINT* 15 GM TOPICAL SCH ×2 (08:33→20:53)
[2019-02-04 11:03] LABS: ABS Basophils 0.1 10^3/ul (0-0.2); ABS Eosinophils 0.3 10^3/ul (0-0.6); ABS Lymphocytes 1.2 10^3/ul (1.0-4.8); ABS Monocytes 0.7 10^3/ul (0-0.8); ABS Neutrophils 6.4 10^3/ul (1.5-7.7); Eosinophil % 3.6 %; Hematocrit 32 % (35-47); Hemoglobin 10.5 g/dL (12.0-16.0); Lymphocyte % 13.4 %; Mean Corpuscular HGB Conc 33 g/dL (31-36); Mean Corpuscular Hemoglobin 27 pg (27-31); Mean Corpuscular Volume 84 fL (80-97); Mean Platelet Volume 7.5 fL (7.4-10.4); Platelet Count 407 10^3/uL (150-450); Red Blood Count 3.85 10^6 /uL (3.70-4.87); Red Cell Distribution Width 16 % (10-15); White Blood Count 8.7 10^3/uL (3.5-10.8)
[2019-02-04 11:10] LABS: Calcium 9.6 mg/dL (8.6-10.3); EGFR African American 23.7 (>60); EGFR Non-African American 19.6 (>60); Magnesium 2.2 mg/dL (1.9-2.7)
--- NOTE | 2019-02-04 11:59 | PN ---
Subjective Date of Service: 02/04/19 Interval History: Feels "terrible" due to lack of sleep but breathing is much better (had respiratory difficulty at 4am and got additional 80IV lasix). No chest pain. Was manually disimpacted - had maritza sized hard stool. Feels better in that respect. Eating breakfasts but no lunch or dinner yesterday. Mouth/throat feels dry. down to 4L sating 94% Net negaive 2200 cc Family History: Unchanged from Admission Social History: Unchanged from Admission Past Medical History: Unchanged from Admission Objective Active Medications: Allopurinol (Zyloprim Tab*) 100 mg PO DAILY [facility] Last Admin: 02/04/19 08:32 Dose: 100 mg Amlodipine Besylate (Norvasc Tab*) 10 mg PO DAILY [facility] Last Admin: 02/04/19 08:32 Dose: 10 mg Aspirin (Aspirin Ec Tab*) 81 mg PO DAILY [facility] Last Admin: 02/04/19 08:32 Dose: 81 mg Cholecalciferol (Vitamin D Tab*) 1,000 units PO DAILY [facility] Last Admin: 02/04/19 08:31 Dose: 1,000 units Dextrose (D50w Syringe 50 Ml*) 12.5 gm IV PUSH .FOR FS < 60 - SS PRN PRN Reason: FS < 60 Docusate Sodium (Colace Cap*) 100 mg PO BID [facility] Last Admin: 02/04/19 08:31 Dose: 100 mg Furosemide (Lasix Iv*) 80 mg IV DAILY [facility] Last Admin: 02/04/19 08:32 Dose: 80 mg Gabapentin (Neurontin Cap(*)) 200 mg PO BEDTIME [facility] Last Admin: 02/03/19 21:08 Dose: 200 mg Insulin Glargine (Lantus(*)) 10 units SUBCUT QPM [facility] Last Admin: 02/03/19 17:54 Dose: 10 units Insulin Human Lispro (Humalog*) 0 units SUBCUT AC [facility]; Protocol Last Admin: 02/04/19 08:32 Dose: 2 units Lactulose (Lactulose*) 15 ml PO TID PRN PRN Reason: CONSTIPATION Last Admin: 02/04/19 08:31 Dose: 15 ml Magnesium Oxide (Magox 400 Tab*) 400 mg PO DAILY [facility] Last Admin: 02/04/19 08:32 Dose: 400 mg Metoprolol Tartrate (Lopressor Tab*) 25 mg PO BID [facility] Last Admin: 02/04/19 08:32 Dose: 25 mg Nystatin (Nystatin Oint*) 1 applic TOPICAL BID [facility] Last Admin: 02/04/19 08:33 Dose: 1 applic Polyethylene Glycol/Electrolytes (Miralax*) 17 gm PO DAILY PRN PRN Reason: CONSTIPATION Last Admin: 02/03/19 01:04 Dose: 17 gm Rivaroxaban (Xarelto(*)) 10 mg PO BEDTIME [facility] Last Admin: 02/03/19 21:08 Dose: 10 mg Senna (Senokot Tab*) 2 tab PO BEDTIME PRN PRN Reason: CONSTIPATION Last Admin: 02/03/19 01:04 Dose: 2 tab Vital Signs - 8 hr 02/04/19 02/04/19 02/04/19 04:00 05:00 06:00 Temperature Pulse Rate 76 66 79 Respiratory 25 22 23 Rate Blood Pressure 139/77 160/86 (mmHg) O2 Sat by Pulse 95 100 100 Oximetry 02/04/19 02/04/19 02/04/19 07:00 07:29 07:45 Temperature Pulse Rate 72 77 Respiratory 23 24 24 Rate Blood Pressure 134/55 126/85 (mmHg) O2 Sat by Pulse 98 98 Oximetry 02/04/19 02/04/19 02/04/19 07:49 08:00 08:07 Temperature 96.9 F Pulse Rate 79 77 77 Respiratory 24 25 25 Rate Blood Pressure 126/85 148/66 143/66 (mmHg) O2 Sat by Pulse 98 98 95 Oximetry 02/04/19 02/04/19 02/04/19 09:00 10:00 10:13 Temperature Pulse Rate 83 78 75 Respiratory 31 17 21 Rate Blood Pressure 144/76 144/76 (mmHg) O2 Sat by Pulse 94 96 93 Oximetry 02/04/19 02/04/19 02/04/19 11:00 11:06 11:08 Temperature Pulse Rate 76 75 Respiratory 25 25 24 Rate Blood Pressure 140/67 (mmHg) O2 Sat by Pulse 92 93 Oximetry Oxygen Devices in Use Now: Nasal Cannula, High Flow Nasal Cannula Appearance: NAD, chronically ill apppearing. Eyes: No Scleral Icterus Ears/Nose/Mouth/Throat: NL Teeth, Lips, Gums Neck: NL Appearance and Movements; NL JVP Respiratory: - - more faint bibasilar rales Cardiovascular: NL Sounds; No Murmurs; No JVD, RRR Abdominal: NL Sounds; No Tenderness; No Distention Extremities: - - improved to 1+ edema in left leg. s/p AKA on right Skin: No Rash or Ulcers Neurological: Alert and Oriented x 3, NL Sensation Nutrition: Taking PO's Result Diagrams: 02/04/19 09:50 02/04/19 09:50 Additional Lab and Data: Laboratory Results - last 24 hr 02/03/19 02/04/19 02/04/19 23:15 07:26 09:50 WBC RBC Hgb Hct MCV MCH MCHC RDW Plt Count MPV Neut % (Auto) Lymph % (Auto) [place] % (Auto) Eos % (Auto) Baso % (Auto) Absolute Neuts (auto) Absolute Lymphs (auto) Absolute Monos (auto) Absolute Eos (auto) Absolute Basos (auto) Absolute Nucleated RBC Nucleated RBC % D-Dimer, Quantitative 443 H Sodium 137 Potassium 4.0 Chloride 94 L Carbon Dioxide 33 H Anion Gap 10 BUN 74 H Creatinine 2.39 H Est GFR ( Amer) 23.7 Est GFR (Non-Af Amer) 19.6 BUN/Creatinine Ratio 31.0 H Glucose 225 H POC Glucose (mg/dL) 149 H Calcium 9.6 Magnesium 2.2 02/04/19 02/04/19 02/04/19 09:50 11:57 16:06 WBC 8.7 RBC 3.85 Hgb 10.5 L Hct 32 L MCV 84 MCH 27 MCHC 33 RDW 16 H Plt Count 407 MPV 7.5 Neut % (Auto) 74.1 Lymph % (Auto) 13.4 [place] % (Auto) 8.0 Eos % (Auto) 3.6 Baso % (Auto) 0.9 Absolute Neuts (auto) 6.4 Absolute Lymphs (auto) 1.2 Absolute Monos (auto) 0.7 Absolute Eos (auto) 0.3 Absolute Basos (auto) 0.1 Absolute Nucleated RBC 0.0 Nucleated RBC % 0.0 D-Dimer, Quantitative Sodium Potassium Chloride Carbon Dioxide Anion Gap BUN Creatinine Est GFR ( Amer) Est GFR (Non-Af Amer) BUN/Creatinine Ratio Glucose POC Glucose (mg/dL) 248 H 138 H Calcium Magnesium 02/04/19 19:50 WBC RBC Hgb Hct MCV MCH MCHC RDW Plt Count MPV Neut % (Auto) Lymph % (Auto) [place] % (Auto) Eos % (Auto) Baso % (Auto) Absolute Neuts (auto) Absolute Lymphs (auto) Absolute Monos (auto) Absolute Eos (auto) Absolute Basos (auto) Absolute Nucleated RBC Nucleated RBC % D-Dimer, Quantitative Sodium Potassium Chloride Carbon Dioxide Anion Gap BUN Creatinine Est GFR ( Amer) Est GFR (Non-Af Amer) BUN/Creatinine Ratio Glucose POC Glucose (mg/dL) 184 H Calcium Magnesium Microbiology and Other Data: Microbiology 02/01/19 22:38 Urine Urine Culture - Final No Growth (<1,000 CFU/mL) 02/01/19 19:19 Nasal Nasal Screen MRSA (PCR) - Final Mrsa Not Detected Diagnostic Imaging: Echo: EF in 20% range, multiple wall motion abnormalities, moderate MR EKG Data: NSR, LBBB Assess/Plan/Problems-Billing Assessment: 78 year old woman with PVD, CKD, type 2 diabetes, admitted with two months of SOB, nonproductive cough, lower extremity edema. Non-Q-wave [place] and worsening of CHF form 40-25% to 20--25% - Patient Problems (1) Acute systolic heart failure, first episode Current Visit: Yes Status: Acute Priority: High Code(s): I50.21 - ACUTE SYSTOLIC (CONGESTIVE) HEART FAILURE SNOMED Code(s): 526272224 Comment: -Echo confirms ischemic cardiomyopathy, EF 20-25% -Continue metolazone 5mg thirty minutes before AM 80mg IV lasix. no afternoon dose today given clinical improvement. - appreciate cardilogy recs, will scar need ischemic evaluation when more stable, consider stress test. D-dimer is elevated but not markely so corrected for age, and given low wells score, could pursue v/q scan once more stable if still hypoxic despite diuresis. would represent treatment failure). (2) Acute respiratory failure with hypoxia Current Visit: Yes Status: Acute Code(s): J96.01 - ACUTE RESPIRATORY FAILURE WITH HYPOXIA SNOMED Code(s): 60847550 Comment: likely acute CHF, plan as above. (3) Rectal pain Current Visit: Yes Status: Acute Code(s): K62.89 - OTHER SPECIFIED DISEASES OF ANUS AND RECTUM SNOMED Code(s): 87805037 Comment: s/p improvement with manual disimpaction. continue prn colace, senna and miralax (4) Non Q wave myocardial infarction Current Visit: Yes Status: Acute Priority: High Code(s): I21.4 - NON-ST ELEVATION (NSTEMI) MYOCARDIAL INFARCTION SNOMED Code(s): 985522158 Comment: - Cardiology consult appreciated - Continue on telemetry, - Continue Xarelto - continue metoprolol - Will likely need stress test when more stable, LHC would be very risky given her degree of kidney dysfunction. - troponin peak 3.43 and downtrended (5) DM2 (diabetes mellitus, type 2) Current Visit: Yes Status: Chronic Priority: Medium Comment: - Blood sugar 130-250 today (latter above goal) - Continue glargine (10U qpm), and lispro SS (6) CKD (chronic kidney disease) Current Visit: No Status: Chronic Priority: Medium Code(s): N18.9 - CHRONIC KIDNEY DISEASE, UNSPECIFIED SNOMED Code(s): 473127620 Comment: - GFR 19. - Continue to monitor creatinine with diuresis above (7) PVD (peripheral vascular disease) Current Visit: No Status: Chronic Priority: High Code(s): I73.9 - PERIPHERAL VASCULAR DISEASE, UNSPECIFIED SNOMED Code(s): 004666996 Comment: - previous ABIs reveal advanced calcification and severe arterial insufficiency - s/p amputation right above knee amputation Status and Disposition: inpatient, downgraded from the ICU today.
[2019-02-04] MEDS: Insulin GLARGINE(*) 1 UNITS UNIT SUBCUT SCH (16:24)
[2019-02-04] MEDS: Gabapentin CAP(*) 100 MG PO SCH (20:52)
[2019-02-04] MEDS: Rivaroxaban TAB(*) 10 MG PO SCH (20:52)
[2019-02-05 08:02] LABS: BUN/Creatinine Ratio 31.5 (8-20); Calcium 9.6 mg/dL (8.6-10.3); EGFR African American 23.5 (>60); EGFR Non-African American 19.4 (>60); Magnesium 2.6 mg/dL (1.9-2.7); Potassium 3.9 mmol/L (3.5-5.0)
[2019-02-05 08:13] LABS: Troponin I 1.63 ng/mL (<0.04)
[2019-02-05] MEDS: Insulin LISPRO* 1 UNITS UNIT SUBCUT SCH ×3 (08:39→17:36)
[2019-02-05] MEDS: Aspirin EC TAB* 81 MG TAB.EC PO SCH (09:14)
[2019-02-05] MEDS: amLODIPine TAB* 5 MG PO SCH (09:14)
[2019-02-05] MEDS: Cholecalciferol TAB* 1000 UNITS PO SCH (09:14)
[2019-02-05] MEDS: Magnesium Oxide TAB* 400 MG PO SCH (09:14)
[2019-02-05] MEDS: Docusate CAP* 100 MG PO SCH ×2 (09:15→21:32)
[2019-02-05] MEDS: Allopurinol TAB* 100 MG PO SCH (09:15)
[2019-02-05] MEDS: Metoprolol Tartrate TAB* 25 MG PO SCH ×2 (09:15→21:32)
[2019-02-05] MEDS: Nystatin OINT* 15 GM TOPICAL SCH ×2 (09:31→21:34)
[2019-02-05] MEDS: Furosemide IV* 10 MG/ML VIAL (40 MG) IV SCH (09:58)
--- NOTE | 2019-02-05 10:29 | PN ---
Subjective Date of Service: 02/05/19 Interval History: No acute events overnight, afebrile. Feeling much much better from respiratory standpoint. leg swelling much improved. No more abdominal pain, nor BM. net negative 1905 cc. 4L NC Sat 98% [employer] stable no chest pain Family History: Unchanged from Admission Social History: Unchanged from Admission Past Medical History: Unchanged from Admission Objective Active Medications: Allopurinol (Zyloprim Tab*) 100 mg PO DAILY [facility] Last Admin: 02/05/19 09:15 Dose: 100 mg Amlodipine Besylate (Norvasc Tab*) 10 mg PO DAILY [facility] Last Admin: 02/05/19 09:14 Dose: 10 mg Aspirin (Aspirin Ec Tab*) 81 mg PO DAILY [facility] Last Admin: 02/05/19 09:14 Dose: 81 mg Cholecalciferol (Vitamin D Tab*) 1,000 units PO DAILY [facility] Last Admin: 02/05/19 09:14 Dose: 1,000 units Dextrose (D50w Syringe 50 Ml*) 12.5 gm IV PUSH .FOR FS < 60 - SS PRN PRN Reason: FS < 60 Docusate Sodium (Colace Cap*) 100 mg PO BID [facility] Last Admin: 02/05/19 09:15 Dose: 100 mg Furosemide (Lasix Iv*) 80 mg IV DAILY [facility] Last Admin: 02/05/19 09:58 Dose: 80 mg Gabapentin (Neurontin Cap(*)) 200 mg PO BEDTIME [facility] Last Admin: 02/04/19 20:52 Dose: 200 mg Insulin Glargine (Lantus(*)) 10 units SUBCUT QPM [facility] Last Admin: 02/04/19 16:24 Dose: 10 units Insulin Human Lispro (Humalog*) 0 units SUBCUT AC [facility]; Protocol Last Admin: 02/05/19 08:39 Dose: 3 units Magnesium Oxide (Magox 400 Tab*) 400 mg PO DAILY [facility] Last Admin: 02/05/19 09:14 Dose: 400 mg Metoprolol Tartrate (Lopressor Tab*) 25 mg PO BID [facility] Last Admin: 02/05/19 09:15 Dose: 25 mg Nystatin (Nystatin Oint*) 1 applic TOPICAL BID [facility] Last Admin: 02/04/19 20:53 Dose: 1 applic Polyethylene Glycol/Electrolytes (Miralax*) 17 gm PO DAILY PRN PRN Reason: CONSTIPATION Last Admin: 02/03/19 01:04 Dose: 17 gm Rivaroxaban (Xarelto(*)) 10 mg PO BEDTIME [facility] Last Admin: 02/04/19 20:52 Dose: 10 mg Senna (Senokot Tab*) 2 tab PO BEDTIME PRN PRN Reason: CONSTIPATION Last Admin: 02/03/19 01:04 Dose: 2 tab Vital Signs - 8 hr 02/05/19 04:29 Temperature 98.1 F Pulse Rate 70 Respiratory 20 Rate Blood Pressure 117/57 (mmHg) O2 Sat by Pulse 97 Oximetry Oxygen Devices in Use Now: Nasal Cannula Appearance: NAD Eyes: No Scleral Icterus Ears/Nose/Mouth/Throat: NL Teeth, Lips, Gums Respiratory: Symmetrical Chest Expansion and Respiratory Effort, - - fine crackles to midlung b/l. no rhonchi or wheezing. Cardiovascular: NL Sounds; No Murmurs; No JVD, RRR Abdominal: NL Sounds; No Tenderness; No Distention, No Hepatosplenomegaly Extremities: No Edema Skin: No Rash or Ulcers Neurological: Alert and Oriented x 3, NL Sensation Nutrition: Taking PO's Result Diagrams: 02/04/19 09:50 02/05/19 07:36 Additional Lab and Data: Laboratory Results - last 24 hr 02/04/19 02/04/19 02/04/19 09:50 09:50 11:57 WBC 8.7 RBC 3.85 Hgb 10.5 L Hct 32 L MCV 84 MCH 27 MCHC 33 RDW 16 H Plt Count 407 MPV 7.5 Neut % (Auto) 74.1 Lymph % (Auto) 13.4 [place] % (Auto) 8.0 Eos % (Auto) 3.6 Baso % (Auto) 0.9 Absolute Neuts (auto) 6.4 Absolute Lymphs (auto) 1.2 Absolute Monos (auto) 0.7 Absolute Eos (auto) 0.3 Absolute Basos (auto) 0.1 Absolute Nucleated RBC 0.0 Nucleated RBC % 0.0 Sodium 137 Potassium 4.0 Chloride 94 L Carbon Dioxide 33 H Anion Gap 10 BUN 74 H Creatinine 2.39 H Est GFR ( Amer) 23.7 Est GFR (Non-Af Amer) 19.6 BUN/Creatinine Ratio 31.0 H Glucose 225 H POC Glucose (mg/dL) 248 H Calcium 9.6 Magnesium 2.2 Troponin I B-Natriuretic Peptide 02/04/19 02/04/19 02/05/19 16:06 19:50 07:36 WBC RBC Hgb Hct MCV MCH MCHC RDW Plt Count MPV Neut % (Auto) Lymph % (Auto) [place] % (Auto) Eos % (Auto) Baso % (Auto) Absolute Neuts (auto) Absolute Lymphs (auto) Absolute Monos (auto) Absolute Eos (auto) Absolute Basos (auto) Absolute Nucleated RBC Nucleated RBC % Sodium 135 Potassium 3.9 Chloride 93 L Carbon Dioxide 36 H Anion Gap 6 BUN 76 H Creatinine 2.41 H Est GFR ( Amer) 23.5 Est GFR (Non-Af Amer) 19.4 BUN/Creatinine Ratio 31.5 H Glucose 171 H POC Glucose (mg/dL) 138 H 184 H Calcium 9.6 Magnesium 2.6 Troponin I 1.63 H* B-Natriuretic Peptide 02/05/19 02/05/19 07:36 08:09 WBC RBC Hgb Hct MCV MCH MCHC RDW Plt Count MPV Neut % (Auto) Lymph % (Auto) [place] % (Auto) Eos % (Auto) Baso % (Auto) Absolute Neuts (auto) Absolute Lymphs (auto) Absolute Monos (auto) Absolute Eos (auto) Absolute Basos (auto) Absolute Nucleated RBC Nucleated RBC % Sodium Potassium Chloride Carbon Dioxide Anion Gap BUN Creatinine Est GFR ( Amer) Est GFR (Non-Af Amer) BUN/Creatinine Ratio Glucose POC Glucose (mg/dL) 163 H Calcium Magnesium Troponin I B-Natriuretic Peptide 864 H Microbiology and Other Data: Microbiology 02/03/19 21:50 Urine Urine Culture - Final No Growth (<1,000 CFU/mL) 02/01/19 22:38 Urine Urine Culture - Final No Growth (<1,000 CFU/mL) 02/01/19 19:19 Nasal Nasal Screen MRSA (PCR) - Final Mrsa Not Detected Diagnostic Imaging: Echo: EF in 20% range, multiple wall motion abnormalities, moderate MR EKG Data: NSR, LBBB Assess/Plan/Problems-Billing Assessment: 78 year old woman with PVD, CKDIV (GFR 20), type 2 diabetes, admitted with two months of SOB, nonproductive cough, lower extremity edema. Non-Q-wave [place] and worsening of CHF form 40-25% to 20--25%. Required vapotherm in ICU but improved now with increased diuresis. - Patient Problems (1) Acute systolic heart failure, first episode Current Visit: Yes Status: Acute Priority: High Code(s): I50.21 - ACUTE SYSTOLIC (CONGESTIVE) HEART FAILURE SNOMED Code(s): 946858522 Comment: -Echo confirms ischemic cardiomyopathy, EF 20-25% -Continue metolazone 5mg thirty minutes before AM 80mg IV lasix. no afternoon dose today given clinical improvement. May be able to transition to oral diuretics tomorrow. - appreciate cardilogy recs, will scar need ischemic evaluation when more stable, consider stress test. D-dimer is elevated but not markely so corrected for age, and given low wells score, could pursue v/q scan once more stable if still hypoxic despite diuresis. (would represent treatment failure as she is on eliquis). (2) Acute respiratory failure with hypoxia Current Visit: Yes Status: Acute Code(s): J96.01 - ACUTE RESPIRATORY FAILURE WITH HYPOXIA SNOMED Code(s): 77459793 Comment: likely acute CHF, plan as above. improving. (3) Rectal pain Current Visit: Yes Status: Acute Code(s): K62.89 - OTHER SPECIFIED DISEASES OF ANUS AND RECTUM SNOMED Code(s): 75516037 Comment: s/p improvement with manual disimpaction. continue prn colace, senna and miralax (4) Non Q wave myocardial infarction Current Visit: Yes Status: Acute Priority: High Code(s): I21.4 - NON-ST ELEVATION (NSTEMI) MYOCARDIAL INFARCTION SNOMED Code(s): 728999146 Comment: - Cardiology consult appreciated - Continue on telemetry, - Continue Xarelto - continue metoprolol - Will likely need stress test when more stable, LHC would be very risky/morbid given her degree of kidney dysfunction CKDIV - troponin peak 3.43 and downtrended before slight increase on 4th, rechecked today was 1.63 (5) DM2 (diabetes mellitus, type 2) Current Visit: Yes Status: Chronic Priority: Medium Comment: - Blood sugar 160-180 - Continue glargine (10U qpm), and lispro SS - had been on 6U lantus at home. Given Nstemi will recheck A1C (7.6 in May 2018 ) (6) CKD (chronic kidney disease) Current Visit: No Status: Chronic Priority: Medium Code(s): N18.9 - CHRONIC KIDNEY DISEASE, UNSPECIFIED SNOMED Code(s): 565613044 Comment: - GFR 19. - Continue to monitor creatinine with diuresis above. [employer] 2.4 and stable through this admission (last year had been 2.1) (7) PVD (peripheral vascular disease) Current Visit: No Status: Chronic Priority: High Code(s): I73.9 - PERIPHERAL VASCULAR DISEASE, UNSPECIFIED SNOMED Code(s): 290820933 Comment: - previous ABIs reveal advanced calcification and severe arterial insufficiency - s/p amputation right above knee amputation Status and Disposition: inpatient, PT. Needing further diuresis and possible stress test.
[2019-02-05] MEDS ORDERED: Torsemide TAB 10 MG PO SCH (16:00)
[2019-02-05] MEDS: Insulin GLARGINE(*) 1 UNITS UNIT SUBCUT SCH (17:37)
[2019-02-05] MEDS: Gabapentin CAP(*) 100 MG PO SCH (21:33)
[2019-02-05] MEDS: Rivaroxaban TAB(*) 10 MG PO SCH (21:55)
[2019-02-05] MEDS: Acetaminophen TAB* 325 MG PO PRN (22:14)
[2019-02-06] MEDS: Insulin LISPRO* 1 UNITS UNIT SUBCUT SCH ×3 (08:04→17:50)
[2019-02-06] MEDS ORDERED: Torsemide TAB 10 MG PO SCH (08:30)
[2019-02-06] MEDS: Magnesium Oxide TAB* 400 MG PO SCH (09:44)
[2019-02-06] MEDS: Allopurinol TAB* 100 MG PO SCH (09:44)
[2019-02-06] MEDS: Docusate CAP* 100 MG PO SCH ×2 (09:44→20:45)
[2019-02-06] MEDS: amLODIPine TAB* 5 MG PO SCH (09:44)
[2019-02-06] MEDS: Metoprolol Tartrate TAB* 25 MG PO SCH ×2 (09:44→20:46)
[2019-02-06] MEDS: Cholecalciferol TAB* 1000 UNITS PO SCH (09:44)
[2019-02-06] MEDS: Aspirin EC TAB* 81 MG TAB.EC PO SCH (09:44)
[2019-02-06] MEDS: Nystatin OINT* 15 GM TOPICAL SCH ×2 (09:47→20:48)
[2019-02-06] MEDS: Acetaminophen TAB* 325 MG PO PRN ×2 (09:50→23:11)
[2019-02-06 13:05] LABS: BUN/Creatinine Ratio 32.5 (8-20); Calcium 9.8 mg/dL (8.6-10.3); EGFR African American 23.2 (>60); EGFR Non-African American 19.2 (>60); Magnesium 2.5 mg/dL (1.9-2.7); Potassium 3.7 mmol/L (3.5-5.0)
[2019-02-06] MEDS: Ondansetron ODT TAB* 4 MG SL PRN (14:54)
--- NOTE | 2019-02-06 15:14 | PN ---
Subjective Date of Service: 02/06/19 Interval History: no acute events overnight, afebrile. did not sleep at all night given loud ambient noise/people talking on cell phones. Has not really been napping. some nausea, no vomiting. sptting up some blood tinged sputum - sensation of post nasal drip. zofran started. net negative 2280. 4L currently. does not think she can lie down flat for a significant period of time. brewer removed. Family History: Unchanged from Admission Social History: Unchanged from Admission Past Medical History: Unchanged from Admission Objective Active Medications: Acetaminophen (Tylenol Tab*) 650 mg PO Q6H PRN PRN Reason: FEVER/PAIN Last Admin: 02/06/19 09:50 Dose: 650 mg Allopurinol (Zyloprim Tab*) 100 mg PO DAILY [facility] Last Admin: 02/06/19 09:44 Dose: 100 mg Amlodipine Besylate (Norvasc Tab*) 10 mg PO DAILY [facility] Last Admin: 02/06/19 09:44 Dose: 10 mg Aspirin (Aspirin Ec Tab*) 81 mg PO DAILY [facility] Last Admin: 02/06/19 09:44 Dose: 81 mg Cholecalciferol (Vitamin D Tab*) 1,000 units PO DAILY [facility] Last Admin: 02/06/19 09:44 Dose: 1,000 units Dextrose (D50w Syringe 50 Ml*) 12.5 gm IV PUSH .FOR FS < 60 - SS PRN PRN Reason: FS < 60 Docusate Sodium (Colace Cap*) 100 mg PO BID [facility] Last Admin: 02/06/19 09:44 Dose: 100 mg Gabapentin (Neurontin Cap(*)) 200 mg PO BEDTIME [facility] Last Admin: 02/05/19 21:33 Dose: 200 mg Insulin Glargine (Lantus(*)) 10 units SUBCUT QPM [facility] Last Admin: 02/05/19 17:37 Dose: 10 units Insulin Human Lispro (Humalog*) 0 units SUBCUT AC [facility]; Protocol Last Admin: 02/06/19 12:30 Dose: 6 units Magnesium Oxide (Magox 400 Tab*) 400 mg PO DAILY [facility] Last Admin: 02/06/19 09:44 Dose: 400 mg Metoprolol Tartrate (Lopressor Tab*) 25 mg PO BID [facility] Last Admin: 02/06/19 09:44 Dose: 25 mg Nystatin (Nystatin Oint*) 1 applic TOPICAL BID [facility] Last Admin: 02/06/19 09:47 Dose: Not Given Ondansetron HCl (Zofran Odt Tab*) 4 mg SL Q6H PRN PRN Reason: NAUSEA/VOMITING Last Admin: 02/06/19 14:54 Dose: 4 mg Polyethylene Glycol/Electrolytes (Miralax*) 17 gm PO DAILY PRN PRN Reason: CONSTIPATION Last Admin: 02/03/19 01:04 Dose: 17 gm Rivaroxaban (Xarelto(*)) 10 mg PO BEDTIME [facility] Last Admin: 02/05/19 21:55 Dose: 10 mg Senna (Senokot Tab*) 2 tab PO BEDTIME PRN PRN Reason: CONSTIPATION Last Admin: 02/03/19 01:04 Dose: 2 tab Torsemide (Torsemide) 20 mg PO 0800,1500 [facility] Vital Signs - 8 hr 02/06/19 02/06/19 02/06/19 08:00 09:23 11:36 Temperature 97.9 F 98.2 F Pulse Rate 72 78 Respiratory 19 20 18 Rate Blood Pressure 126/55 123/53 (mmHg) O2 Sat by Pulse 96 94 Oximetry Oxygen Devices in Use Now: Nasal Cannula Appearance: NAD but tired appearing. Eyes: No Scleral Icterus Ears/Nose/Mouth/Throat: NL Teeth, Lips, Gums Neck: Trachea Midline Respiratory: - - coarse rhonchi at left base and rales at right base. no wheezing. Cardiovascular: NL Sounds; No Murmurs; No JVD Abdominal: NL Sounds; No Tenderness; No Distention Extremities: - - trace edema in LE. s/p right AKA Skin: No Rash or Ulcers Neurological: Alert and Oriented x 3, NL Sensation Nutrition: Taking PO's Result Diagrams: 02/04/19 09:50 02/06/19 12:25 Additional Lab and Data: Laboratory Results - last 24 hr 02/06/19 02/06/19 02/06/19 07:48 11:58 12:25 Sodium 133 L Potassium 3.7 Chloride 89 L Carbon Dioxide 37 H Anion Gap 7 BUN 79 H Creatinine 2.43 H Est GFR ( Amer) 23.2 Est GFR (Non-Af Amer) 19.2 BUN/Creatinine Ratio 32.5 H Glucose 220 H POC Glucose (mg/dL) 133 H 224 H Calcium 9.8 Magnesium 2.5 02/06/19 02/06/19 17:20 20:32 Sodium Potassium Chloride Carbon Dioxide Anion Gap BUN Creatinine Est GFR ( Amer) Est GFR (Non-Af Amer) BUN/Creatinine Ratio Glucose POC Glucose (mg/dL) 159 H 129 H Calcium Magnesium Microbiology and Other Data: Microbiology 02/03/19 21:50 Urine Urine Culture - Final No Growth (<1,000 CFU/mL) 02/01/19 22:38 Urine Urine Culture - Final No Growth (<1,000 CFU/mL) 02/01/19 19:19 Nasal Nasal Screen MRSA (PCR) - Final Mrsa Not Detected Diagnostic Imaging: Echo: EF in 20% range, multiple wall motion abnormalities, moderate MR EKG Data: NSR, LBBB Assess/Plan/Problems-Billing Assessment: 78 year old woman with PVD, CKDIV (GFR 20), type 2 diabetes, admitted with two months of SOB, nonproductive cough, lower extremity edema. Non-Q-wave ND and worsening of CHF form 40-25% to 20--25%. Required vapotherm in ICU but improved now with diuresis. CT chest with atelectasis/effusion compressing most of LLL. 1 enlarged mediastinal lymph nodes. - Patient Problems (1) Acute systolic heart failure, first episode Current Visit: Yes Status: Acute Priority: High Code(s): I50.21 - ACUTE SYSTOLIC (CONGESTIVE) HEART FAILURE SNOMED Code(s): 894200558 Comment: -Echo confirms ischemic cardiomyopathy, EF 20-25% = continue torsemide 20mg BID, goal net negative 1-2L. - PLEASE weight patient as orderd, not recorded last 2 days. - appreciate cardilogy recs, will need ischemic evaluation with stress test when more stable, consider stress test. D-dimer is elevated but not markely so corrected for age, and given low wells score, could pursue v/q scan once more stable if still hypoxic despite diuresis. (would represent treatment failure as she is on eliquis). (2) Acute respiratory failure with hypoxia Current Visit: Yes Status: Acute Code(s): J96.01 - ACUTE RESPIRATORY FAILURE WITH HYPOXIA SNOMED Code(s): 43305762 Comment: likely acute CHF, plan as above. improving though rate of improvement stalled a bit. CT chest with effusion and compressive atelectasis worse LLL. (3) Rectal pain Current Visit: Yes Status: Acute Code(s): K62.89 - OTHER SPECIFIED DISEASES OF ANUS AND RECTUM SNOMED Code(s): 95961133 Comment: s/p resolution after manual disimpaction 02/04 continue prn colace, senna and miralax (4) Non Q wave myocardial infarction Current Visit: Yes Status: Acute Priority: High Code(s): I21.4 - NON-ST ELEVATION (NSTEMI) MYOCARDIAL INFARCTION SNOMED Code(s): 413923951 Comment: - Cardiology consult appreciated - Continue on telemetry, - Continue Xarelto - continue metoprolol - Will likely need stress test when more stable, LHC would be very risky/morbid given her degree of kidney dysfunction CKDIV - troponin peak 3.43 and downtrended before slight increase on , rechecked was 1.63 (5) DM2 (diabetes mellitus, type 2) Current Visit: Yes Status: Chronic Priority: Medium Comment: - Blood sugar 130-160 - Continue glargine (10U qpm), and lispro SS - had been on 6U lantus at home. Given Nstemi will recheck A1C (7.6 in May 2018 ) (6) CKD (chronic kidney disease) Current Visit: No Status: Chronic Priority: Medium Code(s): N18.9 - CHRONIC KIDNEY DISEASE, UNSPECIFIED SNOMED Code(s): 706355766 Comment: - GFR 19. - Continue to monitor creatinine with diuresis above. 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 Needing further diuresis and possible stress test.
[2019-02-06] MEDS: Insulin GLARGINE(*) 1 UNITS UNIT SUBCUT SCH (17:49)
[2019-02-06] MEDS: Torsemide TAB 10 MG PO SCH (17:49)
[2019-02-06] MEDS: Rivaroxaban TAB(*) 10 MG PO SCH (20:45)
[2019-02-06] MEDS: Gabapentin CAP(*) 100 MG PO SCH (20:46)
[2019-02-07 07:51] LABS: ABS Basophils 0.1 10^3/ul (0-0.2); ABS Eosinophils 0.3 10^3/ul (0-0.6); ABS Lymphocytes 1.1 10^3/ul (1.0-4.8); ABS Monocytes 0.6 10^3/ul (0-0.8); ABS Neutrophils 5.4 10^3/ul (1.5-7.7); Eosinophil % 4.3 %; Hematocrit 33 % (35-47); Lymphocyte % 14.5 %; Mean Corpuscular HGB Conc 33 g/dL (31-36); Mean Corpuscular Hemoglobin 28 pg (27-31); Mean Corpuscular Volume 84 fL (80-97); Mean Platelet Volume 7.1 fL (7.4-10.4); Platelet Count 356 10^3/uL (150-450); Red Blood Count 3.93 10^6 /uL (3.70-4.87); Red Cell Distribution Width 16 % (10-15); White Blood Count 7.5 10^3/uL (3.5-10.8)
[2019-02-07 08:08] LABS: BUN/Creatinine Ratio 30.4 (8-20); Calcium 9.7 mg/dL (8.6-10.3); EGFR African American 19.5 (>60); EGFR Non-African American 16.1 (>60); Potassium 3.7 mmol/L (3.5-5.0)
[2019-02-07] MEDS: amLODIPine TAB* 5 MG PO SCH (09:30)
[2019-02-07] MEDS: Allopurinol TAB* 100 MG PO SCH (09:30)
[2019-02-07] MEDS: Torsemide TAB 10 MG PO SCH (09:30)
[2019-02-07] MEDS: Docusate CAP* 100 MG PO SCH ×2 (09:30→21:35)
[2019-02-07] MEDS: Insulin LISPRO* 1 UNITS UNIT SUBCUT SCH ×3 (09:30→17:22)
[2019-02-07] MEDS: Cholecalciferol TAB* 1000 UNITS PO SCH (09:31)
[2019-02-07] MEDS: Magnesium Oxide TAB* 400 MG PO SCH (09:31)
[2019-02-07] MEDS: Metoprolol Tartrate TAB* 25 MG PO SCH ×2 (09:31→21:36)
[2019-02-07] MEDS: Aspirin EC TAB* 81 MG TAB.EC PO SCH (09:31)
[2019-02-07] MEDS: Nystatin OINT* 15 GM TOPICAL SCH ×2 (09:37→21:38)
[2019-02-07] MEDS ORDERED: Furosemide IV* 10 MG/ML VIAL (40 MG) IV ONE (09:59)
[2019-02-07] MEDS ORDERED: Albuterol 2.5 MG/3 ML NEB.SOL* (0.083%) INH PRN (10:01)
[2019-02-07] MEDS: Morphine INJ* 2 MG/ML 1 ML SYRINGE (TWO MG - NEW SYRINGE VERSION) IV ONE ×2 (10:30→11:42)
[2019-02-07] MEDS: Acetaminophen TAB* 325 MG PO PRN ×2 (13:59→21:39)
[2019-02-07] MEDS: Insulin GLARGINE(*) 1 UNITS UNIT SUBCUT SCH (17:22)
--- NOTE | 2019-02-07 19:20 | PN ---
Subjective Date of Service: 02/07/19 Interval History: Patient seen twice today, both for brief and acute shortness of breath requiring 100% O2 resolved 10-15 minutes after having her sitting up. CXR obtained revealed increased pleural effusion, and increase cephalizations suggestive of congestive changes. She was recently changed to po diuretic yesterday. Patient seen both times and by the time I did see the patient she was feeling better and her oxygen downgraded to nasal canula. denies chest pain Past Medical History: Unchanged from Admission Objective Active Medications: Acetaminophen (Tylenol Tab*) 650 mg PO Q6H PRN PRN Reason: FEVER/PAIN Last Admin: 02/07/19 13:59 Dose: 650 mg Albuterol (Ventolin 2.5 Mg/3 Ml Neb.Lary*) 2.5 mg INH Q2H PRN PRN Reason: SOB/WHEEZING Allopurinol (Zyloprim Tab*) 100 mg PO DAILY [facility] Last Admin: 02/07/19 09:30 Dose: 100 mg Amlodipine Besylate (Norvasc Tab*) 10 mg PO DAILY [facility] Last Admin: 02/07/19 09:30 Dose: 10 mg Aspirin (Aspirin Ec Tab*) 81 mg PO DAILY [facility] Last Admin: 02/07/19 09:31 Dose: 81 mg Cholecalciferol (Vitamin D Tab*) 1,000 units PO DAILY [facility] Last Admin: 02/07/19 09:31 Dose: 1,000 units Dextrose (D50w Syringe 50 Ml*) 12.5 gm IV PUSH .FOR FS < 60 - SS PRN PRN Reason: FS < 60 Docusate Sodium (Colace Cap*) 100 mg PO BID [facility] Last Admin: 02/07/19 09:30 Dose: 100 mg Furosemide (Lasix Iv*) 40 mg IV BID [facility] Gabapentin (Neurontin Cap(*)) 200 mg PO BEDTIME [facility] Last Admin: 02/06/19 20:46 Dose: 200 mg Insulin Glargine (Lantus(*)) 10 units SUBCUT QPM [facility] Last Admin: 02/07/19 17:22 Dose: 10 units Insulin Human Lispro (Humalog*) 0 units SUBCUT AC [facility]; Protocol Last Admin: 02/07/19 17:22 Dose: 3 units Magnesium Oxide (Magox 400 Tab*) 400 mg PO DAILY [facility] Last Admin: 02/07/19 09:31 Dose: 400 mg Metoprolol Tartrate (Lopressor Tab*) 25 mg PO BID [facility] Last Admin: 02/07/19 09:31 Dose: 25 mg Morphine Sulfate (Morphine Inj (Syringe))*) 2 mg IV ONCE PRN PRN Reason: respiratory distress Nystatin (Nystatin Oint*) 1 applic TOPICAL BID [facility] Last Admin: 02/07/19 09:37 Dose: 1 applic Ondansetron HCl (Zofran Odt Tab*) 4 mg SL Q6H PRN PRN Reason: NAUSEA/VOMITING Last Admin: 02/06/19 14:54 Dose: 4 mg Polyethylene Glycol/Electrolytes (Miralax*) 17 gm PO DAILY PRN PRN Reason: CONSTIPATION Last Admin: 02/03/19 01:04 Dose: 17 gm Rivaroxaban (Xarelto(*)) 10 mg PO BEDTIME [facility] Last Admin: 02/06/19 20:45 Dose: 10 mg Senna (Senokot Tab*) 2 tab PO BEDTIME PRN PRN Reason: CONSTIPATION Last Admin: 02/03/19 01:04 Dose: 2 tab Vital Signs - 8 hr 02/07/19 02/07/19 02/07/19 11:28 11:37 15:59 Temperature 98.3 F 97.1 F 98.3 F Pulse Rate 73 56 76 Respiratory 20 16 18 Rate Blood Pressure 118/60 104/60 140/55 (mmHg) O2 Sat by Pulse 91 92 93 Oximetry Oxygen Devices in Use Now: Nasal Cannula Appearance: awake, alert no distress at the time of my evaluations Eyes: No Scleral Icterus, - - EOMI Ears/Nose/Mouth/Throat: NL Teeth, Lips, Gums, Mucous Membranes Moist Neck: NL Appearance and Movements; NL JVP, Trachea Midline Respiratory: - - bibasilar crackles, no wheezing Cardiovascular: NL Sounds; No Murmurs; No JVD, - - +1 edema Abdominal: NL Sounds; No Tenderness; No Distention Extremities: - - + 1 edema Neurological: Alert and Oriented x 3 Result Diagrams: 02/07/19 07:35 02/07/19 07:35 Additional Lab and Data: Laboratory Results - last 24 hr 02/06/19 02/06/19 02/06/19 07:48 11:58 12:25 Sodium 133 L Potassium 3.7 Chloride 89 L Carbon Dioxide 37 H Anion Gap 7 BUN 79 H Creatinine 2.43 H Est GFR ( Amer) 23.2 Est GFR (Non-Af Amer) 19.2 BUN/Creatinine Ratio 32.5 H Glucose 220 H POC Glucose (mg/dL) 133 H 224 H Calcium 9.8 Magnesium 2.5 02/06/19 02/06/19 17:20 20:32 Sodium Potassium Chloride Carbon Dioxide Anion Gap BUN Creatinine Est GFR ( Amer) Est GFR (Non-Af Amer) BUN/Creatinine Ratio Glucose POC Glucose (mg/dL) 159 H 129 H Calcium Magnesium Microbiology and Other Data: Microbiology 02/03/19 21:50 Urine Urine Culture - Final No Growth (<1,000 CFU/mL) 02/01/19 22:38 Urine Urine Culture - Final No Growth (<1,000 CFU/mL) 02/01/19 19:19 Nasal Nasal Screen MRSA (PCR) - Final Mrsa Not Detected Diagnostic Imaging: Echo: EF in 20% range, multiple wall motion abnormalities, moderate MR EKG Data: NSR, LBBB Assess/Plan/Problems-Billing Assessment: 78 year old woman with PVD, CKDIV (GFR 20), type 2 diabetes, admitted with two months of SOB, nonproductive cough, lower extremity edema. Non-Q-wave ND and worsening of CHF form 40-25% to 20--25%. Required vapotherm in ICU but improved now with diuresis. CT chest with atelectasis/effusion compressing most of LLL. 1 enlarged mediastinal lymph nodes. - Patient Problems (1) Acute respiratory failure with hypoxia Current Visit: Yes Status: Acute Code(s): J96.01 - ACUTE RESPIRATORY FAILURE WITH HYPOXIA SNOMED Code(s): 67949801 Comment: - likely acute CHF - CT chest with effusion and compressive atelectasis worse LLL. - She develloped acute decompensation this morning. resovled with 100% NRB and after 15 minutes she was transioned back to nasal canula - I will transition her back to IV diuretics. CXR showed increased cephalizations, and increase pleural effusion, hence will give one dose lasix now and 40 mg at 9 pm (2) Acute systolic heart failure, first episode Current Visit: Yes Status: Acute Priority: High Code(s): I50.21 - ACUTE SYSTOLIC (CONGESTIVE) HEART FAILURE SNOMED Code(s): 924368972 Comment: - Echo confirms ischemic cardiomyopathy, EF 20-25% - Given decompensation today I will change her torsemide 20mg PO BID, to IV lasix 40 mg IV bid. - appreciate cardilogy recs, she underwent stress test today first part today, second part tomorrow. - D-dimer is elevated but not markely so corrected for age, and given low wells score, could pursue v/q scan once more stable if still hypoxic despite diuresis. (would represent treatment failure as she is on eliquis). (3) History of pulmonary embolism Current Visit: No Status: Chronic Priority: Medium Code(s): Z86.711 - PERSONAL HISTORY OF PULMONARY EMBOLISM SNOMED Code(s): 966864349 Comment: - Continue xarelto (4) Non Q wave myocardial infarction Current Visit: Yes Status: Acute Priority: High Code(s): I21.4 - NON-ST ELEVATION (NSTEMI) MYOCARDIAL INFARCTION SNOMED Code(s): 636788950 Comment: - Cardiology consult appreciated - Continue on telemetry, - Continue Xarelto - continue metoprolol - s/p first part of her nuclear stress test today. - troponin peak 3.43 and downtrended before slight increase on , rechecked was 1.63 (5) DM2 (diabetes mellitus, type 2) Current Visit: Yes Status: Chronic Priority: Medium Comment: - A1c 7.1 - Blood sugar 130-160 - Continue glargine (10U qpm), and lispro SS (6) HTN (hypertension) Current Visit: No Status: Chronic Priority: Medium Code(s): I10 - ESSENTIAL (PRIMARY) HYPERTENSION SNOMED Code(s): 37279868 Comment: - Continue metoprolol - Generally normotensive (7) Hypothyroid Current Visit: No Status: Chronic Priority: High Onset Date: 04/19/14 Code(s): E03.9 - HYPOTHYROIDISM, UNSPECIFIED SNOMED Code(s): 29749496 (8) DVT prophylaxis Current Visit: Yes Status: Acute Priority: Low Code(s): ZKV3890 - SNOMED Code(s): 961037109 Comment: - High risk due to h/o PE - Xarelto Status and Disposition: inpatient, PT. Needing further diuresis and possible stress test.
[2019-02-07] MEDS: Furosemide IV* 10 MG/ML VIAL (40 MG) IV SCH (20:01)
[2019-02-07] MEDS ORDERED: Nitro 2% OINT* (Nitroglycerin) 1 INCH/PAK PAK ONE (20:16)
--- NOTE | 2019-02-07 20:38 | PN ---
Subjective Date of Service: 02/07/19 Interval History: 2029-called for acute shortness of breath o2 saturations 89-90% on 15 liters face mask. Patient was repositioned in the bed and given lasix 40 mg IV early. Nitroglycerin 1/2 " applied to chest wall. BP 140/55 HR 77 Resp 24 O2 sat 92- 93% on 15 liters face mask. Patient is able to talk in full sentences, does seem mildly short of breath. 2119- O2 saturations improving slightly now 95% on 15 liters NC. Respirations are easy, skin is warm and dry, no acute resp distress. Will give Spironolactone 25 mg po and continue to monitor. Appears comfortable and is able to speak full sentences. Will titrate O2 down as able. UOP about 400cc at this time. 2229- Symptoms improving - patient noted to have pvc's on the monitor with 3 beat runs at times, asymptomatic. BMP and Magnesium level ordered. K+ 3.9 and Magnesium 2.6, will give potassium 20 meq po x 1 to bring potassium above 4.0. Total urine output 900 cc. Oxygen decreased to 8 liters NC. saturation remain 92-94% on 8 liters NC, will continue to titrate o2 down as able. patient without respiratory distress, continues to speak in full sentences. will continue to monitor closely at this time for any other acute changes. Family History: Unchanged from Admission Social History: Unchanged from Admission Past Medical History: Unchanged from Admission Objective Active Medications: Acetaminophen (Tylenol Tab*) 650 mg PO Q6H PRN PRN Reason: FEVER/PAIN Last Admin: 02/07/19 13:59 Dose: 650 mg Albuterol (Ventolin 2.5 Mg/3 Ml Neb.Lary*) 2.5 mg INH Q2H PRN PRN Reason: SOB/WHEEZING Allopurinol (Zyloprim Tab*) 100 mg PO DAILY [facility] Last Admin: 02/07/19 09:30 Dose: 100 mg Amlodipine Besylate (Norvasc Tab*) 10 mg PO DAILY [facility] Last Admin: 02/07/19 09:30 Dose: 10 mg Aspirin (Aspirin Ec Tab*) 81 mg PO DAILY [facility] Last Admin: 02/07/19 09:31 Dose: 81 mg Cholecalciferol (Vitamin D Tab*) 1,000 units PO DAILY [facility] Last Admin: 02/07/19 09:31 Dose: 1,000 units Dextrose (D50w Syringe 50 Ml*) 12.5 gm IV PUSH .FOR FS < 60 - SS PRN PRN Reason: FS < 60 Docusate Sodium (Colace Cap*) 100 mg PO BID [facility] Last Admin: 02/07/19 09:30 Dose: 100 mg Furosemide (Lasix Iv*) 40 mg IV BID [facility] Last Admin: 02/07/19 20:01 Dose: 40 mg Gabapentin (Neurontin Cap(*)) 200 mg PO BEDTIME [facility] Last Admin: 02/06/19 20:46 Dose: 200 mg Insulin Glargine (Lantus(*)) 10 units SUBCUT QPM [facility] Last Admin: 02/07/19 17:22 Dose: 10 units Insulin Human Lispro (Humalog*) 0 units SUBCUT AC [facility]; Protocol Last Admin: 02/07/19 17:22 Dose: 3 units Magnesium Oxide (Magox 400 Tab*) 400 mg PO DAILY [facility] Last Admin: 02/07/19 09:31 Dose: 400 mg Metoprolol Tartrate (Lopressor Tab*) 25 mg PO BID [facility] Last Admin: 02/07/19 09:31 Dose: 25 mg Morphine Sulfate (Morphine Inj (Syringe))*) 2 mg IV ONCE PRN PRN Reason: respiratory distress Stop: 02/08/19 19:07 Nystatin (Nystatin Oint*) 1 applic TOPICAL BID [facility] Last Admin: 02/07/19 09:37 Dose: 1 applic Ondansetron HCl (Zofran Odt Tab*) 4 mg SL Q6H PRN PRN Reason: NAUSEA/VOMITING Last Admin: 02/06/19 14:54 Dose: 4 mg Polyethylene Glycol/Electrolytes (Miralax*) 17 gm PO DAILY PRN PRN Reason: CONSTIPATION Last Admin: 02/03/19 01:04 Dose: 17 gm Rivaroxaban (Xarelto(*)) 10 mg PO BEDTIME [facility] Last Admin: 02/06/19 20:45 Dose: 10 mg Senna (Senokot Tab*) 2 tab PO BEDTIME PRN PRN Reason: CONSTIPATION Last Admin: 02/03/19 01:04 Dose: 2 tab Vital Signs - 8 hr 02/07/19 15:59 Temperature 98.3 F Pulse Rate 76 Respiratory 18 Rate Blood Pressure 140/55 (mmHg) O2 Sat by Pulse 93 Oximetry Oxygen Devices in Use Now: Nasal Cannula Result Diagrams: 02/07/19 07:35 02/07/19 21:36 Additional Lab and Data: Laboratory Results - last 24 hr 02/06/19 02/06/19 02/06/19 07:48 11:58 12:25 Sodium 133 L Potassium 3.7 Chloride 89 L Carbon Dioxide 37 H Anion Gap 7 BUN 79 H Creatinine 2.43 H Est GFR ( Amer) 23.2 Est GFR (Non-Af Amer) 19.2 BUN/Creatinine Ratio 32.5 H Glucose 220 H POC Glucose (mg/dL) 133 H 224 H Calcium 9.8 Magnesium 2.5 02/06/19 02/06/19 17:20 20:32 Sodium Potassium Chloride Carbon Dioxide Anion Gap BUN Creatinine Est GFR ( Amer) Est GFR (Non-Af Amer) BUN/Creatinine Ratio Glucose POC Glucose (mg/dL) 159 H 129 H Calcium Magnesium Microbiology and Other Data: Microbiology 02/03/19 21:50 Urine Urine Culture - Final No Growth (<1,000 CFU/mL) 02/01/19 22:38 Urine Urine Culture - Final No Growth (<1,000 CFU/mL) 02/01/19 19:19 Nasal Nasal Screen MRSA (PCR) - Final Mrsa Not Detected Diagnostic Imaging: Echo: EF in 20% range, multiple wall motion abnormalities, moderate MR EKG Data: NSR, LBBB Assess/Plan/Problems-Billing Assessment: 78 year old woman with PVD, CKDIV (GFR 20), type 2 diabetes, admitted with two months of SOB, nonproductive cough, lower extremity edema. Non-Q-wave IN and worsening of CHF form 40-25% to 20--25%. Required vapotherm in ICU but improved now with diuresis. CT chest with atelectasis/effusion compressing most of LLL. 1 enlarged mediastinal lymph nodes. Status and Disposition: inpatient, PT. Needing further diuresis and possible stress test.
[2019-02-07] MEDS ORDERED: Nitro 2% OINT* (Nitroglycerin) 1 INCH/PAK PAK TOPICAL ONE (20:57)
[2019-02-07] MEDS ORDERED: Spironolactone TAB* 25 MG PO ONE (21:21)
[2019-02-07] MEDS: Gabapentin CAP(*) 100 MG PO SCH (21:35)
[2019-02-07] MEDS: Rivaroxaban TAB(*) 10 MG PO SCH (21:36)
[2019-02-07 21:59] LABS: BUN/Creatinine Ratio 32.2 (8-20); EGFR African American 18.6 (>60); EGFR Non-African American 15.3 (>60); Magnesium 2.6 mg/dL (1.9-2.7); Potassium 3.9 mmol/L (3.5-5.0)
[2019-02-07] MEDS ORDERED: Potassium Chlor TAB* 20 MEQ TAB.ER PO ONE (23:25)
[2019-02-08] MEDS ORDERED: Magnesium Sulfate 1 GM IV* 1 GM/100 ML BAG IV ONE (01:12)
[2019-02-08] MEDS ORDERED: Furosemide IV* 10 MG/ML VIAL (40 MG) IV ONE (03:03)
[2019-02-08] MEDS ORDERED: Furosemide IV* 10 MG/ML VIAL (40 MG) ONE (03:12)
[2019-02-08] MEDS: Morphine INJ* 2 MG/ML 1 ML SYRINGE (TWO MG - NEW SYRINGE VERSION) IV PRN ×3 (04:41→14:29)
[2019-02-08] MEDS ORDERED: Morphine INJ* 2 MG/ML 1 ML SYRINGE (TWO MG - NEW SYRINGE VERSION) IV ONE (04:54)
[2019-02-08] MEDS ORDERED: Amiodarone 150 MG IVPREMIX* 150 MG/100 ML BAG IV ONE ×2 (05:03→05:07)
[2019-02-08] MEDS ORDERED: Amiodarone 360 MG IVPREMIX* 360 MG/200 ML BAG IV ONE ×2 (05:07→05:13)
[2019-02-08 05:41] LABS: ABS Basophils 0.1 10^3/ul (0-0.2); ABS Eosinophils 0.2 10^3/ul (0-0.6); ABS Lymphocytes 1.1 10^3/ul (1.0-4.8); ABS Monocytes 0.5 10^3/ul (0-0.8); ABS Neutrophils 6.1 10^3/ul (1.5-7.7); Eosinophil % 2.4 %; Hematocrit 30 % (35-47); Lymphocyte % 14.1 %; Mean Corpuscular HGB Conc 33 g/dL (31-36); Mean Corpuscular Hemoglobin 27 pg (27-31); Mean Corpuscular Volume 83 fL (80-97); Mean Platelet Volume 7.5 fL (7.4-10.4); Platelet Count 309 10^3/uL (150-450); Red Blood Count 3.65 10^6 /uL (3.70-4.87); Red Cell Distribution Width 16 % (10-15)
[2019-02-08 06:05] LABS: ALT 10 U/L (7-52); AST 12 U/L (13-39); Albumin 3.3 g/dL (3.2-5.2); Albumin/Globulin Ratio 1.1 (1-3); Alkaline Phosphatase 123 U/L (34-104); Anion Gap 11 mmol/L (2-11); BUN/Creatinine Ratio 33.6 (8-20); Blood Urea Nitrogen 94 mg/dL (6-24); CO2 Carbon Dioxide 33 mmol/L (22-32); Calcium 9.8 mg/dL (8.6-10.3); Chloride 88 mmol/L (101-111); EGFR African American 19.7 (>60); EGFR Non-African American 16.3 (>60); Globulin 3.1 g/dL (2-4); Glucose 185 mg/dL (70-100); Potassium 3.8 mmol/L (3.5-5.0); Sodium 132 mmol/L (135-145); Total Protein 6.4 g/dL (6.4-8.9)
--- NOTE | 2019-02-08 06:10 | PN ---
Hospitalist Progress Note Date of Service: 02/08/19 Overnight Cross Cover Note 78 year old woman with PVD, CKD, NIDDM admitted with two months of SOB, nonproductive cough, lower extremity edema. Non-Q-wave MS and worsening of CHF from 40-25% to 20--25% Overnight continual SOB Assesed pt, still appears voulme overloaded, attempted diruesis on the floor, sig PVCs, mag given on the floor, still with air hunger, attempted morphine Repeat EKG with sig ventricular ectopy Transferred to ICU for 1) Increased work of breathing, tachypnea to 30s, uncomfortable on floor, can trail HFNC/BiPAP 2) Ventricular Ectopy->in ICU long runs of VT, symptomatic and gasping while occurring Plan Ventricular Ectopy HFrEF 25% (pending cardiac w/u) NSTEMI on Xarelto --Started amio load and gtt to suppress ventricular rhythm --Continue metoprolol --Continue Xarelto --Reconsult to cardiology in AM
[2019-02-08 06:14] LABS: TSH (Thyroid Stimulating Horm) 2.61 mcIU/mL (0.34-5.60)
[2019-02-08 08:54] LABS: Troponin I 0.84 ng/mL (<0.04)
[2019-02-08] MEDS ORDERED: Lorazepam PYXIS KEY ONE (09:33)
[2019-02-08] MEDS: Magnesium Oxide TAB* 400 MG PO SCH (09:39)
[2019-02-08] MEDS: Cholecalciferol TAB* 1000 UNITS PO SCH (09:39)
[2019-02-08] MEDS: Metoprolol Tartrate TAB* 25 MG PO SCH ×3 (09:39→20:09)
[2019-02-08] MEDS: Allopurinol TAB* 100 MG PO SCH (09:39)
[2019-02-08] MEDS: Furosemide IV* 10 MG/ML VIAL (40 MG) IV SCH ×2 (09:39→20:09)
[2019-02-08] MEDS: Aspirin EC TAB* 81 MG TAB.EC PO SCH (09:39)
[2019-02-08] MEDS: Docusate CAP* 100 MG PO SCH ×2 (09:39→20:10)
[2019-02-08] MEDS: amLODIPine TAB* 5 MG PO SCH (09:41)
[2019-02-08] MEDS: Insulin LISPRO* 1 UNITS UNIT SUBCUT SCH ×3 (09:42→17:19)
[2019-02-08] MEDS: Nitro 2% OINT* (Nitroglycerin) 1 INCH/PAK PAK TOPICAL SCH ×2 (10:06→16:29)
[2019-02-08] MEDS: Nystatin OINT* 15 GM TOPICAL SCH ×2 (10:08→20:17)
[2019-02-08 11:16] LABS: Glucose 148 mg/dL (70-100)
[2019-02-08] MEDS: Amiodarone 360 MG IVPREMIX* 360 MG/200 ML BAG IV SCH ×2 (11:34→23:31)
--- NOTE | 2019-02-08 11:44 | CONSULT ---
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 She was initially treated outpatient prior to arrival with Antibiotics for suspected bronchitis. On admission she was noted to have elevated BNp and troponins, pulmonary edema on CXR consistent with findigns of NSTEMI and decompensated heart failure. SHe had renal insufficiency also noted. EKG demonstrated LBBB patter, NSR. Since admission she has recieved IV heparin, asa, IV diuretics for CHF/NSTEMI. TTE 02/02 showed new LV systolic dysfunction with LVEF 20-25% with multiple WMA, no severe valvular disease; Prior TTE with LVEF 40-45%. Overnight 02/07 she developed episodes of VT, then increasing respiratory distress. She was upgraded to ICU for NIV and initiation of Amiodarone for VT. She is noted to have increasing CR, but CXR demonstrates stable left effusion without worsening congestion. She is currently awake, alert, on NIV, comfortable without resp distress/ tachypnea. Sats 100%, RR 16-19. Brewer demonstrates urine+. Afebrile overnight ROS: negative except for pertinent positives mentioned above. 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 Allergies: Allergies Allergy/AdvReac Type Severity Reaction Status Date / Time Txulxhm-Hhg-Aiz Reductase Allergy Severe See Comment Verified 02/01/19 15:31 Inhibitor fentanyl AdvReac Hallucinati Verified 02/01/19 15:31 ons general anesthesia Allergy Shakes Uncoded 02/01/19 15:31 Home Medications: Gabapentin CAP(*) [Neurontin 100 mg CAP(*)] 200 mg PO BEDTIME 01/04/18 [History Confirmed 02/01/19] Metoprolol Tartrate TAB* [Lopressor TAB*] 25 mg PO BID 01/04/18 [History Confirmed 02/01/19] Insulin Glargine,Hum.rec.anlog [Lantus] 6 unit SUBCUT QPM 06/15/18 [History Confirmed 02/01/19] Acetaminophen TAB* [Tylenol TAB*] 975 mg PO Q6H PRN 02/01/19 [History Confirmed 02/01/19] Allopurinol TAB* [Zyloprim 100 MG TAB*] 100 mg PO DAILY 02/01/19 [History Confirmed 02/01/19] Cholecalciferol (Vitamin D3) [Vitamin D3] 1,000 unit PO DAILY 02/01/19 [History Confirmed 02/01/19] Magnesium Oxide TAB* [MagOx 400 TAB*] 400 mg PO DAILY 02/01/19 [History Confirmed 02/01/19] Rivaroxaban TAB(*) [Xarelto 10 mg (*)] 10 mg PO BEDTIME 02/01/19 [History Confirmed 02/01/19] amLODIPine TAB* [Norvasc 5 mg TAB*] 10 mg PO DAILY 02/01/19 [History Confirmed 02/01/19] Tele: NSR; noted NSVT Vitals: Vital Signs Temp 98.1 F 02/08/19 08:00 Pulse 65 02/08/19 11:01 Resp 15 02/08/19 11:01 BP 104/55 02/08/19 11:01 Pulse Ox 100 02/08/19 11:01 Intake & Output 02/07/19 02/08/19 02/08/19 18:59 06:59 18:59 Intake Total 360 463 0 Output Total 0 775 235 Balance 360 -312 -235 Weight 93.984 kg 95.1 kg Intake: IV Fluids 27 NS (0.9%) 27 Medicated IV 176 CC - Amiodarone 126 mag sulfate 50 Oral 360 260 0 Output: Urine 0 Brewer 775 235 O2/Vent: NIV 100%; now on hiflow 100% 40lpm Infusions: IV heparin Current Medications: Acetaminophen (Tylenol Tab*) 650 mg PO Q6H PRN PRN Reason: FEVER/PAIN Last Admin: 02/07/19 21:39 Dose: 650 mg Albuterol (Ventolin 2.5 Mg/3 Ml Neb.Lary*) 2.5 mg INH Q2H PRN PRN Reason: SOB/WHEEZING Allopurinol (Zyloprim Tab*) 100 mg PO DAILY [facility] Last Admin: 02/08/19 09:39 Dose: 100 mg Aspirin (Aspirin Ec Tab*) 81 mg PO DAILY [facility] Last Admin: 02/08/19 09:39 Dose: 81 mg Cholecalciferol (Vitamin D Tab*) 1,000 units PO DAILY [facility] Last Admin: 02/08/19 09:39 Dose: 1,000 units Dextrose (D50w Syringe 50 Ml*) 12.5 gm IV PUSH .FOR FS < 60 - SS PRN PRN Reason: FS < 60 Docusate Sodium (Colace Cap*) 100 mg PO BID [facility] Last Admin: 02/08/19 09:39 Dose: 100 mg Furosemide (Lasix Iv*) 40 mg IV BID [facility] Last Admin: 02/08/19 09:39 Dose: 40 mg Gabapentin (Neurontin Cap(*)) 200 mg PO BEDTIME [facility] Last Admin: 02/07/19 21:35 Dose: 200 mg Amiodarone HCl (Nexterone 360 Mg/200 Ml Ivpremix*) 360 mg in 200 mls @ 16.667 mls/hr IV .SEE PROTOCOL [facility]; Protocol Insulin Glargine (Lantus(*)) 10 units SUBCUT QPM [facility] Last Admin: 02/07/19 17:22 Dose: 10 units Insulin Human Lispro (Humalog*) 0 units SUBCUT AC [facility]; Protocol Last Admin: 02/08/19 09:42 Dose: 3 units Magnesium Oxide (Magox 400 Tab*) 400 mg PO DAILY [facility] Last Admin: 02/08/19 09:39 Dose: 400 mg Metoprolol Tartrate (Lopressor Tab*) 12.5 mg PO Q12HR [facility] Last Admin: 02/08/19 09:39 Dose: 12.5 mg Morphine Sulfate (Morphine Inj (Syringe))*) 2 mg IV ONCE PRN PRN Reason: respiratory distress Stop: 02/08/19 19:07 Last Admin: 02/08/19 07:24 Dose: 2 mg Morphine Sulfate (Morphine Inj (Syringe))*) 1 mg IV Q5H PRN PRN Reason: DISCOMFORT Last Admin: 02/08/19 04:41 Dose: 1 mg Nitroglycerin (Nitroglycerin 2% Oint*) 0.5 inch TOPICAL 0800,1400 [facility]; Protocol Last Admin: 02/08/19 10:06 Dose: 0.5 inch Nystatin (Nystatin Oint*) 1 applic TOPICAL BID [facility] Last Admin: 02/08/19 10:08 Dose: Not Given Ondansetron HCl (Zofran Odt Tab*) 4 mg SL Q6H PRN PRN Reason: NAUSEA/VOMITING Last Admin: 02/06/19 14:54 Dose: 4 mg Polyethylene Glycol/Electrolytes (Miralax*) 17 gm PO DAILY PRN PRN Reason: CONSTIPATION Last Admin: 02/03/19 01:04 Dose: 17 gm Rivaroxaban (Xarelto(*)) 10 mg PO BEDTIME [facility] Last Admin: 02/07/19 21:36 Dose: 10 mg Senna (Senokot Tab*) 2 tab PO BEDTIME PRN PRN Reason: CONSTIPATION Last Admin: 02/03/19 01:04 Dose: 2 tab Physical Exam: Constitutional: awake, alert, no distress, no diaphoresis Head: normocephalic, atraumatic Eyes: no pallor, no icterus ENT: moist mucous membranes Neck: soft, supple, no jvd, no stridor CVS: normal rate, regular, no murmur Resp: bilateral air entry, mild basilar bilateral crackles++, no wheeze, no rhonchi, no acc muscle use Abdomen/GI: soft, nontender, nondistended, BS+ Ext/Msk: warm, pulses+, no edema Skin: intact, warm Neuro: awake, alert, orientedx3, moving all extremities Labs: Laboratory Results - last 24 hr 02/07/19 02/07/19 02/07/19 11:11 16:26 21:31 WBC RBC Hgb Hct MCV MCH MCHC RDW Plt Count MPV Neut % (Auto) Lymph % (Auto) Lane % (Auto) Eos % (Auto) Baso % (Auto) Absolute Neuts (auto) Absolute Lymphs (auto) Absolute Monos (auto) Absolute Eos (auto) Absolute Basos (auto) Absolute Nucleated RBC Nucleated RBC % Patient Temperature ABG pH ABG pH (Temp Correct) ABG pCO2 ABG pCO2 (Temp Corrct ABG pO2 ABG pO2 (Temp Correct ABG HCO3 ABG O2 Saturation ABG Base Excess Respiration Rate O2 Delivery Device Ventilator Type Vent Mode FiO2 Inspiratory Time PEEP Pressure Support Pressure Control EPAP IPAP BiPAP Sodium Potassium Chloride Carbon Dioxide Anion Gap BUN Creatinine Est GFR ( Amer) Est GFR (Non-Af Amer) BUN/Creatinine Ratio Glucose POC Glucose (mg/dL) 234 H 155 H 148 H Calcium Magnesium Total Bilirubin AST ALT Alkaline Phosphatase Troponin I B-Natriuretic Peptide Total Protein Albumin Globulin Albumin/Globulin Ratio TSH 02/07/19 02/08/19 02/08/19 21:36 05:30 05:30 WBC 8.0 RBC 3.65 L Hgb 10.0 L Hct 30 L MCV 83 MCH 27 MCHC 33 RDW 16 H Plt Count 309 MPV 7.5 Neut % (Auto) 76.1 Lymph % (Auto) 14.1 Lane % (Auto) 6.7 Eos % (Auto) 2.4 Baso % (Auto) 0.7 Absolute Neuts (auto) 6.1 Absolute Lymphs (auto) 1.1 Absolute Monos (auto) 0.5 Absolute Eos (auto) 0.2 Absolute Basos (auto) 0.1 Absolute Nucleated RBC 0.0 Nucleated RBC % 0.0 Patient Temperature ABG pH ABG pH (Temp Correct) ABG pCO2 ABG pCO2 (Temp Corrct ABG pO2 ABG pO2 (Temp Correct ABG HCO3 ABG O2 Saturation ABG Base Excess Respiration Rate O2 Delivery Device Ventilator Type Vent Mode FiO2 Inspiratory Time PEEP Pressure Support Pressure Control EPAP IPAP BiPAP Sodium 133 L 132 L Potassium 3.9 3.8 Chloride 88 L 88 L Carbon Dioxide 37 H 33 H Anion Gap 8 11 BUN 95 H 94 H Creatinine 2.95 H 2.80 H Est GFR ( Amer) 18.6 19.7 Est GFR (Non-Af Amer) 15.3 16.3 BUN/Creatinine Ratio 32.2 H 33.6 H Glucose 155 H 185 H POC Glucose (mg/dL) Calcium 10.0 9.8 Magnesium 2.6 Total Bilirubin 0.40 AST 12 L ALT 10 Alkaline Phosphatase 123 H Troponin I 0.90 H* B-Natriuretic Peptide Total Protein 6.4 Albumin 3.3 Globulin 3.1 Albumin/Globulin Ratio 1.1 TSH 2.61 02/08/19 02/08/19 02/08/19 05:30 05:57 08:12 WBC RBC Hgb Hct MCV MCH MCHC RDW Plt Count MPV Neut % (Auto) Lymph % (Auto) Lane % (Auto) Eos % (Auto) Baso % (Auto) Absolute Neuts (auto) Absolute Lymphs (auto) Absolute Monos (auto) Absolute Eos (auto) Absolute Basos (auto) Absolute Nucleated RBC Nucleated RBC % Patient Temperature Not Reportable ABG pH 7.46 H ABG pH (Temp Correct) Not Reportable ABG pCO2 50 H ABG pCO2 (Temp Corrct Not Reportable ABG pO2 156 H ABG pO2 (Temp Correct Not Reportable ABG HCO3 32.8 H ABG O2 Saturation 100.0 H ABG Base Excess 10.1 H Respiration Rate Not Reportable O2 Delivery Device Bipap Ventilator Type Not Reportable Vent Mode Not Reportable FiO2 100 Inspiratory Time 1.0 PEEP Not Reportable Pressure Support Not Reportable Pressure Control Not Reportable EPAP 8 IPAP 16 BiPAP Not Reportable Sodium Potassium Chloride Carbon Dioxide Anion Gap BUN Creatinine Est GFR ( Amer) Est GFR (Non-Af Amer) BUN/Creatinine Ratio Glucose POC Glucose (mg/dL) Calcium Magnesium Total Bilirubin AST ALT Alkaline Phosphatase Troponin I 0.84 H* B-Natriuretic Peptide 993 H Total Protein Albumin Globulin Albumin/Globulin Ratio TSH 02/08/19 02/08/19 08:13 10:47 WBC RBC Hgb Hct MCV MCH MCHC RDW Plt Count MPV Neut % (Auto) Lymph % (Auto) Lane % (Auto) Eos % (Auto) Baso % (Auto) Absolute Neuts (auto) Absolute Lymphs (auto) Absolute Monos (auto) Absolute Eos (auto) Absolute Basos (auto) Absolute Nucleated RBC Nucleated RBC % Patient Temperature ABG pH ABG pH (Temp Correct) ABG pCO2 ABG pCO2 (Temp Corrct ABG pO2 ABG pO2 (Temp Correct ABG HCO3 ABG O2 Saturation ABG Base Excess Respiration Rate O2 Delivery Device Ventilator Type Vent Mode FiO2 Inspiratory Time PEEP Pressure Support Pressure Control EPAP IPAP BiPAP Sodium Potassium Chloride Carbon Dioxide Anion Gap BUN Creatinine Est GFR ( Amer) Est GFR (Non-Af Amer) BUN/Creatinine Ratio Glucose 148 H POC Glucose (mg/dL) 162 H Calcium Magnesium Total Bilirubin AST ALT Alkaline Phosphatase Troponin I B-Natriuretic Peptide Total Protein Albumin Globulin Albumin/Globulin Ratio TSH Imaging: cxr 02/08 - left effusion+, stable from prior film CT chest 02/06 - bilateral small effusions; left basal consolidation/atelectasis Assessment: 78y F w/pmhx of DM, PVD s/p Right AKA, HTN, h/o PE on Xarelto, Gout , Obesity, 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 She was initially treated outpatient prior to arrival with Antibiotics for suspected bronchitis. On admission she was noted to have elevated BNp and troponins, pulmonary edema on CXR consistent with findigns of NSTEMI and decompensated heart failure. SHe had renal insufficiency also noted. EKG demonstrated LBBB patter, NSR. Since admission she has recieved IV heparin, asa, IV diuretics for CHF/NSTEMI. TTE 02/02 showed new LV systolic dysfunction with LVEF 20-25% with multiple WMA, no severe valvular disease; Prior TTE with LVEF 40-45%. Overnight 02/07 she developed episodes of VT, then increasing respiratory distress. She was upgraded to ICU for NIV and initiation of Amiodarone for VT. She is noted to have increasing CR, but CXR demonstrates stable left effusion without worsening congestion. -Acute decompensated Systolic heart failure, new onset -NSTEMI -Ischemic Cardiomyopathy -NSVT -WILMER on CKD3/4 -PLeural effusions -acute hypoxic respiratory failure -acute pulmonary edema DM PVD, Right AKA h/o PE on xarelto Gout Plan: Neuro- -awake, alert, appropriate -Delirium prec; avoid BDZ CVS- -BP stable; HR NSR -EKG NSR with LBBB pattern; ventricular ectopy+ -warm ext noted -making urine; s/p lasix 40mg IV x1 now; repeat lasix later today -ASA for NSTEMI; suspect multivessel CAD given poor LV function and WMA on TTE -d/c xarelto, change to IV heparin tomorrow morning given declining renal function and already dosed xarelto today -will need cath at some point if renal function improves to assess CAD severity ; discussed with patient that cath currently would lead to worsened renal failure and likely HD being required, she would think about it, not a good candidate currently -not hypotensive, but likely had decompensated CHF leading to cardiorenal syndrome -cont metoprolol bid -Amiodarone infusion for ischemic VT suspected; noted short bursts/runs of VT only -agree to cont lasix 40mg IV bid; reassess later today -Maintain MAP>65 Resp- -was hypoxic; appears comfortable now; on NIV but weaned to hiflow 100% 40lpm -CXR 02/08 with left effusion, mild congestion unchanged -cont IV diuretics -no clear focal process, nontoxic, no fever or prod cough; would hold off abx, low suspicion for pneumonia/bronchitis -followup code status later todya with patient/daughter -Wean Fio2 to keep sat>92% -Bronchodilators PRN, Aspiration prec ID- afebrile. wbc normal. CXR effusion/congestion. CT chest wtih left base consolidation 02/06 -nontoxic appearing; likely more CHF exacc; hold off abx GI- -diabetic diet po, low K -GI prophylaxis - not indicated Renal- -WILMER on CKD3/4; making urine; K okay, no acidosis -cont lasix 40mg IV bid; reassess later today for further need, may hold diuretics for 24 hours to see further renal function -no hypotension -hyponatremai+; likely from progressive CHF -strict I/O, replete to keep K>4, Mg>2 -brewer+ -avoid nephrotoxic agents; hold off ACEI, d/c aldactone Heme- -anemia, stable -cont ASA -h/o PE, now with NSTEMI/CAD; change xarelto to IV heparin by morning; given borderline renal function, would hold off NOACs -cont allopurinol for gout -transfuse as indicated to maintain hg>8 given ACS/CAD/CMP Endo- Maintain BG<200, insulin protocol. Musculsk- pressure ulcer prophylaxis. Bedrest. Wounds- none Nutrition- diabetic diet DVT prophylaxis: SCD, xarelto/Heparin GI prophylaxis: none indicatred Central Line: no Arterial Line: no Brewer Cathetor: yes Disposition: Patient requires Critical Care/ICU for VT, decompensated CHF, WILMER on CKD3, hypoxic respiratory failure Patient Clinical Status: guarded, critical palliative care consult is appropriate with patient/family Code Status: full code; pending further GOC discussion Total Critical Care time is 45 minutes, excluding procedures/teaching Daniel Maria MD [employer] (Electronically Signed)
[2019-02-08] MEDS ORDERED: Heparin VIAL(*) 5000 UNITS/ML VIAL (FIVE THOUSAND) IV SCH (12:00)
[2019-02-08] MEDS: Insulin GLARGINE(*) 1 UNITS UNIT SUBCUT SCH (17:17)
[2019-02-08] MEDS ORDERED: Lorazepam PYXIS KEY PRN (19:36)
[2019-02-08] MEDS: LORazepam INJ* 2 MG/ML 1 ML VIAL IV PUSH PRN ×2 (20:06→23:54)
[2019-02-08] MEDS: Gabapentin CAP(*) 100 MG PO SCH (20:09)
[2019-02-08] MEDS: Senna TAB PO PRN (20:10)
--- NOTE | 2019-02-08 20:24 | PN ---
Progress Note - Progress Note Date of Service: 02/08/19 Note: Stopped by to see pt but she was sleeping will talk with her tomorrow.
[2019-02-09 05:26] LABS: Hematocrit 30 % (35-47); Hemoglobin 9.8 g/dL (12.0-16.0); Mean Corpuscular HGB Conc 33 g/dL (31-36); Mean Corpuscular Hemoglobin 27 pg (27-31); Mean Corpuscular Volume 83 fL (80-97); Mean Platelet Volume 7.3 fL (7.4-10.4); Platelet Count 282 10^3/uL (150-450); Red Blood Count 3.59 10^6 /uL (3.70-4.87); Red Cell Distribution Width 16 % (10-15); White Blood Count 7.6 10^3/uL (3.5-10.8)
[2019-02-09 05:35] LABS: Activated Partial Thrombo Time 40.5 seconds (26.0-38.0); INR 1.12 (0.82-1.09)
[2019-02-09 05:42] LABS: BUN/Creatinine Ratio 35.6 (8-20); Calcium 9.8 mg/dL (8.6-10.3); EGFR African American 19.4 (>60); Magnesium 2.9 mg/dL (1.9-2.7); Potassium 3.6 mmol/L (3.5-5.0)
[2019-02-09] MEDS: Heparin DRIP 25,000 UNITS(*) 25,000 UNITS/500 ML BAG IV SCH (06:08)
[2019-02-09] MEDS: Insulin LISPRO* 1 UNITS UNIT SUBCUT SCH ×3 (07:49→16:41)
[2019-02-09] MEDS ORDERED: Potassium Chlor TAB* 20 MEQ TAB.ER PO ONE (08:37)
--- NOTE | 2019-02-09 08:48 | PN ---
Subjective Date of Service: 02/09/19 Interval History: f/u systolic HF, IA, VT, LBBB patient feeling somewhat better able to converse mild increased work of breathing remains volume overloaded with rising BUN no arrhythmias overnight Medications Active Medications: Acetaminophen (Tylenol Tab*) 650 mg PO Q6H PRN PRN Reason: FEVER/PAIN Last Admin: 02/07/19 21:39 Dose: 650 mg Albuterol (Ventolin 2.5 Mg/3 Ml Neb.Lary*) 2.5 mg INH Q2H PRN PRN Reason: SOB/WHEEZING Allopurinol (Zyloprim Tab*) 100 mg PO DAILY [facility] Last Admin: 02/08/19 09:39 Dose: 100 mg Amiodarone HCl (Cordarone Tab*) 400 mg PO BID [facility] Aspirin (Aspirin Ec Tab*) 81 mg PO DAILY [facility] Last Admin: 02/08/19 09:39 Dose: 81 mg Carvedilol (Coreg Tab*) 3.125 mg PO BID [facility] Cholecalciferol (Vitamin D Tab*) 1,000 units PO DAILY [facility] Last Admin: 02/08/19 09:39 Dose: 1,000 units Dextrose (D50w Syringe 50 Ml*) 12.5 gm IV PUSH .FOR FS < 60 - SS PRN PRN Reason: FS < 60 Docusate Sodium (Colace Cap*) 100 mg PO BID [facility] Last Admin: 02/08/19 20:10 Dose: 100 mg Furosemide (Lasix Iv*) 40 mg IV BID [facility] Last Admin: 02/08/19 20:09 Dose: 40 mg Gabapentin (Neurontin Cap(*)) 200 mg PO BEDTIME [facility] Last Admin: 02/08/19 20:09 Dose: 200 mg Heparin Sodium (Porcine) (Heparin Vial(*)) 0 units IV .PER PROTOCOL [facility] Heparin Sodium/Dextrose (Heparin Drip 25,000 Units(*)) 25,000 units in 500 mls @ 0 mls/hr IV PER RATE [facility]; Protocol Last Admin: 02/09/19 06:08 Dose: 18 mls/hr Insulin Glargine (Lantus(*)) 10 units SUBCUT QPM [facility] Last Admin: 02/08/19 17:17 Dose: 10 units Insulin Human Lispro (Humalog*) 0 units SUBCUT AC [facility]; Protocol Last Admin: 02/09/19 07:49 Dose: Not Given Isosorbide Mononitrate (Imdur Er Tab*) 30 mg PO DAILY [facility] Lorazepam (Ativan Inj*) 0.5 mg IV PUSH Q4H PRN PRN Reason: ANXIETY Last Admin: 02/08/19 23:54 Dose: 0.5 mg Magnesium Oxide (Magox 400 Tab*) 400 mg PO DAILY [facility] Last Admin: 02/08/19 09:39 Dose: 400 mg Miscellaneous (Ativan Pyxis Mearz) 1 ea N/A .ATIVAN IV MERAZ PRN PRN Reason: PYXIS MERAZ Morphine Sulfate (Morphine Inj (Syringe))*) 1 mg IV Q5H PRN PRN Reason: DISCOMFORT Last Admin: 02/08/19 04:41 Dose: 1 mg Nystatin (Nystatin Oint*) 1 applic TOPICAL BID [facility] Last Admin: 02/08/19 20:17 Dose: 1 applic Ondansetron HCl (Zofran Odt Tab*) 4 mg SL Q6H PRN PRN Reason: NAUSEA/VOMITING Last Admin: 02/06/19 14:54 Dose: 4 mg Polyethylene Glycol/Electrolytes (Miralax*) 17 gm PO DAILY PRN PRN Reason: CONSTIPATION Last Admin: 02/03/19 01:04 Dose: 17 gm Potassium Chloride (Klor Con Er Tab*) 20 meq PO ONCE ONE Stop: 02/09/19 08:38 Senna (Senokot Tab*) 2 tab PO BEDTIME PRN PRN Reason: CONSTIPATION Last Admin: 02/08/19 20:10 Dose: 2 tab Objective Vital Signs: Temp Pulse Resp BP Pulse Ox 96.7 F 64 26 122/58 97 02/09/19 03:07 02/09/19 06:01 02/09/19 06:01 02/09/19 06:01 02/09/19 06:01 Oxygen Devices in Use Now: BiPAP Appearance: ill appearing, conversant Ears/Nose/Mouth/Throat: Clear Oropharnyx Neck: - - uncertain jvp Respiratory: - - mild tachypnea and increaesed work of breathing, L>R rales bases and left mid lung Cardiovascular: RRR Abdominal: - - soft, nontender Extremities: - - warm, well perfusd Laboratory Results: 02/09/19 05:10 02/09/19 05:10 INR (Anticoag Therapy) 1.12 (0.82-1.09) H 02/09/19 05:10 APTT 40.5 seconds (26.0-38.0) H 02/09/19 05:10 Total Bilirubin 0.40 mg/dL (0.2-1.0) 02/08/19 05:30 AST 12 U/L (13-39) L 02/08/19 05:30 ALT 10 U/L (7-52) 02/08/19 05:30 Alkaline Phosphatase 123 U/L (34-104) H 02/08/19 05:30 B-Natriuretic Peptide 993 pg/mL (<=100) H 02/08/19 05:30 Total Protein 6.4 g/dL (6.4-8.9) 02/08/19 05:30 Albumin 3.3 g/dL (3.2-5.2) 02/08/19 05:30 Globulin 3.1 g/dL (2-4) 02/08/19 05:30 Albumin/Globulin Ratio 1.1 (1-3) 02/08/19 05:30 TSH 2.61 mcIU/mL (0.34-5.60) 02/08/19 05:30 02/01/19 02/01/19 02/01/19 16:44 20:27 23:12 Troponin I 3.43 H* 3.11 H* 2.85 H* 02/02/19 02/05/19 02/08/19 01:28 07:36 05:30 Troponin I 2.90 H* 1.63 H* 0.90 H* 02/08/19 02/08/19 08:12 10:47 Troponin I 0.84 H* 0.70 H* Diagnostic Imaging: Exam Date: 02/08/19 0700 IMPRESSION: SMALL LEFT PLEURAL EFFUSION WITH LEFT BASILAR CONSOLIDATION. Exam Date: 02/06/[address] CHEST W/O IMPRESSION: #. Interstitial pulmonary edema with associated LEFT larger than RIGHT small pleural effusions and proportional atelectasis. #. Cardiomegaly. Coronary artery calcifications. Small pericardial effusion. #. Solitary mildly enlarged mediastinal lymph node. Study Date: 02/02/2019 Summary: 1. Left ventricle: The cavity size is mildly dilated. Systolic function is severely reduced. The estimated ejection fraction is 20-25%. Severe diffuse hypokinesis with multiple regional wall motion abnormalities. Left ventricular diastolic function parameters are abnormal. 2. Left atrium: The atrium is moderately dilated. 3. Right atrium: The atrium is mildly dilated. 4. Mitral valve: There is moderate regurgitation. 5. Ascending aorta: The ascending aorta is mildly dilated. 6. Since the prior echocardiogram completed 04/19/14, pertinent changes are prior LVEF reported 40-45% and prior no mitral regurgitation noted. EKG Data: ekg 07/2018: NSR, LBBB ekg 02/08/2019: NSR, LBBB, QRS > 150 ms, NSVT Assessment/Plan 1. Systolic HF - currently decompensated 2. Advanced renal failure 3. NSVT 4. LBBB 5. Elevated troponin - ? type 1 vs. 2 IA - strongly suspect underlying obstructive CAD contributing to systolic HF 6. History of PE 7. DM 8. HTN 9. R AKA due to PVD 01/2018 - Continue aspirin 81 mg po daily - anticoagulation as per primary service for PE history - Statin intolerant - Change BB to coreg 3.125 mg po bid (ordered) - Continue diuresis, give 20 meq k x now (ordered) - Change topical nitrates to imdur 30 mg (ordered) - Not on AceI/ARB due to renal failure - D/c IV amiodarone once current bag finished and start 400 mg po bid (ordered) - Agree with Palliative medicine consult - Further recommendations pending above, clinical course and if patient would want to be on dialysis Thank you for allowing me to participate in the cardiovascular care of this patient. Please do not hesitate to contact me with questions or concerns.
[2019-02-09] MEDS ORDERED: Potassium Chloride* LIQUID 20 MEQ/15 ML UDC PO ONE (09:16)
[2019-02-09] MEDS: Cholecalciferol TAB* 1000 UNITS PO SCH (09:24)
[2019-02-09] MEDS: Allopurinol TAB* 100 MG PO SCH (09:24)
[2019-02-09] MEDS: Magnesium Oxide TAB* 400 MG PO SCH (09:24)
[2019-02-09] MEDS: Aspirin EC TAB* 81 MG TAB.EC PO SCH (09:24)
[2019-02-09] MEDS: Amiodarone TAB* 400 MG PO SCH ×2 (09:24→20:18)
[2019-02-09] MEDS: Isosorbide Mononitrate ER TAB* 30 MG PO SCH (09:24)
[2019-02-09] MEDS: Docusate CAP* 100 MG PO SCH ×2 (09:24→20:18)
[2019-02-09] MEDS: Carvedilol TAB* 3.125 MG PO SCH ×2 (09:24→20:18)
[2019-02-09] MEDS: Furosemide IV* 10 MG/ML VIAL (40 MG) IV SCH ×2 (09:25→20:18)
[2019-02-09] MEDS: Nystatin OINT* 15 GM TOPICAL SCH ×2 (09:25→20:19)
[2019-02-09] MEDS: LORazepam INJ* 2 MG/ML 1 ML VIAL IV PUSH PRN ×3 (10:24→22:46)
--- NOTE | 2019-02-09 11:26 | PN ---
Progress Note - Progress Note Date of Service: 02/09/19 Note: Progress Note -- Critical Care 24 hour events -no sig overnight events noted; awake, on NIV overnight; on hiflow 50% 30lpm now -mild sob overnight; no cough/sputum -no pressors, no tachycardia -now in bed -taken off amio infusion this morning Tele: NSR Vitals: Vital Signs Temp 97.5 F 02/09/19 08:00 Pulse 72 02/09/19 11:01 Resp 21 02/09/19 11:01 BP 128/59 02/09/19 11:01 Pulse Ox 96 02/09/19 11:01 Intake & Output 02/08/19 02/09/19 02/09/19 18:59 06:59 18:59 Intake Total 746 519 480 Output Total 580 846 600 Balance 166 -327 -120 Weight 95.2 kg Intake: IV Fluids 47 NS (0.9%) 47 Medicated IV 219 269 CC - Amiodarone 219 269 Oral 480 250 480 Output: Brewer 580 846 600 O2/Vent: hiflow 50% 30lpm Infusions: IV heparin Current Medications: Acetaminophen (Tylenol Tab*) 650 mg PO Q6H PRN PRN Reason: FEVER/PAIN Last Admin: 02/07/19 21:39 Dose: 650 mg Albuterol (Ventolin 2.5 Mg/3 Ml Neb.Lary*) 2.5 mg INH Q2H PRN PRN Reason: SOB/WHEEZING Allopurinol (Zyloprim Tab*) 100 mg PO DAILY [facility] Last Admin: 02/09/19 09:24 Dose: 100 mg Amiodarone HCl (Cordarone Tab*) 400 mg PO BID [facility] Last Admin: 02/09/19 09:24 Dose: 400 mg Aspirin (Aspirin Ec Tab*) 81 mg PO DAILY [facility] Last Admin: 02/09/19 09:24 Dose: 81 mg Carvedilol (Coreg Tab*) 3.125 mg PO BID [facility] Last Admin: 02/09/19 09:24 Dose: 3.125 mg Cholecalciferol (Vitamin D Tab*) 1,000 units PO DAILY [facility] Last Admin: 02/09/19 09:24 Dose: 1,000 units Dextrose (D50w Syringe 50 Ml*) 12.5 gm IV PUSH .FOR FS < 60 - SS PRN PRN Reason: FS < 60 Docusate Sodium (Colace Cap*) 100 mg PO BID [facility] Last Admin: 02/09/19 09:24 Dose: 100 mg Furosemide (Lasix Iv*) 40 mg IV BID [facility] Last Admin: 02/09/19 09:25 Dose: 40 mg Gabapentin (Neurontin Cap(*)) 200 mg PO BEDTIME [facility] Last Admin: 02/08/19 20:09 Dose: 200 mg Heparin Sodium (Porcine) (Heparin Vial(*)) 0 units IV .PER PROTOCOL [facility] Heparin Sodium/Dextrose (Heparin Drip 25,000 Units(*)) 25,000 units in 500 mls @ 0 mls/hr IV PER RATE [facility]; Protocol Last Admin: 02/09/19 06:08 Dose: 18 mls/hr Insulin Glargine (Lantus(*)) 10 units SUBCUT QPM [facility] Last Admin: 02/08/19 17:17 Dose: 10 units Insulin Human Lispro (Humalog*) 0 units SUBCUT AC [facility]; Protocol Last Admin: 02/09/19 07:49 Dose: Not Given Isosorbide Mononitrate (Imdur Er Tab*) 30 mg PO DAILY [facility] Last Admin: 02/09/19 09:24 Dose: 30 mg Lorazepam (Ativan Inj*) 0.5 mg IV PUSH Q4H PRN PRN Reason: ANXIETY Last Admin: 02/09/19 10:24 Dose: 0.5 mg Magnesium Oxide (Magox 400 Tab*) 400 mg PO DAILY [facility] Last Admin: 02/09/19 09:24 Dose: 400 mg Miscellaneous (Ativan Pyxis Uriostegui) 1 ea N/A .ATIVAN IV URIOSTEGUI PRN PRN Reason: PYXIS URIOSTEGUI Morphine Sulfate (Morphine Inj (Syringe))*) 1 mg IV Q5H PRN PRN Reason: DISCOMFORT Last Admin: 02/08/19 04:41 Dose: 1 mg Nystatin (Nystatin Oint*) 1 applic TOPICAL BID [facility] Last Admin: 02/09/19 09:25 Dose: 1 applic Ondansetron HCl (Zofran Odt Tab*) 4 mg SL Q6H PRN PRN Reason: NAUSEA/VOMITING Last Admin: 02/06/19 14:54 Dose: 4 mg Polyethylene Glycol/Electrolytes (Miralax*) 17 gm PO DAILY PRN PRN Reason: CONSTIPATION Last Admin: 02/03/19 01:04 Dose: 17 gm Senna (Senokot Tab*) 2 tab PO BEDTIME PRN PRN Reason: CONSTIPATION Last Admin: 02/08/19 20:10 Dose: 2 tab Physical Exam: Constitutional: awake, alert, no distress, no diaphoresis Head: normocephalic, atraumatic Eyes: no pallor, no icterus ENT: moist mucous membranes Neck: soft, supple, no jvd, no stridor CVS: normal rate, regular, no murmur Resp: bilateral air entry, mild basilar bilateral crackles++, no wheeze, no rhonchi, no acc muscle use Abdomen/GI: soft, nontender, nondistended, BS+ Ext/Msk: warm, pulses+, no edema Skin: intact, warm Neuro: awake, alert, orientedx3, moving all extremities Labs: Laboratory Results - last 24 hr 02/08/19 02/08/19 02/08/19 10:47 16:16 19:59 WBC RBC Hgb Hct MCV MCH MCHC RDW Plt Count MPV INR (Anticoag Therapy) APTT Sodium Potassium Chloride Carbon Dioxide Anion Gap BUN Creatinine Est GFR ( Amer) Est GFR (Non-Af Amer) BUN/Creatinine Ratio Glucose POC Glucose (mg/dL) 193 H 144 H Calcium Magnesium Troponin I 0.70 H* 02/09/19 02/09/19 02/09/19 05:10 05:10 05:10 WBC 7.6 RBC 3.59 L Hgb 9.8 L Hct 30 L MCV 83 MCH 27 MCHC 33 RDW 16 H Plt Count 282 MPV 7.3 L INR (Anticoag Therapy) 1.12 H APTT 40.5 H Sodium 133 L Potassium 3.6 Chloride 87 L Carbon Dioxide 37 H Anion Gap 9 BUN 101 H Creatinine 2.84 H Est GFR ( Amer) 19.4 Est GFR (Non-Af Amer) 16.0 BUN/Creatinine Ratio 35.6 H Glucose 118 H POC Glucose (mg/dL) Calcium 9.8 Magnesium 2.9 H Troponin I Imaging: cxr 02/08 - left effusion+, stable from prior film CT chest 02/06 - bilateral small effusions; left basal consolidation/atelectasis Assessment: 78y F w/pmhx of DM, PVD s/p Right AKA, HTN, h/o PE on Xarelto, Gout , Obesity, 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 She was initially treated outpatient prior to arrival with Antibiotics for suspected bronchitis. On admission she was noted to have elevated BNp and troponins, pulmonary edema on CXR consistent with findigns of NSTEMI and decompensated heart failure. SHe had renal insufficiency also noted. EKG demonstrated LBBB patter, NSR. Since admission she has recieved IV heparin, asa, IV diuretics for CHF/NSTEMI. TTE 02/02 showed new LV systolic dysfunction with LVEF 20-25% with multiple WMA, no severe valvular disease; Prior TTE with LVEF 40-45%. Overnight 02/07 she developed episodes of VT, then increasing respiratory distress. She was upgraded to ICU for NIV and initiation of Amiodarone for VT. She is noted to have increasing CR, but CXR demonstrates stable left effusion without worsening congestion. -Acute decompensated Systolic heart failure, new onset -NSTEMI -Ischemic Cardiomyopathy -NSVT -WILMER on CKD3/4 -PLeural effusions -acute hypoxic respiratory failure -acute pulmonary edema DM PVD, Right AKA h/o PE ; on xarelto Gout Plan: Neuro- -awake, alert, appropriate -Delirium prec; avoid BDZ CVS- -BP stable; HR NSR -EKG NSR with LBBB pattern; ventricular ectopy+ -warm ext noted -making urine; cont lasix 40mg IV bid -ASA for NSTEMI; suspect multivessel CAD given poor LV function and WMA on TTE -statin intolerance -IV heparin for PE and NSTEMI, until renal function improved -will need cath at some point if renal function improves to assess CAD severity ; discussed with patient that cath currently would lead to worsened renal failure and likely HD being required; she would like to avoid HD, she understands poor quality of life if that were to occur. -possibility of conservative medical management for CHF/NSTEM/CAD if cath is not possible; I feel this would be best route given she already has poro renal status underlying and was inevitable to head toward dialysis in the future. She prefers medical tx at this time after our discussion yesterday. -BB changed to Coreg -cont imdur for preload reduction -no sig VT noted; amio discontinued; started PO -Maintain MAP>65 Resp- -NIV overnight; comfortable on Hiflow 50% 30lpm now; cont to wean flow down; may be able to maintain off NIV overnight tonight -comfortable appearing, no distress, in chair, no acc muscle use -sats low-mid 90s -CXR 02/08 with left effusion, mild congestion unchanged -cont IV diuretics -no sputum; low suspicion for infection -Wean Fio2 to keep sat>92% -Bronchodilators PRN, Aspiration prec ID- afebrile. wbc normal. CXR effusion/congestion. CT chest wtih left base consolidation 02/06 -nontoxic appearing; likely more CHF exacc; hold off abx GI- -diabetic diet po, low K -GI prophylaxis - not indicated Renal- -WILMER on CKD3/4; making urine; no acidosis -replete Kcl po 20meq -cotn lasix 40mg IV bid; making urine; Cr has plateued it seems -patient would like to avoid and would likely not like to go onto HD -hyponatremai+; likely from progressive CHF -strict I/O, replete to keep K>4, Mg>2 -brewer+ -avoid nephrotoxic agents; hold off ACEI/aldactone Heme- -anemia, stable -cont ASA -h/o PE, now with NSTEMI/CAD; IV heparin ; given borderline renal function, would hold off NOACs -cont allopurinol for gout -transfuse as indicated to maintain hg>8 given ACS/CAD/CMP Endo- Maintain BG<200, insulin protocol. Musculsk- pressure ulcer prophylaxis. oob to chair Wounds- none Nutrition- diabetic diet DVT prophylaxis: SCD, IV Heparin GI prophylaxis: none indicatred Central Line: no Arterial Line: no Brewer Cathetor: yes Disposition: Patient requires Critical Care/ICU for decompensated CHF, WILMER on CKD3, hypoxic respiratory failure Patient Clinical Status: guarded, critical palliative care to come discuss with patient about GOC for her Code Status: full code Total Critical Care time is 35 minutes, excluding procedures/teaching Daniel Maria MD [facility] [employer] (Electronically Signed)
--- NOTE | 2019-02-09 16:12 | CONSULT ---
Palliative / Hospice Consult Ordering Provider: Daniel Maria - PCP-Case Referal Reason: Goals of care discussion - Subjective Code Status: Full Code-Needs Follow Up Advance Directives Location: No Advance Directives - History or Present Illness History or Present Illness: 78 yo resident of [place] presented with cough x 2 months. She was seen at Urgent care and PCP, tried amoxicillin with no relief so she presented to the ER. PMH is significant for DM, PVD, HTN, PE, gout and obesity. 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 Studies CXR-CHF vs pneumonia, Ekg-NSR & LBBB, ECHO EF 20-25%, Chest CT -pul edema and cardiomegaly, Ekg #2 sinus tach and VT, EKG #3 afib, H/H 10/30, BUN/Cr 94/2.8 egfr 16.3, tprot 6.4, alb 3.3. Pt was initially admitted to the floor with CHF but was requiring more oxygen, was transferred to the ICU and placed on vapotherm, once weaned she was transferred back to the floor but ended up back in the ICU on vapotherm. All history is from the patient, her family and medical records. Lab Values: Abnormal Lab Results 02/08/19 02/08/19 02/09/19 16:16 19:59 05:10 WBC RBC Hgb Hct MCV MCH MCHC RDW Plt Count MPV INR (Anticoag Therapy) 1.12 H APTT 40.5 H Sodium Potassium Chloride Carbon Dioxide Anion Gap BUN Creatinine Est GFR ( Amer) Est GFR (Non-Af Amer) BUN/Creatinine Ratio Glucose POC Glucose (mg/dL) 193 H 144 H Calcium Magnesium 02/09/19 02/09/19 02/09/19 05:10 05:10 11:41 WBC 7.6 RBC 3.59 L Hgb 9.8 L Hct 30 L MCV 83 MCH 27 MCHC 33 RDW 16 H Plt Count 282 MPV 7.3 L INR (Anticoag Therapy) APTT Sodium 133 L Potassium 3.6 Chloride 87 L Carbon Dioxide 37 H Anion Gap 9 BUN 101 H Creatinine 2.84 H Est GFR ( Amer) 19.4 Est GFR (Non-Af Amer) 16.0 BUN/Creatinine Ratio 35.6 H Glucose 118 H POC Glucose (mg/dL) 232 H Calcium 9.8 Magnesium 2.9 H 02/09/19 12:00 WBC RBC Hgb Hct MCV MCH MCHC RDW Plt Count MPV INR (Anticoag Therapy) APTT 42.3 H Sodium Potassium Chloride Carbon Dioxide Anion Gap BUN Creatinine Est GFR ( Amer) Est GFR (Non-Af Amer) BUN/Creatinine Ratio Glucose POC Glucose (mg/dL) Calcium Magnesium Laboratory Last Values WBC 7.6 10^3/uL (3.5-10.8) 02/09/19 05:10 RBC 3.59 10^6 /uL (3.70-4.87) L 02/09/19 05:10 Hgb 9.8 g/dL (12.0-16.0) L 02/09/19 05:10 Hct 30 % (35-47) L 02/09/19 05:10 MCV 83 fL (80-97) 02/09/19 05:10 MCH 27 pg (27-31) 02/09/19 05:10 MCHC 33 g/dL (31-36) 02/09/19 05:10 RDW 16 % (10-15) H 02/09/19 05:10 Plt Count 282 10^3/uL (150-450) 02/09/19 05:10 MPV 7.3 fL (7.4-10.4) L 02/09/19 05:10 Neut % (Auto) 76.1 % 02/08/19 05:30 Lymph % (Auto) 14.1 % 02/08/19 05:30 [place] % (Auto) 6.7 % 02/08/19 05:30 Eos % (Auto) 2.4 % 02/08/19 05:30 Baso % (Auto) 0.7 % 02/08/19 05:30 Absolute Neuts (auto) 6.1 10^3/ul (1.5-7.7) 02/08/19 05:30 Absolute Lymphs (auto) 1.1 10^3/ul (1.0-4.8) 02/08/19 05:30 Absolute Monos (auto) 0.5 10^3/ul (0-0.8) 02/08/19 05:30 Absolute Eos (auto) 0.2 10^3/ul (0-0.6) 02/08/19 05:30 Absolute Basos (auto) 0.1 10^3/ul (0-0.2) 02/08/19 05:30 Absolute Nucleated RBC 0.0 10^3/ul 02/08/19 05:30 Nucleated RBC % 0.0 02/08/19 05:30 INR (Anticoag Therapy) 1.12 (0.82-1.09) H 02/09/19 05:10 APTT 42.3 seconds (26.0-38.0) H 02/09/19 12:00 D-Dimer, Quantitative 443 ng/mL (Less Than 230) H 02/03/19 23:15 Patient Temperature Not Reportable 02/08/19 05:57 ABG pH 7.46 (7.35-7.45) H 02/08/19 05:57 ABG pH (Temp Correct) Not Reportable 02/08/19 05:57 ABG pCO2 50 mmHg (35-45) H 02/08/19 05:57 ABG pCO2 (Temp Corrct Not Reportable 02/08/19 05:57 ABG pO2 156 mmHg (80-100) H 02/08/19 05:57 ABG pO2 (Temp Correct Not Reportable 02/08/19 05:57 ABG HCO3 32.8 mmol/L (19-31) H 02/08/19 05:57 ABG O2 Saturation 100.0 % (94.0-98.0) H 02/08/19 05:57 ABG Base Excess 10.1 mmol/L (-2.0-2.0) H 02/08/19 05:57 Respiration Rate Not Reportable 02/08/19 05:57 O2 Delivery Device Bipap 02/08/19 05:57 Ventilator Type Not Reportable 02/08/19 05:57 Vent Mode Not Reportable 02/08/19 05:57 FiO2 100 02/08/19 05:57 Inspiratory Time 1.0 02/08/19 05:57 PEEP Not Reportable 02/08/19 05:57 Pressure Support Not Reportable 02/08/19 05:57 Pressure Control Not Reportable 02/08/19 05:57 EPAP 8 02/08/19 05:57 IPAP 16 02/08/19 05:57 BiPAP Not Reportable 02/08/19 05:57 Sodium 133 mmol/L (135-145) L 02/09/19 05:10 Potassium 3.6 mmol/L (3.5-5.0) 02/09/19 05:10 Chloride 87 mmol/L (101-111) L 02/09/19 05:10 Carbon Dioxide 37 mmol/L (22-32) H 02/09/19 05:10 Anion Gap 9 mmol/L (2-11) 02/09/19 05:10 BUN 101 mg/dL (6-24) H 02/09/19 05:10 Creatinine 2.84 mg/dL (0.51-0.95) H 02/09/19 05:10 Est GFR ( Amer) 19.4 (>60) 02/09/19 05:10 Est GFR (Non-Af Amer) 16.0 (>60) 02/09/19 05:10 BUN/Creatinine Ratio 35.6 (8-20) H 02/09/19 05:10 Glucose 118 mg/dL (70-100) H 02/09/19 05:10 POC Glucose (mg/dL) 232 mg/dL (70-100) H 02/09/19 11:41 Hemoglobin A1c 7.1 % (4.0-5.6) H 02/04/19 09:50 Uric Acid 6.4 mg/dL (2.3-6.6) 02/01/19 16:44 Calcium 9.8 mg/dL (8.6-10.3) 02/09/19 05:10 Ionized Calcium 1.26 mmol/L (1.16-1.32) 02/02/19 05:28 Magnesium 2.9 mg/dL (1.9-2.7) H 02/09/19 05:10 Total Bilirubin 0.40 mg/dL (0.2-1.0) 02/08/19 05:30 AST 12 U/L (13-39) L 02/08/19 05:30 ALT 10 U/L (7-52) 02/08/19 05:30 Alkaline Phosphatase 123 U/L (34-104) H 02/08/19 05:30 Troponin I 0.70 ng/mL (<0.04) H* 02/08/19 10:47 B-Natriuretic Peptide 993 pg/mL (<=100) H 02/08/19 05:30 Total Protein 6.4 g/dL (6.4-8.9) 02/08/19 05:30 Albumin 3.3 g/dL (3.2-5.2) 02/08/19 05:30 Globulin 3.1 g/dL (2-4) 02/08/19 05:30 Albumin/Globulin Ratio 1.1 (1-3) 02/08/19 05:30 25-OH Vitamin D Total 37.8 ng/mL (20-50) 02/02/19 05:25 TSH 2.61 mcIU/mL (0.34-5.60) 02/08/19 05:30 Urine Color Straw 02/03/19 21:50 Urine Appearance Clear 02/03/19 21:50 Urine pH 5.0 (5-9) 02/03/19 21:50 Ur Specific [place] 1.006 (1.010-1.030) L 02/03/19 21:50 Urine Protein Negative (Negative) 02/03/19 21:50 Urine Ketones Negative (Negative) 02/03/19 21:50 Urine Blood 2+ (Negative) A 02/03/19 21:50 Urine Nitrate Negative (Negative) 02/03/19 21:50 Urine Bilirubin Negative (Negative) 02/03/19 21:50 Urine Urobilinogen Negative (Negative) 02/03/19 21:50 Ur Leukocyte Esterase 1+ (Negative) A 02/03/19 21:50 Urine WBC (Auto) 1+(6-10/hpf) (Absent) A 02/03/19 21:50 Urine RBC (Auto) 2+(6-10/hpf) (Absent) A 02/03/19 21:50 Ur Squamous Epith Cells Present (Absent) A 02/01/19 22:38 Urine Bacteria Absent (Absent) 02/03/19 21:50 Urine Glucose Negative (Negative) 02/03/19 21:50 Urine Ascorbic Acid * (Negative) A 02/01/19 22:38 - Objective Active Medications: Acetaminophen (Tylenol Tab*) 650 mg PO Q6H PRN PRN Reason: FEVER/PAIN Last Admin: 02/07/19 21:39 Dose: 650 mg Albuterol (Ventolin 2.5 Mg/3 Ml Neb.Lary*) 2.5 mg INH Q2H PRN PRN Reason: SOB/WHEEZING Allopurinol (Zyloprim Tab*) 100 mg PO DAILY [facility] Last Admin: 02/09/19 09:24 Dose: 100 mg Amiodarone HCl (Cordarone Tab*) 400 mg PO BID [facility] Last Admin: 02/09/19 09:24 Dose: 400 mg Aspirin (Aspirin Ec Tab*) 81 mg PO DAILY [facility] Last Admin: 02/09/19 09:24 Dose: 81 mg Carvedilol (Coreg Tab*) 3.125 mg PO BID [facility] Last Admin: 02/09/19 09:24 Dose: 3.125 mg Cholecalciferol (Vitamin D Tab*) 1,000 units PO DAILY [facility] Last Admin: 02/09/19 09:24 Dose: 1,000 units Dextrose (D50w Syringe 50 Ml*) 12.5 gm IV PUSH .FOR FS < 60 - SS PRN PRN Reason: FS < 60 Docusate Sodium (Colace Cap*) 100 mg PO BID [facility] Last Admin: 02/09/19 09:24 Dose: 100 mg Furosemide (Lasix Iv*) 40 mg IV BID [facility] Last Admin: 02/09/19 09:25 Dose: 40 mg Gabapentin (Neurontin Cap(*)) 200 mg PO BEDTIME [facility] Last Admin: 02/08/19 20:09 Dose: 200 mg Heparin Sodium (Porcine) (Heparin Vial(*)) 0 units IV .PER PROTOCOL [facility] Last Admin: 02/09/19 14:14 Dose: 4,000 units Heparin Sodium/Dextrose (Heparin Drip 25,000 Units(*)) 25,000 units in 500 mls @ 0 mls/hr IV PER RATE [facility]; Protocol Last Admin: 02/09/19 06:08 Dose: 18 mls/hr Insulin Glargine (Lantus(*)) 10 units SUBCUT QPM [facility] Last Admin: 02/08/19 17:17 Dose: 10 units Insulin Human Lispro (Humalog*) 0 units SUBCUT AC [facility]; Protocol Last Admin: 02/09/19 11:58 Dose: 6 units Isosorbide Mononitrate (Imdur Er Tab*) 30 mg PO DAILY [facility] Last Admin: 02/09/19 09:24 Dose: 30 mg Lorazepam (Ativan Inj*) 0.5 mg IV PUSH Q4H PRN PRN Reason: ANXIETY Last Admin: 02/09/19 14:48 Dose: 0.5 mg Magnesium Oxide (Magox 400 Tab*) 400 mg PO DAILY [facility] Last Admin: 02/09/19 09:24 Dose: 400 mg Miscellaneous (Ativan Pyxis Uriostegui) 1 ea N/A .ATIVAN IV URIOSTEGUI PRN PRN Reason: PYXIS URIOSTEGUI Morphine Sulfate (Morphine Inj (Syringe))*) 1 mg IV Q5H PRN PRN Reason: DISCOMFORT Last Admin: 02/08/19 04:41 Dose: 1 mg Nystatin (Nystatin Oint*) 1 applic TOPICAL BID [facility] Last Admin: 02/09/19 09:25 Dose: 1 applic Ondansetron HCl (Zofran Odt Tab*) 4 mg SL Q6H PRN PRN Reason: NAUSEA/VOMITING Last Admin: 02/06/19 14:54 Dose: 4 mg Polyethylene Glycol/Electrolytes (Miralax*) 17 gm PO DAILY PRN PRN Reason: CONSTIPATION Last Admin: 02/03/19 01:04 Dose: 17 gm Senna (Senokot Tab*) 2 tab PO BEDTIME PRN PRN Reason: CONSTIPATION Last Admin: 02/08/19 20:10 Dose: 2 tab Vital Signs: Vital Signs: Temp Pulse Resp BP Pulse Ox 97.1 F 71 21 118/60 96 02/09/19 11:44 02/09/19 16:01 02/09/19 16:01 02/09/19 16:01 02/09/19 16:01 Patient Weight: Weight 95.2 kg Intake and Output: Intake & Output 02/07/19 02/08/19 02/09/19 02/10/19 06:59 06:59 06:59 06:59 Intake Total 650 261 3208 1446 Output Total 2857 470 9393 985 Balance -50 48 -161 461 Weight 93.984 kg 95.1 kg 95.2 kg Intake: IV Fluids 27 47 NS (0.9%) 27 47 Medicated IV 176 488 85 CC - Amiodarone 126 488 85 mag sulfate 50 Heparin 141 Oral 960 620 730 960 [place] Irrigate Amount 260 Output: Urine 960 0 [place] 50 775 1426 985 Other: Estimated Void Large # Bowel Movements 2 0 Estimated Stool Amount Small # Voids 1 ADLs: Meal Record Start: 02/01/19 20: 10 Freq: DAILY@0900,1400,1800 Status: Complete Protocol: Created 02/01/19 20:10 System (Rec: 02/01/19 20:10 System TELE-C15) ADLs: Meal Record Start: 02/02/19 13: 15 Freq: 09,13,18 Status: Active Protocol: Created 02/02/19 13:15 [id number] (Rec: 02/02/19 13:15 ABY7428 ICU-M29) Document 02/02/19 18:00 [id number] (Rec: 02/02/19 22:00 NPQ2983 ICU-C07) Document 02/03/19 20:00 NPB3128 (Rec: 02/04/19 00:40 RSX6616 ICU-C07) Document 02/04/19 09:00 XFJ8454 (Rec: 02/04/19 12:09 IAO0872 ICU-C11) Document 02/08/19 09:00 LAJ7257 (Rec: 02/08/19 10:19 MTF6175 ICU-L03) Document 02/08/19 13:00 FWX0337 (Rec: 02/08/19 14:10 GOU1251 ICU-C15) Document 02/08/19 18:00 VKI0051 (Rec: 02/08/19 18:07 ZHC6611 ICU-C15) Document 02/09/19 09:00 YGK5371 (Rec: 02/09/19 11:09 NWI8026 ICU-C16) Document 02/09/19 13:00 JWM6217 (Rec: 02/09/19 14:29 JAF8423 ICU-C16) ADLs: Meal Record Start: 02/04/19 13: 59 Freq: Status: Active Protocol: Document 02/04/19 13:59 JCL1679 (Rec: 02/04/19 13:59 FXZ9125 TELE-C07) Created 02/04/19 13:59 RGO5295 (Rec: 02/04/19 13:59 YXD0986 TELE-C07) Document 02/05/19 09:34 TAB6073 (Rec: 02/05/19 09:35 ALI3009 TELE-C01) Document 02/05/19 14:03 WZU4194 (Rec: 02/05/19 14:04 OUR0331 TELE-C01) Document 02/06/19 09:03 JCU8830 (Rec: 02/06/19 09:04 ROC7368 TELE-C08) Document 02/06/19 14:00 CTT6545 (Rec: 02/06/19 14:32 SZW3667 TELE-C08) Document 02/07/19 05:17 TZU3319 (Rec: 02/07/19 05:21 VHY2171 TELE-C03) Document 02/07/19 10:08 GUD2057 (Rec: 02/07/19 10:08 BGC8826 TELE-C08) Document 02/07/19 13:12 HJL1505 (Rec: 02/07/19 13:12 PCT1091 TELE-C08) Document 02/07/19 19:25 BTR9732 (Rec: 02/07/19 19:25 OVG3905 TELE-C02) Intake and Output Start: 02/01/19 15: 30 Freq: Status: Active Protocol: Created 02/01/19 15:30 System (Rec: 02/01/19 15:30 System ED-C24) Document 02/04/19 13:58 QFN0007 (Rec: 02/04/19 13:59 IZY8568 TELE-C07) Document 02/04/19 23:08 UOX8138 (Rec: 02/04/19 23:08 JBA5984 TELE-C01) Document 02/05/19 06:37 VBP3454 (Rec: 02/05/19 06:37 LGR4911 TELE-M13) Document 02/05/19 10:03 SST9511 (Rec: 02/05/19 10:03 ZQW2909 TELE-M18) Document 02/05/19 14:00 RZT8750 (Rec: 02/05/19 14:19 LPK5215 TELE-C08) Intake and Output Start: 02/01/19 20: 10 Freq: DAILY@0600,1400,2200 Status: Complete Protocol: Created 02/01/19 20:10 System (Rec: 02/01/19 20:10 System TELE-C15) Document 02/01/19 21:54 (Rec: 02/01/19 21:54 TELE-C11) Document 02/02/19 06:00 UNA5496 (Rec: 02/02/19 06:23 IVL1159 TELE-C05) Document 02/02/19 12:39 IXJ0854 (Rec: 02/02/19 12:39 WUK5351 TELE-C03) Intake and Output Start: 02/02/19 13: 15 Freq: Q1HR Status: Active Protocol: Created 02/02/19 13:15 HCL8011 (Rec: 02/02/19 13:15 DCE5458 ICU-M29) Document 02/02/19 14:00 WJX8189 (Rec: 02/02/19 14:18 ZJA5142 ICU-C06) Document 02/02/19 15:00 UFM0841 (Rec: 02/02/19 18:30 EXQ8373 ICU-M24) Document 02/02/19 16:00 BRK6402 (Rec: 02/02/19 18:30 ZAX7442 ICU-M24) Document 02/02/19 17:00 NJV0040 (Rec: 02/02/19 18:31 ZPS9061 ICU-M24) Document 02/02/19 18:00 FUZ2873 (Rec: 02/02/19 18:31 QJW3315 ICU-M24) Document 02/02/19 19:00 UXY5278 (Rec: 02/02/19 19:43 SEQ3761 ICU-M24) Document 02/02/19 20:00 FRP1045 (Rec: 02/02/19 20:40 NLV9057 ICU-M24) Document 02/02/19 21:00 ZAJ9014 (Rec: 02/02/19 21:04 YKF9888 ICU-M24) Document 02/02/19 21:58 ISA5376 (Rec: 02/02/19 22:00 BNJ4348 ICU-C07) Document 02/02/19 23:00 OZS3437 (Rec: 02/03/19 00:12 PLD4730 ICU-C07) Document 02/03/19 00:00 TZA8850 (Rec: 02/03/19 00:12 NCH0323 ICU-C07) Document 02/03/19 00:50 OJP1829 (Rec: 02/03/19 00:52 ZDG2574 ICU-C07) Document 02/03/19 02:00 DUI1732 (Rec: 02/03/19 02:17 RQU6562 ICU-C07) Document 02/03/19 03:00 JCQ1464 (Rec: 02/03/19 03:04 QOK3686 ICU-C07) Document 02/03/19 04:00 LWC3346 (Rec: 02/03/19 05:00 WWV7887 ICU-C07) Document 02/03/19 05:00 SHA8100 (Rec: 02/03/19 05:00 SOM4163 ICU-C07) Document 02/03/19 05:57 XWQ1479 (Rec: 02/03/19 05:57 ADQ5023 ICU-C07) Document 02/03/19 06:37 ABJ3128 (Rec: 02/03/19 06:38 TPS5734 ICU-C07) Document 02/03/19 07:50 LQK6896 (Rec: 02/03/19 07:51 IRS1768 ICU-M29) Document 02/03/19 11:00 KYL8544 (Rec: 02/03/19 11:45 UFH9695 ICU-C12) Document 02/03/19 13:00 NQR3541 (Rec: 02/03/19 13:54 ANR8956 ICU-M29) Document 02/03/19 16:00 QEP9204 (Rec: 02/03/19 17:04 YNC7029 ICU-C12) Document 02/03/19 18:00 JWY6205 (Rec: 02/03/19 18:02 BVR8396 ICU-M29) Document 02/03/19 18:58 MUI5540 (Rec: 02/03/19 18:58 TDF3426 ICU-C06) Document 02/03/19 20:00 RMC9081 (Rec: 02/03/19 22:12 HKZ5410 ICU-C07) Document 02/03/19 22:00 OPL7863 (Rec: 02/03/19 22:13 EIV2978 ICU-C07) Document 02/03/19 23:00 ZPQ4107 (Rec: 02/03/19 23:21 GEB4182 ICU-C07) Document 02/04/19 00:00 IHR4242 (Rec: 02/04/19 00:38 ESX2741 ICU-C07) Document 02/04/19 02:00 PMV5232 (Rec: 02/04/19 02:50 RBO6029 ICU-C07) Document 02/04/19 03:00 FQN7396 (Rec: 02/04/19 03:02 WRQ4142 ICU-M29) Document 02/04/19 04:00 QXU7126 (Rec: 02/04/19 04:15 DOC8535 ICU-C07) Document 02/04/19 06:00 EKV9907 (Rec: 02/04/19 06:06 MIB7104 ICU-C07) Document 02/06/19 18:07 AGE2720 (Rec: 02/08/19 18:08 WQO0666 ICU-C15) Document 02/08/19 03:00 TZH5043 (Rec: 02/08/19 04:14 JQH7945 ICU-C15) Document 02/08/19 04:00 AWI0081 (Rec: 02/08/19 04:13 OQL2372 ICU-C15) Document 02/08/19 05:00 JII6079 (Rec: 02/08/19 05:01 IXX8177 ISDEMO-M03 ) Document 02/08/19 06:00 UXV5715 (Rec: 02/08/19 06:10 YKG8451 ICU-C15) Document 02/08/19 07:00 XDB6551 (Rec: 02/08/19 07:32 GFU0824 ISDEMO-M03 ) Document 02/08/19 08:00 RTN8103 (Rec: 02/08/19 09:16 YGW3877 ICU-L03) Document 02/08/19 09:00 CMR9080 (Rec: 02/08/19 10:09 QLU8556 ISDEMO-M03 ) Document 02/08/19 10:00 EEQ7824 (Rec: 02/08/19 10:09 FVM9435 ISDEMO-M03 ) Document 02/08/19 11:00 OAY4918 (Rec: 02/08/19 11:48 OXX8893 ICU-L03) Document 02/08/19 12:00 ABD9462 (Rec: 02/08/19 12:50 DSY6266 ICU-L03) Document 02/08/19 13:00 XJE5902 (Rec: 02/08/19 14:10 AOS8282 ICU-C15) Document 02/08/19 14:00 JSA4588 (Rec: 02/08/19 14:12 EMR7566 ICU-C15) Document 02/08/19 15:00 YHC3545 (Rec: 02/08/19 17:11 HSL9853 ICU-L03) Document 02/08/19 17:00 HNU8743 (Rec: 02/08/19 17:17 BWF5403 ICU-L03) Document 02/08/19 18:00 GIH2900 (Rec: 02/08/19 18:07 MYF6704 ICU-C15) Document 02/08/19 19:33 FGQ1220 (Rec: 02/08/19 19:34 XFN0040 ICU-C15) Document 02/08/19 21:00 IVT5975 (Rec: 02/08/19 21:15 VXH3120 ICU-C15) Document 02/08/19 22:00 WXG1736 (Rec: 02/08/19 22:04 HYE5220 ICU-C15) Document 02/08/19 23:00 EBC9748 (Rec: 02/08/19 23:08 WTZ9546 ICU-C15) Document 02/09/19 00:00 RFP0295 (Rec: 02/09/19 00:02 FUC1627 ICU-C15) Document 02/09/19 01:00 XIS4695 (Rec: 02/09/19 01:12 SPP5242 ICU-C15) Document 02/09/19 02:00 GFJ9763 (Rec: 02/09/19 02:03 NNC5587 ICU-C15) Document 02/09/19 03:00 VYD5917 (Rec: 02/09/19 03:04 SMK8580 ICU-C15) Document 02/09/19 03:56 OAW0978 (Rec: 02/09/19 03:56 PMI8566 ICU-C16) Document 02/09/19 05:00 ISA7526 (Rec: 02/09/19 05:13 QBI8545 ICU-C15) Document 02/09/19 06:00 CVL0022 (Rec: 02/09/19 06:12 EZD4340 ISDEMO-M03 ) Document 02/09/19 08:00 XZY2701 (Rec: 02/09/19 08:16 ERF1490 ICU-C16) Document 02/09/19 08:00 UYN3735 (Rec: 02/09/19 09:35 OXT9821 [facility] ) Document 02/09/19 09:00 QAX8829 (Rec: 02/09/19 09:23 LUN5166 [facility] ) Document 02/09/19 11:00 NIZ5626 (Rec: 02/09/19 11:11 DCD8629 ICU-C16) Document 02/09/19 12:00 OUU2129 (Rec: 02/09/19 13:08 VJS1842 ICU-C16) Document 02/09/19 13:00 YYI9100 (Rec: 02/09/19 14:29 BYS0137 ICU-C16) Document 02/09/19 14:00 JIA0083 (Rec: 02/09/19 15:20 KDW7697 ICU-C16) Document 02/09/19 15:37 YUT9294 (Rec: 02/09/19 15:53 LKA5244 ICU-C16) Eyes: No Scleral Icterus, - - EOMI Ears/Nose/Mouth/Throat: NL Teeth, Lips, Gums, Mucous Membranes Moist Neck: NL Appearance and Movements; NL JVP, Trachea Midline Cardiovascular: NL Sounds; No Murmurs; No JVD, - - +1 edema Extremities: - - + 1 edema Neurological: Alert and Oriented x 3 - Assessment Assessment: 78 yo female with acute respiratory failure and new ischemic cardiomyopathy - Plan Consult Plan (MU): Palliative Plan: Pt completed HCP prior to family meeting. Family meeting with pt, son and daughter joining us later was ex and cousin. Long goals of care discussion was initiated after discussing current health status. Reviewed MOLST form with family pt is going to think it over and decide in am about CPR and intubation. Pt has a complicated medical past which had been frustrating for the family. She has resided at several SNF and ended up with ulcers one requiring her to have an amputation. Also they feel pressure about advocating for their mom because the healthcare system seems to follow "guidelines" that aren't in patients best interests all the time. Pt is competent to complete MOLST form. She feels she has a quality of life currently and wants to go on living if there is a chance. She doesn't want to remain vent dependent or have CPR if she can't feed herself or suffers brain damage. At this time they are not interested in dialysis and have put cardiac cath on hold opting for medical management. Will follow up with pt regarding her wishes and let family know. KPS 20%, PPS 30% - Time On Unit Date of Evaluation: 02/09/19 Hospice Consult Time in: 14:30 Hospice Consult Time Out: 16:00 Hospice Consult Time Total: 90 > 50% of Time Spend In Counseling or Coordinating Care: Yes
[2019-02-09] MEDS: Insulin GLARGINE(*) 1 UNITS UNIT SUBCUT SCH (16:40)
[2019-02-09] MEDS: Acetaminophen TAB* 325 MG PO PRN (20:18)
[2019-02-09] MEDS: Gabapentin CAP(*) 100 MG PO SCH (20:18)
[2019-02-09] MEDS: Senna TAB PO PRN (20:18)
[2019-02-10 04:48] LABS: Hematocrit 28 % (35-47); Hemoglobin 9.4 g/dL (12.0-16.0); Mean Corpuscular HGB Conc 34 g/dL (31-36); Mean Corpuscular Hemoglobin 28 pg (27-31); Mean Corpuscular Volume 82 fL (80-97); Mean Platelet Volume 7.7 fL (7.4-10.4); Platelet Count 262 10^3/uL (150-450); Red Blood Count 3.41 10^6 /uL (3.70-4.87); Red Cell Distribution Width 16 % (10-15); White Blood Count 7.8 10^3/uL (3.5-10.8)
[2019-02-10 05:03] LABS: BUN/Creatinine Ratio 37.1 (8-20); Calcium 9.3 mg/dL (8.6-10.3); EGFR African American 19.9 (>60); EGFR Non-African American 16.4 (>60); Magnesium 2.6 mg/dL (1.9-2.7); Potassium 3.5 mmol/L (3.5-5.0)
[2019-02-10] MEDS: Heparin DRIP 25,000 UNITS(*) 25,000 UNITS/500 ML BAG IV SCH (05:28)
[2019-02-10] MEDS: Insulin LISPRO* 1 UNITS UNIT SUBCUT SCH ×3 (07:29→17:09)
[2019-02-10] MEDS: Aspirin EC TAB* 81 MG TAB.EC PO SCH (08:30)
[2019-02-10] MEDS: Docusate CAP* 100 MG PO SCH ×2 (08:30→22:07)
[2019-02-10] MEDS: Furosemide IV* 10 MG/ML VIAL (40 MG) IV SCH (08:30)
[2019-02-10] MEDS: Allopurinol TAB* 100 MG PO SCH (08:30)
[2019-02-10] MEDS: Amiodarone TAB* 400 MG PO SCH ×2 (08:30→22:07)
[2019-02-10] MEDS: Carvedilol TAB* 3.125 MG PO SCH ×2 (08:30→22:07)
[2019-02-10] MEDS: Cholecalciferol TAB* 1000 UNITS PO SCH (08:30)
[2019-02-10] MEDS: Nystatin OINT* 15 GM TOPICAL SCH (08:30)
[2019-02-10] MEDS: Isosorbide Mononitrate ER TAB* 30 MG PO SCH (08:30)
[2019-02-10] MEDS: Magnesium Oxide TAB* 400 MG PO SCH (08:31)
[2019-02-10] MEDS ORDERED: Potassium Chloride* LIQUID 20 MEQ/15 ML UDC PO ONE (08:50)
[2019-02-10] MEDS ORDERED: Metolazone TAB* 5 MG PO ONE (09:54)
[2019-02-10] MEDS ORDERED: Potassium Chlor TAB* 10 MEQ TAB.ER PO ONE (09:55)
--- NOTE | 2019-02-10 10:05 | PN ---
Subjective Date of Service: 02/10/19 Interval History: f/u systolic HF, MA, VT, LBBB Palliative medicine consult reviewed and appreciated I/o even breathing better remains volume overloaded no cp no arrhythmias or significant pauses overnight Medications Active Medications: Acetaminophen (Tylenol Tab*) 650 mg PO Q6H PRN PRN Reason: FEVER/PAIN Last Admin: 02/09/19 20:18 Dose: 650 mg Albuterol (Ventolin 2.5 Mg/3 Ml Neb.Lary*) 2.5 mg INH Q2H PRN PRN Reason: SOB/WHEEZING Allopurinol (Zyloprim Tab*) 100 mg PO DAILY [facility] Last Admin: 02/10/19 08:30 Dose: 100 mg Amiodarone HCl (Cordarone Tab*) 400 mg PO BID [facility] Last Admin: 02/10/19 08:30 Dose: 400 mg Aspirin (Aspirin Ec Tab*) 81 mg PO DAILY [facility] Last Admin: 02/10/19 08:30 Dose: 81 mg Carvedilol (Coreg Tab*) 3.125 mg PO BID [facility] Last Admin: 02/10/19 08:30 Dose: 3.125 mg Cholecalciferol (Vitamin D Tab*) 1,000 units PO DAILY [facility] Last Admin: 02/10/19 08:30 Dose: 1,000 units Dextrose (D50w Syringe 50 Ml*) 12.5 gm IV PUSH .FOR FS < 60 - SS PRN PRN Reason: FS < 60 Docusate Sodium (Colace Cap*) 100 mg PO BID [facility] Last Admin: 02/10/19 08:30 Dose: 100 mg Furosemide (Lasix Iv*) 80 mg IV BID [facility] Gabapentin (Neurontin Cap(*)) 200 mg PO BEDTIME [facility] Last Admin: 02/09/19 20:18 Dose: 200 mg Heparin Sodium (Porcine) (Heparin Vial(*)) 0 units IV .PER PROTOCOL [facility] Last Admin: 02/09/19 14:14 Dose: 4,000 units Heparin Sodium/Dextrose (Heparin Drip 25,000 Units(*)) 25,000 units in 500 mls @ 0 mls/hr IV PER RATE [facility]; Protocol Last Admin: 02/10/19 05:28 Dose: 24 mls/hr Insulin Glargine (Lantus(*)) 10 units SUBCUT QPM [facility] Last Admin: 02/09/19 16:40 Dose: 10 units Insulin Human Lispro (Humalog*) 0 units SUBCUT [facility]; Protocol Last Admin: 02/10/19 07:29 Dose: Not Given Isosorbide Mononitrate (Imdur Er Tab*) 30 mg PO DAILY [facility] Last Admin: 02/10/19 08:30 Dose: 30 mg Lorazepam (Ativan Inj*) 0.5 mg IV PUSH Q4H PRN PRN Reason: ANXIETY Last Admin: 02/09/19 22:46 Dose: 0.5 mg Magnesium Oxide (Magox 400 Tab*) 400 mg PO DAILY [facility] Last Admin: 02/10/19 08:31 Dose: 400 mg Miscellaneous (Ativan Pyxis Meraz) 1 ea N/A .ATIVAN IV MERAZ PRN PRN Reason: PYXIS MERAZ Morphine Sulfate (Morphine Inj (Syringe))*) 1 mg IV Q5H PRN PRN Reason: DISCOMFORT Last Admin: 02/08/19 04:41 Dose: 1 mg Nystatin (Nystatin Oint*) 1 applic TOPICAL BID [facility] Last Admin: 02/10/19 08:30 Dose: 1 applic Ondansetron HCl (Zofran Odt Tab*) 4 mg SL Q6H PRN PRN Reason: NAUSEA/VOMITING Last Admin: 02/06/19 14:54 Dose: 4 mg Polyethylene Glycol/Electrolytes (Miralax*) 17 gm PO DAILY PRN PRN Reason: CONSTIPATION Last Admin: 02/03/19 01:04 Dose: 17 gm Senna (Senokot Tab*) 2 tab PO BEDTIME PRN PRN Reason: CONSTIPATION Last Admin: 02/09/19 20:18 Dose: 2 tab Objective Vital Signs: Temp Pulse Resp BP Pulse Ox 97.7 F 61 20 110/56 97 02/10/19 08:00 02/10/19 07:01 02/10/19 07:01 02/10/19 07:01 02/10/19 07:01 Oxygen Devices in Use Now: High Flow Heated Nasal Cannula Appearance: nad, pleasant, eating breakfast Ears/Nose/Mouth/Throat: Clear Oropharnyx Neck: - - uncertain jvp Respiratory: - - mild increaesed work of breathing, L>R rales bases and left mid lung Cardiovascular: RRR Abdominal: - - soft, nontender Extremities: - - warm, well perfusd, 1 + edema leg leg, s/p R leg amputation Laboratory Results: 02/10/19 04:35 02/10/19 04:35 INR (Anticoag Therapy) 1.12 (0.82-1.09) H 02/09/19 05:10 APTT 69.4 seconds (26.0-38.0) H 02/10/19 02:00 Total Bilirubin 0.40 mg/dL (0.2-1.0) 02/08/19 05:30 AST 12 U/L (13-39) L 02/08/19 05:30 ALT 10 U/L (7-52) 02/08/19 05:30 Alkaline Phosphatase 123 U/L (34-104) H 02/08/19 05:30 B-Natriuretic Peptide 993 pg/mL (<=100) H 02/08/19 05:30 Total Protein 6.4 g/dL (6.4-8.9) 02/08/19 05:30 Albumin 3.3 g/dL (3.2-5.2) 02/08/19 05:30 Globulin 3.1 g/dL (2-4) 02/08/19 05:30 Albumin/Globulin Ratio 1.1 (1-3) 02/08/19 05:30 TSH 2.61 mcIU/mL (0.34-5.60) 02/08/19 05:30 02/01/19 02/01/19 02/01/19 16:44 20:27 23:12 Troponin I 3.43 H* 3.11 H* 2.85 H* 02/02/19 02/05/19 02/08/19 01:28 07:36 05:30 Troponin I 2.90 H* 1.63 H* 0.90 H* 02/08/19 02/08/19 08:12 10:47 Troponin I 0.84 H* 0.70 H* mg 2.6 Diagnostic Imaging: Exam Date: 02/08/19 0700 IMPRESSION: SMALL LEFT PLEURAL EFFUSION WITH LEFT BASILAR CONSOLIDATION. Exam Date: 02/06/[address] CHEST W/O IMPRESSION: #. Interstitial pulmonary edema with associated LEFT larger than RIGHT small pleural effusions and proportional atelectasis. #. Cardiomegaly. Coronary artery calcifications. Small pericardial effusion. #. Solitary mildly enlarged mediastinal lymph node. Study Date: 02/02/2019 Summary: 1. Left ventricle: The cavity size is mildly dilated. Systolic function is severely reduced. The estimated ejection fraction is 20-25%. Severe diffuse hypokinesis with multiple regional wall motion abnormalities. Left ventricular diastolic function parameters are abnormal. 2. Left atrium: The atrium is moderately dilated. 3. Right atrium: The atrium is mildly dilated. 4. Mitral valve: There is moderate regurgitation. 5. Ascending aorta: The ascending aorta is mildly dilated. 6. Since the prior echocardiogram completed 04/19/14, pertinent changes are prior LVEF reported 40-45% and prior no mitral regurgitation noted. EKG Data: ekg 07/2018: NSR, LBBB ekg 02/08/2019: NSR, LBBB, QRS > 150 ms, NSVT Assessment/Plan 1. Systolic HF - currently decompensated 2. Advanced renal failure 3. NSVT 4. LBBB 5. Elevated troponin - ? type 1 vs. 2 MA - strongly suspect underlying obstructive CAD contributing to systolic HF 6. History of PE 7. DM 8. HTN 9. R AKA due to PVD/ulceration 01/2018 - Continue aspirin 81 mg po daily - anticoagulation as per primary service for PE history. Currently on heparin could consider low dose 2.5 mg eliquis po bid - Statin intolerant - Continue coreg 3.125 mg po bid - Continue diuresis, increase lasix to 80 mg iv bid and give 5 mg of po metolazone x 1 now (ordered). 40 k ordered this AM - Continue imdur 30 mg. Will add low dose tid hydralazine soon - Not on AceI/ARB due to renal failure - Continue 400 mg po bid, will change to 200 mg po daily once load complete - Palliative medicine note reviewed. Patient does not wish to be on dialysis. Will continue non-invasive cardiac evaluation and treatment Thank you for allowing me to participate in the cardiovascular care of this patient. Please do not hesitate to contact me with questions or concerns.
[2019-02-10] MEDS ORDERED: Bisacodyl SUPP* 10 MG SUPP PR ONE (10:12)
[2019-02-10] MEDS: Furosemide IV* 10 MG/ML 10 ML VIAL (100 MG) IV SCH ×2 (10:16→22:06)
[2019-02-10] MEDS: LORazepam INJ* 2 MG/ML 1 ML VIAL IV PUSH PRN ×2 (10:51→22:06)
--- NOTE | 2019-02-10 11:02 | PN ---
Progress Note - Progress Note Date of Service: 02/10/19 Note: Progress Note -- Critical Care 24 hour events -no sig overnight events noted; now on NC 12 L; no distress, no cp/sob -in bed, eating -afebrile, BP stable and HR stable overnight Tele: NSR Vitals: Vital Signs Temp 97.7 F 02/10/19 08:00 Pulse 61 02/10/19 07:01 Resp 17 02/10/19 10:51 BP 110/56 02/10/19 07:01 Pulse Ox 97 02/10/19 07:01 Intake & Output 02/09/19 02/10/19 02/10/19 18:59 06:59 18:59 Intake Total 2166 763 Output Total 1115 730 110 Balance 1051 33 -110 Weight 95.6 kg Intake: Medicated IV 85 363 CC - Amiodarone 85 heparin 363 Heparin 141 Oral 1680 400 Brewer Irrigate Amount 260 Output: Brewer 1115 730 110 Other: # Bowel Movements 0 O2/Vent: NC 12 L Infusions: IV heparin Current Medications: Acetaminophen (Tylenol Tab*) 650 mg PO Q6H PRN PRN Reason: FEVER/PAIN Last Admin: 02/09/19 20:18 Dose: 650 mg Albuterol (Ventolin 2.5 Mg/3 Ml Neb.Lary*) 2.5 mg INH Q2H PRN PRN Reason: SOB/WHEEZING Allopurinol (Zyloprim Tab*) 100 mg PO DAILY [facility] Last Admin: 02/10/19 08:30 Dose: 100 mg Amiodarone HCl (Cordarone Tab*) 400 mg PO BID [facility] Last Admin: 02/10/19 08:30 Dose: 400 mg Aspirin (Aspirin Ec Tab*) 81 mg PO DAILY [facility] Last Admin: 02/10/19 08:30 Dose: 81 mg Carvedilol (Coreg Tab*) 3.125 mg PO BID [facility] Last Admin: 02/10/19 08:30 Dose: 3.125 mg Cholecalciferol (Vitamin D Tab*) 1,000 units PO DAILY [facility] Last Admin: 02/10/19 08:30 Dose: 1,000 units Dextrose (D50w Syringe 50 Ml*) 12.5 gm IV PUSH .FOR FS < 60 - SS PRN PRN Reason: FS < 60 Docusate Sodium (Colace Cap*) 100 mg PO BID [facility] Last Admin: 02/10/19 08:30 Dose: 100 mg Furosemide (Lasix Iv*) 80 mg IV BID [facility] Last Admin: 02/10/19 10:16 Dose: 80 mg Gabapentin (Neurontin Cap(*)) 200 mg PO BEDTIME [facility] Last Admin: 02/09/19 20:18 Dose: 200 mg Heparin Sodium (Porcine) (Heparin Vial(*)) 0 units IV .PER PROTOCOL [facility] Last Admin: 02/09/19 14:14 Dose: 4,000 units Heparin Sodium/Dextrose (Heparin Drip 25,000 Units(*)) 25,000 units in 500 mls @ 0 mls/hr IV PER RATE [facility]; Protocol Last Admin: 02/10/19 05:28 Dose: 24 mls/hr Insulin Glargine (Lantus(*)) 10 units SUBCUT QPM [facility] Last Admin: 02/09/19 16:40 Dose: 10 units Insulin Human Lispro (Humalog*) 0 units SUBCUT AC [facility]; Protocol Last Admin: 02/10/19 07:29 Dose: Not Given Isosorbide Mononitrate (Imdur Er Tab*) 30 mg PO DAILY [facility] Last Admin: 02/10/19 08:30 Dose: 30 mg Lorazepam (Ativan Inj*) 0.5 mg IV PUSH Q4H PRN PRN Reason: ANXIETY Last Admin: 02/10/19 10:51 Dose: 0.5 mg Magnesium Oxide (Magox 400 Tab*) 400 mg PO DAILY [facility] Last Admin: 02/10/19 08:31 Dose: 400 mg Miscellaneous (Ativan Pyxis Uriostegui) 1 ea N/A .ATIVAN IV URIOSTEGUI PRN PRN Reason: PYXIS URIOSTEGUI Morphine Sulfate (Morphine Inj (Syringe))*) 1 mg IV Q5H PRN PRN Reason: DISCOMFORT Last Admin: 02/08/19 04:41 Dose: 1 mg Nystatin (Nystatin Oint*) 1 applic TOPICAL BID [facility] Last Admin: 02/10/19 08:30 Dose: 1 applic Ondansetron HCl (Zofran Odt Tab*) 4 mg SL Q6H PRN PRN Reason: NAUSEA/VOMITING Last Admin: 02/06/19 14:54 Dose: 4 mg Polyethylene Glycol/Electrolytes (Miralax*) 17 gm PO DAILY PRN PRN Reason: CONSTIPATION Last Admin: 02/03/19 01:04 Dose: 17 gm Senna (Senokot Tab*) 2 tab PO BEDTIME PRN PRN Reason: CONSTIPATION Last Admin: 02/09/19 20:18 Dose: 2 tab Physical Exam: Constitutional: awake, alert, no distress, no diaphoresis Head: normocephalic, atraumatic Eyes: no pallor, no icterus ENT: moist mucous membranes Neck: soft, supple, no jvd, no stridor CVS: normal rate, regular, no murmur Resp: bilateral air entry, basilar bilateral crackles++, no wheeze, no rhonchi , no acc muscle use Abdomen/GI: soft, nontender, nondistended, BS+ Ext/Msk: warm, pulses+, no edema Skin: intact, warm Neuro: awake, alert, orientedx3, moving all extremities Labs: Laboratory Results - last 24 hr 02/09/19 02/09/19 02/09/19 07:40 11:41 12:00 WBC RBC Hgb Hct MCV MCH MCHC RDW Plt Count MPV APTT 42.3 H Sodium Potassium Chloride Carbon Dioxide Anion Gap BUN Creatinine Est GFR ( Amer) Est GFR (Non-Af Amer) BUN/Creatinine Ratio Glucose POC Glucose (mg/dL) 129 H 232 H Calcium Magnesium 02/09/19 02/09/19 02/09/19 16:19 20:04 20:12 WBC RBC Hgb Hct MCV MCH MCHC RDW Plt Count MPV APTT 64.6 H Sodium Potassium Chloride Carbon Dioxide Anion Gap BUN Creatinine Est GFR ( Amer) Est GFR (Non-Af Amer) BUN/Creatinine Ratio Glucose POC Glucose (mg/dL) 189 H 211 H Calcium Magnesium 02/10/19 02/10/19 02/10/19 02:00 04:35 04:35 WBC 7.8 RBC 3.41 L Hgb 9.4 L Hct 28 L MCV 82 MCH 28 MCHC 34 RDW 16 H Plt Count 262 MPV 7.7 APTT 69.4 H Sodium 130 L Potassium 3.5 Chloride 86 L Carbon Dioxide 35 H Anion Gap 9 BUN 103 H Creatinine 2.78 H Est GFR ( Amer) 19.9 Est GFR (Non-Af Amer) 16.4 BUN/Creatinine Ratio 37.1 H Glucose 120 H POC Glucose (mg/dL) Calcium 9.3 Magnesium 2.6 02/10/19 07:26 WBC RBC Hgb Hct MCV MCH MCHC RDW Plt Count MPV APTT Sodium Potassium Chloride Carbon Dioxide Anion Gap BUN Creatinine Est GFR ( Amer) Est GFR (Non-Af Amer) BUN/Creatinine Ratio Glucose POC Glucose (mg/dL) 128 H Calcium Magnesium Imaging: cxr 02/08 - left effusion+, stable from prior film CT chest 02/06 - bilateral small effusions; left basal consolidation/atelectasis Assessment: 78y F w/pmhx of DM, PVD s/p Right AKA, HTN, h/o PE on Xarelto, Gout , Obesity, 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 She was initially treated outpatient prior to arrival with Antibiotics for suspected bronchitis. On admission she was noted to have elevated BNp and troponins, pulmonary edema on CXR consistent with findigns of NSTEMI and decompensated heart failure. SHe had renal insufficiency also noted. EKG demonstrated LBBB patter, NSR. Since admission she has recieved IV heparin, asa, IV diuretics for CHF/NSTEMI. TTE 02/02 showed new LV systolic dysfunction with LVEF 20-25% with multiple WMA, no severe valvular disease; Prior TTE with LVEF 40-45%. Overnight 02/07 she developed episodes of VT, then increasing respiratory distress. She was upgraded to ICU for NIV and initiation of Amiodarone for VT. She is noted to have increasing CR, but CXR demonstrates stable left effusion without worsening congestion. -Acute decompensated Systolic heart failure, new onset -NSTEMI -Ischemic Cardiomyopathy -NSVT -WILMER on CKD3/4 -PLeural effusions -acute hypoxic respiratory failure -acute pulmonary edema DM PVD, Right AKA h/o PE ; on xarelto Gout Plan: Neuro- -awake, alert, appropriate -Delirium prec; avoid BDZ CVS- -BP stable; HR NSR -EKG NSR with LBBB pattern; ventricular ectopy+ -warm ext noted -making urine but not quite negative balance; still has crackles+; increase lasix to 80mg IV BID; metolazone 5mg po x1 -ASA for NSTEMI; suspect multivessel CAD given poor LV function and WMA on TTE -statin intolerance -IV heparin for PE and NSTEMI, until renal function improved -will need cath at some point if renal function improves to assess CAD severity ; patient would like medical management for now, reassess catheterization if renal function improves, but no desire to go on HD as per patient -cont Coreg 3.125mg bid -cont imdur 30mg daily for preload reduction -NSR, no VT noted; cont amio po 400mg bid -Maintain MAP>65 Resp- -on NC 12 L now, improving, less O2 requirements; check CXR tomorrow -IV diuretics continued -comfortable appearing, no distress, in chair, no acc muscle use -CXR 02/08 with left effusion, mild congestion unchanged -Wean Fio2 to keep sat>92% -Bronchodilators PRN, Aspiration prec ID- afebrile. wbc normal. CXR effusion/congestion. CT chest wtih left base consolidation 02/06 -no abx indicated GI- -diabetic diet po, low K -GI prophylaxis - not indicated Renal- -WILMER on CKD3/4; making urine; no acidosis; Cr plateued it seems; not quite neg in balance -increase lasix to 80mg IV BID; metolazone 5mg po x1 -replete Kcl po 40meq -patient would like to avoid and would likely not like to go onto HD -hyponatremai+; likely from CHF -may require nephrology consult in next 48 hours, but again no plans as per patient for desire for HD, re-eval as needed -strict I/O, replete to keep K>4, Mg>2 -brewer+ -avoid nephrotoxic agents; hold off ACEI/aldactone Heme- -anemia, stable -cont ASA -h/o PE, now with NSTEMI/CAD; IV heparin ; given borderline renal function, eventual bridge to PO NOAC/warfarin -cont allopurinol for gout -transfuse as indicated to maintain hg>8 given ACS/CAD/CMP Endo- Maintain BG<200, insulin protocol. Musculsk- pressure ulcer prophylaxis. oob to chair Wounds- none Nutrition- diabetic diet DVT prophylaxis: SCD, IV Heparin GI prophylaxis: none indicated Central Line: no Arterial Line: no Brewer Cathetor: yes palliative care eval done, reviewed; patient would not like HD, open for cath at some point if possible, but did not wish for ventilator or CPR; they will decide on her GOC and code status. Disposition: Patient requires Critical Care/ICU for decompensated CHF, WILMER on CKD3, hypoxic respiratory failure; improving Patient Clinical Status: guarded, critical Code Status: full code Total Critical Care time is 35 minutes, excluding procedures/teaching Daniel Maria MD Coater (Electronically Signed)
[2019-02-10] MEDS: Acetaminophen TAB* 325 MG PO PRN (17:11)
[2019-02-10] MEDS: Insulin GLARGINE(*) 1 UNITS UNIT SUBCUT SCH (17:11)
[2019-02-10] MEDS: Gabapentin CAP(*) 100 MG PO SCH (22:07)
[2019-02-10] MEDS: Torsemide TAB 10 MG PO SCH (22:15)
[2019-02-11] MEDS: Acetaminophen TAB* 325 MG PO PRN ×3 (01:07→18:04)
[2019-02-11] MEDS: Nystatin OINT* 15 GM TOPICAL SCH ×3 (02:03→21:18)
[2019-02-11] MEDS: LORazepam INJ* 2 MG/ML 1 ML VIAL IV PUSH PRN ×4 (02:10→21:06)
[2019-02-11] MEDS: Heparin DRIP 25,000 UNITS(*) 25,000 UNITS/500 ML BAG IV SCH (03:03)
[2019-02-11 05:31] LABS: Hematocrit 28 % (35-47); Hemoglobin 9.2 g/dL (12.0-16.0); Mean Corpuscular HGB Conc 33 g/dL (31-36); Mean Corpuscular Hemoglobin 27 pg (27-31); Mean Corpuscular Volume 82 fL (80-97); Mean Platelet Volume 7.5 fL (7.4-10.4); Platelet Count 246 10^3/uL (150-450); Red Blood Count 3.37 10^6 /uL (3.70-4.87); Red Cell Distribution Width 16 % (10-15); White Blood Count 7.2 10^3/uL (3.5-10.8)
[2019-02-11 05:54] LABS: BUN/Creatinine Ratio 35.4 (8-20); Calcium 9.4 mg/dL (8.6-10.3); EGFR African American 18.6 (>60); EGFR Non-African American 15.4 (>60); Magnesium 2.5 mg/dL (1.9-2.7); Potassium 3.7 mmol/L (3.5-5.0)
[2019-02-11] MEDS: Insulin LISPRO* 1 UNITS UNIT SUBCUT SCH ×3 (08:22→17:46)
[2019-02-11] MEDS: Docusate CAP* 100 MG PO SCH ×2 (08:41→21:04)
[2019-02-11] MEDS: Allopurinol TAB* 100 MG PO SCH (08:41)
[2019-02-11] MEDS: Cholecalciferol TAB* 1000 UNITS PO SCH (08:41)
[2019-02-11] MEDS: Magnesium Oxide TAB* 400 MG PO SCH (08:41)
[2019-02-11] MEDS: Isosorbide Mononitrate ER TAB* 30 MG PO SCH (08:42)
[2019-02-11] MEDS: Carvedilol TAB* 3.125 MG PO SCH ×2 (08:42→21:05)
[2019-02-11] MEDS: Amiodarone TAB* 400 MG PO SCH ×2 (08:43→21:04)
[2019-02-11] MEDS: Aspirin EC TAB* 81 MG TAB.EC PO SCH (08:43)
[2019-02-11] MEDS: Furosemide IV* 10 MG/ML 10 ML VIAL (100 MG) IV SCH (08:47)
[2019-02-11] MEDS: Nitro 2% OINT* (Nitroglycerin) 1 INCH/PAK PAK TOPICAL SCH (09:12)
[2019-02-11] MEDS ORDERED: Potassium Chlor TAB* 20 MEQ TAB.ER PO ONE (12:02)
--- NOTE | 2019-02-11 12:02 | PN ---
Subjective Date of Service: 02/11/19 Interval History: f/u systolic HF, NE, VT, LBBB patient resting comfortably on NC remains volume overloaded no cp or dyspnea at rest no arrhythmias or significant pauses overnight Medications Active Medications: Acetaminophen (Tylenol Tab*) 650 mg PO Q6H PRN PRN Reason: FEVER/PAIN Last Admin: 02/11/19 08:41 Dose: 650 mg Albuterol (Ventolin 2.5 Mg/3 Ml Neb.Lary*) 2.5 mg INH Q2H PRN PRN Reason: SOB/WHEEZING Allopurinol (Zyloprim Tab*) 100 mg PO DAILY [facility] Last Admin: 02/11/19 08:41 Dose: 100 mg Amiodarone HCl (Cordarone Tab*) 400 mg PO BID [facility] Last Admin: 02/11/19 08:43 Dose: 400 mg Aspirin (Aspirin Ec Tab*) 81 mg PO DAILY [facility] Last Admin: 02/11/19 08:43 Dose: 81 mg Carvedilol (Coreg Tab*) 3.125 mg PO BID [facility] Last Admin: 02/11/19 08:42 Dose: 3.125 mg Cholecalciferol (Vitamin D Tab*) 1,000 units PO DAILY [facility] Last Admin: 02/11/19 08:41 Dose: 1,000 units Dextrose (D50w Syringe 50 Ml*) 12.5 gm IV PUSH .FOR FS < 60 - SS PRN PRN Reason: FS < 60 Docusate Sodium (Colace Cap*) 100 mg PO BID [facility] Last Admin: 02/11/19 08:41 Dose: 100 mg Gabapentin (Neurontin Cap(*)) 200 mg PO BEDTIME [facility] Last Admin: 02/10/19 22:07 Dose: 200 mg Heparin Sodium (Porcine) (Heparin Vial(*)) 0 units IV .PER PROTOCOL [facility] Last Admin: 02/09/19 14:14 Dose: 4,000 units Hydralazine HCl (Apresoline Tab*) 10 mg PO TID [facility] Heparin Sodium/Dextrose (Heparin Drip 25,000 Units(*)) 25,000 units in 500 mls @ 0 mls/hr IV PER RATE [facility]; Protocol Last Admin: 02/11/19 03:03 Dose: 24 mls/hr Insulin Glargine (Lantus(*)) 10 units SUBCUT QPM [facility] Last Admin: 02/10/19 17:11 Dose: 10 units Insulin Human Lispro (Humalog*) 0 units SUBCUT [facility]; Protocol Last Admin: 02/11/19 08:22 Dose: Not Given Isosorbide Mononitrate (Imdur Er Tab*) 30 mg PO DAILY [facility] Last Admin: 02/11/19 08:42 Dose: 30 mg Lorazepam (Ativan Inj*) 0.5 mg IV PUSH Q4H PRN PRN Reason: ANXIETY Last Admin: 02/11/19 10:57 Dose: 0.5 mg Magnesium Oxide (Magox 400 Tab*) 400 mg PO DAILY [facility] Last Admin: 02/11/19 08:41 Dose: 400 mg Miscellaneous (Ativan Pyxis Meraz) 1 ea N/A .ATIVAN IV MERAZ PRN PRN Reason: PYXIS MERAZ Morphine Sulfate (Morphine Inj (Syringe))*) 1 mg IV Q5H PRN PRN Reason: DISCOMFORT Last Admin: 02/08/19 04:41 Dose: 1 mg Nystatin (Nystatin Oint*) 1 applic TOPICAL BID [facility] Last Admin: 02/11/19 08:51 Dose: 1 applic Ondansetron HCl (Zofran Odt Tab*) 4 mg SL Q6H PRN PRN Reason: NAUSEA/VOMITING Last Admin: 02/06/19 14:54 Dose: 4 mg Polyethylene Glycol/Electrolytes (Miralax*) 17 gm PO DAILY PRN PRN Reason: CONSTIPATION Last Admin: 02/03/19 01:04 Dose: 17 gm Senna (Senokot Tab*) 2 tab PO BEDTIME PRN PRN Reason: CONSTIPATION Last Admin: 02/09/19 20:18 Dose: 2 tab Torsemide (Demadex*) 60 mg PO DAILY [facility] Objective Vital Signs: Temp Pulse Resp BP Pulse Ox 97.2 F 61 20 109/47 92 02/11/19 11:21 02/11/19 11:01 02/11/19 11:05 02/11/19 11:01 02/11/19 11:01 Oxygen Devices in Use Now: High Flow Nasal Cannula Appearance: not toxic appearing Ears/Nose/Mouth/Throat: Clear Oropharnyx Neck: - - uncertain jvp Respiratory: Symmetrical Chest Expansion and Respiratory Effort, - - bibasilar rales Cardiovascular: RRR, - - no significnat murmur Abdominal: - - soft, nontender Extremities: - - warm, well perfused, mild edema leg leg, s/p R leg amputation Neurological: - Laboratory Results: 02/11/19 05:12 02/11/19 05:12 INR (Anticoag Therapy) 1.12 (0.82-1.09) H 02/09/19 05:10 APTT 61.9 seconds (26.0-38.0) H 02/11/19 05:12 Total Bilirubin 0.40 mg/dL (0.2-1.0) 02/08/19 05:30 AST 12 U/L (13-39) L 02/08/19 05:30 ALT 10 U/L (7-52) 02/08/19 05:30 Alkaline Phosphatase 123 U/L (34-104) H 02/08/19 05:30 B-Natriuretic Peptide 993 pg/mL (<=100) H 02/08/19 05:30 Total Protein 6.4 g/dL (6.4-8.9) 02/08/19 05:30 Albumin 3.3 g/dL (3.2-5.2) 02/08/19 05:30 Globulin 3.1 g/dL (2-4) 02/08/19 05:30 Albumin/Globulin Ratio 1.1 (1-3) 02/08/19 05:30 TSH 2.61 mcIU/mL (0.34-5.60) 02/08/19 05:30 02/01/19 02/01/19 02/01/19 16:44 20:27 23:12 Troponin I 3.43 H* 3.11 H* 2.85 H* 02/02/19 02/05/19 02/08/19 01:28 07:36 05:30 Troponin I 2.90 H* 1.63 H* 0.90 H* 02/08/19 02/08/19 08:12 10:47 Troponin I 0.84 H* 0.70 H* Diagnostic Imaging: Exam Date: 02/08/19 0700 IMPRESSION: SMALL LEFT PLEURAL EFFUSION WITH LEFT BASILAR CONSOLIDATION. Exam Date: 02/06/[address] CHEST W/O IMPRESSION: #. Interstitial pulmonary edema with associated LEFT larger than RIGHT small pleural effusions and proportional atelectasis. #. Cardiomegaly. Coronary artery calcifications. Small pericardial effusion. #. Solitary mildly enlarged mediastinal lymph node. Study Date: 02/02/2019 Summary: 1. Left ventricle: The cavity size is mildly dilated. Systolic function is severely reduced. The estimated ejection fraction is 20-25%. Severe diffuse hypokinesis with multiple regional wall motion abnormalities. Left ventricular diastolic function parameters are abnormal. 2. Left atrium: The atrium is moderately dilated. 3. Right atrium: The atrium is mildly dilated. 4. Mitral valve: There is moderate regurgitation. 5. Ascending aorta: The ascending aorta is mildly dilated. 6. Since the prior echocardiogram completed 04/19/14, pertinent changes are prior LVEF reported 40-45% and prior no mitral regurgitation noted. Exam Date: 02/11/19 CHEST AP OR PORT IMPRESSION: #. Mild pulmonary vascular congestion and interstitial edema with associated small pleural effusions and proportional atelectasis without significant change. EKG Data: ekg 07/2018: NSR, LBBB ekg 02/08/2019: NSR, LBBB, QRS > 150 ms, NSVT Assessment/Plan 1. Systolic HF - currently decompensated 2. Advanced renal failure - Patient does not wish to be on dialysis. Will continue non-invasive cardiac evaluation and treatment 3. NSVT 4. LBBB 5. Elevated troponin - ? type 1 vs. 2 NE - strongly suspect underlying obstructive CAD contributing to systolic HF 6. History of PE 7. DM 8. HTN 9. R AKA due to PVD/ulceration 01/2018 - Continue aspirin 81 mg po daily - anticoagulation as per primary service for PE history. Currently on heparin could consider low dose 2.5 mg eliquis po bid - Statin intolerant - Continue coreg 3.125 mg po bid - Continue diuresis, change IV to torsemide 60 mg po daily with dose later today (ordered). Given 40 meq k x 1 now (ordered) - Continue imdur 30 mg - Add hydralazine 10 mg po tid with hold sbp < 90 mmhg (ordered) - Not on AceI/ARB due to renal failure - Continue amiodarone 400 mg po bid, will change to 200 mg po daily once load complete - Palliative medicine note reviewed. Thank you for allowing me to participate in the cardiovascular care of this patient. Please do not hesitate to contact me with questions or concerns.
--- NOTE | 2019-02-11 12:24 | PN ---
Progress Note - Progress Note Date of Service: 02/11/19 Note: Progress Note -- Critical Care 24 hour events -no events overnight; on NC 5-6L now, no cp/sob/cough -no pressors, BP stable, NSR -alert, oriented -making urine Tele: NSR Vitals: Vital Signs Temp 97.2 F 02/11/19 11:21 Pulse 59 02/11/19 12:01 Resp 18 02/11/19 12:07 BP 112/52 02/11/19 12:01 Pulse Ox 92 02/11/19 12:01 Intake & Output 02/10/19 02/11/19 02/11/19 18:59 06:59 18:59 Intake Total 942 824 600 Output Total 1570 885 590 Balance -628 -61 10 Weight 94.7 kg Intake: Medicated IV 302 284 heparin 302 284 Oral 640 540 600 Output: Brewer 1570 885 590 Other: Date of Last Bowel 02/10/19 Movement O2/Vent: NC 5-6 L Infusions: IV heparin Current Medications: Acetaminophen (Tylenol Tab*) 650 mg PO Q6H PRN PRN Reason: FEVER/PAIN Last Admin: 02/11/19 08:41 Dose: 650 mg Albuterol (Ventolin 2.5 Mg/3 Ml Neb.Lary*) 2.5 mg INH Q2H PRN PRN Reason: SOB/WHEEZING Allopurinol (Zyloprim Tab*) 100 mg PO DAILY [facility] Last Admin: 02/11/19 08:41 Dose: 100 mg Amiodarone HCl (Cordarone Tab*) 400 mg PO BID [facility] Last Admin: 02/11/19 08:43 Dose: 400 mg Aspirin (Aspirin Ec Tab*) 81 mg PO DAILY [facility] Last Admin: 02/11/19 08:43 Dose: 81 mg Carvedilol (Coreg Tab*) 3.125 mg PO BID [facility] Last Admin: 02/11/19 08:42 Dose: 3.125 mg Cholecalciferol (Vitamin D Tab*) 1,000 units PO DAILY [facility] Last Admin: 02/11/19 08:41 Dose: 1,000 units Dextrose (D50w Syringe 50 Ml*) 12.5 gm IV PUSH .FOR FS < 60 - SS PRN PRN Reason: FS < 60 Docusate Sodium (Colace Cap*) 100 mg PO BID [facility] Last Admin: 02/11/19 08:41 Dose: 100 mg Gabapentin (Neurontin Cap(*)) 200 mg PO BEDTIME [facility] Last Admin: 02/10/19 22:07 Dose: 200 mg Heparin Sodium (Porcine) (Heparin Vial(*)) 0 units IV .PER PROTOCOL [facility] Last Admin: 02/09/19 14:14 Dose: 4,000 units Hydralazine HCl (Apresoline Tab*) 10 mg PO TID [facility] Heparin Sodium/Dextrose (Heparin Drip 25,000 Units(*)) 25,000 units in 500 mls @ 0 mls/hr IV PER RATE [facility]; Protocol Last Admin: 02/11/19 03:03 Dose: 24 mls/hr Insulin Glargine (Lantus(*)) 10 units SUBCUT QPM [facility] Last Admin: 02/10/19 17:11 Dose: 10 units Insulin Human Lispro (Humalog*) 0 units SUBCUT AC [facility]; Protocol Last Admin: 02/11/19 08:22 Dose: Not Given Isosorbide Mononitrate (Imdur Er Tab*) 30 mg PO DAILY [facility] Last Admin: 02/11/19 08:42 Dose: 30 mg Lorazepam (Ativan Inj*) 0.5 mg IV PUSH Q4H PRN PRN Reason: ANXIETY Last Admin: 02/11/19 10:57 Dose: 0.5 mg Magnesium Oxide (Magox 400 Tab*) 400 mg PO DAILY [facility] Last Admin: 02/11/19 08:41 Dose: 400 mg Miscellaneous (Ativan Pyxis Uriostegui) 1 ea N/A .ATIVAN IV URIOSTEGUI PRN PRN Reason: PYXIS URIOSTEGUI Morphine Sulfate (Morphine Inj (Syringe))*) 1 mg IV Q5H PRN PRN Reason: DISCOMFORT Last Admin: 02/08/19 04:41 Dose: 1 mg Nystatin (Nystatin Oint*) 1 applic TOPICAL BID [facility] Last Admin: 02/11/19 08:51 Dose: 1 applic Ondansetron HCl (Zofran Odt Tab*) 4 mg SL Q6H PRN PRN Reason: NAUSEA/VOMITING Last Admin: 02/06/19 14:54 Dose: 4 mg Polyethylene Glycol/Electrolytes (Miralax*) 17 gm PO DAILY PRN PRN Reason: CONSTIPATION Last Admin: 06/14/19 01:04 Dose: 17 gm Senna (Senokot Tab*) 2 tab PO BEDTIME PRN PRN Reason: CONSTIPATION Last Admin: 02/09/19 20:18 Dose: 2 tab Torsemide (Torsemide) 60 mg PO DAILY [facility] Physical Exam: Constitutional: awake, alert, no distress, no diaphoresis Head: normocephalic, atraumatic Eyes: no pallor, no icterus ENT: moist mucous membranes Neck: soft, supple, no jvd, no stridor CVS: normal rate, regular, no murmur Resp: bilateral air entry, no rhales, no wheeze, no rhonchi, no acc muscle use Abdomen/GI: soft, nontender, nondistended, BS+ Ext/Msk: warm, pulses+, no edema Skin: intact, warm Neuro: awake, alert, orientedx3, moving all extremities Labs: Laboratory Results - last 24 hr 02/10/19 02/10/19 02/10/19 12:28 16:32 21:10 WBC RBC Hgb Hct MCV MCH MCHC RDW Plt Count MPV APTT Sodium Potassium Chloride Carbon Dioxide Anion Gap BUN Creatinine Est GFR ( Amer) Est GFR (Non-Af Amer) BUN/Creatinine Ratio Glucose POC Glucose (mg/dL) 231 H 147 H 244 H Calcium Magnesium 02/11/19 02/11/19 02/11/19 05:12 05:12 05:12 WBC 7.2 RBC 3.37 L Hgb 9.2 L Hct 28 L MCV 82 MCH 27 MCHC 33 RDW 16 H Plt Count 246 MPV 7.5 APTT 61.9 H Sodium 128 L Potassium 3.7 Chloride 83 L Carbon Dioxide 33 H Anion Gap 12 H BUN 104 H Creatinine 2.94 H Est GFR ( Amer) 18.6 Est GFR (Non-Af Amer) 15.4 BUN/Creatinine Ratio 35.4 H Glucose 115 H POC Glucose (mg/dL) Calcium 9.4 Magnesium 2.5 02/11/19 02/11/19 08:19 12:05 WBC RBC Hgb Hct MCV MCH MCHC RDW Plt Count MPV APTT Sodium Potassium Chloride Carbon Dioxide Anion Gap BUN Creatinine Est GFR ( Amer) Est GFR (Non-Af Amer) BUN/Creatinine Ratio Glucose POC Glucose (mg/dL) 123 H 204 H Calcium Magnesium Imaging: cxr 02/08 - left effusion+, stable from prior film CT chest 02/06 - bilateral small effusions; left basal consolidation/atelectasis cxr 02/11 - pulm congestion+ Assessment: 78y F w/pmhx of DM, PVD s/p Right AKA, HTN, h/o PE on Xarelto, Gout , Obesity, 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 She was initially treated outpatient prior to arrival with Antibiotics for suspected bronchitis. On admission she was noted to have elevated BNp and troponins, pulmonary edema on CXR consistent with findigns of NSTEMI and decompensated heart failure. SHe had renal insufficiency also noted. EKG demonstrated LBBB patter, NSR. Since admission she has recieved IV heparin, asa, IV diuretics for CHF/NSTEMI. TTE 02/02 showed new LV systolic dysfunction with LVEF 20-25% with multiple WMA, no severe valvular disease; Prior TTE with LVEF 40-45%. Overnight 02/07 she developed episodes of VT, then increasing respiratory distress. She was upgraded to ICU for NIV and initiation of Amiodarone for VT. She is noted to have increasing CR, but CXR demonstrates stable left effusion without worsening congestion. -Acute decompensated Systolic heart failure, new onset -NSTEMI -Ischemic Cardiomyopathy -NSVT -WILMER on CKD3/4 -PLeural effusions -acute hypoxic respiratory failure -acute pulmonary edema DM PVD, Right AKA h/o PE ; on xarelto Gout Plan: Neuro- -awake, alert, appropriate -Delirium prec; avoid BDZ CVS- -BP stable; HR NSR -EKG NSR with LBBB pattern; ventricular ectopy+ -warm ext noted -making urine ; IV diuretics changed to torsemide 60mg daily by cardiology; additional diuretic as needed -ASA for NSTEMI; suspect multivessel CAD given poor LV function and WMA on TTE -statin intolerance -IV heparin for PE and NSTEMI, until renal function improved -will need cath at some point if renal function improves to assess CAD severity ; patient would like medical management for now, reassess catheterization if renal function improves, but no desire to go on HD as per patient -cont Coreg 3.125mg bid -cont imdur 30mg daily for preload reduction -cont amio po -NSR, no VT noted; cont amio po 400mg bid -hydralazine 10mg po tid -Maintain MAP>65 Resp- -on NC 5-6L, improving; no distress -CXR 02/11 with congestion+ -Diuretics continued -Wean Fio2 to keep sat>92% -Bronchodilators PRN, Aspiration prec ID- afebrile. wbc normal. CXR effusion/congestion. CT chest wtih left base consolidation 02/06 -no abx indicated GI- -diabetic diet po, low K -GI prophylaxis - not indicated Renal- -WILMER on CKD3/4; making urine; no acidosis; Cr plateued it seems; not quite neg in balance -diuretics changed to torsemide 60mg po daily; IV doses additional as needed -replete Kcl po 40meq -patient would like to avoid and would likely not like to go onto HD -hyponatremai+; likely from CHF -strict I/O, replete to keep K>4, Mg>2 -brewer+ -avoid nephrotoxic agents; hold off ACEI/aldactone Heme- -anemia, stable -cont ASA -h/o PE, now with NSTEMI/CAD; IV heparin ; given borderline renal function, eventual bridge to PO NOAC/warfarin -cont allopurinol for gout -transfuse as indicated to maintain hg>8 given ACS/CAD/CMP Endo- Maintain BG<200, insulin protocol. Musculsk- pressure ulcer prophylaxis. oob to chair Wounds- none Nutrition- diabetic diet DVT prophylaxis: SCD, IV Heparin GI prophylaxis: none indicated Central Line: no Arterial Line: no Brewer Cathetor: yes palliative care eval reviewed; patient wants full code, but no desire for HD. currently on course fo conservative tx for CAD/NSTEMI/CMP. Watchful waiting/guarded status of WILMER/CKD Disposition: Improving, stable for tele transfer to hospitalist service Patient Clinical Status: guarded Code Status: full code Daniel Maria MD Reading Efficiency Course Director (Electronically Signed)
[2019-02-11] MEDS: hydrALAZINE TAB* 10 MG PO SCH ×2 (13:21→21:04)
[2019-02-11] MEDS ORDERED: Torsemide TAB 10 MG PO SCH (14:00)
[2019-02-11] MEDS ORDERED: Torsemide TAB 10 MG PO ONE (17:00)
[2019-02-11] MEDS: Insulin GLARGINE(*) 1 UNITS UNIT SUBCUT SCH (17:45)
[2019-02-11] MEDS ORDERED: Torsemide TAB* 20 MG PO ONE (17:54)
[2019-02-11] MEDS: Gabapentin CAP(*) 100 MG PO SCH (21:04)
[2019-02-11] MEDS: Morphine INJ* 2 MG/ML 1 ML SYRINGE (TWO MG - NEW SYRINGE VERSION) IV PRN (23:27)
[2019-02-12] MEDS: Heparin DRIP 25,000 UNITS(*) 25,000 UNITS/500 ML BAG IV SCH ×2 (00:21→22:52)
[2019-02-12] MEDS: LORazepam INJ* 2 MG/ML 1 ML VIAL IV PUSH PRN ×5 (01:43→22:24)
[2019-02-12] MEDS: Ondansetron ODT TAB* 4 MG SL PRN (01:49)
[2019-02-12] MEDS: Morphine INJ* 2 MG/ML 1 ML SYRINGE (TWO MG - NEW SYRINGE VERSION) IV PRN (06:16)
[2019-02-12 06:31] LABS: BUN/Creatinine Ratio 34.6 (8-20); Calcium 9.5 mg/dL (8.6-10.3); EGFR African American 19.2 (>60); EGFR Non-African American 15.9 (>60); Magnesium 2.3 mg/dL (1.9-2.7)
--- NOTE | 2019-02-12 07:18 | PN ---
Subjective Date of Service: 02/12/19 Interval History: Mitra was hypoxic this morning on 12L O2 to low 80s and was placed on vapotherm. When I came to see her at 7am, she was hypoxic to mid-80s on 25L at 50% fio2. She was not in distress or feeling short of breath. Her only complaint was "I don't wnat to and I'm not ready." She denied chest pain or shortness of breath, even when we lied her down flat to boost her up in the bed. Family History: Unchanged from Admission Social History: Unchanged from Admission Past Medical History: Unchanged from Admission Objective Active Medications: Acetaminophen (Tylenol Tab*) 650 mg PO Q6H PRN PRN Reason: FEVER/PAIN Last Admin: 02/11/19 18:04 Dose: 650 mg Albuterol (Ventolin 2.5 Mg/3 Ml Neb.Lary*) 2.5 mg INH Q2H PRN PRN Reason: SOB/WHEEZING Allopurinol (Zyloprim Tab*) 100 mg PO DAILY [facility] Last Admin: 02/11/19 08:41 Dose: 100 mg Amiodarone HCl (Cordarone Tab*) 400 mg PO BID [facility] Last Admin: 02/11/19 21:04 Dose: 400 mg Aspirin (Aspirin Ec Tab*) 81 mg PO DAILY [facility] Last Admin: 02/11/19 08:43 Dose: 81 mg Carvedilol (Coreg Tab*) 3.125 mg PO BID [facility] Last Admin: 02/11/19 21:05 Dose: 3.125 mg Cholecalciferol (Vitamin D Tab*) 1,000 units PO DAILY [facility] Last Admin: 02/11/19 08:41 Dose: 1,000 units Dextrose (D50w Syringe 50 Ml*) 12.5 gm IV PUSH .FOR FS < 60 - SS PRN PRN Reason: FS < 60 Docusate Sodium (Colace Cap*) 100 mg PO BID [facility] Last Admin: 02/11/19 21:04 Dose: 100 mg Gabapentin (Neurontin Cap(*)) 200 mg PO BEDTIME [facility] Last Admin: 02/11/19 21:04 Dose: 200 mg Heparin Sodium (Porcine) (Heparin Vial(*)) 0 units IV .PER PROTOCOL [facility] Last Admin: 02/09/19 14:14 Dose: 4,000 units Hydralazine HCl (Apresoline Tab*) 10 mg PO TID [facility] Last Admin: 02/11/19 21:04 Dose: 10 mg Heparin Sodium/Dextrose (Heparin Drip 25,000 Units(*)) 25,000 units in 500 mls @ 0 mls/hr IV PER RATE [facility]; Protocol Last Admin: 02/12/19 00:21 Dose: 24 mls/hr Insulin Glargine (Lantus(*)) 10 units SUBCUT QPM [facility] Last Admin: 02/11/19 17:45 Dose: 10 units Insulin Human Lispro (Humalog*) 0 units SUBCUT AC [facility]; Protocol Last Admin: 02/11/19 17:46 Dose: 3 units Isosorbide Mononitrate (Imdur Er Tab*) 30 mg PO DAILY [facility] Last Admin: 02/11/19 08:42 Dose: 30 mg Lorazepam (Ativan Inj*) 0.5 mg IV PUSH Q4H PRN PRN Reason: ANXIETY Last Admin: 02/12/19 06:19 Dose: 0.5 mg Magnesium Oxide (Magox 400 Tab*) 400 mg PO DAILY [facility] Last Admin: 02/11/19 08:41 Dose: 400 mg Miscellaneous (Ativan Pyxis Meraz) 1 ea N/A .ATIVAN IV MERAZ PRN PRN Reason: PYXIS MERAZ Morphine Sulfate (Morphine Inj (Syringe))*) 1 mg IV Q5H PRN PRN Reason: DISCOMFORT Last Admin: 02/12/19 06:16 Dose: 1 mg Nystatin (Nystatin Oint*) 1 applic TOPICAL BID [facility] Last Admin: 02/11/19 21:18 Dose: 1 applic Ondansetron HCl (Zofran Odt Tab*) 4 mg SL Q6H PRN PRN Reason: NAUSEA/VOMITING Last Admin: 02/12/19 01:49 Dose: 4 mg Polyethylene Glycol/Electrolytes (Miralax*) 17 gm PO DAILY PRN PRN Reason: CONSTIPATION Last Admin: 02/03/19 01:04 Dose: 17 gm Senna (Senokot Tab*) 2 tab PO BEDTIME PRN PRN Reason: CONSTIPATION Last Admin: 02/09/19 20:18 Dose: 2 tab Torsemide (Torsemide) 60 mg PO DAILY [facility] Last Admin: 02/11/19 13:21 Dose: 60 mg Vital Signs - 8 hr 02/11/19 02/11/19 02/12/19 23:27 23:34 00:00 Temperature 98.1 F Pulse Rate 56 Respiratory 26 23 Rate Blood Pressure (mmHg) O2 Sat by Pulse 93 Oximetry 02/12/19 02/12/19 02/12/19 00:01 00:02 01:00 Temperature Pulse Rate 57 57 55 Respiratory 24 23 22 Rate Blood Pressure 109/57 (mmHg) O2 Sat by Pulse 93 94 95 Oximetry 02/12/19 02/12/19 02/12/19 01:43 02:00 02:01 Temperature Pulse Rate 59 56 Respiratory 22 21 25 Rate Blood Pressure 115/72 (mmHg) O2 Sat by Pulse 93 93 Oximetry 02/12/19 02/12/19 02/12/19 03:00 03:01 03:43 Temperature 98.6 F Pulse Rate 55 55 Respiratory 20 21 Rate Blood Pressure 106/52 (mmHg) O2 Sat by Pulse 96 95 Oximetry 02/12/19 02/12/19 02/12/19 04:00 04:01 05:00 Temperature Pulse Rate 60 62 55 Respiratory 27 22 22 Rate Blood Pressure 117/59 (mmHg) O2 Sat by Pulse 88 88 94 Oximetry 02/12/19 02/12/19 02/12/19 05:01 05:59 06:00 Temperature Pulse Rate 57 60 Respiratory 21 22 21 Rate Blood Pressure 119/62 (mmHg) O2 Sat by Pulse 95 94 Oximetry 02/12/19 02/12/19 06:16 06:19 Temperature Pulse Rate Respiratory 24 24 Rate Blood Pressure (mmHg) O2 Sat by Pulse Oximetry Oxygen Devices in Use Now: High Flow Nasal Cannula, Other Appearance: alert, resting comfortably in no distress, nontoxic Eyes: No Scleral Icterus Neck: - - unable to appreciate JVP, but she is sitting at 90 degrees Respiratory: Symmetrical Chest Expansion and Respiratory Effort, - - decreased breath sounds senior care up both lung [place] Cardiovascular: RRR, No Edema Abdominal: NL Sounds; No Tenderness; No Distention, - - obese Lymphatic: No Cervical Adenopathy Extremities: - - R AKA, L great toe amp Skin: No Rash or Ulcers Neurological: Alert and Oriented x 3 Result Diagrams: 02/12/19 05:55 02/12/19 05:59 Additional Lab and Data: Laboratory Results - last 24 hr 02/06/19 02/06/19 02/06/19 07:48 11:58 12:25 Sodium 133 L Potassium 3.7 Chloride 89 L Carbon Dioxide 37 H Anion Gap 7 BUN 79 H Creatinine 2.43 H Est GFR ( Amer) 23.2 Est GFR (Non-Af Amer) 19.2 BUN/Creatinine Ratio 32.5 H Glucose 220 H POC Glucose (mg/dL) 133 H 224 H Calcium 9.8 Magnesium 2.5 02/06/19 02/06/19 17:20 20:32 Sodium Potassium Chloride Carbon Dioxide Anion Gap BUN Creatinine Est GFR ( Amer) Est GFR (Non-Af Amer) BUN/Creatinine Ratio Glucose POC Glucose (mg/dL) 159 H 129 H Calcium Magnesium Microbiology and Other Data: Microbiology 02/03/19 21:50 Urine Urine Culture - Final No Growth (<1,000 CFU/mL) 02/01/19 22:38 Urine Urine Culture - Final No Growth (<1,000 CFU/mL) 02/01/19 19:19 Nasal Nasal Screen MRSA (PCR) - Final Mrsa Not Detected Diagnostic Imaging: Echo: EF in 20% range, multiple wall motion abnormalities, moderate MR EKG Data: NSR, LBBB Assess/Plan/Problems-Billing Assessment: 78 year old woman with PVD, CKDIV (GFR 20), type 2 diabetes, chronic systolic heart failure who presented to the ED on 02/01 with one month of shortness of breath and was found to have an NSTEMI and acute on chronic systolic heart failure. A LHC has been deferred due to her refusal to consider HD and the possibility of contrast nephropathy - Patient Problems (1) Acute respiratory failure with hypoxia Current Visit: Yes Status: Acute Code(s): J96.01 - ACUTE RESPIRATORY FAILURE WITH HYPOXIA SNOMED Code(s): 66165279 Comment: now acutely decompensated this morning; up to 100% FiO2 at this time poor respiratory mechanics (also occasionally getting morphine/ativan); encourage sitting upright and deep breaths she has been diuresing but is barely negative for this hospitalization--needs more aggressive diuresis and will increase torsemide to BID today stat CXR--on exam she has b/l effusions; may need thoracentesis therapeutically anticoagulated for h/o PE, so doubt embolism (2) Acute on chronic systolic (congestive) heart failure Current Visit: Yes Status: Acute Code(s): I50.23 - ACUTE ON CHRONIC SYSTOLIC (CONGESTIVE) HEART FAILURE SNOMED Code(s): 313024696 Comment: suspecting ischemic etiology and reason for decompensation, but ischemic eval has been unable to be performed continue coreg, imdur/hydral. intolerant to statins, continue asa. not on CHIOMA due to tessa (3) Non Q wave myocardial infarction Current Visit: Yes Status: Acute Priority: High Code(s): I21.4 - NON-ST ELEVATION (NSTEMI) MYOCARDIAL INFARCTION SNOMED Code(s): 943676510 Comment: troponin peak 3.43 cardiology following--LHC deferred due to risk of HD continue medical management with asa, bb (still on heparin for h/o PE) (4) DM2 (diabetes mellitus, type 2) Current Visit: Yes Status: Chronic Priority: Medium Comment: Continue glargine (10U qpm), and lispro SS (5) [id number] kidney injury Current Visit: No Status: Acute Priority: High Code(s): N17.9 - ACUTE KIDNEY FAILURE, UNSPECIFIED; N18.9 - CHRONIC KIDNEY DISEASE, UNSPECIFIED SNOMED Code(s): 884887729 Comment: Creatinine back to baseline (6) CKD (chronic kidney disease) Current Visit: No Status: Chronic Priority: Medium Code(s): N18.9 - CHRONIC KIDNEY DISEASE, UNSPECIFIED SNOMED Code(s): 532624458 Comment: Continue to monitor creatinine with diuresis above and avoidance of nephrotoxins (7) HTN (hypertension) Current Visit: No Status: Chronic Priority: Medium Code(s): I10 - ESSENTIAL (PRIMARY) HYPERTENSION SNOMED Code(s): 50532650 Comment: bp acceptable (8) History of pulmonary embolism Current Visit: No Status: Chronic Priority: Medium Code(s): Z86.711 - PERSONAL HISTORY OF PULMONARY EMBOLISM SNOMED Code(s): 414552663 Comment: continue heparin given possibility of procedure ie. thoracentesis Status and Disposition: requiring ICU level of care for acute hypoxia requiring vapotherm
[2019-02-12 07:37] LABS: Hematocrit 27 % (35-47); Hemoglobin 9.1 g/dL (12.0-16.0); Mean Corpuscular HGB Conc 34 g/dL (31-36); Mean Corpuscular Hemoglobin 28 pg (27-31); Mean Corpuscular Volume 82 fL (80-97); Mean Platelet Volume 8.2 fL (7.4-10.4); Platelet Count 234 10^3/uL (150-450); Red Blood Count 3.31 10^6 /uL (3.70-4.87); Red Cell Distribution Width 16 % (10-15); White Blood Count 6.4 10^3/uL (3.5-10.8)
[2019-02-12] MEDS: Carvedilol TAB* 3.125 MG PO SCH ×2 (08:08→20:50)
[2019-02-12] MEDS: Torsemide TAB 10 MG PO SCH ×2 (08:22→20:51)
[2019-02-12] MEDS: Magnesium Oxide TAB* 400 MG PO SCH (08:22)
[2019-02-12] MEDS: hydrALAZINE TAB* 10 MG PO SCH ×3 (08:23→20:55)
[2019-02-12] MEDS: Amiodarone TAB* 400 MG PO SCH (08:23)
[2019-02-12] MEDS: Isosorbide Mononitrate ER TAB* 30 MG PO SCH (08:23)
[2019-02-12] MEDS: Allopurinol TAB* 100 MG PO SCH (08:23)
[2019-02-12] MEDS: Aspirin EC TAB* 81 MG TAB.EC PO SCH (08:23)
[2019-02-12] MEDS: Nystatin OINT* 15 GM TOPICAL SCH ×2 (08:23→20:56)
[2019-02-12] MEDS: Docusate CAP* 100 MG PO SCH ×2 (08:23→20:55)
[2019-02-12] MEDS: Cholecalciferol TAB* 1000 UNITS PO SCH (08:23)
[2019-02-12] MEDS: Insulin LISPRO* 1 UNITS UNIT SUBCUT SCH ×3 (09:13→17:50)
--- NOTE | 2019-02-12 09:39 | PN ---
Progress Note - Progress Note Date of Service: 02/12/19 Note: Progress Note -- Critical Care 24 hour events -on increased fio2 on hiflow overnight, dropped o2 sats with movement -in bed, no distress, cough+, no sputum, on sob -afebrile Tele: NSR Vitals: Vital Signs Temp 97.4 F 02/12/19 07:55 Pulse 55 02/12/19 09:01 Resp 19 02/12/19 09:01 BP 115/52 02/12/19 09:01 Pulse Ox 99 02/12/19 09:01 Intake & Output 02/11/19 02/12/19 02/12/19 18:59 06:59 18:59 Intake Total 1516 648.7 Output Total 1495 1250 500 Balance 21 -601.3 -500 Weight 95 kg Intake: Medicated IV 77.7 heparin 77.7 Heparin 316 156 Oral 1200 415 Output: Urine 1250 Brewer 1495 500 Other: Date of Last Bowel 02/10/19 02/10/19 Movement O2/Vent: hiflow 100% 20lpm Infusions: IV heparin Current Medications: Acetaminophen (Tylenol Tab*) 650 mg PO Q6H PRN PRN Reason: FEVER/PAIN Last Admin: 02/11/19 18:04 Dose: 650 mg Albuterol (Ventolin 2.5 Mg/3 Ml Neb.Lary*) 2.5 mg INH Q2H PRN PRN Reason: SOB/WHEEZING Allopurinol (Zyloprim Tab*) 100 mg PO DAILY [facility] Last Admin: 02/12/19 08:23 Dose: 100 mg Amiodarone HCl (Cordarone Tab*) 400 mg PO BID [facility] Last Admin: 02/12/19 08:23 Dose: 400 mg Aspirin (Aspirin Ec Tab*) 81 mg PO DAILY [facility] Last Admin: 02/12/19 08:23 Dose: 81 mg Carvedilol (Coreg Tab*) 3.125 mg PO BID [facility] Last Admin: 02/12/19 08:08 Dose: Not Given Cholecalciferol (Vitamin D Tab*) 1,000 units PO DAILY [facility] Last Admin: 02/12/19 08:23 Dose: 1,000 units Dextrose (D50w Syringe 50 Ml*) 12.5 gm IV PUSH .FOR FS < 60 - SS PRN PRN Reason: FS < 60 Docusate Sodium (Colace Cap*) 100 mg PO BID [facility] Last Admin: 02/12/19 08:23 Dose: 100 mg Gabapentin (Neurontin Cap(*)) 200 mg PO BEDTIME [facility] Last Admin: 02/11/19 21:04 Dose: 200 mg Heparin Sodium (Porcine) (Heparin Vial(*)) 0 units IV .PER PROTOCOL [facility] Last Admin: 02/09/19 14:14 Dose: 4,000 units Hydralazine HCl (Apresoline Tab*) 10 mg PO TID [facility] Last Admin: 02/12/19 08:23 Dose: 10 mg Heparin Sodium/Dextrose (Heparin Drip 25,000 Units(*)) 25,000 units in 500 mls @ 0 mls/hr IV PER RATE [facility]; Protocol Last Admin: 02/12/19 00:21 Dose: 24 mls/hr Insulin Glargine (Lantus(*)) 10 units SUBCUT QPM [facility] Last Admin: 02/11/19 17:45 Dose: 10 units Insulin Human Lispro (Humalog*) 0 units SUBCUT AC [facility]; Protocol Last Admin: 02/12/19 09:13 Dose: Not Given Isosorbide Mononitrate (Imdur Er Tab*) 30 mg PO DAILY [facility] Last Admin: 02/12/19 08:23 Dose: 30 mg Lorazepam (Ativan Inj*) 0.5 mg IV PUSH Q4H PRN PRN Reason: ANXIETY Last Admin: 02/12/19 06:19 Dose: 0.5 mg Magnesium Oxide (Magox 400 Tab*) 400 mg PO DAILY [facility] Last Admin: 02/12/19 08:22 Dose: 400 mg Miscellaneous (Ativan Pyxis Uriostegui) 1 ea N/A .ATIVAN IV URIOSTEGUI PRN PRN Reason: PYXIS URIOSTEGUI Morphine Sulfate (Morphine Inj (Syringe))*) 1 mg IV Q5H PRN PRN Reason: DISCOMFORT Last Admin: 02/12/19 06:16 Dose: 1 mg Nystatin (Nystatin Oint*) 1 applic TOPICAL BID [facility] Last Admin: 02/12/19 08:23 Dose: 1 applic Ondansetron HCl (Zofran Odt Tab*) 4 mg SL Q6H PRN PRN Reason: NAUSEA/VOMITING Last Admin: 02/12/19 01:49 Dose: 4 mg Polyethylene Glycol/Electrolytes (Miralax*) 17 gm PO DAILY PRN PRN Reason: CONSTIPATION Last Admin: 02/03/19 01:04 Dose: 17 gm Senna (Senokot Tab*) 2 tab PO BEDTIME PRN PRN Reason: CONSTIPATION Last Admin: 02/09/19 20:18 Dose: 2 tab Torsemide (Torsemide) 60 mg PO BID [facility] Last Admin: 02/12/19 08:22 Dose: 60 mg Physical Exam: Constitutional: awake, alert, no distress, no diaphoresis Head: normocephalic, atraumatic Eyes: no pallor, no icterus ENT: moist mucous membranes Neck: soft, supple, no jvd, no stridor CVS: normal rate, regular, no murmur Resp: bilateral air entry but diminished bilateral bases, no rhales, no wheeze, no rhonchi, no acc muscle use Abdomen/GI: soft, nontender, nondistended, BS+ Ext/Msk: warm, pulses+, no edema Skin: intact, warm Neuro: awake, alert, orientedx3, moving all extremities Labs: Laboratory Results - last 24 hr 02/11/19 02/11/19 02/11/19 12:05 16:58 20:14 WBC RBC Hgb Hct MCV MCH MCHC RDW Plt Count MPV APTT Sodium Potassium Chloride Carbon Dioxide Anion Gap BUN Creatinine Est GFR ( Amer) Est GFR (Non-Af Amer) BUN/Creatinine Ratio Glucose POC Glucose (mg/dL) 204 H 182 H 121 H Calcium Magnesium B-Natriuretic Peptide 02/12/19 02/12/19 02/12/19 05:55 05:55 05:59 WBC 6.4 RBC 3.31 L Hgb 9.1 L Hct 27 L MCV 82 MCH 28 MCHC 34 RDW 16 H Plt Count 234 MPV 8.2 APTT 58.7 H Sodium 124 L Potassium 4.0 Chloride 80 L Carbon Dioxide 35 H Anion Gap 9 BUN 99 H Creatinine 2.86 H Est GFR ( Amer) 19.2 Est GFR (Non-Af Amer) 15.9 BUN/Creatinine Ratio 34.6 H Glucose 133 H POC Glucose (mg/dL) Calcium 9.5 Magnesium 2.3 B-Natriuretic Peptide 02/12/19 02/12/19 05:59 07:22 WBC RBC Hgb Hct MCV MCH MCHC RDW Plt Count MPV APTT Sodium Potassium Chloride Carbon Dioxide Anion Gap BUN Creatinine Est GFR ( Amer) Est GFR (Non-Af Amer) BUN/Creatinine Ratio Glucose POC Glucose (mg/dL) 141 H Calcium Magnesium B-Natriuretic Peptide 607 H Imaging: cxr 02/08 - left effusion+, stable from prior film CT chest 02/06 - bilateral small effusions; left basal consolidation/atelectasis cxr 02/11 - pulm congestion+ cxr 02/12 - pulm congestion+, unchanged it apepars, bilateral effusions which dont appear very large; reviewed report also Assessment: 78y F w/pmhx of DM, PVD s/p Right AKA, HTN, h/o PE on Xarelto, Gout , Obesity, 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 She was initially treated outpatient prior to arrival with Antibiotics for suspected bronchitis. On admission she was noted to have elevated BNp and troponins, pulmonary edema on CXR consistent with findigns of NSTEMI and decompensated heart failure. SHe had renal insufficiency also noted. EKG demonstrated LBBB patter, NSR. Since admission she has recieved IV heparin, asa, IV diuretics for CHF/NSTEMI. TTE 02/02 showed new LV systolic dysfunction with LVEF 20-25% with multiple WMA, no severe valvular disease; Prior TTE with LVEF 40-45%. Overnight 02/07 she developed episodes of VT, then increasing respiratory distress. She was upgraded to ICU for NIV and initiation of Amiodarone for VT. She is noted to have increasing CR, but CXR demonstrates stable left effusion without worsening congestion. -Acute decompensated Systolic heart failure, new onset -NSTEMI -Ischemic Cardiomyopathy -NSVT -WILMER on CKD3/4 -PLeural effusions -acute hypoxic respiratory failure -acute pulmonary edema DM PVD, Right AKA h/o PE ; on xarelto Gout Plan: Neuro- -awake, alert, appropriate -Delirium prec; avoid BDZ CVS- -BP stable; HR NSR -EKG NSR with LBBB pattern; ventricular ectopy+ -warm ext noted -making urine ; IV diuretics changed to torsemide 60mg daily by cardiology -discussed with Dr Pappas, will give additiaional lasix 100mg and metolazone 5mg po x1 today -ASA for NSTEMI; suspect multivessel CAD given poor LV function and WMA on TTE -statin intolerance -IV heparin for PE and NSTEMI, until renal function improved -cardiac cath deferred at this time due to high risk of MELQUIADES and further WILMER, patient does not wish to go to HD; medical management for Ischemic CMP and NSTEMI/CAD -cont Coreg 3.125mg bid -cont imdur 30mg daily for preload reduction -cont amio po -NSR, no VT noted; cont amio po 400mg bid -hydralazine 10mg po tid -Maintain MAP>65 -check BNP today Resp- -on hiflow 100% 20lpm; will cont to wean down flow rate to attempt to go back to NC again -cont PO diuretics; augment additional PO today -CXR 02/12 with congestion+ and small effusions -US chest tomorrow to assess effusion status and if tap indicated. -Wean Fio2 to keep sat>92% -Bronchodilators PRN, Aspiration prec ID- afebrile. wbc normal. CXRs effusion/congestion. CT chest wtih left base consolidation 02/06 -no abx indicated GI- -diabetic diet po, low K -GI prophylaxis - not indicated Renal- -WILMER on CKD3/4; making urine; no acidosis; Cr plateued it seems -cont torsemide 60mg po daily; additional 100mg po lasix x1, metolazone 5mg po x1 today -patient would like to avoid and would likely not like to go onto HD -hyponatremai+; likely from CHF -strict I/O, replete to keep K>4, Mg>2 -brewer+ -avoid nephrotoxic agents; hold off ACEI/aldactone Heme- -anemia, stable -cont ASA -h/o PE, now with NSTEMI/CAD; IV heparin ; given borderline renal function, eventual bridge to PO NOAC/warfarin -cont allopurinol for gout -transfuse as indicated to maintain hg>8 given ACS/CAD/CMP Endo-Maintain BG<200, insulin protocol. Musculsk- pressure ulcer prophylaxis. oob to chair Wounds- none Nutrition- diabetic diet DVT prophylaxis: SCD, IV Heparin GI prophylaxis: none indicated Central Line: no Arterial Line: no Brewer Cathetor: yes palliative care eval reviewed; patient wants full code, but no desire for HD. currently on course fo conservative tx for CAD/NSTEMI/CMP. Watchful waiting/guarded status of WILMER/CKD Disposition: requires ICU for ongoing/fluctuating hypoxic resp failure req Hiflow, WILMER/CKD, pulmonary congestion Patient Clinical Status: guarded Code Status: full code Total CC time 35 min, not including procedures/teaching Daniel Maria MD [employer] (Electronically Signed)
--- NOTE | 2019-02-12 11:07 | PN ---
Subjective Date of Service: 02/12/19 Interval History: f/u systolic HF, TX, VT, LBBB remains with symptomatic volume overloaded with escalating diuretic doses and increased 02 requirement slightly negative i/0 yesterday Patient complains of dyspnea No CP Medications Active Medications: Acetaminophen (Tylenol Tab*) 650 mg PO Q6H PRN PRN Reason: FEVER/PAIN Last Admin: 02/11/19 18:04 Dose: 650 mg Albuterol (Ventolin 2.5 Mg/3 Ml Neb.Lary*) 2.5 mg INH Q2H PRN PRN Reason: SOB/WHEEZING Allopurinol (Zyloprim Tab*) 100 mg PO DAILY [facility] Last Admin: 02/12/19 08:23 Dose: 100 mg Amiodarone HCl (Cordarone Tab*) 200 mg PO DAILY [facility] Aspirin (Aspirin Ec Tab*) 81 mg PO DAILY [facility] Last Admin: 02/12/19 08:23 Dose: 81 mg Carvedilol (Coreg Tab*) 3.125 mg PO BID [facility] Last Admin: 02/12/19 08:08 Dose: Not Given Cholecalciferol (Vitamin D Tab*) 1,000 units PO DAILY [facility] Last Admin: 02/12/19 08:23 Dose: 1,000 units Dextrose (D50w Syringe 50 Ml*) 12.5 gm IV PUSH .FOR FS < 60 - SS PRN PRN Reason: FS < 60 Docusate Sodium (Colace Cap*) 100 mg PO BID [facility] Last Admin: 02/12/19 08:23 Dose: 100 mg Furosemide (Lasix Tab*) 100 mg PO ONCE ONE Stop: 02/12/19 15:01 Gabapentin (Neurontin Cap(*)) 200 mg PO BEDTIME [facility] Last Admin: 02/11/19 21:04 Dose: 200 mg Heparin Sodium (Porcine) (Heparin Vial(*)) 0 units IV .PER PROTOCOL [facility] Last Admin: 02/09/19 14:14 Dose: 4,000 units Hydralazine HCl (Apresoline Tab*) 10 mg PO TID [facility] Last Admin: 02/12/19 08:23 Dose: 10 mg Heparin Sodium/Dextrose (Heparin Drip 25,000 Units(*)) 25,000 units in 500 mls @ 0 mls/hr IV PER RATE [facility]; Protocol Last Admin: 02/12/19 00:21 Dose: 24 mls/hr Insulin Glargine (Lantus(*)) 10 units SUBCUT QPM [facility] Last Admin: 02/11/19 17:45 Dose: 10 units Insulin Human Lispro (Humalog*) 0 units SUBCUT AC [facility]; Protocol Last Admin: 02/12/19 09:13 Dose: Not Given Isosorbide Mononitrate (Imdur Er Tab*) 30 mg PO DAILY [facility] Last Admin: 02/12/19 08:23 Dose: 30 mg Lorazepam (Ativan Inj*) 0.5 mg IV PUSH Q4H PRN PRN Reason: ANXIETY Last Admin: 02/12/19 10:43 Dose: 0.5 mg Magnesium Oxide (Magox 400 Tab*) 400 mg PO DAILY [facility] Last Admin: 02/12/19 08:22 Dose: 400 mg Metolazone (Zaroxolyn Tab*) 5 mg PO ONCE ONE Stop: 02/12/19 14:31 Miscellaneous (Ativan Pyxis Meraz) 1 ea N/A .ATIVAN IV MERAZ PRN PRN Reason: PYXIS MERAZ Morphine Sulfate (Morphine Inj (Syringe))*) 1 mg IV Q5H PRN PRN Reason: DISCOMFORT Last Admin: 02/12/19 06:16 Dose: 1 mg Nystatin (Nystatin Oint*) 1 applic TOPICAL BID [facility] Last Admin: 02/12/19 08:23 Dose: 1 applic Ondansetron HCl (Zofran Odt Tab*) 4 mg SL Q6H PRN PRN Reason: NAUSEA/VOMITING Last Admin: 02/12/19 01:49 Dose: 4 mg Polyethylene Glycol/Electrolytes (Miralax*) 17 gm PO DAILY PRN PRN Reason: CONSTIPATION Last Admin: 02/03/19 01:04 Dose: 17 gm Senna (Senokot Tab*) 2 tab PO BEDTIME PRN PRN Reason: CONSTIPATION Last Admin: 02/09/19 20:18 Dose: 2 tab Torsemide (Torsemide) 60 mg PO BID [facility] Last Admin: 02/12/19 08:22 Dose: 60 mg Objective Vital Signs: Temp Pulse Resp BP Pulse Ox 97.4 F 58 24 116/63 96 02/12/19 07:55 02/12/19 10:01 02/12/19 10:43 02/12/19 10:01 02/12/19 10:01 Oxygen Devices in Use Now: High Flow Nasal Cannula, Other Appearance: not toxic appearing, able to answer questions mostly appropriately Ears/Nose/Mouth/Throat: Clear Oropharnyx Neck: - - uncertain jvp Respiratory: Symmetrical Chest Expansion and Respiratory Effort, - - bibasilar rales up to mid lung field R>L Cardiovascular: RRR, - - no significnat murmur Abdominal: - - soft, nontender Extremities: - - s/p r aka, adequately perfused Neurological: - Laboratory Results: 02/12/19 05:55 02/12/19 05:59 INR (Anticoag Therapy) 1.12 (0.82-1.09) H 02/09/19 05:10 APTT 58.7 seconds (26.0-38.0) H 02/12/19 05:55 Total Bilirubin 0.40 mg/dL (0.2-1.0) 02/08/19 05:30 AST 12 U/L (13-39) L 02/08/19 05:30 ALT 10 U/L (7-52) 02/08/19 05:30 Alkaline Phosphatase 123 U/L (34-104) H 02/08/19 05:30 B-Natriuretic Peptide 607 pg/mL (<=100) H 02/12/19 05:59 Total Protein 6.4 g/dL (6.4-8.9) 02/08/19 05:30 Albumin 3.3 g/dL (3.2-5.2) 02/08/19 05:30 Globulin 3.1 g/dL (2-4) 02/08/19 05:30 Albumin/Globulin Ratio 1.1 (1-3) 02/08/19 05:30 TSH 2.61 mcIU/mL (0.34-5.60) 02/08/19 05:30 02/01/19 02/01/19 02/01/19 16:44 20:27 23:12 Troponin I 3.43 H* 3.11 H* 2.85 H* 02/02/19 02/05/19 02/08/19 01:28 07:36 05:30 Troponin I 2.90 H* 1.63 H* 0.90 H* 02/08/19 02/08/19 08:12 10:47 Troponin I 0.84 H* 0.70 H* Diagnostic Imaging: Exam Date: 02/08/19 0700 IMPRESSION: SMALL LEFT PLEURAL EFFUSION WITH LEFT BASILAR CONSOLIDATION. Exam Date: 02/06/[address] CHEST W/O IMPRESSION: #. Interstitial pulmonary edema with associated LEFT larger than RIGHT small pleural effusions and proportional atelectasis. #. Cardiomegaly. Coronary artery calcifications. Small pericardial effusion. #. Solitary mildly enlarged mediastinal lymph node. Study Date: 02/02/2019 Summary: 1. Left ventricle: The cavity size is mildly dilated. Systolic function is severely reduced. The estimated ejection fraction is 20-25%. Severe diffuse hypokinesis with multiple regional wall motion abnormalities. Left ventricular diastolic function parameters are abnormal. 2. Left atrium: The atrium is moderately dilated. 3. Right atrium: The atrium is mildly dilated. 4. Mitral valve: There is moderate regurgitation. 5. Ascending aorta: The ascending aorta is mildly dilated. 6. Since the prior echocardiogram completed 04/19/14, pertinent changes are prior LVEF reported 40-45% and prior no mitral regurgitation noted. Exam Date: 02/11/19 CHEST AP OR PORT IMPRESSION: #. Mild pulmonary vascular congestion and interstitial edema with associated small pleural effusions and proportional atelectasis without significant change. rest only images 02/07 suggestive of moderate sized , severe intensity mid LAd infarct EKG Data: ekg 07/2018: NSR, LBBB ekg 02/08/2019: NSR, LBBB, QRS > 150 ms, NSVT Assessment/Plan 1. Systolic HF - currently decompensated 2. Advanced renal failure - Patient does not wish to be on dialysis. Will continue non-invasive cardiac evaluation and treatment 3. NSVT 4. LBBB 5. Elevated troponin - strongly suspect underlying obstructive CAD contributing to systolic HF. See rest MPI image interpretation as above 6. History of PE 7. DM 8. HTN 9. R AKA due to PVD/ulceration 01/2018 - Continue aspirin 81 mg po daily - anticoagulation as per primary service for PE history. - Statin intolerant - Continue coreg 3.125 mg po bid - Continue diuretics, changes today noted and agreed as above - Continue imdur 30 mg - Continue hydralazine 10 mg po tid with hold sbp < 90 mmhg - Not on AceI/ARB due to renal failure - Continue amiodarone, change to 200 mg po daily - Patients goal of care are somewhat contradicatory in this situation (i.e. wants CPR, not intubation, no dialysis). Needs Palliative medicine follow up. I think she would benefit from hospice. Discussed at length with patient, son Cole and daughter Alysha Thank you for allowing me to participate in the cardiovascular care of this patient. Please do not hesitate to contact me with questions or concerns.
[2019-02-12] MEDS ORDERED: Metolazone TAB* 5 MG PO ONE (14:30)
[2019-02-12] MEDS ORDERED: Furosemide TAB* 40 MG PO ONE (15:00)
[2019-02-12] MEDS: Acetaminophen TAB* 325 MG PO PRN (17:14)
[2019-02-12] MEDS: Insulin GLARGINE(*) 1 UNITS UNIT SUBCUT SCH (17:50)
--- NOTE | 2019-02-12 19:19 | PN ---
Progress Note - Progress Note Date of Service: 02/12/19 Note: called by night staff nurse due to trending Na+ from 134 to 124. on several diuretics. I will place torsemide on hold. free water restrictions. To call us if she develops respiratory distress will give PRN lasix. BMP in am and to readdress with primary team in am if metolazone dose need adjustment.
[2019-02-12] MEDS: Gabapentin CAP(*) 100 MG PO SCH (20:55)
[2019-02-13] MEDS: Acetaminophen TAB* 325 MG PO PRN ×2 (01:29→14:07)
[2019-02-13 04:47] LABS: Hematocrit 27 % (35-47); Hemoglobin 8.9 g/dL (12.0-16.0); Mean Corpuscular HGB Conc 33 g/dL (31-36); Mean Corpuscular Hemoglobin 27 pg (27-31); Mean Corpuscular Volume 81 fL (80-97); Mean Platelet Volume 7.6 fL (7.4-10.4); Platelet Count 215 10^3/uL (150-450); Red Blood Count 3.29 10^6 /uL (3.70-4.87); Red Cell Distribution Width 15 % (10-15); White Blood Count 6.2 10^3/uL (3.5-10.8)
[2019-02-13 05:03] LABS: BUN/Creatinine Ratio 33.1 (8-20); Calcium 9.3 mg/dL (8.6-10.3); EGFR African American 17.1 (>60); EGFR Non-African American 14.1 (>60); Magnesium 2.3 mg/dL (1.9-2.7); Potassium 3.7 mmol/L (3.5-5.0)
[2019-02-13] MEDS: LORazepam INJ* 2 MG/ML 1 ML VIAL IV PUSH PRN ×4 (05:47→20:26)
[2019-02-13] MEDS: Insulin LISPRO* 1 UNITS UNIT SUBCUT SCH ×3 (07:38→17:39)
--- NOTE | 2019-02-13 08:33 | PN ---
Subjective Date of Service: 02/13/19 Interval History: f/u refractory volume overload, ckd, systolic HF, DC, VT, LBBB remains with symptomatic volume overloaded with escalating diuretic doses and elevated 02 requirements i/o negative yesterday after thiazide and high dose loop but bun/cr worsening and na lower tele: sb/sr Medications Active Medications: Acetaminophen (Tylenol Tab*) 650 mg PO Q6H PRN PRN Reason: FEVER/PAIN Last Admin: 02/13/19 01:29 Dose: 650 mg Albuterol (Ventolin 2.5 Mg/3 Ml Neb.Lary*) 2.5 mg INH Q2H PRN PRN Reason: SOB/WHEEZING Allopurinol (Zyloprim Tab*) 100 mg PO DAILY [facility] Last Admin: 02/12/19 08:23 Dose: 100 mg Amiodarone HCl (Cordarone Tab*) 200 mg PO DAILY [facility] Aspirin (Aspirin Ec Tab*) 81 mg PO DAILY [facility] Last Admin: 02/12/19 08:23 Dose: 81 mg Carvedilol (Coreg Tab*) 3.125 mg PO BID [facility] Last Admin: 02/12/19 20:50 Dose: Not Given Cholecalciferol (Vitamin D Tab*) 1,000 units PO DAILY [facility] Last Admin: 02/12/19 08:23 Dose: 1,000 units Dextrose (D50w Syringe 50 Ml*) 12.5 gm IV PUSH .FOR FS < 60 - SS PRN PRN Reason: FS < 60 Docusate Sodium (Colace Cap*) 100 mg PO BID [facility] Last Admin: 02/12/19 20:55 Dose: 100 mg Gabapentin (Neurontin Cap(*)) 200 mg PO BEDTIME [facility] Last Admin: 02/12/19 20:55 Dose: 200 mg Heparin Sodium (Porcine) (Heparin Vial(*)) 0 units IV .PER PROTOCOL [facility] Last Admin: 02/09/19 14:14 Dose: 4,000 units Hydralazine HCl (Apresoline Tab*) 10 mg PO TID [facility] Last Admin: 02/12/19 20:55 Dose: 10 mg Heparin Sodium/Dextrose (Heparin Drip 25,000 Units(*)) 25,000 units in 500 mls @ 0 mls/hr IV PER RATE [facility]; Protocol Last Admin: 02/12/19 22:52 Dose: 24 mls/hr Insulin Glargine (Lantus(*)) 10 units SUBCUT QPM [facility] Last Admin: 02/12/19 17:50 Dose: 10 units Insulin Human Lispro (Humalog*) 0 units SUBCUT AC [facility]; Protocol Last Admin: 02/13/19 07:38 Dose: Not Given Isosorbide Mononitrate (Imdur Er Tab*) 30 mg PO DAILY [facility] Last Admin: 02/12/19 08:23 Dose: 30 mg Lorazepam (Ativan Inj*) 0.5 mg IV PUSH Q4H PRN PRN Reason: ANXIETY Last Admin: 02/13/19 05:47 Dose: 0.5 mg Magnesium Oxide (Magox 400 Tab*) 400 mg PO DAILY [facility] Last Admin: 02/12/19 08:22 Dose: 400 mg Miscellaneous (Ativan Pyxis Meraz) 1 ea N/A .ATIVAN IV MERAZ PRN PRN Reason: PYXIS MERAZ Morphine Sulfate (Morphine Inj (Syringe))*) 1 mg IV Q5H PRN PRN Reason: DISCOMFORT Last Admin: 02/12/19 06:16 Dose: 1 mg Nystatin (Nystatin Oint*) 1 applic TOPICAL BID [facility] Last Admin: 02/12/19 20:56 Dose: Not Given Ondansetron HCl (Zofran Odt Tab*) 4 mg SL Q6H PRN PRN Reason: NAUSEA/VOMITING Last Admin: 02/12/19 01:49 Dose: 4 mg Polyethylene Glycol/Electrolytes (Miralax*) 17 gm PO DAILY PRN PRN Reason: CONSTIPATION Last Admin: 02/03/19 01:04 Dose: 17 gm Senna (Senokot Tab*) 2 tab PO BEDTIME PRN PRN Reason: CONSTIPATION Last Admin: 02/09/19 20:18 Dose: 2 tab Torsemide (Torsemide) 60 mg PO BID [facility] Last Admin: 02/12/19 20:51 Dose: Not Given Objective Vital Signs: Temp Pulse Resp BP Pulse Ox 97.3 F 56 17 106/52 98 02/13/19 04:00 02/13/19 07:01 02/13/19 07:01 02/13/19 07:01 02/13/19 07:01 Oxygen Devices in Use Now: High Flow Nasal Cannula Appearance: not toxic appearing, able to answer questions mostly appropriately Ears/Nose/Mouth/Throat: Clear Oropharnyx Neck: - - uncertain jvp Respiratory: Symmetrical Chest Expansion and Respiratory Effort, - - bibasilar rales R>L Cardiovascular: RRR, - - no significnat murmur Abdominal: - - soft, nontender Extremities: - - s/p r aka, adequately perfused Neurological: - Laboratory Results: 02/13/19 04:40 02/13/19 04:40 INR (Anticoag Therapy) 1.12 (0.82-1.09) H 02/09/19 05:10 APTT 57.1 seconds (26.0-38.0) H 02/13/19 04:40 Total Bilirubin 0.40 mg/dL (0.2-1.0) 02/08/19 05:30 AST 12 U/L (13-39) L 02/08/19 05:30 ALT 10 U/L (7-52) 02/08/19 05:30 Alkaline Phosphatase 123 U/L (34-104) H 02/08/19 05:30 B-Natriuretic Peptide 607 pg/mL (<=100) H 02/12/19 05:59 Total Protein 6.4 g/dL (6.4-8.9) 02/08/19 05:30 Albumin 3.3 g/dL (3.2-5.2) 02/08/19 05:30 Globulin 3.1 g/dL (2-4) 02/08/19 05:30 Albumin/Globulin Ratio 1.1 (1-3) 02/08/19 05:30 TSH 2.61 mcIU/mL (0.34-5.60) 02/08/19 05:30 02/01/19 02/01/19 02/01/19 16:44 20:27 23:12 Troponin I 3.43 H* 3.11 H* 2.85 H* 02/02/19 02/05/19 02/08/19 01:28 07:36 05:30 Troponin I 2.90 H* 1.63 H* 0.90 H* 02/08/19 02/08/19 08:12 10:47 Troponin I 0.84 H* 0.70 H* Diagnostic Imaging: Exam Date: 02/08/19 0700 IMPRESSION: SMALL LEFT PLEURAL EFFUSION WITH LEFT BASILAR CONSOLIDATION. Exam Date: 02/06/[address] CHEST W/O IMPRESSION: #. Interstitial pulmonary edema with associated LEFT larger than RIGHT small pleural effusions and proportional atelectasis. #. Cardiomegaly. Coronary artery calcifications. Small pericardial effusion. #. Solitary mildly enlarged mediastinal lymph node. Study Date: 02/02/2019 Summary: 1. Left ventricle: The cavity size is mildly dilated. Systolic function is severely reduced. The estimated ejection fraction is 20-25%. Severe diffuse hypokinesis with multiple regional wall motion abnormalities. Left ventricular diastolic function parameters are abnormal. 2. Left atrium: The atrium is moderately dilated. 3. Right atrium: The atrium is mildly dilated. 4. Mitral valve: There is moderate regurgitation. 5. Ascending aorta: The ascending aorta is mildly dilated. 6. Since the prior echocardiogram completed 04/19/14, pertinent changes are prior LVEF reported 40-45% and prior no mitral regurgitation noted. Exam Date: 02/11/19 CHEST AP OR PORT IMPRESSION: #. Mild pulmonary vascular congestion and interstitial edema with associated small pleural effusions and proportional atelectasis without significant change. Exam Date: 02/12/19 CHEST AP OR PORT IMPRESSION: #. No significant interval change in pulmonary edema with associated LEFT larger than RIGHT pleural effusions and proportional basilar atelectasis. rest only images 02/07 suggestive of moderate sized , severe intensity mid LAd infarct EKG Data: ekg 07/2018: NSR, LBBB ekg 02/08/2019: NSR, LBBB, QRS > 150 ms, NSVT Assessment/Plan 1. Systolic HF - currently decompensated 2. Advanced renal failure - Patient does not wish to be on dialysis. Will continue non-invasive cardiac evaluation and treatment 3. NSVT 4. LBBB 5. Elevated troponin - strongly suspect underlying obstructive CAD contributing to systolic HF. See rest MPI image interpretation as above 6. History of PE 7. DM 8. HTN 9. R AKA due to PVD/ulceration 01/2018 - Continue aspirin 81 mg po daily - anticoagulation as per primary service for PE history. - Statin intolerant - Continue coreg 3.125 mg po bid - Continue imdur 30 mg - Continue hydralazine 10 mg po tid with hold sbp < 90 mmhg - Not on AceI/ARB due to renal failure - Continue amiodarone, change to 200 mg po daily - Continue diuresis as tolerated - Patients goal of care are somewhat contradicatory in this situation (i.e. wants CPR, not intubation, no dialysis). Needs Palliative medicine follow up. Without dialysis, I think she would benefit from hospice. Thank you for allowing me to participate in the cardiovascular care of this patient. Please do not hesitate to contact me with questions or concerns.
[2019-02-13] MEDS: Isosorbide Mononitrate ER TAB* 30 MG PO SCH (09:08)
[2019-02-13] MEDS: Carvedilol TAB* 3.125 MG PO SCH ×2 (09:08→20:35)
[2019-02-13] MEDS: Magnesium Oxide TAB* 400 MG PO SCH (09:09)
[2019-02-13] MEDS: Allopurinol TAB* 100 MG PO SCH (09:09)
[2019-02-13] MEDS: Cholecalciferol TAB* 1000 UNITS PO SCH (09:09)
[2019-02-13] MEDS: Amiodarone TAB* 200 MG PO SCH (09:09)
[2019-02-13] MEDS: hydrALAZINE TAB* 10 MG PO SCH ×3 (09:09→20:35)
[2019-02-13] MEDS: Docusate CAP* 100 MG PO SCH ×2 (09:09→20:35)
[2019-02-13] MEDS: Aspirin EC TAB* 81 MG TAB.EC PO SCH (09:09)
[2019-02-13] MEDS: Nystatin OINT* 15 GM TOPICAL SCH ×2 (09:29→20:36)
[2019-02-13] MEDS: Torsemide TAB 10 MG PO SCH ×2 (09:31→20:35)
--- NOTE | 2019-02-13 16:33 | PN ---
Date of Service: 02/13/19 Critical Care Services: Patient appears comfortable, and has no new complaints this AM Vital Signs: Temp Pulse Resp BP SpO2 FiO2 96.8 F 66 22 114/56 95 21 Physical Exam: Gen:Alert, oriented HEENT: No facial asymmetry Lungs: Coarse rhonchi both lungs Cardiac: No murmurs or rubs Extremities: Right AK amputation. No cyanosis on the eft. Fluid Balance (Past 24 Hours): 02/12/19 02/13/19 06:59 06:59 Intake Total 2164.7 1611 Output Total 2745 3000 Balance -580.3 -1389 Weight 209 lb 7.026 oz 212 lb 15.465 oz Intake: Medicated IV 77.7 253 heparin 77.7 253 Heparin 472 290 Oral 1615 1068 Output: Urine 1250 Cheney 1495 3000 Other: Date of Last Bowel 02/10/19 Movement Labs: 02/13/19 02/13/19 02/13/19 04:40 04:40 07:34 WBC 6.2 RBC 3.29 L Hgb 8.9 L Hct 27 L MCV 81 MCH 27 MCHC 33 RDW 15 Plt Count 215 APTT Sodium 122 Potassium 3.7 Chloride 77 L Carbon Dioxide 36 H Anion Gap 9 BUN 105 Creatinine 3.17 Est GFR ( Amer) 17.1 Est GFR (Non-Af Amer) 14.1 Glucose 123 H POC Glucose (mg/dL) 122 H Calcium 9.3 Magnesium 2.3 Studies: ECHOI chest: Moderate-sized bilateral pleural effusions. Nutrition: Oral diet 0 -ntake good. Impression: 1. Progressive WILMER, presumably from low cardiac output 2. Hyponatremia from diuresis plus nonosmotic ADH release Plan: Continue present management and monitor serum sodium. Patient is a candidate for hospicare. Cardiology service is actively following. Critical Care Time: 40 minutes
[2019-02-13] MEDS: Insulin GLARGINE(*) 1 UNITS UNIT SUBCUT SCH (17:40)
[2019-02-13] MEDS: Heparin DRIP 25,000 UNITS(*) 25,000 UNITS/500 ML BAG IV SCH (19:07)
[2019-02-13] MEDS: Gabapentin CAP(*) 100 MG PO SCH (20:35)
[2019-02-13] MEDS: Senna TAB PO PRN (20:43)
[2019-02-14] MEDS: Acetaminophen TAB* 325 MG PO PRN ×3 (00:32→19:02)
[2019-02-14] MEDS: Ondansetron INJ* 2 MG/ML VIAL IV PRN ×2 (02:22→19:01)
[2019-02-14] MEDS: LORazepam INJ* 2 MG/ML 1 ML VIAL IV PUSH PRN ×3 (03:08→19:01)
[2019-02-14 06:05] LABS: Hematocrit 27 % (35-47); Hemoglobin 9.2 g/dL (12.0-16.0); Mean Corpuscular HGB Conc 34 g/dL (31-36); Mean Corpuscular Hemoglobin 27 pg (27-31); Mean Corpuscular Volume 81 fL (80-97); Mean Platelet Volume 7.8 fL (7.4-10.4); Platelet Count 229 10^3/uL (150-450); Red Blood Count 3.37 10^6 /uL (3.70-4.87); Red Cell Distribution Width 16 % (10-15); White Blood Count 6.5 10^3/uL (3.5-10.8)
[2019-02-14 06:24] LABS: BUN/Creatinine Ratio 34.2 (8-20); Calcium 9.5 mg/dL (8.6-10.3); EGFR African American 18.8 (>60); EGFR Non-African American 15.5 (>60); Potassium 3.5 mmol/L (3.5-5.0)
[2019-02-14] MEDS: Insulin LISPRO* 1 UNITS UNIT SUBCUT SCH ×3 (07:52→17:42)
[2019-02-14] MEDS: Torsemide TAB 10 MG PO SCH ×2 (07:59→20:55)
[2019-02-14] MEDS: Isosorbide Mononitrate ER TAB* 30 MG PO SCH (07:59)
[2019-02-14] MEDS: Amiodarone TAB* 200 MG PO SCH (08:00)
[2019-02-14] MEDS: Allopurinol TAB* 100 MG PO SCH (08:00)
[2019-02-14] MEDS: Cholecalciferol TAB* 1000 UNITS PO SCH (08:00)
[2019-02-14] MEDS: Aspirin EC TAB* 81 MG TAB.EC PO SCH (08:00)
[2019-02-14] MEDS: Carvedilol TAB* 3.125 MG PO SCH ×2 (08:00→20:56)
[2019-02-14] MEDS: Docusate CAP* 100 MG PO SCH ×2 (08:00→20:56)
[2019-02-14] MEDS: hydrALAZINE TAB* 10 MG PO SCH ×3 (08:00→20:56)
[2019-02-14] MEDS: Magnesium Oxide TAB* 400 MG PO SCH (08:01)
[2019-02-14] MEDS: Nystatin OINT* 15 GM TOPICAL SCH ×2 (08:01→20:56)
[2019-02-14] MEDS: Metolazone TAB* 5 MG PO SCH (09:13)
--- NOTE | 2019-02-14 17:25 | PN ---
Date of Service: 02/14/19 Critical Care Services: Uneventful evening. Creatinine down from 3.1 to 2.9 this AM!! Vital Signs: Temp Pulse Resp BP SpO2 FiO2 97.6 F 65 19 110/54 87 100 Physical Exam: Gen:Alert, oriented Lungs: Scattered rhonchi both lungs Extremities: 1+ edema on left (right AK amp) Fluid Balance (Past 24 Hours): 02/12/19 02/13/19 02/14/19 06:59 06:59 06:59 Intake Total 2164.7 1611 3639 Output Total 2745 3000 3790 Balance -580.3 -1389 -151 Weight 209 lb 7.026 oz 212 lb 15.465 oz 207 lb 14.334 oz Intake: Medicated IV 77.7 253 574 heparin 77.7 253 574 Heparin 472 290 485 Oral 1615 1068 2580 Output: Urine 1250 Cheney 1495 3000 3790 Other: Date of Last Bowel 02/10/19 02/10/19 Movement Labs: Laboratory Results - last 24 hr 02/13/19 02/14/19 02/14/19 21:24 05:44 05:44 WBC RBC Hgb Hct MCV MCH MCHC RDW Plt Count MPV APTT 62.8 H Sodium 122 L Potassium 3.5 Chloride 74 L Carbon Dioxide 38 H Anion Gap 10 BUN 100 Creatinine 2.92 Glucose 136 H POC Glucose (mg/dL) 242 H Calcium 9.5 02/14/19 02/14/19 02/14/19 05:44 07:15 12:02 WBC 6.5 RBC 3.37 L Hgb 9.2 L Hct 27 L MCV 81 MCH 27 MCHC 34 RDW 16 H Plt Count 229 MPV 7.8 APTT Sodium Potassium Chloride Carbon Dioxide Anion Gap BUN Creatinine Est GFR ( Amer) Est GFR (Non-Af Amer) BUN/Creatinine Ratio Glucose POC Glucose (mg/dL) 130 H 178 H Calcium Studies: None today Nutrition: Oral diet - intake good Impression: 1. Slight improvement in renal function - could this indicate an improvement in systolic function? 2. Is diuresing well on loop diuretic and metazolone. However, her water intake almost matches urine output, so she is hyponatrremic. Plan: Monitor renal function and continue diuresis. Critical Care Time: 30 minutes
[2019-02-14] MEDS: Insulin GLARGINE(*) 1 UNITS UNIT SUBCUT SCH (17:41)
--- NOTE | 2019-02-14 18:11 | CONSULT ---
Subjective Date of Service: 02/14/19 Interval History: Ms. Munoz is a 78 yo female with PMH significant for HTN, PVD, PE, constipation , GOUT, DM2, and obesity; who presented to the emergency room with complaints of shortness of breath, she was found to have a NSTEMI, acute systolic heart failure, acute respiratory failure, and acute on chronic kidney injury. She was noted to have a red and excoriated buttocks on admission according to the NS documentation. Patient seen and examined at bedside. Family History: Unchanged from Admission Social History: Unchanged from Admission Past Medical History: Unchanged from Admission Review of Systems - Measurements Intake and Output: Intake and Output Last 24 Hours 02/12/19 02/13/19 02/14/19 02/15/19 06:59 06:59 06:59 06:59 Intake Total 2164.7 1611 3639 1363 Output Total 2745 3000 3790 1395 Balance -580.3 -1389 -151 -32 Weight 209 lb 7.026 oz 212 lb 15.465 oz 207 lb 14.334 oz Intake: Medicated IV 77.7 253 574 563 heparin 77.7 253 574 563 Heparin 472 290 485 Oral 1615 1068 2580 800 Output: Urine 1250 Cheney 1495 3000 3790 1395 Other: Date of Last Bowel 02/10/19 02/10/19 02/14/19 Movement - Review of Systems Constitutional Symptoms: Negative: Fever, Other - Chills Endocrinology: Positive: Obesity, Diabetes Mellitus Objective Active Medications: Acetaminophen (Tylenol Tab*) 650 mg PO Q6H PRN Reason: FEVER/PAIN Albuterol (Ventolin 2.5 Mg/3 Ml Neb.Lary*) 2.5 mg INH Q2H PRN Reason: SOB/ WHEEZING Allopurinol (Zyloprim Tab*) 100 mg PO DAILY [facility] Amiodarone HCl (Cordarone Tab*) 200 mg PO DAILY [facility] Aspirin (Aspirin Ec Tab*) 81 mg PO DAILY [facility] Carvedilol (Coreg Tab*) 3.125 mg PO BID [facility] Cholecalciferol (Vitamin D Tab*) 1,000 units PO DAILY [facility] Dextrose (D50w Syringe 50 Ml*) 12.5 gm IV PUSH .FOR FS < 60 - SS PRN Reason: FS < 60 Docusate Sodium (Colace Cap*) 100 mg PO BID [facility] Gabapentin (Neurontin Cap(*)) 200 mg PO BEDTIME [facility] Heparin Sodium (Porcine) (Heparin Vial(*)) 0 units IV .PER PROTOCOL [facility] Hydralazine HCl (Apresoline Tab*) 10 mg PO TID [facility] Heparin Sodium/Dextrose (Heparin Drip 25,000 Units(*)) 25,000 units in 500 mls @ 0 mls/hr IV PER RATE [facility]; Protocol Insulin Glargine (Lantus(*)) 10 units SUBCUT QPM [facility] Insulin Human Lispro (Humalog*) 0 units SUBCUT AC [facility]; Protocol Isosorbide Mononitrate (Imdur Er Tab*) 30 mg PO DAILY [facility] Lorazepam (Ativan Inj*) 0.5 mg IV PUSH Q4H PRN Reason: ANXIETY Magnesium Oxide (Magox 400 Tab*) 400 mg PO DAILY [facility] Metolazone (Zaroxolyn Tab*) 5 mg PO DAILY@0830 [facility] Miscellaneous (Ativan Pyxis Uriostegui) 1 ea N/A .ATIVAN IV URIOSTEGUI PRN Reason: PYXIS URIOSTEGUI Morphine Sulfate (Morphine Inj (Syringe))*) 1 mg IV Q5H PRN Reason: DISCOMFORT Nystatin (Nystatin Oint*) 1 applic TOPICAL BID [facility] Ondansetron HCl (Zofran Odt Tab*) 4 mg SL Q6H PRN Reason: NAUSEA/VOMITING Ondansetron HCl (Zofran Inj*) 4 mg IV Q8H PRN Reason: NAUSEA Polyethylene Glycol/Electrolytes (Miralax*) 17 gm PO DAILY PRN Reason: CONSTIPATION Senna (Senokot Tab*) 2 tab PO BEDTIME PRN Reason: CONSTIPATION Torsemide (Torsemide) 60 mg PO BID [facility] Vital Signs 02/14/19 02/14/19 02/14/19 14:00 14:01 15:00 Temperature Pulse Rate 61 61 65 Respiratory 17 20 22 Rate Blood Pressure 115/59 (mmHg) O2 Sat by Pulse 94 95 85 Oximetry 02/14/19 02/14/19 02/14/19 15:01 15:23 16:00 Temperature 97.6 F Pulse Rate 65 Respiratory 26 24 19 Rate Blood Pressure 110/54 (mmHg) O2 Sat by Pulse 87 Oximetry Oxygen Devices in Use Now: High Flow Nasal Cannula Appearance: NAD, laying in bed Ears/Nose/Mouth/Throat: Mucous Membranes Moist Respiratory: Symmetrical Chest Expansion and Respiratory Effort Skin: - - See skin note below Neurological: Alert and Oriented x 3 Nutrition: Taking PO's Result Diagrams: 02/15/19 05:50 02/17/19 06:05 Additional Lab and Data: (Please note that the above labs from later dates pulled into the note when the document was edited prior to note being signed) Laboratory Tests 02/13/19 04:40 Sodium 122 L Potassium 3.7 Chloride 77 L Carbon Dioxide 36 H BUN 105 H Creatinine 3.17 H Glucose 123 H 02/13/19 04:40 WBC 6.2 Hgb 8.9 L Hct 27 L Plt Count 215 Skin Deviation Note - Skin Deviation Findings Buttocks - There are superficial open areas, with the largest on the right buttock measuring 5 cm x 3 cm x 0.1 cm and the small area on the left buttock measuring 1.1 cm x 1 cm x 0.1 cm. The wound base is pink granulation tissue, and the surrounding skin is intact. There is serosang drainage from the right buttock. Assessment/Plan: Ms. Munoz is a 78 yo female with PMH significant for HTN, PVD, PE, constipation , GOUT, DM2, and obesity; who presented to the emergency room with complaints of shortness of breath, she was found to have a NSTEMI, acute systolic heart failure, acute respiratory failure, and acute on chronic kidney injury. She was noted to have a red and excoriated buttocks on admission according to the NS documentation. 1. Superficial areas to the buttocks. Suspect this is secondary to a shearing injury. Recommend applying barrier cream (orange top) as needed. Frequent turning and repositioning. Use a for moving in bed, to decrease friction. Do not use a "straddle bug operator pad" and only a draw sheet on the bed. 2. DM2. HgA1C was 7.1 on this admission. Maintain good glycemic control to allow for wound healing. 3. Diet. Heart healthy diet. 4. Code Status. Full code status. 5. Disposition. Inpatient, disposition per primary medicine team. TIME SPENT: Time for this wound consultation was 20 minutes and 10 minutes was spent with the patient assessing, measuring, and photographing the wounds. Wound Problem/Plan Is Patient a Wound Clinic Patient: No Attending: Veronica Siddiqi
[2019-02-14] MEDS: Heparin DRIP 25,000 UNITS(*) 25,000 UNITS/500 ML BAG IV SCH (19:17)
[2019-02-14] MEDS: Gabapentin CAP(*) 100 MG PO SCH (20:56)
[2019-02-15] MEDS: Acetaminophen TAB* 325 MG PO PRN ×3 (00:57→17:13)
[2019-02-15] MEDS: Ondansetron ODT TAB* 4 MG SL PRN (02:11)
[2019-02-15] MEDS: Senna TAB PO PRN (03:21)
[2019-02-15] MEDS ORDERED: Bisacodyl SUPP* 10 MG SUPP PR ONE (06:07)
[2019-02-15 06:09] LABS: Hematocrit 27 % (35-47); Hemoglobin 9.3 g/dL (12.0-16.0); Mean Corpuscular HGB Conc 34 g/dL (31-36); Mean Corpuscular Hemoglobin 27 pg (27-31); Mean Corpuscular Volume 81 fL (80-97); Mean Platelet Volume 7.7 fL (7.4-10.4); Platelet Count 239 10^3/uL (150-450); Red Cell Distribution Width 15 % (10-15); White Blood Count 6.2 10^3/uL (3.5-10.8)
[2019-02-15 06:31] LABS: BUN/Creatinine Ratio 31.2 (8-20); Blood Urea Nitrogen 91 mg/dL (6-24); CO2 Carbon Dioxide 40 mmol/L (22-32); Calcium 9.4 mg/dL (8.6-10.3); Chloride 70 mmol/L (101-111); EGFR African American 18.8 (>60); EGFR Non-African American 15.5 (>60); Glucose 143 mg/dL (70-100)
[2019-02-15 06:40] LABS: Anion Gap 9 mmol/L (2-11); Sodium 119 mmol/L (135-145)
[2019-02-15] MEDS: Insulin LISPRO* 1 UNITS UNIT SUBCUT SCH ×3 (07:47→17:11)
[2019-02-15] MEDS: Carvedilol TAB* 3.125 MG PO SCH ×2 (08:03→20:30)
[2019-02-15] MEDS: Torsemide TAB 10 MG PO SCH (08:03)
[2019-02-15] MEDS: Isosorbide Mononitrate ER TAB* 30 MG PO SCH (08:04)
[2019-02-15] MEDS: Cholecalciferol TAB* 1000 UNITS PO SCH (08:04)
[2019-02-15] MEDS: Aspirin EC TAB* 81 MG TAB.EC PO SCH (08:05)
[2019-02-15] MEDS: Metolazone TAB* 5 MG PO SCH (08:05)
[2019-02-15] MEDS: Docusate CAP* 100 MG PO SCH ×2 (08:05→20:30)
[2019-02-15] MEDS: Magnesium Oxide TAB* 400 MG PO SCH (08:06)
[2019-02-15] MEDS: hydrALAZINE TAB* 10 MG PO SCH ×3 (08:06→20:29)
[2019-02-15] MEDS: Amiodarone TAB* 200 MG PO SCH (08:06)
[2019-02-15] MEDS: Allopurinol TAB* 100 MG PO SCH (08:31)
[2019-02-15] MEDS: Nystatin OINT* 15 GM TOPICAL SCH ×2 (09:53→21:15)
[2019-02-15] MEDS: Ondansetron INJ* 2 MG/ML VIAL IV PRN (12:12)
--- NOTE | 2019-02-15 15:39 | PN ---
Date of Service: 02/15/19 Critical Care Services: Overall clinical condition is unchanged, although hyponatremia has progressed - Sodium now at 119 mEq/L - patient is asymptomatic Vital Signs: Temp Pulse Resp BP SpO2 FiO2 97.1 F 59 14 107/51 98 96 Physical Exam: Gen:Alert, oriented Lungs:Scattered rhonchi Extremities: Same as yesterday Skin: Perianal rash (desquamating) Fluid Balance (Past 24 Hours): 02/15/19 06:59 Intake Total 3122 Output Total 3385 Balance -263 Weight 202 lb 13.204 oz Intake: Medicated IV 563 heparin 563 Heparin 399 Oral 2160 Output: Urine 365 Cheney 3020 Other: Date of Last Bowel 02/14/19 Movement # Bowel Movements Estimated Stool Amount Labs: 02/14/19 02/14/19 02/15/19 16:58 20:15 05:50 WBC RBC Hgb Hct MCV MCH MCHC RDW Plt Count MPV APTT 138.6 H* Sodium Potassium Chloride Carbon Dioxide Anion Gap BUN Creatinine Est GFR ( Amer) Est GFR (Non-Af Amer) BUN/Creatinine Ratio Glucose POC Glucose (mg/dL) 194 H 162 H Calcium 02/15/19 02/15/19 02/15/19 05:50 05:50 07:40 WBC 6.2 RBC 3.40 L Hgb 9.3 L Hct 27 L MCV 81 MCH 27 MCHC 34 RDW 15 Plt Count 239 MPV 7.7 APTT Sodium 119 L* Potassium TNP Chloride 70 L Carbon Dioxide 40 H Anion Gap 9 BUN 91 H Creatinine 2.92 H Est GFR ( Amer) 18.8 Est GFR (Non-Af Amer) 15.5 BUN/Creatinine Ratio 31.2 H Glucose 143 H POC Glucose (mg/dL) 120 H Calcium 9.4 02/15/19 11:36 WBC RBC Hgb Hct MCV MCH MCHC RDW Plt Count MPV APTT Sodium Potassium Chloride Carbon Dioxide Anion Gap BUN Creatinine Est GFR ( Amer) Est GFR (Non-Af Amer) BUN/Creatinine Ratio Glucose POC Glucose (mg/dL) 125 H Calcium Studies: None today Nutrition: Oral diet Impression: 1. Renal function continues to be improved (creat = 2.9 today) 2. Progressive hyponatremia due to a combination of nonosmotic ADH release and water intake from thirst. Plan: 1. Fluid restriction to one liter daily. 2. Monitor renal function 3. Cut back on diuresis (D/C metolazone) Critical Care Time: 30 minutes
[2019-02-15] MEDS: Heparin DRIP 25,000 UNITS(*) 25,000 UNITS/500 ML BAG IV SCH (16:13)
[2019-02-15] MEDS: Insulin GLARGINE(*) 1 UNITS UNIT SUBCUT SCH (17:12)
[2019-02-15] MEDS: traZODone TAB* 100 MG PO SCH (20:29)
[2019-02-15] MEDS: Gabapentin CAP(*) 100 MG PO SCH (20:30)
[2019-02-16] MEDS: Acetaminophen TAB* 325 MG PO PRN ×2 (05:33→13:25)
[2019-02-16 06:12] LABS: BUN/Creatinine Ratio 30.9 (8-20); Blood Urea Nitrogen 88 mg/dL (6-24); Chloride 67 mmol/L (101-111); EGFR African American 19.3 (>60); Glucose 116 mg/dL (70-100)
[2019-02-16 06:17] LABS: Anion Gap 11 mmol/L (2-11); CO2 Carbon Dioxide 41 mmol/L (22-32); Sodium 119 mmol/L (135-145)
[2019-02-16] MEDS: Insulin LISPRO* 1 UNITS UNIT SUBCUT SCH ×3 (07:32→17:28)
[2019-02-16] MEDS: Isosorbide Mononitrate ER TAB* 30 MG PO SCH (09:57)
[2019-02-16] MEDS: Torsemide TAB 10 MG PO SCH ×2 (09:57→21:12)
[2019-02-16] MEDS: hydrALAZINE TAB* 10 MG PO SCH ×3 (09:58→21:12)
[2019-02-16] MEDS: Allopurinol TAB* 100 MG PO SCH (09:58)
[2019-02-16] MEDS: Aspirin EC TAB* 81 MG TAB.EC PO SCH (09:58)
[2019-02-16] MEDS: Docusate CAP* 100 MG PO SCH ×2 (09:58→21:10)
[2019-02-16] MEDS: Amiodarone TAB* 200 MG PO SCH (09:58)
[2019-02-16] MEDS: Cholecalciferol TAB* 1000 UNITS PO SCH (09:58)
[2019-02-16] MEDS: Magnesium Oxide TAB* 400 MG PO SCH (09:58)
[2019-02-16] MEDS: Carvedilol TAB* 3.125 MG PO SCH ×2 (09:58→21:12)
[2019-02-16] MEDS: Nystatin OINT* 15 GM TOPICAL SCH ×2 (10:01→23:21)
[2019-02-16] MEDS: Heparin DRIP 25,000 UNITS(*) 25,000 UNITS/500 ML BAG IV SCH (13:28)
--- NOTE | 2019-02-16 14:11 | PN ---
Date of Service: 02/16/19 Critical Care Services: Renal function slightly improved this AM (creat down to 2.8) but sodium continues at 119 mEq/L for reasons stated in prior notes. Has been asymptomatic. Fluid restriction started yesterday, and torsemide dose cut to 30 mg BID. Vital Signs: Temp Pulse Resp BP SpO2 FiO2 97.3 F 62 14 117/58 95 99 Physical Exam: Gen:Awake, oriented Lungs: Scaterred rhonchi. Few crackles on right. Extremities: Same as yesterday. Fluid Balance (Past 24 Hours): 02/14/19 02/15/19 02/16/19 06:59 06:59 06:59 Intake Total 3639 3122 783 Output Total 3790 3385 2740 Balance -151 263 -1956 Weight 207 lb 14.334 oz 202 lb 13.204 oz 198 lb 6.656 oz Intake: Medicated IV 574 563 303 heparin 574 563 303 Heparin 485 399 Oral 2580 2160 480 Output: Urine 365 370 Cheney 3790 3020 2370 Other: Date of Last Bowel 02/10/19 02/14/19 Movement # Bowel Movements 1 Estimated Stool Amount Large # Voids Labs: Laboratory Results - last 24 hr 02/15/19 02/15/19 02/15/19 14:50 16:58 22:15 APTT 52.8 H Sodium Potassium Chloride Carbon Dioxide Anion Gap BUN Creatinine Est GFR ( Amer) Est GFR (Non-Af Amer) BUN/Creatinine Ratio Glucose POC Glucose (mg/dL) 119 H 115 H Calcium 02/15/19 02/16/19 02/16/19 22:31 05:45 05:45 APTT 58.8 H 60.8 H Sodium 119 Potassium TNP Chloride 67 Carbon Dioxide 41 Anion Gap 11 BUN 88 Creatinine 2.85 Glucose 116 H POC Glucose (mg/dL) Calcium 10.0 02/16/19 02/16/19 02/16/19 06:36 07:13 11:02 APTT Sodium Potassium 3.2 Chloride Carbon Dioxide Anion Gap BUN Creatinine Est GFR ( Amer) Est GFR (Non-Af Amer) BUN/Creatinine Ratio Glucose POC Glucose (mg/dL) 108 H 140 H Calcium Studies: CXR: CHF, but improved Nutrition: Oral diet Impression: 1. NSTEMI with WILMER but renal function is improving. 2. Asymptomatric hyponatremia due to diuresis and nonosmotic ADH release 3. Hypokalemia in the face of WILMER - probably a reflection of hyochloremic metabolis alkalosis. Plan: 1. Continue fluid restriction and reduced diuretic dose. 2. Monitor renal function 3. Antiplatelet Rx with ASA and clopidogrel 4. Replenish potassium as chloride salt. 5. Check serum magnesium
[2019-02-16] MEDS: Insulin GLARGINE(*) 1 UNITS UNIT SUBCUT SCH (18:18)
[2019-02-16] MEDS: Gabapentin CAP(*) 100 MG PO SCH (21:12)
[2019-02-16] MEDS: Ondansetron INJ* 2 MG/ML VIAL IV PRN (21:13)
[2019-02-16] MEDS: traZODone TAB* 100 MG PO SCH (21:55)
[2019-02-17] MEDS: Morphine 4 MG/ML VIAL (1 ml) 4 MG/ML VIAL IV PRN (02:46)
[2019-02-17] MEDS ORDERED: LORazepam INJ* 2 MG/ML 1 ML VIAL IV PUSH PRN (03:48)
[2019-02-17] MEDS ORDERED: Lorazepam PYXIS KEY PRN (03:48)
[2019-02-17 06:58] LABS: BUN/Creatinine Ratio 28.7 (8-20); Calcium 9.8 mg/dL (8.6-10.3); EGFR African American 17.3 (>60); EGFR Non-African American 14.3 (>60)
--- NOTE | 2019-02-17 07:27 | PN ---
Hospitalist Progress Note got call that pt was continuing to hallucinate and eyes were nonresponsive. She is oriented to place, name but thinks it is 1999. her left eye is initially shut and complains about sunshine in her eye. adjusting shades to prevent this seems to resolve this issue. CN intact. states she wants CPR but unsure about intubation. Family was called by seasonal customer service associate last night and will be coming in to help talk about plan of care. bicarb up to 43. ABG ordered.
[2019-02-17] MEDS: Insulin LISPRO* 1 UNITS UNIT SUBCUT SCH ×3 (08:11→18:05)
[2019-02-17] MEDS: hydrALAZINE TAB* 10 MG PO SCH ×3 (09:17→21:06)
[2019-02-17] MEDS: Magnesium Oxide TAB* 400 MG PO SCH (09:17)
[2019-02-17] MEDS: Isosorbide Mononitrate ER TAB* 30 MG PO SCH (09:17)
[2019-02-17] MEDS: Clopidogrel TAB* 75 MG PO SCH (09:17)
[2019-02-17] MEDS: Cholecalciferol TAB* 1000 UNITS PO SCH (09:17)
[2019-02-17] MEDS: Amiodarone TAB* 200 MG PO SCH (09:17)
[2019-02-17] MEDS: Aspirin EC TAB* 81 MG TAB.EC PO SCH (09:17)
[2019-02-17] MEDS: Docusate CAP* 100 MG PO SCH ×2 (09:17→21:07)
[2019-02-17] MEDS: Allopurinol TAB* 100 MG PO SCH (09:18)
[2019-02-17] MEDS: Torsemide TAB 10 MG PO SCH ×2 (09:18→21:07)
[2019-02-17] MEDS: Carvedilol TAB* 3.125 MG PO SCH ×2 (09:18→21:07)
--- NOTE | 2019-02-17 09:34 | PN ---
Subjective Date of Service: 02/17/19 Interval History: HOSPITALIST PROGRESS NOTE Patient seen and examined at bedside. Care reviewed and d/w Seda Gil RN. Last night events noted - "229 this television script writer in to check on patient. Patient noted to have taken oxygen off. Oxygen reapplied and increased from 13 L to 15 L. VS obtained: oxygen saturation 86%, HR 68, BP 143/62, RR 22, temperature 97.4 F." Some improvement after receiving Morphine. This AM, "patient was hallucinating, saying "do you see the boy in the corner".? " seeing people in her room and speaking of the "child they are adopting is going to ". When I saw her, she was angry we were "bothering her". Offered no complaints and "I just want to be alone". Family History: Unchanged from Admission Social History: Unchanged from Admission Past Medical History: Unchanged from Admission Objective Active Medications: Albuterol (Ventolin 2.5 Mg/3 Ml Neb.Lary*) 2.5 mg INH Q2H PRN PRN Reason: SOB/WHEEZING Allopurinol (Zyloprim Tab*) 100 mg PO DAILY [facility] Last Admin: 02/17/19 09:18 Dose: 100 mg Amiodarone HCl (Cordarone Tab*) 200 mg PO DAILY [facility] Last Admin: 02/17/19 09:17 Dose: 200 mg Aspirin (Aspirin Ec Tab*) 81 mg PO DAILY [facility] Last Admin: 02/17/19 09:17 Dose: 81 mg Carvedilol (Coreg Tab*) 3.125 mg PO BID [facility] Last Admin: 02/17/19 09:18 Dose: 3.125 mg Cholecalciferol (Vitamin D Tab*) 1,000 units PO DAILY [facility] Last Admin: 02/17/19 09:17 Dose: 1,000 units Clopidogrel Bisulfate (Plavix Tab*) 75 mg PO DAILY [facility] Last Admin: 02/17/19 09:17 Dose: 75 mg Dextrose (D50w Syringe 50 Ml*) 12.5 gm IV PUSH .FOR FS < 60 - SS PRN PRN Reason: FS < 60 Docusate Sodium (Colace Cap*) 100 mg PO BID [facility] Last Admin: 02/17/19 09:17 Dose: 100 mg Gabapentin (Neurontin Cap(*)) 200 mg PO BEDTIME [facility] Last Admin: 02/16/19 21:12 Dose: 200 mg Hydralazine HCl (Apresoline Tab*) 10 mg PO TID [facility] Last Admin: 02/17/19 09:17 Dose: 10 mg Insulin Glargine (Lantus(*)) 10 units SUBCUT QPM [facility] Last Admin: 02/16/19 18:18 Dose: 10 units Insulin Human Lispro (Humalog*) 0 units SUBCUT AC [facility]; Protocol Last Admin: 02/17/19 08:11 Dose: Not Given Isosorbide Mononitrate (Imdur Er Tab*) 30 mg PO DAILY [facility] Last Admin: 02/17/19 09:17 Dose: 30 mg Lorazepam (Ativan Inj*) 1 mg IV PUSH Q4H PRN PRN Reason: ANXIETY Magnesium Oxide (Magox 400 Tab*) 400 mg PO DAILY [facility] Last Admin: 02/17/19 09:17 Dose: 400 mg Miscellaneous (Ativan Pyxis Uriostegui) 1 ea N/A .ATIVAN IV URIOSTEGUI PRN PRN Reason: PYXIS URIOSTEGUI Morphine Sulfate (Morphine 4 Mg/Ml Vial (1 Ml)) 4 mg IV Q4H PRN PRN Reason: DISCOMFORT Last Admin: 02/17/19 02:46 Dose: 4 mg Nystatin (Nystatin Oint*) 1 applic TOPICAL BID [facility] Last Admin: 02/16/19 23:21 Dose: Not Given Ondansetron HCl (Zofran Odt Tab*) 4 mg SL Q6H PRN PRN Reason: NAUSEA/VOMITING Last Admin: 02/15/19 02:11 Dose: 4 mg Ondansetron HCl (Zofran Inj*) 4 mg IV Q8H PRN PRN Reason: NAUSEA Last Admin: 02/16/19 21:13 Dose: 4 mg Polyethylene Glycol/Electrolytes (Miralax*) 17 gm PO DAILY PRN PRN Reason: CONSTIPATION Last Admin: 02/03/19 01:04 Dose: 17 gm Senna (Senokot Tab*) 2 tab PO BEDTIME PRN PRN Reason: CONSTIPATION Last Admin: 02/15/19 03:21 Dose: 2 tab Torsemide (Torsemide) 30 mg PO BID [facility] Last Admin: 02/17/19 09:18 Dose: 30 mg Trazodone HCl (Desyrel Tab*) 100 mg PO BEDTIME [facility] Last Admin: 02/16/19 21:55 Dose: Not Given Vital Signs - 8 hr 02/17/19 02/17/19 02/17/19 02:29 02:46 03:50 Temperature 97.4 F Pulse Rate 68 Respiratory 22 20 18 Rate Blood Pressure 143/62 (mmHg) O2 Sat by Pulse 86 Oximetry 02/17/19 08:20 Temperature 97.1 F Pulse Rate 61 Respiratory 16 Rate Blood Pressure 109/65 (mmHg) O2 Sat by Pulse 96 Oximetry Oxygen Devices in Use Now: Nasal Cannula - 15 liters Appearance: Elderly lady lying in bed in no respiratory distress, but diaphoretic. Hair is drenched in sweat. Eyes: No Scleral Icterus Ears/Nose/Mouth/Throat: Mucous Membranes Moist Neck: Trachea Midline Respiratory: Symmetrical Chest Expansion and Respiratory Effort, - - BS+ bilaterally with bibasilar crackles Cardiovascular: RRR - Normal S1 and S2, +SM Extremities: - - S/p right AKA Neurological: - - AAOx2 (self and place), DAVIDSON Result Diagrams: 02/15/19 05:50 02/17/19 06:05 Assess/Plan/Problems-Billing Assessment: Mrs Munoz is a 78 yo F with a complex PMH that inclues PVD s/p right AKA, CKD stage IV (GFR 20), type 2 diabetes, PE on Xarelto, systolic heart failure with EF 20-25% who presented to the ED on 02/01 with one month of shortness of breath and was found to have an NSTEMI and acute on chronic systolic heart failure. A LHC has been deferred due to her refusal to consider HD and the possibility of contrast nephropathy. Has had a complicated and prolonged hospital stay with multiple transfers to ICU. - Patient Problems (1) Metabolic alkalosis with respiratory acidosis Comment: - Patient's ABG reveals metabolic alkalosis with respiratory acidosis. - Suspect her alkalosis is secondary to her hypochloremia. - She was diuresed and lost Na and Cl, and was drinking >2 liters of free water. - D/w Dr Clarke - recommended repleting with normal saline, but she was already dyspneic last night, so there is concern her respiratory status will worsen. Plan to transfer her back to ICU. (2) Delirium Comment: - Suspect multifactorial in the setting of prolonged hospital admission , ICU stay, metabolic dearrangements. - Continue supportive care. (3) Acute on chronic systolic (congestive) heart failure Comment: - Echo showed EF 20-25% with severe diffuse hypokinesis with multiple regional wall motion abnormalities and moderate MR, down from 40-45% from 2014. MR is also new. - Likely secondary to CAD with ischemic CMP being the major cdl b driver, but not candidate for heart cath due to CKD stage 4 and at this point she's not agreeable with dyalisis. - Continue Aspirin, Plavix, Coreg, Imdur, Hydralazine. - Could not tolerate statins - Not on CIHOMA/ARB due to acute on chronic renal failure. (4) Non-sustained ventricular tachycardia Comment: - Continue Amiodarone. (5) DM2 (diabetes mellitus, type 2) Comment: - Controlled. - Hb A1c is 7.1. - Continue Lantus and Lispro SS. (6) Full code status Comment: - D/w daughter at bedside - mother would want CPR, but not intubation. I don't think the patient has the capacity to make this decision at this time. Further discussions will be needed with HCP (daughter and son), to better delineate her wishes. Status and Disposition: Inpatient. Transfer to ICU.
[2019-02-17] MEDS: Nystatin OINT* 15 GM TOPICAL SCH ×2 (09:55→21:31)
[2019-02-17] MEDS ORDERED: NS 0.9% 1000 ML** 1,000 ML IV SCH (11:00)
[2019-02-17] MEDS: KCL 20 MEQ/100 ML IVPREMIX* 20 MEQ/100 ML BAG IV SCH ×2 (11:42→13:59)
[2019-02-17] MEDS: Potassium Chloride* LIQUID 20 MEQ/15 ML UDC PO SCH ×2 (14:37→21:07)
--- NOTE | 2019-02-17 16:56 | PN ---
Date of Service: 02/17/19 Critical Care Services: Returns to ICU because of confusion. Continues to have a severe hypochloremic metabolic alkalosis. Vital Signs: Temp Pulse Resp BP SpO2 FiO2 97.6 F 63 23 121/62 90 99 Physical Exam: Gen: Alert but not oriented to time Lungs: Scaterred rhonchi Extremities: No cyanosis or edema Fluid Balance (Past 24 Hours): 02/15/19 02/16/19 02/17/19 06:59 06:59 06:59 Intake Total 3122 783 377 Output Total 3385 2740 1450 Balance -263 -1956107 Weight 202 lb 13.204 oz 198 lb 6.656 oz Intake: IV Fluids NS (0.9%) IVPB NS (0.9%) Medicated IV 563 303 377 heparin 563 303 377 Heparin 399 Oral 2160 480 Output: Urine 365 370 Cheney 3020 [id number] 1450 Other: Date of Last Bowel 02/14/19 Movement # Bowel Movements 1 3 Estimated Stool Amount Large Large # Voids 6 Labs: 02/17/19 02/17/19 06:05 07:43 ABG pH 7.53 H ABG pCO2 65 H ABG pO2 70 L ABG HCO3 45.7 ABG O2 Saturation 97.1 ABG Base Excess 26.7 H O2 Delivery Device 15 L hfnc Sodium 120 Potassium 3.0 Chloride 68 Carbon Dioxide 43 Anion Gap 9 BUN 90 Creatinine 3.14 Glucose 104 H POC Glucose (mg/dL) Calcium 9.8 Studies: None Nutrition: Oral feeding Impression: 1. Hospital-related delirium - this is unlikely to be related to the hyponatremia 2. Hyponatremia 3. Hyoochloremic metabolic alkalosis Plan: Infuse chloride (as NaCL and KCL) to correct alkalosis. Fluid restrict to correct hy[ponatremia. Sedate as needed for the delirium. Critical Care Time: 40 minutes
[2019-02-17] MEDS: Insulin GLARGINE(*) 1 UNITS UNIT SUBCUT SCH (18:06)
[2019-02-17] MEDS: traZODone TAB* 100 MG PO SCH (21:06)
[2019-02-17] MEDS: Gabapentin CAP(*) 100 MG PO SCH (21:07)
[2019-02-17 23:05] LABS: BUN/Creatinine Ratio 29.3 (8-20); Calcium 9.8 mg/dL (8.6-10.3); EGFR African American 19.7 (>60); EGFR Non-African American 16.3 (>60); Potassium 4.3 mmol/L (3.5-5.0)
[2019-02-18] MEDS ORDERED: Furosemide IV* 10 MG/ML VIAL (40 MG) IV ONE (03:04)
[2019-02-18 04:04] LABS: Hematocrit 32 % (35-47); Hemoglobin 10.6 g/dL (12.0-16.0); Mean Corpuscular HGB Conc 34 g/dL (31-36); Mean Corpuscular Hemoglobin 27 pg (27-31); Mean Corpuscular Volume 79 fL (80-97); Mean Platelet Volume 7.1 fL (7.4-10.4); Platelet Count 270 10^3/uL (150-450); Red Blood Count 3.99 10^6 /uL (3.70-4.87); Red Cell Distribution Width 16 % (10-15); White Blood Count 8.4 10^3/uL (3.5-10.8)
[2019-02-18 04:07] LABS: Urine Appearance Turbid; Urine Bacteria Absent (Absent); Urine Bilirubin Negative (Negative); Urine Blood 2+ (Negative); Urine Color Yellow; Urine Glucose Negative (Negative); Urine Ketones Negative (Negative); Urine Nitrite Negative (Negative); Urine Protein 2+(100 mg/dL) (Negative); Urine Red Blood Cell 3+(>10/hpf) (Absent); Urine Specific Gravity 1.006 (1.010-1.030); Urine Urobilinogen Negative (Negative); Urine White Blood Cell 3+(>20/hpf) (Absent)
[2019-02-18 04:19] LABS: BUN/Creatinine Ratio 26.6 (8-20); Calcium 10.1 mg/dL (8.6-10.3); EGFR African American 17.4 (>60); EGFR Non-African American 14.4 (>60); Potassium 4.2 mmol/L (3.5-5.0)
[2019-02-18] MEDS: Morphine 4 MG/ML VIAL (1 ml) 4 MG/ML VIAL IV PRN (06:35)
[2019-02-18] MEDS ORDERED: NS 0.9% 500 ML* 500 ML IV ONE ×2 (08:28→14:00)
[2019-02-18] MEDS: Insulin LISPRO* 1 UNITS UNIT SUBCUT SCH ×3 (08:45→16:17)
[2019-02-18] MEDS: hydrALAZINE TAB* 10 MG PO SCH ×3 (11:25→21:45)
[2019-02-18] MEDS: Allopurinol TAB* 100 MG PO SCH (11:25)
[2019-02-18] MEDS: Isosorbide Mononitrate ER TAB* 30 MG PO SCH (11:25)
[2019-02-18] MEDS: Carvedilol TAB* 3.125 MG PO SCH ×2 (11:26→21:45)
[2019-02-18] MEDS: Clopidogrel TAB* 75 MG PO SCH (11:26)
[2019-02-18] MEDS: Magnesium Oxide TAB* 400 MG PO SCH (11:26)
[2019-02-18] MEDS: Aspirin EC TAB* 81 MG TAB.EC PO SCH (11:26)
[2019-02-18] MEDS: Amiodarone TAB* 200 MG PO SCH (11:26)
[2019-02-18] MEDS: Docusate CAP* 100 MG PO SCH ×2 (11:41→21:45)
[2019-02-18] MEDS: Cholecalciferol TAB* 1000 UNITS PO SCH (11:41)
[2019-02-18] MEDS: Nystatin OINT* 15 GM TOPICAL SCH ×2 (14:26→21:45)
[2019-02-18] MEDS ORDERED: Piperacillin/Tazobac ADVAN(*) 3.375 GM in NS 0.9% 100 ML* 100 ML IVPB ONE (15:21)
[2019-02-18] MEDS ORDERED: NS 0.9% 1000 ML** 1,000 ML IV SCH (15:30)
--- NOTE | 2019-02-18 15:41 | PN ---
Date of Service: 02/18/19 Critical Care Services: Continues to be more confused - urinalysis consistent with UTI. Vital Signs: Temp Pulse Resp BP SpO2 FiO2 98.7 F 69 14 119/53 90 70 Physical Exam: Gen:Awake but confused HEENT: Lungs: Clear Cardiac: Reg rhythm Left Leg: Warm. No cyanosis or edema. Fluid Balance (Past 24 Hours): 02/16/19 02/17/19 02/18/19 06:59 06:59 06:59 Intake Total 747 250 9749 Output Total 2740 1450 1555 Balance -1956 Intake: IV Fluids 445 NS (0.9%) 445 IVPB 110 NS (0.9%) 110 Medicated IV 303 377 heparin 303 377 Oral 480 740 Output: Urine 370 Cheney 2370 1450 1555 Other: # Bowel Movements 1 3 Estimated Stool Amount Large Large # Voids 6 Labs: 02/17/19 02/17/19 02/17/19 16:59 20:58 22:41 WBC RBC Hgb Hct MCV MCH MCHC RDW Plt Count MPV Sodium 119 L* Potassium 4.3 Chloride 69 L Carbon Dioxide 40 H Anion Gap 10 BUN 82 H Creatinine 2.80 H Est GFR ( Amer) 19.7 Est GFR (Non-Af Amer) 16.3 BUN/Creatinine Ratio 29.3 H Glucose 110 H POC Glucose (mg/dL) 133 H 93 Lactic Acid Calcium 9.8 Urine Color Urine Appearance Urine pH Ur Specific [place] Urine Protein Urine Ketones Urine Blood Urine Nitrate Urine Bilirubin Urine Urobilinogen Ur Leukocyte Esterase Urine WBC (Auto) Urine RBC (Auto) Urine Bacteria Urine Yeast Urine Glucose 02/18/19 02/18/19 02/18/19 03:44 03:44 03:44 WBC 8.4 RBC 3.99 Hgb 10.6 L Hct 32 L MCV 79 L MCH 27 MCHC 34 RDW 16 H Plt Count 270 MPV 7.1 L Sodium 118 Potassium 4.2 Chloride 69 Carbon Dioxide 38 Anion Gap 11 BUN 83 Creatinine 3.12 Glucose 106 H POC Glucose (mg/dL) Lactic Acid 1.1 Calcium 10.1 Urine Color Urine Appearance Urine pH Ur Specific [place] Urine Protein Urine Ketones Urine Blood Urine Nitrate Urine Bilirubin Urine Urobilinogen Ur Leukocyte Esterase Urine WBC (Auto) Urine RBC (Auto) Urine Bacteria Urine Yeast Urine Glucose 02/18/19 02/18/19 02/18/19 03:55 08:44 11:40 WBC RBC Hgb Hct MCV MCH MCHC RDW Plt Count MPV Sodium Potassium Chloride Carbon Dioxide Anion Gap BUN Creatinine Est GFR ( Amer) Est GFR (Non-Af Amer) BUN/Creatinine Ratio Glucose POC Glucose (mg/dL) 107 H 114 H Lactic Acid Calcium Urine Color Yellow Urine Appearance Turbid Urine pH 6.0 Ur Specific [place] 1.006 L Urine Protein 2+(100 mg/dl) A Urine Ketones Negative Urine Blood 2+ A Urine Nitrate Negative Urine Bilirubin Negative Urine Urobilinogen Negative Ur Leukocyte Esterase 3+ A Urine WBC (Auto) 3+(>20/hpf) A Urine RBC (Auto) 3+(>10/hpf) A Urine Bacteria Absent Urine Yeast Present A Urine Glucose Negative Studies: CXR: No change from prior film. No evidence of CHF Nutrition: Oral diet - intake poor. Impression: A. Increasing confusion - possible sources are: 1. Low intravascular volume 2. Urosepsis 3. Hyponatremia B. WILMER - most likely has a major prerenal component. Plan: 1. IV fluids (0.9% NaCL) at 125 ml/hr 2. Empiric Rx with PIP/TAZO No 3% NaCL for now. Considering patient's tenuous hospital course, prognosis is poor for return to independent living. I have discussed this with the family, and they will consider comfort measures if patient does not improve. They signed a DNR/DNI order today. Critical Care Time: 40 minutes
[2019-02-18] MEDS ORDERED: Zosyn per Pharmacy* NOTE FOLLOW UP SCH (16:00)
[2019-02-18] MEDS: Insulin GLARGINE(*) 1 UNITS UNIT SUBCUT SCH (18:46)
[2019-02-18] MEDS: Gabapentin CAP(*) 100 MG PO SCH (21:45)
[2019-02-18] MEDS: traZODone TAB* 100 MG PO SCH (21:45)
[2019-02-19] MEDS: Morphine 4 MG/ML VIAL (1 ml) 4 MG/ML VIAL IV PRN (03:15)
[2019-02-19] MEDS ORDERED: HYDROmorphone INJ1* 1 MG/ML SYRINGE IV SLOW PU PRN (05:21)
[2019-02-19 05:41] LABS: Hematocrit 31 % (35-47); Hemoglobin 10.4 g/dL (12.0-16.0); Mean Corpuscular HGB Conc 34 g/dL (31-36); Mean Corpuscular Hemoglobin 27 pg (27-31); Mean Corpuscular Volume 80 fL (80-97); Mean Platelet Volume 7.1 fL (7.4-10.4); Platelet Count 215 10^3/uL (150-450); Red Blood Count 3.83 10^6 /uL (3.70-4.87); Red Cell Distribution Width 16 % (10-15); White Blood Count 9.5 10^3/uL (3.5-10.8)
[2019-02-19 05:56] LABS: BUN/Creatinine Ratio 26.2 (8-20); Calcium 9.6 mg/dL (8.6-10.3); EGFR African American 18.1 (>60); EGFR Non-African American 14.9 (>60); Potassium 3.9 mmol/L (3.5-5.0)
[2019-02-19] MEDS ORDERED: ZOSYN 3.375 GM Q12H per EXTENDED INFUSION IVPB SCH ×2 (06:00)
[2019-02-19] MEDS ORDERED: Morphine 10 MG/ML VIAL (1 ml) IV ONE (09:00)
[2019-02-19] MEDS ORDERED: Morphine PCA ADULT* 5 MG/ML 30 ML PCA SCH (09:00)
[2019-02-19] MEDS ORDERED: LORazepam VIAL (for drip)* 100 MG in D5W 50 ML BAG* 50 ML IV SCH (09:00)
[2019-02-19] MEDS ORDERED: LORazepam INJ* 2 MG/ML 1 ML VIAL IV PUSH ONE (09:00)
[2019-02-19] MEDS ORDERED: Lorazepam PYXIS KEY ONE (09:02)
[2019-02-19 09:56] VITALS: BP 114/54
[2019-02-19] MEDS: Insulin LISPRO* 1 UNITS UNIT SUBCUT SCH (10:06)
--- NOTE | 2019-02-19 13:30 | DS ---
SUMMARY: DATE OF ADMISSION: 02/01/19 DATE OF : 02/19/19 HOSPITAL COURSE: This patient is a 78-year-old woman with a history of diabetes , peripheral vascular disease (status post right AK amputation) who was admitted on 02/01/19 with increasing shortness of breath. The patient was found to be in pulmonary edema and also had elevated troponins without EKG changes and the diagnosis of a non-STEMI was made. The patient developed acute kidney injury, which was believed secondary to the NSTEMI. During the patient' s hospitalization, there were intermittent periods of confusion particularly at night. The patient was transferred out of the intensive care unit on 02/14/19, but developed increasing confusion on the floor and was brought back to the ICU on 02/17/19. After returning to the intensive care unit, the patient showed progressive confusion and urinalysis was consistent with urinary tract infection and the patient was started on empiric antibiotic treatment with Zosyn. Cultures subsequently revealed E. coli in the urine and E. coli and Proteus in the blood. Because of the prolonged hospital course and the progressive confusion, the prognosis for recovery of independent function was felt to be poor and based on this, the family made the patient a DNR/DNI. Subsequent to this, because the patient was not improving, the family also opted for comfort measures, which was instituted in the a.m. of 02/19/19. Shortly thereafter, the patient lost pulses and spontaneous breathing efforts and was pronounced at 11: 45 a.m. on 02/19/19. Family was present at the bedside and an autopsy was denied. FINAL DIAGNOSES: 1. [id number] myocardial infarction. 2. Acute kidney injury. 3. Urinary tract infection with Gram-negative septicemia. 4. Septic encephalopathy. 5. Type II Diabetes. 6. Peripheral vascular disease: s/p right AK amputation. TIME SPENT: Approximately 70 minutes were spent with this patient and the family on the day of the patient's . [id number]/[facility] #: [id number] MTDD
== END 2019-02-19 11:45 | disposition expired ==
LOC: ED 15:21 → MEDTELE 18:36 → ICU 02-02 12:15 → MEDTELE 02-04 13:00 → ICU 02-08 02:22 → MEDTELE 02-16 16:42 → ICU 02-17 09:35
PROVIDERS: ADMIT Internal Medicine; ATTEND Internal Medicine Critical Care Medicine
PROC: 5A09357 Assistance with Respiratory Ventilation, Less than 24 Consecutive Hours, Continuous Positive Airway Pressure (ICD-10-PCS; principal; 2019-02-08)
DX: I21.4 Non-ST elevation (NSTEMI) myocardial infarction (principal); I50.23 Acute on chronic systolic (congestive) heart failure; J96.01 Acute respiratory failure with hypoxia; G93.41 Metabolic encephalopathy; A41.89 Other specified sepsis; N17.9 Acute kidney failure, unspecified; I13.0 Hypertensive heart and chronic kidney disease with heart failure and stage 1 through stage 4 chronic kidney disease, or unspecified chronic kidney disease; N18.4 Chronic kidney disease, stage 4 (severe); E87.1 Hypo-osmolality and hyponatremia; E87.3 Alkalosis; F05 Delirium due to known physiological condition; E87.2 Acidosis; I47.2 Ventricular tachycardia; N39.0 Urinary tract infection, site not specified; E11.51 Type 2 diabetes mellitus with diabetic peripheral angiopathy without gangrene; E03.9 Hypothyroidism, unspecified; I25.10 Atherosclerotic heart disease of native coronary artery without angina pectoris; I44.7 Left bundle-branch block, unspecified; K58.1 Irritable bowel syndrome with constipation; M19.90 Unspecified osteoarthritis, unspecified site; E83.52 Hypercalcemia; I25.5 Ischemic cardiomyopathy; M10.9 Gout, unspecified; E11.22 Type 2 diabetes mellitus with diabetic chronic kidney disease; E11.36 Type 2 diabetes mellitus with diabetic cataract; E66.9 Obesity, unspecified; Z89.611 Acquired absence of right leg above knee; Z90.710 Acquired absence of both cervix and uterus; Z83.3 Family history of diabetes mellitus; Z86.711 Personal history of pulmonary embolism; Z88.6 Allergy status to analgesic agent; Z88.4 Allergy status to anesthetic agent; Z88.8 Allergy status to other drugs, medicaments and biological substances; Z68.35 Body mass index [BMI] 35.0-35.9, adult; Z86.718 Personal history of other venous thrombosis and embolism; Z87.891 Personal history of nicotine dependence; Z82.49 Family history of ischemic heart disease and other diseases of the circulatory system; Z82.3 Family history of stroke; K62.89 Other specified diseases of anus and rectum; D64.9 Anemia, unspecified; E87.6 Hypokalemia; Z66 Do not resuscitate
CPT/HCPCS: 36415; 36600; 71045; 71046; 71250; 76604; 78451; 80048; 80053; 81003; 81015; 82306; 82330; 82803; 82947; 83036; 83605; 83735; 83880; 84443; 84484; 84550; 85025; 85027; 85379; 85610; 85730; 87040; 87077; 87086; 87186; 87205; 87641; 93005; 93306; 94660; 99284; A9270-GY; A9502; C8929; G8978-GP-CK; G8979-GP-CI; G8979-GP-CJ; J0282; J1170; J1644; J1940; J2060; J2270; J2405; J2543; J3475; J3480